=== PATIENT | female | born 1985 | race Caucasian/White ===

== ENCOUNTER 2018-04-26 10:02 | Emergency (ER) | payer OTHER, SELFPAY ==
[2018-04-26 10:09] VITALS: BP 149/98; PULSE 76; RESP 18; TEMP 36.8; O2SAT 100
--- NOTE | 2018-04-26 10:17 | ED_ITS ---
HPI - Nausea/Vomiting/Diarrhea General Chief complaint: Nausea/Vomiting/Diarrhea Stated complaint: Nausea/Vomiting Time Seen by Provider: 04/26/18 10:14 Source: patient and EMS Mode of arrival: ambulatory Limitations: no limitations History of Present Illness HPI Narrative: Patient is a 33-year-old female who presents with vomiting. She has a history of cyclic vomiting he has been worked up for it many times in the past she is usually able to control at home however today she is not. She did receive Zofran in route which has helped some. This came on all of a sudden, as it typically does. She denies any fever or chills. MD complaint: nausea, vomiting and abdominal pain Related Data Previous Rx's Medication Instructions Recorded promethazine 25 mg PO Q4-6H PRN #14 tab 04/26/18 promethazine 25 mg [place] Q6H PRN #5 each 04/26/18 Allergies Allergy/AdvReac Type Severity Reaction Status Date / Time No Known Drug Allergies Allergy Verified 04/26/18 10:13 Review of Systems Review of Systems GENERAL: Denies chills, fatigue, malaise, fever, sweats, travel HEENT: Denies sinus pain, ear pain, sore throat, difficulty swallowing, neck pain RESPIRATORY: Denies dyspnea, cough, wheezing, hemoptysis, sputum. CARDIOVASCULAR: Denies chest pain, palpitations, orthopnea, edema GASTROINTESTINAL: See HPI : Denies dysuria, frequency, incontinence, hematuria, urinary retention, flank pain. MUSCULOSKELETAL: Denies weakness, joint pain, or bony pain SKIN: No rash, no erythema, no pruritus NEUROLOGIC: Denies weakness, dizziness, headache, numbness, change in speech, confusion PSYCHIATRIC: No concerning psychosocial issues. 12 point review of systems is negative except for those stated above and HPI PFSH Medical History Cyclic vomiting syndrome (Acute) Surgical History Status post hysterectomy (Acute) Social History Smoking Status: Never smoker alcohol intake: never substance use type: does not use Exam Initial Vital Signs Initial Vital Signs: Vital Signs Temperature 98.2 F 04/26/18 10:09 Pulse Rate 76 04/26/18 10:09 Respiratory Rate 18 04/26/18 10:09 Blood Pressure 149/98 H 04/26/18 10:09 Pulse Oximetry 100 04/26/18 10:09 GENERAL: Actively dry heaving HEENT: Head atraumatic,EOMI, pupils reactive, face symmetric, dry mucous membranes CARDIOVASCULAR: Regular rate and rhythm without murmurs, rubs or gallops. RESPIRATORY: Breath sounds equal bilaterally, no wheezes rales or rhonchi. ABDOMEN: Soft, diffusely tender : No CVA tenderness EXTREMITIES: Normal range of motion, no clubbing or edema. Neurovascularly intact NEUROLOGICAL: Alert and oriented x4.Normal gait and speech. Cranial nerves II through XII grossly intact. SKIN: Warm, dry, no laceration, no petechiae, no rashes or lesions. Course Orders Ordered: Discontinued Medications Sodium Chloride (Normal Saline 0.9%) 1,000 mls @ 1,000 mls/hr IV CONT PRADEEP Last Infusion: 04/26/18 12:17 Dose: 0 mls/hr Admin: 04/26/18 10:20 Dose: 1,000 mls/hr Sodium Chloride (Normal Saline 0.9%) 1,000 mls @ 1,000 mls/hr IV BOLUS ONE Stop: 04/26/18 14:50 Last Infusion: 04/26/18 15:19 Dose: 0 mls/hr Admin: 04/26/18 13:55 Dose: 1,000 mls/hr Metoclopramide HCl (Reglan) 10 mg IV NOW ONE Stop: 04/26/18 10:22 Last Admin: 04/26/18 10:44 Dose: 10 mg Ondansetron HCl (Zofran) 4 mg IV NOW ONE Stop: 04/26/18 10:16 Last Admin: 04/26/18 10:20 Dose: 4 mg Prochlorperazine (Compazine) 10 mg IV NOW ONE Stop: 04/26/18 12:49 Last Admin: 04/26/18 13:05 Dose: 10 mg Vital Signs - 8 hr 04/26/18 10:09 Temperature 98.2 F Pulse Rate 76 Respiratory Rate 18 Blood Pressure 149/98 H Pulse Oximetry 100 MDM - Nausea/Vomiting/Diarrhea Lab Data Attestation: I reviewed the patient's lab results. Result diagrams: 04/26/18 12:28 04/26/18 12:28 Lab Results 04/26/18 04/26/18 04/26/18 Range/Units 12:28 12:28 15:25 WBC 12.0 H (4.5-11.0) X10^3/uL RBC 4.48 (4.0-5.2) X10^6/uL Hgb 12.9 (12.0-16.0) g/dL Hct 38.7 (36-46) % MCV 86.3 (80-100) fL MCH 28.8 (26-34) PG MCHC 33.4 (30-36) % RDW 12.5 (11.6-14.8) % Plt Count 306 (150-400) X10^3/uL Neut % (Auto) 91.8 H (50-75) % Lymph % (Auto) 5.6 L (25-40) % [place] % (Auto) 2.4 L (3-14) % Eos % (Auto) 0.0 L (2-4) % Baso % (Auto) 0.2 (0-2) % Neut # (Auto) 81453 H (2910-5123) /uL Sodium 145 (137-145) mmol/L Potassium 3.6 (3.4-5.1) mmol/L Chloride 107 (98-107) mmol/L Carbon Dioxide 25 (22-32) mmol/L BUN 13 (7-17) mg/dL Creatinine 0.60 (0.52-1.04) mg/dL Estimated GFR > 60.0 (>60) mL/min BUN/Creatinine Ratio 21.7 (6-22) Glucose 112 H (70-100) mg/dL Calcium 9.1 (8.4-10.2) mg/dL Total Bilirubin 0.7 (0.2-1.3) mg/dL AST 41 H (14-36) IU/L ALT 48 (9-52) IU/L Alkaline Phosphatase 60 (38-126) U/L Total Protein 7.2 (6.3-8.2) g/dL Albumin 4.5 (3.5-5.0) g/dL Globulin 2.7 (1.7-4.1) g/dL Albumin/Globulin Ratio 1.7 (1.0-2.8) Lipase 30 (23-300) U/L Urine RBC 0-1/hpf (0-5/HPF) Urine WBC 0-1/hpf (0-5/HPF) Ur Squamous Epith Cells 0-1 /hpf Urine Bacteria None seen (None) Ur Culture Indicated? Cult not indicated Micro UA Comment Not Reportable Point of Care Testing Test Results Negative Glucose POC 104 Urine Dip Bedside Urine Glucose Negative Bedside Urine Bilirubin - Negative Bedside Urine Ketone +++ 80 Urine Specific [place] 1.030 Bedside Urine Occult Blood + Bedside Urine pH 6.0 Bedside Urine Protein - Negative Bedside Urine Urobilinogen - Negative Bedside Urine Nitrite - Negative Bedside Urine Leukocytes - Negative Esterase MDM Narrative Medical decision making narrative: Patient tried keeping water and ice chips down after 1st L however she immediately started vomiting again. She was given Compazine which typically helps. And it did she was able to sleep she is keeping fluids down she overall now feeling better and wanting to go home Discharge Plan Departure Patient Disposition: Home Clinical Impression: Cyclical vomiting Discharge Date/Time: 04/26/18 16:21 Interventions: ED Discharge Assessment Last Done: 04/26/18 16:21 Instructions: DI for Cyclic Vomiting Syndrome-Child Activity Restrictions/Additional Instructions: 1) You have been diagnosed with cyclic vomiting 2) What to do: Drink frequent but small amounts of fluids. I recommend Gatorade or a Gatorade-like product, as it has small amounts of sugar and salts that improve fluid retention. 3) Take medications as directed 4) Follow up with your primary care provider in 2-3 days 5) Return to ER if you should have any new or worsening symptoms such as, unable to hold down fluids despite use of anti-nausea medications and the small volume oral rehydration strategy. Prescriptions: New promethazine 25 mg suppository 25 mg [place] Q6H PRN (Reason: nausea and vomiting) Qty: 5 RF: 0 promethazine 25 mg tablet 25 mg PO Q4-6H PRN (Reason: nausea and vomiting) Qty: 14 RF: 0
[2018-04-26] MEDS: ONDANSETRON 4 MG/2 ML INJ IV (10:20)
[2018-04-26] MEDS: SODIUM CHLORIDE 0.9% 1,000 ML 1000 ML IV ×2 (10:20→13:55)
[2018-04-26] MEDS: METOCLOPRAMIDE 10 MG/2 ML INJ IV (10:44)
[2018-04-26 12:57] LABS: Add Manual Diff / Slide Review NO; Basophils Percent Auto 0.2 % (0-2); Hematocrit 38.7 % (36-46); Hemoglobin 12.9 g/dL (12.0-16.0); Lymphocytes Percent Auto 5.6 % (25-40); Mean Corpuscular HGB Conc 33.4 % (30-36); Mean Corpuscular Hemoglobin 28.8 PG (26-34); Mean Corpuscular Volume 86.3 fL (80-100); Monocytes Percent Auto 2.4 % (3-14); Neutrophils Absolute Auto 11000 /uL (3000-5900); Neutrophils Percent Auto 91.8 % (50-75); Platelet Count 306 X10^3/uL (150-400); Red Blood Cell Count 4.48 X10^6/uL (4.0-5.2); Red Cell Distribution Width 12.5 % (11.6-14.8)
[2018-04-26] MEDS: PROCHLORPERAZINE 10 MG/2 ML VIAL IV (13:05)
[2018-04-26 13:07] LABS: Alanine Aminotransferase 48 IU/L (9-52); Albumin 4.5 g/dL (3.5-5.0); Albumin Globulin Ratio 1.7 (1.0-2.8); Alkaline Phosphatase 60 U/L (38-126); Aspartate Aminotransferase 41 IU/L (14-36); BUN Creatinine Ratio 21.7 (6-22); Bilirubin Total 0.7 mg/dL (0.2-1.3); Blood Urea Nitrogen 13 mg/dL (7-17); Calcium 9.1 mg/dL (8.4-10.2); Carbon Dioxide 25 mmol/L (22-32); Chloride 107 mmol/L (98-107); Estimated Glomerular Filt Rate > 60.0 mL/min (>60); Globulin 2.7 g/dL (1.7-4.1); Glucose 112 mg/dL (70-100); HEMOLYSIS 17 (0-50); Lipase 30 U/L (23-300); Potassium 3.6 mmol/L (3.4-5.1); Sodium 145 mmol/L (137-145); Total Protein 7.2 g/dL (6.3-8.2)
[2018-04-26 13:13] VITALS: BP 140/87; PULSE 73; RESP 18; TEMP 36.6; O2SAT 98
--- NOTE | 2018-04-26 13:24 | PC.NURSE ---
pt vomiting after small PO intake
[2018-04-26 15:36] LABS: Bacteria Urine None Seen
[2018-04-26 15:58] LABS: Culture Indicated Urine Cult Not Indicated; RBC Urine 0-1/HPF (0-5/HPF); Squamous Epithelial Cell Urine 0-1 /HPF; WBC Urine 0-1/HPF (0-5/HPF)
[2018-04-26 16:00] VITALS: BP 122/79; PULSE 71; O2SAT 97
== END 2018-04-26 16:21 | disposition home or self-care (01) ==
PROVIDERS: Emergency Provider Emergency Medicine
DX: G43.A0 Cyclical vomiting, in migraine, not intractable (principal)
CPT/HCPCS: 36415; 80053; 81003; 81015; 81025; 83690; 85025; 96361; 96374; 96375; 99283; 99284; J0780; J2405; J2765

== ENCOUNTER 2018-06-24 09:46 | Emergency (ER) | payer OTHER, SELFPAY ==
[2018-06-24 09:56] VITALS: BMI 21.6
[2018-06-24 10:54] VITALS: BP 125/89; PULSE 72; RESP 16; TEMP 38; O2SAT 98
[2018-06-24] MEDS: ONDANSETRON 4 MG/2 ML INJ IV (11:58)
[2018-06-24] MEDS: SODIUM CHLORIDE 0.9% 1,000 ML 1000 ML IV ×2 (11:59→12:47)
[2018-06-24 12:00] LABS: Add Manual Diff / Slide Review NO; Basophils Percent Auto 0.5 % (0-2); Eosinophils Percent Auto 0.2 % (2-4); Hematocrit 40.4 % (36-46); Hemoglobin 13.9 g/dL (12.0-16.0); Lymphocytes Percent Auto 20.6 % (25-40); Mean Corpuscular HGB Conc 34.5 % (30-36); Mean Corpuscular Hemoglobin 29.3 PG (26-34); Mean Corpuscular Volume 84.8 fL (80-100); Monocytes Percent Auto 7.3 % (3-14); Neutrophils Absolute Auto 6300 /uL (3000-5900); Neutrophils Percent Auto 71.4 % (50-75); Platelet Count 339 X10^3/uL (150-400); Red Blood Cell Count 4.76 X10^6/uL (4.0-5.2); Red Cell Distribution Width 12.9 % (11.6-14.8); White Blood Cell Count 8.9 X10^3/uL (4.5-11.0)
[2018-06-24 12:04] LABS: INR 1.1 (0.9-1.3); Prothrombin Time 12.1 SECONDS (10.1-12.7)
--- NOTE | 2018-06-24 12:05 | ED.NAVMDI ---
HPI - Nausea/Vomiting/Diarrhea <Dipika Briceño PA-C - Last Filed: 06/24/18 21:23> General Chief complaint: Nausea/Vomiting/Diarrhea Stated complaint: [facility] Time Seen by Provider: 06/24/18 12:05 Source: patient Mode of arrival: ambulatory Limitations: no limitations History of Present Illness HPI Narrative: This 33-year-old female who has a history of cyclic vomiting syndrome comes to ED due to persistent vomiting and abdominal pain. She states that vomiting started about 11 30 on Sunday night, and she was vomiting about every 0.5 hr consistently. Her usual home medications were not helping. She states that her took her to another local ED about 10:00 a.m. yesterday. She states that she had been vomiting some bright red blood in her vomitus at that point. She states that she also had a grand mal seizure on route in the ambulance. She states that she was treated with IV fluids and Haldol, and seemed better briefly, but then she started vomiting again on her way home. She has tried her usual measures but vomiting still has not resolved. She denies any new foods or possible exposures. She has not had any diarrhea, no bowel movement in the last 2 days. She states that she did vomit some darker blood mixed with her ascitic vomitus today. She states that she has more left-sided lower pain than usual with her cyclic vomiting syndrome. She states that she also has some pain in her chest for the last couple of days, not constant. She notices a pressure for some time after she vomits. She denies dyspnea. She denies any new pain or swelling in her lower extremities. She has noted some tingling in her left hand finger tips recently that can radiate up into her arm. She describes it as a pins and needle sensation. Nothing new today. No other new symptoms on systems review such as dysuria, frequency, or urgency. She was exposed to a niece with croup few days prior but has not had any upper respiratory symptoms Related Data Home Medications Medication Instructions Recorded Confirmed cyclobenzaprine 10 mg PO DAILY PRN 06/24/18 06/24/18 fluoxetine 20 mg PO DAILY 06/24/18 06/24/18 Previous Rx's Medication Instructions Recorded promethazine 25 mg PO Q4-6H PRN #14 tab 04/26/18 promethazine 25 mg [place] Q6H PRN #5 each 04/26/18 Allergies Allergy/AdvReac Type Severity Reaction Status Date / Time Iodinated Contrast- Oral and AdvReac Severe Difficulty Verified 06/25/18 07:50 IV Dye Breathing Review of Systems <Dipika Briceño PA-C - Last Filed: 06/24/18 21:23> Review of Systems All systems reviewed & are unremarkable except as noted in HPI and below Exam <Dipika Briceño PA-C - Last Filed: 06/24/18 21:23> Narrative Exam Narrative: GENERAL APPEARANCE: Patient sitting comfortably, in no distress. HEENT: PERRL, EOMI, no scleral icterus, conjunctivae pink NECK: Supple LUNGS: Clear to auscultation bilaterally. CHEST: Generalized TTP over the sternum and parasternal areas HEART: Rate and rhythm regular, normal S1 and S2, no S3 or S4. ABDOMEN: Soft, nondistended, bowel sounds present x 4 quadrants, no masses palpable, no hepatosplenomegaly. Generalized tenderness, more over the lower quadrants and most pronounced on the left side with some guarding, no rebound EXTREMITIES: No edema, no calf tenderness DERMATOLOGIC: No jaundice or exanthem NEUROLOGIC: Alert and oriented with normal speech and coordination Initial Vital Signs Initial Vital Signs: Vital Signs Temperature 100.4 F H 06/24/18 10:54 Pulse Rate 72 06/24/18 10:54 Respiratory Rate 16 06/24/18 10:54 Blood Pressure 125/89 06/24/18 10:54 Pulse Oximetry 98 06/24/18 10:54 <Sussy Honeycutt DO - Last Filed: 06/25/18 07:57> Initial Vital Signs Initial Vital Signs: Vital Signs Temperature 100.4 F H 06/24/18 10:54 Pulse Rate 72 06/24/18 10:54 Respiratory Rate 16 06/24/18 10:54 Blood Pressure 125/89 06/24/18 10:54 Pulse Oximetry 98 06/24/18 10:54 Course <CANDIDO Sims Last Filed: 06/24/18 21:23> Additional Information: Further workup was done as patient presented with a mild fever, felt like the left-sided pain was somewhat atypical of her pain with cyclic vomiting. Findings reviewed, patient has not had recurrent vomiting during her stay. Patient is feeling markedly improved prior to discharge in terms of nausea and pain. She is up, able to tolerate fluids and crackers and feels like she will be able to rest comfortably at home. Orders Ordered: Discontinued Medications Diphenhydramine HCl (Benadryl) 50 mg IV NOW ONE Stop: 06/24/18 13:07 Last Admin: 06/24/18 13:08 Dose: 50 mg Hydromorphone HCl (Dilaudid) 0.5 mg IV NOW ONE Stop: 06/24/18 12:39 Last Admin: 06/24/18 12:46 Dose: 0.5 mg Sodium Chloride (Normal Saline 0.9%) 1,000 mls @ 1,000 mls/hr IV BOLUS ONE Stop: 06/24/18 12:32 Last Infusion: 06/24/18 12:47 Dose: 0 mls/hr Admin: 06/24/18 11:59 Dose: 1,000 mls/hr Sodium Chloride (Normal Saline 0.9%) 1,000 mls @ 1,000 mls/hr IV BOLUS ONE Stop: 06/24/18 13:19 Last Admin: 06/24/18 12:47 Dose: 1,000 mls/hr Methylprednisolone (Solu-Medrol 125 Mg Vial) 125 mg IV NOW ONE Stop: 06/24/18 13:08 Last Admin: 06/24/18 13:08 Dose: 125 mg Ondansetron HCl (Zofran) 4 mg IV NOW ONE Stop: 06/24/18 11:34 Last Admin: 06/24/18 11:58 Dose: 4 mg Pantoprazole Sodium (Protonix) 40 mg IV NOW ONE Stop: 06/24/18 12:21 Last Admin: 06/24/18 12:46 Dose: 40 mg Vital Signs - 8 hr 06/24/18 13:32 06/24/18 15:25 Temperature 98.6 F Pulse Rate 78 68 Respiratory Rate 18 18 Blood Pressure 115/80 Blood Pressure [Left Arm] 121/79 Pulse Oximetry 98 100 <Sussy Honeycutt DO - Last Filed: 06/25/18 07:57> Orders Ordered: Discontinued Medications Diphenhydramine HCl (Benadryl) 50 mg IV NOW ONE Stop: 06/24/18 13:07 Last Admin: 06/24/18 13:08 Dose: 50 mg Hydromorphone HCl (Dilaudid) 0.5 mg IV NOW ONE Stop: 06/24/18 12:39 Last Admin: 06/24/18 12:46 Dose: 0.5 mg Sodium Chloride (Normal Saline 0.9%) 1,000 mls @ 1,000 mls/hr IV BOLUS ONE Stop: 06/24/18 12:32 Last Infusion: 06/24/18 12:47 Dose: 0 mls/hr Admin: 06/24/18 11:59 Dose: 1,000 mls/hr Sodium Chloride (Normal Saline 0.9%) 1,000 mls @ 1,000 mls/hr IV BOLUS ONE Stop: 06/24/18 13:19 Last Admin: 06/24/18 12:47 Dose: 1,000 mls/hr Methylprednisolone (Solu-Medrol 125 Mg Vial) 125 mg IV NOW ONE Stop: 06/24/18 13:08 Last Admin: 06/24/18 13:08 Dose: 125 mg Ondansetron HCl (Zofran) 4 mg IV NOW ONE Stop: 06/24/18 11:34 Last Admin: 06/24/18 11:58 Dose: 4 mg Pantoprazole Sodium (Protonix) 40 mg IV NOW ONE Stop: 06/24/18 12:21 Last Admin: 06/24/18 12:46 Dose: 40 mg Vital Signs - 8 hr 06/24/18 13:32 06/24/18 15:25 Temperature 98.6 F Pulse Rate 78 68 Respiratory Rate 18 18 Blood Pressure 115/80 Blood Pressure [Left Arm] 121/79 Pulse Oximetry 98 100 MDM - Nausea/Vomiting/Diarrhea <Dipika Briceoñ PA-C - Last Filed: 06/24/18 21:23> Lab Data Attestation: I reviewed the patient's lab results. Result diagrams: 06/24/18 11:45 06/24/18 11:45 Lab Results 06/24/18 06/24/18 06/24/18 Range/Units 11:45 11:45 11:45 WBC 8.9 (4.5-11.0) X10^3/uL RBC 4.76 (4.0-5.2) X10^6/uL Hgb 13.9 (12.0-16.0) g/dL Hct 40.4 (36-46) % MCV 84.8 (80-100) fL MCH 29.3 (26-34) PG MCHC 34.5 (30-36) % RDW 12.9 (11.6-14.8) % Plt Count 339 (150-400) X10^3/uL Neut % (Auto) 71.4 (50-75) % Lymph % (Auto) 20.6 L (25-40) % [place] % (Auto) 7.3 (3-14) % Eos % (Auto) 0.2 L (2-4) % Baso % (Auto) 0.5 (0-2) % Neut # (Auto) 6300 H (7476-3347) /uL PT 12.1 (10.1-12.7) SECONDS INR 1.1 (0.9-1.3) APTT 30 (26.4-36.2) SECONDS Sodium 139 (137-145) mmol/L Potassium 3.4 (3.4-5.1) mmol/L Chloride 95 L (98-107) mmol/L Carbon Dioxide 30 (22-32) mmol/L BUN 11 (7-17) mg/dL Creatinine 0.60 (0.52-1.04) mg/dL Estimated GFR > 60.0 (>60) mL/min BUN/Creatinine Ratio 18.3 (6-22) Glucose 111 H (70-100) mg/dL Lactate (0.7-2.1) mmol/L Calcium 9.8 (8.4-10.2) mg/dL Total Bilirubin 0.7 (0.2-1.3) mg/dL AST 26 (14-36) IU/L ALT 37 (9-52) IU/L Alkaline Phosphatase 66 (38-126) U/L Total Protein 7.8 (6.3-8.2) g/dL Albumin 5.0 (3.5-5.0) g/dL Globulin 2.8 (1.7-4.1) g/dL Albumin/Globulin Ratio 1.8 (1.0-2.8) Lipase 43 (23-300) U/L Urine RBC (0-5/HPF) Urine WBC (0-5/HPF) Amorphous Sediment Urine Bacteria (None) Ur Culture Indicated? Micro UA Comment 11/26/18 11/26/18 Range/Units 11:45 13:21 WBC (4.5-11.0) X10^3/uL RBC (4.0-5.2) X10^6/uL Hgb (12.0-16.0) g/dL Hct (36-46) % MCV (80-100) fL MCH (26-34) PG MCHC (30-36) % RDW (11.6-14.8) % Plt Count (150-400) X10^3/uL Neut % (Auto) (50-75) % Lymph % (Auto) (25-40) % [place] % (Auto) (3-14) % Eos % (Auto) (2-4) % Baso % (Auto) (0-2) % Neut # (Auto) (7194-5785) /uL PT (10.1-12.7) SECONDS INR (0.9-1.3) APTT (26.4-36.2) SECONDS Sodium (137-145) mmol/L Potassium (3.4-5.1) mmol/L Chloride (98-107) mmol/L Carbon Dioxide (22-32) mmol/L BUN (7-17) mg/dL Creatinine (0.52-1.04) mg/dL Estimated GFR (>60) mL/min BUN/Creatinine Ratio (6-22) Glucose (70-100) mg/dL Lactate 0.9 (0.7-2.1) mmol/L Calcium (8.4-10.2) mg/dL Total Bilirubin (0.2-1.3) mg/dL AST (14-36) IU/L ALT (9-52) IU/L Alkaline Phosphatase (38-126) U/L Total Protein (6.3-8.2) g/dL Albumin (3.5-5.0) g/dL Globulin (1.7-4.1) g/dL Albumin/Globulin Ratio (1.0-2.8) Lipase (23-300) U/L Urine RBC 1-5/hpf (0-5/HPF) Urine WBC None seen (0-5/HPF) Amorphous Sediment 1+ Urine Bacteria None seen (None) Ur Culture Indicated? Cult not indicated Micro UA Comment Not Reportable Urine Dip Bedside Urine Glucose Negative Bedside Urine Bilirubin - Negative Bedside Urine Ketone +/- 5 Urine Specific [place] 1.010 Bedside Urine Occult Blood + Bedside Urine pH 7.5 Bedside Urine Protein - Negative Bedside Urine Urobilinogen - Negative Bedside Urine Nitrite - Negative Bedside Urine Leukocytes - Negative Esterase Imaging Data CT scan - abdomen: Radiologist's impression: [address] [address] [address] Scan Report Signed Patient: Karely Dalal [facility]#: [id number] : 1985Acct:[id number] Age/Sex: 33 / FDate of Service: 06/24/18 Loc: ED Accession Number: [id number] Procedure: CT abdomen pelvis w con Ordering Provider: Dipika Briceño P.A-C PROCEDURE: CT ABDOMEN PELVIS W CON INDICATIONS: Vomiting, fever, LLQ pain TECHNIQUE: After the administration of intravenous contrast, 5 mm thick sections acquired from the diaphragm to the symphysis. 5 mm coronal and sagittal reformats were acquired. For radiation dose reduction, the following was used: automated exposure control, adjustment of mA and/or kV according to patient size. COMPARISON: [facility], CT, ABDOMEN/PELVIS WITH CONTRAST, 02/20/2017, 16:51. [facility], US, ABDOMEN COMPLETE, 07/31/2017, 10:18. [facility], CT, ABDOMEN/PELVIS WITH CONTRAST, 04/11/2017, 9:24. FINDINGS: Image quality: Excellent. ABDOMEN: Lung bases: Lung bases are clear. Heart size is normal. Solid organs: Liver is normal in size and enhancement. Gallbladder wall does not appear thickened. Biliary system is non dilated. Pancreas enhances normally. Spleen is normal in size and enhancement. No adrenal nodules. Kidneys demonstrate normal size and enhancement, without hydronephrosis. Peritoneum and bowel: In this patient with this given history, scrutiny is given to the left lower quadrant. No focal left lower quadrant inflammatory changes are seen. No sigmoid bowel wall thickening can be seen. Bowel loops demonstrate normal wall thickness and caliber. No free fluid or air. Incidental note is made of a normal-appearing appendix. Nodes and vessels: No retroperitoneal or mesenteric adenopathy by size criteria. Aorta and inferior vena cava are normal in size. Miscellaneous: A mild periumbilical hernia is seen, containing fat. PELVIS: Genitourinary: Bladder wall thickness is normal. Miscellaneous: No inguinal hernias or adenopathy. Bones: No suspicious bony lesions. No vertebral body compression fractures. IMPRESSION: No imaging explanation is found for this patient's presenting history of left lower quadrant pain. No sigmoid abnormality can be seen. Incidental note is made of: Normal appendix Small fat containing periumbilical hernia ECG Data Attestation: I personally reviewed and interpreted this ECG as follows: (Sinus rhythm with rate 84, normal axis) Prior ECG tracings: not available for review <Sussy Honeycutt, DO - Last Filed: 06/25/18 07:57> Lab Data Lab Results 06/24/18 06/24/18 06/24/18 Range/Units 11:45 11:45 11:45 WBC 8.9 (4.5-11.0) X10^3/uL RBC 4.76 (4.0-5.2) X10^6/uL Hgb 13.9 (12.0-16.0) g/dL Hct 40.4 (36-46) % MCV 84.8 (80-100) fL MCH 29.3 (26-34) PG MCHC 34.5 (30-36) % RDW 12.9 (11.6-14.8) % Plt Count 339 (150-400) X10^3/uL Neut % (Auto) 71.4 (50-75) % Lymph % (Auto) 20.6 L (25-40) % [place] % (Auto) 7.3 (3-14) % Eos % (Auto) 0.2 L (2-4) % Baso % (Auto) 0.5 (0-2) % Neut # (Auto) 6300 H (1229-7824) /uL PT 12.1 (10.1-12.7) SECONDS INR 1.1 (0.9-1.3) APTT 30 (26.4-36.2) SECONDS Sodium 139 (137-145) mmol/L Potassium 3.4 (3.4-5.1) mmol/L Chloride 95 L (98-107) mmol/L Carbon Dioxide 30 (22-32) mmol/L BUN 11 (7-17) mg/dL Creatinine 0.60 (0.52-1.04) mg/dL Estimated GFR > 60.0 (>60) mL/min BUN/Creatinine Ratio 18.3 (6-22) Glucose 111 H (70-100) mg/dL Lactate (0.7-2.1) mmol/L Calcium 9.8 (8.4-10.2) mg/dL Total Bilirubin 0.7 (0.2-1.3) mg/dL AST 26 (14-36) IU/L ALT 37 (9-52) IU/L Alkaline Phosphatase 66 (38-126) U/L Total Protein 7.8 (6.3-8.2) g/dL Albumin 5.0 (3.5-5.0) g/dL Globulin 2.8 (1.7-4.1) g/dL Albumin/Globulin Ratio 1.8 (1.0-2.8) Lipase 43 (23-300) U/L Urine RBC (0-5/HPF) Urine WBC (0-5/HPF) Amorphous Sediment Urine Bacteria (None) Ur Culture Indicated? Micro UA Comment 06/24/18 06/24/18 Range/Units 11:45 13:21 WBC (4.5-11.0) X10^3/uL RBC (4.0-5.2) X10^6/uL Hgb (12.0-16.0) g/dL Hct (36-46) % MCV (80-100) fL MCH (26-34) PG MCHC (30-36) % RDW (11.6-14.8) % Plt Count (150-400) X10^3/uL Neut % (Auto) (50-75) % Lymph % (Auto) (25-40) % [place] % (Auto) (3-14) % Eos % (Auto) (2-4) % Baso % (Auto) (0-2) % Neut # (Auto) (4770-4151) /uL PT (10.1-12.7) SECONDS INR (0.9-1.3) APTT (26.4-36.2) SECONDS Sodium (137-145) mmol/L Potassium (3.4-5.1) mmol/L Chloride (98-107) mmol/L Carbon Dioxide (22-32) mmol/L BUN (7-17) mg/dL Creatinine (0.52-1.04) mg/dL Estimated GFR (>60) mL/min BUN/Creatinine Ratio (6-22) Glucose (70-100) mg/dL Lactate 0.9 (0.7-2.1) mmol/L Calcium (8.4-10.2) mg/dL Total Bilirubin (0.2-1.3) mg/dL AST (14-36) IU/L ALT (9-52) IU/L Alkaline Phosphatase (38-126) U/L Total Protein (6.3-8.2) g/dL Albumin (3.5-5.0) g/dL Globulin (1.7-4.1) g/dL Albumin/Globulin Ratio (1.0-2.8) Lipase (23-300) U/L Urine RBC 1-5/hpf (0-5/HPF) Urine WBC None seen (0-5/HPF) Amorphous Sediment 1+ Urine Bacteria None seen (None) Ur Culture Indicated? Cult not indicated Micro UA Comment Not Reportable Urine Dip Bedside Urine Glucose Negative Bedside Urine Bilirubin - Negative Bedside Urine Ketone +/- 5 Urine Specific [place] 1.010 Bedside Urine Occult Blood + Bedside Urine pH 7.5 Bedside Urine Protein - Negative Bedside Urine Urobilinogen - Negative Bedside Urine Nitrite - Negative Bedside Urine Leukocytes - Negative Esterase Discharge Plan Departure Patient Disposition: Home Clinical Impression: Cyclical vomiting Discharge Date/Time: 06/24/18 15:26 Interventions: ED Discharge Assessment Last Done: 06/24/18 15:25 Instructions: DI for Vomiting -- Adult Activity Restrictions/Additional Instructions: Please return if you have acutely worsening symptoms again as we talked about. Otherwise, please rest at home, drink clear fluids as you tolerate and use your usual nausea and pain medicine as needed. You should follow up with your PCP in a few days for recheck. Your lab work and CT scan today did not show any new problems, so it is likely that this pain and vomiting is related to your cyclic vomiting syndrome. Prescriptions: No Action promethazine 25 mg suppository 25 mg [place] Q6H PRN (Reason: nausea and vomiting) Qty: 5 RF: 0 promethazine 25 mg tablet 25 mg PO Q4-6H PRN (Reason: nausea and vomiting) Qty: 14 RF: 0 cyclobenzaprine 10 mg tablet 10 mg PO DAILY PRN (Reason: Spasms) RF: 0 fluoxetine 20 mg capsule 20 mg PO DAILY RF: 0 Referrals: Jennifer Marlow PA-C [Other] <Sussy Honeycutt, - Last Filed: 06/25/18 07:57> Cosign ED Attending Cosignature Attestation: I was immediately available in the department for consultation. Documentation has been reviewed. I agree with assessment and plan.
[2018-06-24 12:07] LABS: PTT Partial Thromboplastin Tim 30 SECONDS (26.4-36.2)
--- NOTE | 2018-06-24 12:08 | ED_ITS ---
HPI - Nausea/Vomiting/Diarrhea <Dipika Briceño PA-C - Last Filed: 06/24/18 21:23> General Chief complaint: Nausea/Vomiting/Diarrhea Stated complaint: [facility] Time Seen by Provider: 06/24/18 12:05 Source: patient Mode of arrival: ambulatory Limitations: no limitations History of Present Illness HPI Narrative: This 33-year-old female who has a history of cyclic vomiting syndrome comes to ED due to persistent vomiting and abdominal pain. She states that vomiting started about 11 30 on Sunday night, and she was vomiting about every 0.5 hr consistently. Her usual home medications were not helping. She states that her took her to another local ED about 10:00 a.m. yesterday. She states that she had been vomiting some bright red blood in her vomitus at that point. She states that she also had a grand mal seizure on route in the ambulance. She states that she was treated with IV fluids and Haldol, and seemed better briefly, but then she started vomiting again on her way home. She has tried her usual measures but vomiting still has not resolved. She denies any new foods or possible exposures. She has not had any diarrhea, no bowel movement in the last 2 days. She states that she did vomit some darker blood mixed with her ascitic vomitus today. She states that she has more left- sided lower pain than usual with her cyclic vomiting syndrome. She states that she also has some pain in her chest for the last couple of days, not constant. She notices a pressure for some time after she vomits. She denies dyspnea. She denies any new pain or swelling in her lower extremities. She has noted some tingling in her left hand finger tips recently that can radiate up into her arm. She describes it as a pins and needle sensation. Nothing new today. No other new symptoms on systems review such as dysuria, frequency, or urgency. She was exposed to a niece with croup few days prior but has not had any upper respiratory symptoms Related Data Home Medications Medication Instructions Recorded Confirmed cyclobenzaprine 10 mg PO DAILY PRN 06/24/18 06/24/18 fluoxetine 20 mg PO DAILY 06/24/18 06/24/18 Previous Rx's Medication Instructions Recorded promethazine 25 mg PO Q4-6H PRN #14 tab 04/26/18 promethazine 25 mg MI Q6H PRN #5 each 04/26/18 Allergies Allergy/AdvReac Type Severity Reaction Status Date / Time Iodinated Contrast- Oral and AdvReac Severe Difficulty Verified 06/25/18 07:50 IV Dye Breathing Review of Systems <Dipika Briceño PA-C - Last Filed: 06/24/18 21:23> Review of Systems All systems reviewed & are unremarkable except as noted in HPI and below Exam <Dipika Briceño PA-C - Last Filed: 06/24/18 21:23> Narrative Exam Narrative: GENERAL APPEARANCE: Patient sitting comfortably, in no distress. HEENT: PERRL, EOMI, no scleral icterus, conjunctivae pink NECK: Supple LUNGS: Clear to auscultation bilaterally. CHEST: Generalized TTP over the sternum and parasternal areas HEART: Rate and rhythm regular, normal S1 and S2, no S3 or S4. ABDOMEN: Soft, nondistended, bowel sounds present x 4 quadrants, no masses palpable, no hepatosplenomegaly. Generalized tenderness, more over the lower quadrants and most pronounced on the left side with some guarding, no rebound EXTREMITIES: No edema, no calf tenderness DERMATOLOGIC: No jaundice or exanthem NEUROLOGIC: Alert and oriented with normal speech and coordination Initial Vital Signs Initial Vital Signs: Vital Signs Temperature 100.4 F H 06/24/18 10:54 Pulse Rate 72 06/24/18 10:54 Respiratory Rate 16 06/24/18 10:54 Blood Pressure 125/89 06/24/18 10:54 Pulse Oximetry 98 06/24/18 10:54 <Sussy Honeycutt DO - Last Filed: 06/25/18 07:57> Initial Vital Signs Initial Vital Signs: Vital Signs Temperature 100.4 F H 06/24/18 10:54 Pulse Rate 72 06/24/18 10:54 Respiratory Rate 16 06/24/18 10:54 Blood Pressure 125/89 06/24/18 10:54 Pulse Oximetry 98 06/24/18 10:54 Course <CANDIDO Sims Last Filed: 06/24/18 21:23> Additional Information: Further workup was done as patient presented with a mild fever, felt like the left-sided pain was somewhat atypical of her pain with cyclic vomiting. Findings reviewed, patient has not had recurrent vomiting during her stay. Patient is feeling markedly improved prior to discharge in terms of nausea and pain. She is up, able to tolerate fluids and crackers and feels like she will be able to rest comfortably at home. Orders Ordered: Discontinued Medications Diphenhydramine HCl (Benadryl) 50 mg IV NOW ONE Stop: 06/24/18 13:07 Last Admin: 06/24/18 13:08 Dose: 50 mg Hydromorphone HCl (Dilaudid) 0.5 mg IV NOW ONE Stop: 06/24/18 12:39 Last Admin: 06/24/18 12:46 Dose: 0.5 mg Sodium Chloride (Normal Saline 0.9%) 1,000 mls @ 1,000 mls/hr IV BOLUS ONE Stop: 06/24/18 12:32 Last Infusion: 06/24/18 12:47 Dose: 0 mls/hr Admin: 06/24/18 11:59 Dose: 1,000 mls/hr Sodium Chloride (Normal Saline 0.9%) 1,000 mls @ 1,000 mls/hr IV BOLUS ONE Stop: 06/24/18 13:19 Last Admin: 06/24/18 12:47 Dose: 1,000 mls/hr Methylprednisolone (Solu-Medrol 125 Mg Vial) 125 mg IV NOW ONE Stop: 06/24/18 13:08 Last Admin: 06/24/18 13:08 Dose: 125 mg Ondansetron HCl (Zofran) 4 mg IV NOW ONE Stop: 06/24/18 11:34 Last Admin: 06/24/18 11:58 Dose: 4 mg Pantoprazole Sodium (Protonix) 40 mg IV NOW ONE Stop: 06/24/18 12:21 Last Admin: 06/24/18 12:46 Dose: 40 mg Vital Signs - 8 hr 06/24/18 13:32 06/24/18 15:25 Temperature 98.6 F Pulse Rate 78 68 Respiratory Rate 18 18 Blood Pressure 115/80 Blood Pressure [Left Arm] 121/79 Pulse Oximetry 98 100 <Sussy Honeycutt DO - Last Filed: 06/25/18 07:57> Orders Ordered: Discontinued Medications Diphenhydramine HCl (Benadryl) 50 mg IV NOW ONE Stop: 06/24/18 13:07 Last Admin: 06/24/18 13:08 Dose: 50 mg Hydromorphone HCl (Dilaudid) 0.5 mg IV NOW ONE Stop: 06/24/18 12:39 Last Admin: 06/24/18 12:46 Dose: 0.5 mg Sodium Chloride (Normal Saline 0.9%) 1,000 mls @ 1,000 mls/hr IV BOLUS ONE Stop: 06/24/18 12:32 Last Infusion: 06/24/18 12:47 Dose: 0 mls/hr Admin: 06/24/18 11:59 Dose: 1,000 mls/hr Sodium Chloride (Normal Saline 0.9%) 1,000 mls @ 1,000 mls/hr IV BOLUS ONE Stop: 06/24/18 13:19 Last Admin: 06/24/18 12:47 Dose: 1,000 mls/hr Methylprednisolone (Solu-Medrol 125 Mg Vial) 125 mg IV NOW ONE Stop: 06/24/18 13:08 Last Admin: 06/24/18 13:08 Dose: 125 mg Ondansetron HCl (Zofran) 4 mg IV NOW ONE Stop: 06/24/18 11:34 Last Admin: 06/24/18 11:58 Dose: 4 mg Pantoprazole Sodium (Protonix) 40 mg IV NOW ONE Stop: 06/24/18 12:21 Last Admin: 06/24/18 12:46 Dose: 40 mg Vital Signs - 8 hr 06/24/18 13:32 06/24/18 15:25 Temperature 98.6 F Pulse Rate 78 68 Respiratory Rate 18 18 Blood Pressure 115/80 Blood Pressure [Left Arm] 121/79 Pulse Oximetry 98 100 MDM - Nausea/Vomiting/Diarrhea <Dipika Briceño PA-C - Last Filed: 06/24/18 21:23> Lab Data Attestation: I reviewed the patient's lab results. Result diagrams: 06/24/18 11:45 06/24/18 11:45 Lab Results 06/24/18 06/24/18 06/24/18 Range/Units 11:45 11:45 11:45 WBC 8.9 (4.5-11.0) X10^3/uL RBC 4.76 (4.0-5.2) X10^6/uL Hgb 13.9 (12.0-16.0) g/dL Hct 40.4 (36-46) % MCV 84.8 (80-100) fL MCH 29.3 (26-34) PG MCHC 34.5 (30-36) % RDW 12.9 (11.6-14.8) % Plt Count 339 (150-400) X10^3/uL Neut % (Auto) 71.4 (50-75) % Lymph % (Auto) 20.6 L (25-40) % [place] % (Auto) 7.3 (3-14) % Eos % (Auto) 0.2 L (2-4) % Baso % (Auto) 0.5 (0-2) % Neut # (Auto) 6300 H (3717-3859) /uL PT 12.1 (10.1-12.7) SECONDS INR 1.1 (0.9-1.3) APTT 30 (26.4-36.2) SECONDS Sodium 139 (137-145) mmol/L Potassium 3.4 (3.4-5.1) mmol/L Chloride 95 L (98-107) mmol/L Carbon Dioxide 30 (22-32) mmol/L BUN 11 (7-17) mg/dL Creatinine 0.60 (0.52-1.04) mg/dL Estimated GFR > 60.0 (>60) mL/min BUN/Creatinine Ratio 18.3 (6-22) Glucose 111 H (70-100) mg/dL Lactate (0.7-2.1) mmol/L Calcium 9.8 (8.4-10.2) mg/dL Total Bilirubin 0.7 (0.2-1.3) mg/dL AST 26 (14-36) IU/L ALT 37 (9-52) IU/L Alkaline Phosphatase 66 (38-126) U/L Total Protein 7.8 (6.3-8.2) g/dL Albumin 5.0 (3.5-5.0) g/dL Globulin 2.8 (1.7-4.1) g/dL Albumin/Globulin Ratio 1.8 (1.0-2.8) Lipase 43 (23-300) U/L Urine RBC (0-5/HPF) Urine WBC (0-5/HPF) Amorphous Sediment Urine Bacteria (None) Ur Culture Indicated? Micro UA Comment 11/26/18 11/26/18 Range/Units 11:45 13:21 WBC (4.5-11.0) X10^3/uL RBC (4.0-5.2) X10^6/uL Hgb (12.0-16.0) g/dL Hct (36-46) % MCV (80-100) fL MCH (26-34) PG MCHC (30-36) % RDW (11.6-14.8) % Plt Count (150-400) X10^3/uL Neut % (Auto) (50-75) % Lymph % (Auto) (25-40) % [place] % (Auto) (3-14) % Eos % (Auto) (2-4) % Baso % (Auto) (0-2) % Neut # (Auto) (8828-5277) /uL PT (10.1-12.7) SECONDS INR (0.9-1.3) APTT (26.4-36.2) SECONDS Sodium (137-145) mmol/L Potassium (3.4-5.1) mmol/L Chloride (98-107) mmol/L Carbon Dioxide (22-32) mmol/L BUN (7-17) mg/dL Creatinine (0.52-1.04) mg/dL Estimated GFR (>60) mL/min BUN/Creatinine Ratio (6-22) Glucose (70-100) mg/dL Lactate 0.9 (0.7-2.1) mmol/L Calcium (8.4-10.2) mg/dL Total Bilirubin (0.2-1.3) mg/dL AST (14-36) IU/L ALT (9-52) IU/L Alkaline Phosphatase (38-126) U/L Total Protein (6.3-8.2) g/dL Albumin (3.5-5.0) g/dL Globulin (1.7-4.1) g/dL Albumin/Globulin Ratio (1.0-2.8) Lipase (23-300) U/L Urine RBC 1-5/hpf (0-5/HPF) Urine WBC None seen (0-5/HPF) Amorphous Sediment 1+ Urine Bacteria None seen (None) Ur Culture Indicated? Cult not indicated Micro UA Comment Not Reportable Urine Dip Bedside Urine Glucose Negative Bedside Urine Bilirubin - Negative Bedside Urine Ketone +/- 5 Urine Specific [place] 1.010 Bedside Urine Occult Blood + Bedside Urine pH 7.5 Bedside Urine Protein - Negative Bedside Urine Urobilinogen - Negative Bedside Urine Nitrite - Negative Bedside Urine Leukocytes - Negative Esterase Imaging Data CT scan - abdomen: Radiologist's impression: [address] [address] [address] Scan Report Signed Patient: Karely Dalal [facility]#: [id number] : 1985Acct:[id number] Age/Sex: 33 / FDate of Service: 06/24/18 Loc: ED Accession Number: [id number] Procedure: CT abdomen pelvis w con Ordering Provider: Dipika Briceño P.A-C PROCEDURE: CT ABDOMEN PELVIS W CON INDICATIONS: Vomiting, fever, LLQ pain TECHNIQUE: After the administration of intravenous contrast, 5 mm thick sections acquired from the diaphragm to the symphysis. 5 mm coronal and sagittal reformats were acquired. For radiation dose reduction, the following was used: automated exposure control, adjustment of mA and/or kV according to patient size. COMPARISON: [facility], CT, ABDOMEN/PELVIS WITH CONTRAST, 02/20/2017, 16: 51. [facility], [place], ABDOMEN COMPLETE, 07/31/2017, 10:18. [facility], CT, ABDOMEN/ PELVIS WITH CONTRAST, 04/11/2017, 9:24. FINDINGS: Image quality: Excellent. ABDOMEN: Lung bases: Lung bases are clear. Heart size is normal. Solid organs: Liver is normal in size and enhancement. Gallbladder wall does not appear thickened. Biliary system is non dilated. Pancreas enhances normally. Spleen is normal in size and enhancement. No adrenal nodules. Kidneys demonstrate normal size and enhancement, without hydronephrosis. Peritoneum and bowel: In this patient with this given history, scrutiny is given to the left lower quadrant. No focal left lower quadrant inflammatory changes are seen. No sigmoid bowel wall thickening can be seen. Bowel loops demonstrate normal wall thickness and caliber. No free fluid or air. Incidental note is made of a normal- appearing appendix. Nodes and vessels: No retroperitoneal or mesenteric adenopathy by size criteria. Aorta and inferior vena cava are normal in size. Miscellaneous: A mild periumbilical hernia is seen, containing fat. PELVIS: Genitourinary: Bladder wall thickness is normal. Miscellaneous: No inguinal hernias or adenopathy. Bones: No suspicious bony lesions. No vertebral body compression fractures. IMPRESSION: No imaging explanation is found for this patient's presenting history of left lower quadrant pain. No sigmoid abnormality can be seen. Incidental note is made of: Normal appendix Small fat containing periumbilical hernia ECG Data Attestation: I personally reviewed and interpreted this ECG as follows: (Sinus rhythm with rate 84, normal axis) Prior ECG tracings: not available for review <Sussy Honeycutt, DO - Last Filed: 06/25/18 07:57> Lab Data Lab Results 06/24/18 06/24/18 06/24/18 Range/Units 11:45 11:45 11:45 WBC 8.9 (4.5-11.0) X10^3/uL RBC 4.76 (4.0-5.2) X10^6/uL Hgb 13.9 (12.0-16.0) g/dL Hct 40.4 (36-46) % MCV 84.8 (80-100) fL MCH 29.3 (26-34) PG MCHC 34.5 (30-36) % RDW 12.9 (11.6-14.8) % Plt Count 339 (150-400) X10^3/uL Neut % (Auto) 71.4 (50-75) % Lymph % (Auto) 20.6 L (25-40) % [place] % (Auto) 7.3 (3-14) % Eos % (Auto) 0.2 L (2-4) % Baso % (Auto) 0.5 (0-2) % Neut # (Auto) 6300 H (1911-4318) /uL PT 12.1 (10.1-12.7) SECONDS INR 1.1 (0.9-1.3) APTT 30 (26.4-36.2) SECONDS Sodium 139 (137-145) mmol/L Potassium 3.4 (3.4-5.1) mmol/L Chloride 95 L (98-107) mmol/L Carbon Dioxide 30 (22-32) mmol/L BUN 11 (7-17) mg/dL Creatinine 0.60 (0.52-1.04) mg/dL Estimated GFR > 60.0 (>60) mL/min BUN/Creatinine Ratio 18.3 (6-22) Glucose 111 H (70-100) mg/dL Lactate (0.7-2.1) mmol/L Calcium 9.8 (8.4-10.2) mg/dL Total Bilirubin 0.7 (0.2-1.3) mg/dL AST 26 (14-36) IU/L ALT 37 (9-52) IU/L Alkaline Phosphatase 66 (38-126) U/L Total Protein 7.8 (6.3-8.2) g/dL Albumin 5.0 (3.5-5.0) g/dL Globulin 2.8 (1.7-4.1) g/dL Albumin/Globulin Ratio 1.8 (1.0-2.8) Lipase 43 (23-300) U/L Urine RBC (0-5/HPF) Urine WBC (0-5/HPF) Amorphous Sediment Urine Bacteria (None) Ur Culture Indicated? Micro UA Comment 06/24/18 06/24/18 Range/Units 11:45 13:21 WBC (4.5-11.0) X10^3/uL RBC (4.0-5.2) X10^6/uL Hgb (12.0-16.0) g/dL Hct (36-46) % MCV (80-100) fL MCH (26-34) PG MCHC (30-36) % RDW (11.6-14.8) % Plt Count (150-400) X10^3/uL Neut % (Auto) (50-75) % Lymph % (Auto) (25-40) % [place] % (Auto) (3-14) % Eos % (Auto) (2-4) % Baso % (Auto) (0-2) % Neut # (Auto) (5208-1088) /uL PT (10.1-12.7) SECONDS INR (0.9-1.3) APTT (26.4-36.2) SECONDS Sodium (137-145) mmol/L Potassium (3.4-5.1) mmol/L Chloride (98-107) mmol/L Carbon Dioxide (22-32) mmol/L BUN (7-17) mg/dL Creatinine (0.52-1.04) mg/dL Estimated GFR (>60) mL/min BUN/Creatinine Ratio (6-22) Glucose (70-100) mg/dL Lactate 0.9 (0.7-2.1) mmol/L Calcium (8.4-10.2) mg/dL Total Bilirubin (0.2-1.3) mg/dL AST (14-36) IU/L ALT (9-52) IU/L Alkaline Phosphatase (38-126) U/L Total Protein (6.3-8.2) g/dL Albumin (3.5-5.0) g/dL Globulin (1.7-4.1) g/dL Albumin/Globulin Ratio (1.0-2.8) Lipase (23-300) U/L Urine RBC 1-5/hpf (0-5/HPF) Urine WBC None seen (0-5/HPF) Amorphous Sediment 1+ Urine Bacteria None seen (None) Ur Culture Indicated? Cult not indicated Micro UA Comment Not Reportable Urine Dip Bedside Urine Glucose Negative Bedside Urine Bilirubin - Negative Bedside Urine Ketone +/- 5 Urine Specific [place] 1.010 Bedside Urine Occult Blood + Bedside Urine pH 7.5 Bedside Urine Protein - Negative Bedside Urine Urobilinogen - Negative Bedside Urine Nitrite - Negative Bedside Urine Leukocytes - Negative Esterase Discharge Plan Departure Patient Disposition: Home Clinical Impression: Cyclical vomiting Discharge Date/Time: 06/24/18 15:26 Interventions: ED Discharge Assessment Last Done: 06/24/18 15:25 Instructions: DI for Vomiting -- Adult Activity Restrictions/Additional Instructions: Please return if you have acutely worsening symptoms again as we talked about. Otherwise, please rest at home, drink clear fluids as you tolerate and use your usual nausea and pain medicine as needed. You should follow up with your PCP in a few days for recheck. Your lab work and CT scan today did not show any new problems, so it is likely that this pain and vomiting is related to your cyclic vomiting syndrome. Prescriptions: No Action promethazine 25 mg suppository 25 mg MI Q6H PRN (Reason: nausea and vomiting) Qty: 5 RF: 0 promethazine 25 mg tablet 25 mg PO Q4-6H PRN (Reason: nausea and vomiting) Qty: 14 RF: 0 cyclobenzaprine 10 mg tablet 10 mg PO DAILY PRN (Reason: Spasms) RF: 0 fluoxetine 20 mg capsule 20 mg PO DAILY RF: 0 Referrals: Jennifer Marlow PA-C [Other] <Sussy Honeycutt, - Last Filed: 06/25/18 07:57> Cosign ED Attending Cosignature Attestation: I was immediately available in the department for consultation. Documentation has been reviewed. I agree with assessment and plan.
[2018-06-24 12:10] LABS: Alanine Aminotransferase 37 IU/L (9-52); Albumin Globulin Ratio 1.8 (1.0-2.8); Alkaline Phosphatase 66 U/L (38-126); Aspartate Aminotransferase 26 IU/L (14-36); BUN Creatinine Ratio 18.3 (6-22); Bilirubin Total 0.7 mg/dL (0.2-1.3); Blood Urea Nitrogen 11 mg/dL (7-17); Calcium 9.8 mg/dL (8.4-10.2); Carbon Dioxide 30 mmol/L (22-32); Chloride 95 mmol/L (98-107); Estimated Glomerular Filt Rate > 60.0 mL/min (>60); Globulin 2.8 g/dL (1.7-4.1); Glucose 111 mg/dL (70-100); HEMOLYSIS < 15 (0-50); Lipase 43 U/L (23-300); Potassium 3.4 mmol/L (3.4-5.1); Sodium 139 mmol/L (137-145); Total Protein 7.8 g/dL (6.3-8.2)
[2018-06-24 12:32] LABS: Lactate (Lactic Acid) 0.9 mmol/L (0.7-2.1)
[2018-06-24 12:45] VITALS: BP 126/83; PULSE 71; RESP 15; TEMP 37.1; O2SAT 99
[2018-06-24 12:46] VITALS: TEMP 37.1
[2018-06-24] MEDS: HYDROMORPHONE 1 MG INJ 0.5 MG IV (12:46)
[2018-06-24] MEDS: PANTOPRAZOLE 40 MG VIAL IV (12:46)
--- NOTE | 2018-06-24 12:48 | DI.CT.S_ITS ---
PROCEDURE: CT ABDOMEN PELVIS W CON INDICATIONS: Vomiting, fever, LLQ pain TECHNIQUE: After the administration of intravenous contrast, 5 mm thick sections acquired from the diaphragm to the symphysis. 5 mm coronal and sagittal reformats were acquired. For radiation dose reduction, the following was used: automated exposure control, adjustment of mA and/or kV according to patient size. COMPARISON: [facility], CT, ABDOMEN/PELVIS WITH CONTRAST, 02/20/2017, 16:51. [facility], [place], ABDOMEN COMPLETE, 07/31/2017, 10:18. [facility], CT, ABDOMEN/PELVIS WITH CONTRAST, 04/11/2017, 9:24. FINDINGS: Image quality: Excellent. ABDOMEN: Lung bases: Lung bases are clear. Heart size is normal. Solid organs: Liver is normal in size and enhancement. Gallbladder wall does not appear thickened. Biliary system is non dilated. Pancreas enhances normally. Spleen is normal in size and enhancement. No adrenal nodules. Kidneys demonstrate normal size and enhancement, without hydronephrosis. Peritoneum and bowel: In this patient with this given history, scrutiny is given to the left lower quadrant. No focal left lower quadrant inflammatory changes are seen. No sigmoid bowel wall thickening can be seen. Bowel loops demonstrate normal wall thickness and caliber. No free fluid or air. Incidental note is made of a normal-appearing appendix. Nodes and vessels: No retroperitoneal or mesenteric adenopathy by size criteria. Aorta and inferior vena cava are normal in size. Miscellaneous: A mild periumbilical hernia is seen, containing fat. PELVIS: Genitourinary: Bladder wall thickness is normal. Miscellaneous: No inguinal hernias or adenopathy. Bones: No suspicious bony lesions. No vertebral body compression fractures. IMPRESSION: No imaging explanation is found for this patient's presenting history of left lower quadrant pain. No sigmoid abnormality can be seen. Incidental note is made of: Normal appendix Small fat containing periumbilical hernia Dictated by: Benitez Randolph M.D. on 06/24/2018 at 12:10 Approved by: Benitez Randolph M.D. on 06/24/2018 at 12:13
[2018-06-24] MEDS: methylPREDNISolone 125 MG/2 ML VIAL IV (13:08)
[2018-06-24] MEDS: diphenhydrAMINE 50 MG/ML VIAL IV (13:08)
--- NOTE | 2018-06-24 13:08 | PC.NURSE ---
Called to CT w/ Dr. Honeycutt, pt c/o sob. Found to be hyperventilating w/ carpel spasms. No hives, No airway difficulty. Dr. Honeycutt ordered benedryl and solumedrol iv which was given. Pt was able to control breathing and walk to bathroom w/o distress.
[2018-06-24 13:32] VITALS: BP 121/79; PULSE 78; RESP 18; TEMP 37; O2SAT 98
[2018-06-24 14:32] LABS: Bacteria Urine None Seen; WBC Urine None Seen (0-5/HPF)
[2018-06-24 14:44] LABS: Amorphous Sediment Urine 1+; Culture Indicated Urine Cult Not Indicated; RBC Urine 1-5/HPF (0-5/HPF)
[2018-06-24 15:25] VITALS: BP 115/80; PULSE 68; RESP 18; O2SAT 100
== END 2018-06-24 15:26 | disposition home or self-care (01) ==
PROVIDERS: Emergency Medicine; Emergency Provider Internal Medicine
DX: G43.A0 Cyclical vomiting, in migraine, not intractable (principal)
CPT/HCPCS: 36591; 74177; 80053; 81003; 81015; 83605; 83690; 85025; 85610; 85730; 93005; 96374; 96375; 99283; 99285; C9113; J1170; J1200; J2405; J2930; Q9967

== ENCOUNTER 2018-06-25 07:45 | Emergency (ER) | payer OTHER, SELFPAY ==
[2018-06-25 07:50] VITALS: BP 139/91; PULSE 80; RESP 22; TEMP 37.2; O2SAT 100; BMI 22.4
[2018-06-25 08:13] LABS: Add Manual Diff / Slide Review NO; Basophils Percent Auto 0.4 % (0-2); Eosinophils Percent Auto 0.1 % (2-4); Hematocrit 39.8 % (36-46); Hemoglobin 13.3 g/dL (12.0-16.0); Lymphocytes Percent Auto 19.2 % (25-40); Mean Corpuscular HGB Conc 33.5 % (30-36); Mean Corpuscular Hemoglobin 28.8 PG (26-34); Mean Corpuscular Volume 85.7 fL (80-100); Monocytes Percent Auto 9.9 % (3-14); Neutrophils Absolute Auto 6900 /uL (3000-5900); Neutrophils Percent Auto 70.4 % (50-75); Platelet Count 352 X10^3/uL (150-400); Red Blood Cell Count 4.64 X10^6/uL (4.0-5.2); Red Cell Distribution Width 12.8 % (11.6-14.8); White Blood Cell Count 9.8 X10^3/uL (4.5-11.0)
[2018-06-25] MEDS: SODIUM CHLORIDE 0.9% 1,000 ML 1000 ML IV (08:15)
[2018-06-25] MEDS: HALOPERIDOL 5 MG/ML VIAL 2 MG IV (08:15)
[2018-06-25] MEDS: ONDANSETRON 4 MG/2 ML INJ IV ×2 (08:15)
[2018-06-25 08:18] LABS: Alanine Aminotransferase 38 IU/L (9-52); Albumin Globulin Ratio 1.9 (1.0-2.8); Alkaline Phosphatase 68 U/L (38-126); Aspartate Aminotransferase 46 IU/L (14-36); BUN Creatinine Ratio 18.3 (6-22); Blood Urea Nitrogen 11 mg/dL (7-17); Calcium 9.5 mg/dL (8.4-10.2); Carbon Dioxide 23 mmol/L (22-32); Chloride 99 mmol/L (98-107); Estimated Glomerular Filt Rate > 60.0 mL/min (>60); Globulin 2.7 g/dL (1.7-4.1); Glucose 103 mg/dL (70-100); HEMOLYSIS < 15 (0-50); Potassium 2.9 mmol/L (3.4-5.1); Sodium 140 mmol/L (137-145); Total Protein 7.7 g/dL (6.3-8.2)
[2018-06-25 08:20] VITALS: BP 143/87; PULSE 66; RESP 15; O2SAT 94
--- NOTE | 2018-06-25 08:26 | ED.NAVMDI ---
HPI - Nausea/Vomiting/Diarrhea General Chief complaint: Nausea/Vomiting/Diarrhea Stated complaint: throwing up and can't breath.. stomach is tight Time Seen by Provider: 06/25/18 07:53 Source: patient Mode of arrival: ambulatory Limitations: no limitations History of Present Illness HPI Narrative: Patient is a 33-year-old female who presents with cyclic vomiting. She was seen evaluated yesterday she had blood work and CT for left lower quadrant pain. She says this been ongoing for the last 4 hr unable to keep any of her medicine down. She was given suppository Phenergan yesterday but has not used it. I discussed with her if she uses marijuana she says she does daily she did try marijuana cessation for 6 months she says actually got worse. Yesterday she was noted to have low-grade fever but not today. She says IV Protonix in fluids help a lot. Related Data Home Medications Medication Instructions Recorded Confirmed cyclobenzaprine 10 mg PO DAILY PRN 06/24/18 06/25/18 fluoxetine 20 mg PO DAILY 06/24/18 06/25/18 Previous Rx's Medication Instructions Recorded promethazine 25 mg PO Q4-6H PRN #14 tab 04/26/18 promethazine 25 mg MA Q6H PRN #5 each 04/26/18 potassium chloride 20 meq PO DAILY #4 tab 06/25/18 Allergies Allergy/AdvReac Type Severity Reaction Status Date / Time Iodinated Contrast- Oral and AdvReac Severe Difficulty Verified 06/25/18 07:50 IV Dye Breathing Review of Systems Review of Systems GENERAL: Denies chills, fatigue, malaise, fever, sweats, travel HEENT: Denies sinus pain, ear pain, sore throat, difficulty swallowing, neck pain RESPIRATORY: Denies dyspnea, cough, wheezing, hemoptysis, sputum. CARDIOVASCULAR: Denies chest pain, palpitations, orthopnea, edema GASTROINTESTINAL: See HPI : Denies dysuria, frequency, incontinence, hematuria, urinary retention, flank pain. MUSCULOSKELETAL: Denies weakness, joint pain, or bony pain SKIN: No rash, no erythema, no pruritus NEUROLOGIC: Denies weakness, dizziness, headache, numbness, change in speech, confusion PSYCHIATRIC: No concerning psychosocial issues. 12 point review of systems is negative except for those stated above and HPI [facility] Medical History ADHD (Chronic) Anxiety (Chronic) Cyclic vomiting syndrome (Chronic) History of cervical cancer (Resolved) Surgical History History of (Resolved) History of elective (Resolved) History of tonsillectomy (Resolved) Status post hysterectomy (Resolved) Social History Smoking Status: Never smoker alcohol intake: never substance use type: does not use Exam Initial Vital Signs Initial Vital Signs: Vital Signs Temperature 99.0 F 06/25/18 07:50 Pulse Rate 80 06/25/18 07:50 Respiratory Rate 22 06/25/18 07:50 Blood Pressure 139/91 H 06/25/18 07:50 Pulse Oximetry 100 06/25/18 07:50 GENERAL: Actively dry heaving HEENT: Head atraumatic,EOMI, pupils reactive, dry mucous CARDIOVASCULAR: Regular rate and rhythm without murmurs, rubs or gallops. RESPIRATORY: Breath sounds equal bilaterally, no wheezes rales or rhonchi. ABDOMEN: Soft, tender left lower quadrant no guarding rebound right lower quadrant pain : No CVA tenderness EXTREMITIES: Normal range of motion, no clubbing or edema. Neurovascularly intact NEUROLOGICAL: Alert and oriented x4.Normal gait and speech. Cranial nerves II through XII grossly intact. SKIN: Warm, dry, no laceration, no petechiae, no rashes or lesions. Course Orders Ordered: Discontinued Medications Haloperidol (Haldol) 2 mg IV NOW ONE Stop: 06/25/18 08:06 Last Admin: 06/25/18 08:15 Dose: 2 mg Sodium Chloride (Normal Saline 0.9%) 1,000 mls @ 1,000 mls/hr IV BOLUS ONE Stop: 06/25/18 09:02 Last Infusion: 06/25/18 09:27 Dose: 0 mls/hr Infusion: 06/25/18 09:26 Dose: 0 mls/hr Admin: 06/25/18 08:15 Dose: 1,000 mls/hr Ketorolac Tromethamine (Toradol) 30 mg IV NOW ONE Stop: 06/25/18 09:29 Last Admin: 06/25/18 09:34 Dose: 30 mg Ondansetron HCl (Zofran) 4 mg IV NOW ONE Stop: 06/25/18 08:04 Last Admin: 06/25/18 08:15 Dose: 4 mg Ondansetron HCl (Zofran) 4 mg IV NOW ONE Stop: 06/25/18 08:04 Last Admin: 06/25/18 08:15 Dose: 4 mg Potassium Chloride (Potassium Chloride) 40 meq PO NOW ONE Stop: 06/25/18 09:09 Last Admin: 06/25/18 09:22 Dose: 40 meq Potassium Chloride (Klor-Con M20) 20 meq PO NOW ONE Stop: 06/25/18 10:15 Last Admin: 06/25/18 10:32 Dose: 20 meq Vital Signs - 8 hr 06/25/18 09:46 06/25/18 11:03 06/25/18 11:15 Pulse Rate 70 67 Respiratory Rate 18 16 Blood Pressure 140/98 H Blood Pressure [Left Arm] 145/102 H 140/98 H Pulse Oximetry 100 99 MDM - Nausea/Vomiting/Diarrhea Lab Data Attestation: I reviewed the patient's lab results. Result diagrams: 06/25/18 07:50 06/25/18 07:50 Lab Results 06/25/18 06/25/18 Range/Units 07:50 07:50 WBC 9.8 (4.5-11.0) X10^3/uL RBC 4.64 (4.0-5.2) X10^6/uL Hgb 13.3 (12.0-16.0) g/dL Hct 39.8 (36-46) % MCV 85.7 (80-100) fL MCH 28.8 (26-34) PG MCHC 33.5 (30-36) % RDW 12.8 (11.6-14.8) % Plt Count 352 (150-400) X10^3/uL Neut % (Auto) 70.4 (50-75) % Lymph % (Auto) 19.2 L (25-40) % Bullock % (Auto) 9.9 (3-14) % Eos % (Auto) 0.1 L (2-4) % Baso % (Auto) 0.4 (0-2) % Neut # (Auto) 6900 H (8894-7561) /uL Sodium 140 (137-145) mmol/L Potassium 2.9 L (3.4-5.1) mmol/L Chloride 99 (98-107) mmol/L Carbon Dioxide 23 (22-32) mmol/L BUN 11 (7-17) mg/dL Creatinine 0.60 (0.52-1.04) mg/dL Estimated GFR > 60.0 (>60) mL/min BUN/Creatinine Ratio 18.3 (6-22) Glucose 103 H (70-100) mg/dL Calcium 9.5 (8.4-10.2) mg/dL Total Bilirubin 1.0 (0.2-1.3) mg/dL AST 46 H (14-36) IU/L ALT 38 (9-52) IU/L Alkaline Phosphatase 68 (38-126) U/L Total Protein 7.7 (6.3-8.2) g/dL Albumin 5.0 (3.5-5.0) g/dL Globulin 2.7 (1.7-4.1) g/dL Albumin/Globulin Ratio 1.9 (1.0-2.8) MDM Narrative Medical decision making narrative: She is noted to be hypokalemic she vomited up the liquid potassium. Though her nausea is much improved after Haldol and 8 of Zofran. She was still having some left lower quadrant discomfort. She is Toradol 30 Now tolerating some oral fluids she is given small dose of potassium and I will give her prescription for potassium. Strongly recommended that she is suppository Phenergan social slight vomiting she will get relief. I discussed all findings with the patient, Education has been performed regarding treatment plan, diagnosis, warning signs and symptoms and all concerns have been addressed. Verbally agree with and understood all of the above. Discharge Plan Departure Patient Disposition: Home Clinical Impression: Cyclical vomiting, Acute hypokalemia Discharge Date/Time: 06/25/18 11:16 Interventions: ED Discharge Assessment Last Done: 06/25/18 11:15 Instructions: DI for Cyclic Vomiting Syndrome-Child Activity Restrictions/Additional Instructions: *You have been diagnosed with cyclic vomiting *What to do: Small sips of fluid, clear liquids, broth, Jell-O, Gatorade accessory *Continue to take medications as directed: FAXED TOO [facility] [place] Potassium 20 mEq once a day for the next 4 days Phenergan take as prescribed from yesterday *Follow up with your primary care provider in 2-3 days *Return to ER if you should have any new, worsening or concerning symptoms Prescriptions: New potassium chloride 20 mEq tablet extended release 20 meq PO DAILY Qty: 4 RF: 0 No Action promethazine 25 mg suppository 25 mg MA Q6H PRN (Reason: nausea and vomiting) Qty: 5 RF: 0 promethazine 25 mg tablet 25 mg PO Q4-6H PRN (Reason: nausea and vomiting) Qty: 14 RF: 0 cyclobenzaprine 10 mg tablet 10 mg PO DAILY PRN (Reason: Spasms) RF: 0 fluoxetine 20 mg capsule 20 mg PO DAILY RF: 0
[2018-06-25] MEDS: POTASSIUM CHLORIDE 20 MEQ/15 ML UDC 40 MEQ PO (09:22)
[2018-06-25] MEDS: KETOROLAC 60 MG/2 ML VIAL 30 MG IV (09:34)
[2018-06-25 09:46] VITALS: BP 145/102; PULSE 70; RESP 18; O2SAT 100
[2018-06-25] MEDS: POTASSIUM CHLORIDE 20 MEQ TAB PO (10:32)
[2018-06-25 11:03] VITALS: BP 140/98; PULSE 67; RESP 16; O2SAT 99
[2018-06-25 11:15] VITALS: BP 140/98
== END 2018-06-25 11:16 | disposition home or self-care (01) ==
PROVIDERS: Emergency Provider Emergency Medicine
DX: G43.A0 Cyclical vomiting, in migraine, not intractable (principal); E87.6 Hypokalemia
CPT/HCPCS: 36591; 80053; 85025; 96361; 96374; 96375; 99283; 99284; J1630; J1885; J2405

== ENCOUNTER 2019-06-11 12:48 | Emergency (ER) | payer OTHER, SELFPAY ==
[2019-06-11 12:54] VITALS: BP 121/84; PULSE 86; RESP 21; TEMP 36.7; O2SAT 100; BMI 23.0
--- NOTE | 2019-06-11 12:58 | PC.NURSE ---
Patient reports going through a lot of stress including a seperation. States I am in a very dark place I did reach out to a crisis line the other day and am getting a therapist. I do not want to kill myself because I know that is not fair to my family. I know the aftermath of something like that Patient has no plan and no intention of self harm.
[2019-06-11 13:06] VITALS: BP 118/80; PULSE 65; RESP 19; O2SAT 100
[2019-06-11 13:14] LABS: Add Manual Diff / Slide Review NO; Basophils Absolute Auto 0 /uL (0-100); Basophils Percent Auto 0.4 % (0-2); Eosinophils Absolute Auto 0 /uL (0-450); Hematocrit 37.5 % (36-46); Hemoglobin 12.9 g/dL (12.0-16.0); Lymphocytes Absolute Auto 1000 /uL (1100-4500); Lymphocytes Percent Auto 13.4 % (25-40); Mean Corpuscular HGB Conc 34.4 % (30-36); Mean Corpuscular Hemoglobin 29.8 PG (26-34); Mean Corpuscular Volume 86.6 fL (80-100); Monocytes Absolute Auto 500 /uL (0-900); Monocytes Percent Auto 5.8 % (3-14); Neutrophils Absolute Auto 6300 /uL (1500-7000); Neutrophils Percent Auto 80.4 % (50-75); Platelet Count 306 X10^3/uL (150-400); Red Blood Cell Count 4.33 X10^6/uL (4.0-5.2); White Blood Cell Count 7.8 X10^3/uL (4.5-11.0)
[2019-06-11 13:21] LABS: INR 1.2 (0.9-1.3); Prothrombin Time 13.3 SECONDS (10.1-12.7)
[2019-06-11 13:23] LABS: PTT Partial Thromboplastin Tim 32 SECONDS (26.4-36.2)
[2019-06-11 13:26] LABS: Alanine Aminotransferase 80 IU/L (<35); Albumin 4.9 g/dL (3.5-5.0); Alkaline Phosphatase 71 U/L (38-126); Aspartate Aminotransferase 69 IU/L (14-36); BUN Creatinine Ratio 22.9 (6-22); Bilirubin Total 1.3 mg/dL (0.2-1.3); Blood Urea Nitrogen 16 mg/dL (7-17); Calcium 8.8 mg/dL (8.4-10.2); Carbon Dioxide 24 mmol/L (22-32); Chloride 95 mmol/L (98-107); Estimated Glomerular Filt Rate > 60.0 mL/min (>60); Globulin 2.4 g/dL (1.7-4.1); Glucose 106 mg/dL (70-100); HEMOLYSIS < 15 (0-50); Lipase 24 U/L (23-300); Potassium 3.5 mmol/L (3.4-5.1); Sodium 134 mmol/L (137-145); Total Protein 7.3 g/dL (6.3-8.2)
--- NOTE | 2019-06-11 13:45 | PC.NURSE ---
Addendum entered by Eli Villarreal 06/11/19 13:51: Patient also reported undergoing a 12 step program in the past, and feels it is time to go off alcohol again completely. Original Note: Patient states she is a daily cannabis user, and sees cannabis doctor. States she was tested for hypercannabanoid syndrome, and this test came back negative. Patient reports consuming a 5 oz glass of wine last night, along with two vodka calvin, as well as increased stress lately after from her partner, and feels this may have brought on this episode. Patient states she will be abstaining from alcohol from now on.
--- NOTE | 2019-06-11 14:03 | ED.NAVMDI ---
HPI - Nausea/Vomiting/Diarrhea <KYLAH Walters - Last Filed: 06/11/19 21:04> General Chief complaint: Nausea/Vomiting/Diarrhea Time Seen by Provider: 06/11/19 13:01 Source: patient and EMS Mode of arrival: EMS History of Present Illness HPI Narrative: 34-year-old female with a history of anxiety and cyclic vomiting, presents emergency department today complaining of vomiting since 8:00 p.m. last night. She states she smokes marijuana and last night drink a glass of wine and 2 shots of vodka. She thinks the alcohol triggers her vomiting episode. Patient states she usually has left-sided abdominal pain which she has at this time, the pain is a dull aching 8/10 that starts in the back and radiates to her left upper and lower abdomen. Patient reported she sought a small streak of blood in her vomit this last time, she denies any gross blood in her vomit. She reports she had 1-2 episodes of diarrhea this morning, she denies any blood in her stool. She states she last vomited around 12:00 noon. She denies any chest pain, shortness of breath, fevers, headache, vision changes, cough, sore throat, or other concerns. Patient states she has had a lot of stress in her life and she recently broke up with her partner. She would like to speak to a rn social work. She denies any suicidal or homicidal ideation at this time. Patient states she is safe at home. Related Data Home Medications Medication Instructions Recorded Confirmed cyclobenzaprine 10 mg PO DAILY PRN 06/24/18 06/25/18 fluoxetine 20 mg PO DAILY 06/24/18 06/25/18 Previous Rx's Medication Instructions Recorded promethazine 25 mg PO Q4-6H PRN #14 tab 04/26/18 promethazine 25 mg SC Q6H PRN #5 each 04/26/18 potassium chloride 20 meq PO DAILY #4 tab 06/25/18 ondansetron 4 mg PO Q8H #10 tab 06/11/19 Allergies Allergy/AdvReac Type Severity Reaction Status Date / Time Iodinated Contrast Media AdvReac Severe Difficulty Verified 06/25/18 07:50 [Iodinated Contrast- Oral Breathing and IV Dye] Review of Systems <KYLAH Walters - Last Filed: 06/11/19 21:04> Review of Systems Narrative: REVIEW OF SYSTEMS: GENERAL: Denies fever, chills, malaise, or wt. loss. HENT: No head trauma, sore throat, or dysphagia. EYES: No loss of vision, double vision, eye pain, or irritation. CARDIOVASCULAR: No chest pain, palpitations, or orthopnea. RESPIRATORY: No shortness of breath or cough. GASTROINTESTINAL: Complains of vomiting, see HPI. GENITOURINARY: No flank pain, urinary incontinence, hesitancy, frequency, or dysuria. No vaginal discharge or dyspareunia. Denies concerns for STIs MUSCULOSKELETAL: No pain, weakness, or trauma. INTEGUMENTARY: No rash, lesions, or pruritus. NEURO: No numbness, tingling, memory loss, confusion, or headaches. PSYCH: No behavior or mood changes. Patient History <KYLAH Walters - Last Filed: 06/11/19 21:04> Medical History ADHD (Chronic) Anxiety (Chronic) Cyclic vomiting syndrome (Chronic) History of cervical cancer (Resolved) Surgical History History of (Resolved) History of elective (Resolved) History of tonsillectomy (Resolved) Status post hysterectomy (Resolved) Social History Smoking Status: Never smoker alcohol intake: never substance use type: does not use alcohol intake frequency: 0-2 drinks per day Substance Use Type: marijuana Exam <KYLAH Walters - Last Filed: 06/11/19 21:04> Initial Vital Signs Initial Vital Signs: Vital Signs Temperature 98.1 F 06/11/19 12:54 Pulse Rate 86 06/11/19 12:54 Respiratory Rate 21 06/11/19 12:54 Blood Pressure 121/84 06/11/19 12:54 Pulse Oximetry 100 06/11/19 12:54 PHYSICAL EXAMINATION: GENERAL: Well groomed, alert, and cooperative. Answers questions promptly and appropriately. Vital signs noted. HENT: Normocephalic, atraumatic. Hearing intact. Oral mucosa is pink and moist. EYES: Conjunctiva pink, sclera white, no periorbital swelling. CARDIOVASCULAR: S1 and S2 sounds normal. Regular rate and rhythm, no murmurs, clicks, or bruits. No pedal edema. RESPIRATORY: Normal respiratory rate, trachea midline, airway patent. No stridor, nasal flaring or accessory muscle use. Lungs are clear in all butler without wheeze, rhonchi, or crackles. GASTROINTESTINAL: Bowel sounds normoactive. Abdomen is soft, nontender. No organomegaly, no palpable masses. GENITALURINARY: No flank tenderness. MUSCULOSKELETAL: Normal gait and coordination. Equal tone and mass bilaterally. EXTREMITIES: CMS intact, no pedal edema. SKIN: Warm, dry, soft, appropriate color for ethnicity. No lesions, rashes, or wounds. NEURO: Alert and Oriented X 3. Good coordination. No ataxia, or sensory deficits, or cognitive issues. PSYCH: Appropriate affect and mood. <Matthew Presley DO - Last Filed: 06/11/19 21:18> Initial Vital Signs Initial Vital Signs: Vital Signs Temperature 98.1 F 06/11/19 12:54 Pulse Rate 86 06/11/19 12:54 Respiratory Rate 21 06/11/19 12:54 Blood Pressure 121/84 06/11/19 12:54 Pulse Oximetry 100 06/11/19 12:54 Course <KYLAH Walters - Last Filed: 06/11/19 21:04> Course Course Narrative: Patient was given 2 L of normal saline, 0.5 mg of Ativan, 4mg of Zofran, and 30 mg of Toradol for pain and vomiting. After the administration of these medications she did not vomit during her emergency department stay and was sleeping during the last 40 minutes. Patient was discharged with a Zofran script. The SUPERVISOR TELLERS consult that with patient, resources were given the patient was unable to carry on a conversation as she continued to fall asleep. Patient denied any abdominal pain upon discharge. Orders Ordered: ED Orders 06/11/19 13:07 Complete Blood Count AUTO DIFF Stat Comprehensive Metabolic Panel Stat Lipase Stat Partial Thromboplastin Time Stat Prothrombin Time INR Stat 06/11/19 14:01 [place] [facility] [place] Discontinued Medications Sodium Chloride (Normal Saline 0.9%) 1,000 mls @ 1,000 mls/hr IV BOLUS ONE Stop: 06/11/19 14:57 Last Infusion: 06/11/19 15:48 Dose: 0 mls/hr Documented by: Admin: 06/11/19 14:27 Dose: 1,000 mls/hr Documented by: TONYA Ketorolac Tromethamine (Toradol) 30 mg IV NOW ONE Stop: 06/11/19 13:59 Last Admin: 06/11/19 14:30 Dose: 30 mg Documented by: TONYA Lorazepam (Ativan) 0.5 mg IV NOW ONE Stop: 06/11/19 14:09 Last Admin: 06/11/19 14:27 Dose: 0.5 mg Documented by: TONYA Ondansetron HCl (Zofran) 4 mg IV NOW ONE Stop: 06/11/19 13:59 Last Admin: 06/11/19 14:24 Dose: 4 mg Documented by: TONYA Consultations Consultation #1: Patient was staffed with Dr. Presley Vital Signs Vital signs: Vital Signs - 8 hr 06/11/19 14:05 06/11/19 14:38 06/11/19 15:05 Temperature Pulse Rate 81 73 73 Respiratory Rate 25 H 19 20 Blood Pressure [Right Arm] 130/78 123/80 110/70 Pulse Oximetry 100 100 100 06/11/19 15:55 Temperature 97.9 F Pulse Rate 90 Respiratory Rate 20 Blood Pressure [Right Arm] 113/72 Pulse Oximetry 100 <Matthew Presley DO - Last Filed: 06/11/19 21:18> Orders Ordered: ED Orders 06/11/19 13:07 Complete Blood Count AUTO DIFF Stat Comprehensive Metabolic Panel Stat Lipase Stat Partial Thromboplastin Time Stat Prothrombin Time INR Stat 06/11/19 14:01 [place] [facility] [place] Stat Discontinued Medications Sodium Chloride (Normal Saline 0.9%) 1,000 mls @ 1,000 mls/hr IV BOLUS ONE Stop: 06/11/19 14:57 Last Infusion: 06/11/19 15:48 Dose: 0 mls/hr Documented by: Admin: 06/11/19 14:27 Dose: 1,000 mls/hr Documented by: TONYA Ketorolac Tromethamine (Toradol) 30 mg IV NOW ONE Stop: 06/11/19 13:59 Last Admin: 06/11/19 14:30 Dose: 30 mg Documented by: TONYA Lorazepam (Ativan) 0.5 mg IV NOW ONE Stop: 06/11/19 14:09 Last Admin: 06/11/19 14:27 Dose: 0.5 mg Documented by: TONYA Ondansetron HCl (Zofran) 4 mg IV NOW ONE Stop: 06/11/19 13:59 Last Admin: 06/11/19 14:24 Dose: 4 mg Documented by: TONYA Vital Signs Vital signs: Vital Signs - 8 hr 06/11/19 14:05 06/11/19 14:38 06/11/19 15:05 Temperature Pulse Rate 81 73 73 Respiratory Rate 25 H 19 20 Blood Pressure [Right Arm] 130/78 123/80 110/70 Pulse Oximetry 100 100 100 06/11/19 15:55 Temperature 97.9 F Pulse Rate 90 Respiratory Rate 20 Blood Pressure [Right Arm] 113/72 Pulse Oximetry 100 MDM - Nausea/Vomiting/Diarrhea <KYLAH Walters - Last Filed: 06/11/19 21:04> Medical Records Attestation: I reviewed the patient's medical records. Lab Data Attestation: I reviewed the patient's lab results. Result diagrams: 06/11/19 13:07 06/11/19 13:07 Labs: Lab Results 06/11/19 06/11/19 06/11/19 Range/Units 13:07 13:07 13:07 WBC 7.8 (4.5-11.0) X10^3/uL RBC 4.33 (4.0-5.2) X10^6/uL Hgb 12.9 (12.0-16.0) g/dL Hct 37.5 (36-46) % MCV 86.6 (80-100) fL MCH 29.8 (26-34) PG MCHC 34.4 (30-36) % RDW 13.0 (11.6-14.8) % Plt Count 306 (150-400) X10^3/uL Neut % (Auto) 80.4 H (50-75) % Lymph % (Auto) 13.4 L (25-40) % Sterling % (Auto) 5.8 (3-14) % Eos % (Auto) 0.0 L (2-4) % Baso % (Auto) 0.4 (0-2) % Neut # (Auto) 6300 (3452-2181) /uL Lymph # (Auto) 1000 L (3798-1591) /uL Sterling # (Auto) 500 (0-900) /uL Eos # (Auto) 0 (0-450) /uL Baso # (Auto) 0 (0-100) /uL PT 13.3 H (10.1-12.7) SECONDS INR 1.2 (0.9-1.3) APTT 32 D (26.4-36.2) SECONDS Sodium 134 L (137-145) mmol/L Potassium 3.5 (3.4-5.1) mmol/L Chloride 95 L (98-107) mmol/L Carbon Dioxide 24 (22-32) mmol/L BUN 16 (7-17) mg/dL Creatinine 0.70 (0.52-1.04) mg/dL Estimated GFR > 60.0 (>60) mL/min BUN/Creatinine Ratio 22.9 H (6-22) Glucose 106 H (70-100) mg/dL Calcium 8.8 (8.4-10.2) mg/dL Total Bilirubin 1.3 (0.2-1.3) mg/dL AST 69 H (14-36) IU/L ALT 80 H (<35) IU/L Alkaline Phosphatase 71 (38-126) U/L Total Protein 7.3 (6.3-8.2) g/dL Albumin 4.9 (3.5-5.0) g/dL Globulin 2.4 (1.7-4.1) g/dL Albumin/Globulin Ratio 2.0 (1.0-2.8) Lipase 24 (23-300) U/L [facility] Narrative Medical decision making narrative: 34-year-old female with a history of cyclic vomiting, presents for continued vomiting for over 12 hours. Her symptoms completely resolved with administration of Zofran, and Ativan, saline, and Toradol, and NS. She was given resources for close follow-up for counseling by our SUPERVISOR TELLERS. Differential includes cyclic vomiting (most likely due to resolution of symptoms after administration of medication, history of cyclic vomiting, current marijuana use), abdominal etiology (less likely due to non unremarkable labs, resolution of abdominal complaints after administration of medication, lack of systemic symptoms such as tachycardia or fevers, UTI/pyelonephritis (less likely due to lack of bacteria, white blood cells, or blood in urine, and lack of systemic symptoms such as fever or flank pain). Patient was encouraged to follow up with his primary care provider in the next week for re-evaluation, she was encouraged call [facility] in the morning. Patient continued to deny SI and HI upon discharge. Strict return precautions given for new or worsening symptoms. <Matthew Presley, DO - Last Filed: 06/11/19 21:18> Lab Data Labs: Lab Results 06/11/19 06/11/19 06/11/19 Range/Units 13:07 13:07 13:07 WBC 7.8 (4.5-11.0) X10^3/uL RBC 4.33 (4.0-5.2) X10^6/uL Hgb 12.9 (12.0-16.0) g/dL Hct 37.5 (36-46) % MCV 86.6 (80-100) fL MCH 29.8 (26-34) PG MCHC 34.4 (30-36) % RDW 13.0 (11.6-14.8) % Plt Count 306 (150-400) X10^3/uL Neut % (Auto) 80.4 H (50-75) % Lymph % (Auto) 13.4 L (25-40) % Sterling % (Auto) 5.8 (3-14) % Eos % (Auto) 0.0 L (2-4) % Baso % (Auto) 0.4 (0-2) % Neut # (Auto) 6300 (5007-1447) /uL Lymph # (Auto) 1000 L (2463-0526) /uL Sterling # (Auto) 500 (0-900) /uL Eos # (Auto) 0 (0-450) /uL Baso # (Auto) 0 (0-100) /uL PT 13.3 H (10.1-12.7) SECONDS INR 1.2 (0.9-1.3) APTT 32 D (26.4-36.2) SECONDS Sodium 134 L (137-145) mmol/L Potassium 3.5 (3.4-5.1) mmol/L Chloride 95 L (98-107) mmol/L Carbon Dioxide 24 (22-32) mmol/L BUN 16 (7-17) mg/dL Creatinine 0.70 (0.52-1.04) mg/dL Estimated GFR > 60.0 (>60) mL/min BUN/Creatinine Ratio 22.9 H (6-22) Glucose 106 H (70-100) mg/dL Calcium 8.8 (8.4-10.2) mg/dL Total Bilirubin 1.3 (0.2-1.3) mg/dL AST 69 H (14-36) IU/L ALT 80 H (<35) IU/L Alkaline Phosphatase 71 (38-126) U/L Total Protein 7.3 (6.3-8.2) g/dL Albumin 4.9 (3.5-5.0) g/dL Globulin 2.4 (1.7-4.1) g/dL Albumin/Globulin Ratio 2.0 (1.0-2.8) Lipase 24 (23-300) U/L Discharge Plan Departure Patient Disposition: Home Clinical Impression: Cyclic vomiting syndrome Discharge Date/Time: 06/11/19 15:55 Instructions: DI for Anxiety -- Adult, DI for Vomiting -- Adult Activity Restrictions/Additional Instructions: Thank you for entrusting me with your care today. As discussed, your lab work indicated slightly low sodium (this was corrected by IV fluids), I recommend following up with your primary care provider for close monitoring of your electrolytes if you continue to have vomiting. The rn social work stopped by to talk to you during your stay but you continued to fall asleep. She recommended getting a referral from your primary care provider to [facility] (phone: [phone]). Our SUPERVISOR TELLERS states she has had good luck with people being able to get into to this place [place]. Prescriptions: New ondansetron 4 mg tablet,disintegrating 4 mg PO Q8H Qty: 10 RF: 0 No Action promethazine 25 mg suppository 25 mg SC Q6H PRN (Reason: nausea and vomiting) Qty: 5 RF: 0 promethazine 25 mg tablet 25 mg PO Q4-6H PRN (Reason: nausea and vomiting) Qty: 14 RF: 0 cyclobenzaprine 10 mg tablet 10 mg PO DAILY PRN (Reason: Spasms) RF: 0 fluoxetine 20 mg capsule 20 mg PO DAILY RF: 0 potassium chloride 20 mEq tablet extended release 20 meq PO DAILY Qty: 4 RF: 0 <Matthew Presley, DO - Last Filed: 06/11/19 21:18> Sign Out Provider Sign Out Attestation: Dr Presley Co-Sign Statement: I was available for consultation during this patient's emergency department visit. This chart is signed by myself for administrative purposes only. I did not have direct contact with this patient during this visit. They were seen independently by the APC.
[2019-06-11 14:05] VITALS: BP 130/78; PULSE 81; RESP 25; O2SAT 100
[2019-06-11] MEDS: ONDANSETRON 4 MG/2 ML INJ IV (14:24)
[2019-06-11] MEDS: SODIUM CHLORIDE 0.9% 1,000 ML 1000 ML IV (14:27)
[2019-06-11] MEDS: LORazepam 2 MG/ML INJ 0.5 MG IV (14:27)
[2019-06-11] MEDS: KETOROLAC 60 MG/2 ML VIAL 30 MG IV (14:30)
[2019-06-11 14:38] VITALS: BP 123/80; PULSE 73; RESP 19; O2SAT 100
[2019-06-11 15:05] VITALS: BP 110/70; PULSE 73; RESP 20; O2SAT 100
[2019-06-11 15:55] VITALS: BP 113/72; PULSE 90; RESP 20; TEMP 36.6; O2SAT 100
--- NOTE | 2019-06-11 16:03 | CM.SWNOTE ---
Requested by Stormy Harding, ED provider to assist w/counseling resources for this 34 yo w/ Prime. Karely denying SI though tearful upon arrival to ER. This FISCAL SERVICES MANAGER attempted assessment this afternoon, it was very difficult to arouse Karely and once awake she could not stay awake. RN Mariah attempted to assist. This FISCAL SERVICES MANAGER updated provider Stormy; Karely could not share information nor would she be able to retain any information in this state. Left information for [facility] in [place] P# [phone], This FISCAL SERVICES MANAGER consulted Kaleigh Bag Making Machine Tender re: Prime ? ..[place] a [place] CARMEN Faustin
== END 2019-06-11 15:55 | disposition home or self-care (01) ==
PROVIDERS: Emergency Medicine; Emergency Provider Nurse Practitioner
DX: R11.15 Cyclical vomiting syndrome unrelated to migraine (principal)
CPT/HCPCS: 36415; 80053; 83690; 85025; 85610; 85730; 96361; 96374; 96375; 99283; 99284; J1885; J2060; J2405

== ENCOUNTER 2019-12-09 11:11 | Emergency (ER) | payer OTHER, SELFPAY ==
[2019-12-09 11:20] VITALS: BP 141/91; PULSE 75; RESP 18; TEMP 36.4; O2SAT 100
[2019-12-09] MEDS: METOCLOPRAMIDE 10 MG/2 ML INJ IV (11:35)
[2019-12-09] MEDS: diphenhydrAMINE 50 MG/ML VIAL 25 MG IV (11:35)
[2019-12-09] MEDS: SODIUM CHLORIDE 0.9% 1,000 ML 1000 ML IV (11:38)
--- NOTE | 2019-12-09 11:39 | PC.NURSE ---
pt was shaking in bed, breathing controlled, pt tolerated medications well.
--- NOTE | 2019-12-09 12:06 | ED.ABDPAIN ---
HPI - Abdominal Pain <KYLAH Walters - Last Filed: 12/09/19 21:37> General Chief Complaint: Abdominal Pain Stated Complaint: Chronic Vomiting Time Seen by Provider: 12/09/19 11:29 Source: EMS Mode of arrival: Ambulatory Limitations: no limitations History of Present Illness HPI narrative: 34yo female with a history of a hysterectomy and cyclic vomiting, presents emergency department for an episode of cyclic vomiting. She states vomiting started today around 8:00 a.m. and she has vomited multiple times every hour. She states she usually has a 4 day lead up to the vomiting, has been feeling unwell for the past 4 days. Today is day 5 for which the vomiting has started. She states she took Zofran at home which has not helped. She states haloperidol usually helps. She denies reports body aches and a burning sensation in her stomach. She denies any cough, shortness of breath, chest pain, dizziness, syncope, diarrhea, or any other concerns. Related Data Home Medications Medication Instructions Recorded Confirmed cyclobenzaprine 10 mg PO DAILY PRN 06/24/18 06/25/18 fluoxetine 20 mg PO DAILY 06/24/18 06/25/18 Previous Rx's Medication Instructions Recorded promethazine 25 mg PO Q4-6H PRN #14 tab 04/26/18 promethazine 25 mg SD Q6H PRN #5 each 04/26/18 potassium chloride 20 meq PO DAILY #4 tab 06/25/18 ondansetron 4 mg PO Q8H #10 tab 06/11/19 metoclopramide HCl [Reglan] 10 mg PO Q6H PRN #14 tab 12/09/19 Allergies Allergy/AdvReac Type Severity Reaction Status Date / Time Iodinated Contrast Media AdvReac Severe Difficulty Verified 12/12/19 11:47 [Iodinated Contrast- Oral Breathing and IV Dye] Review of Systems <KYLAH Walters - Last Filed: 12/09/19 21:37> Review of Systems Narrative: REVIEW OF SYSTEMS: GENERAL: Denies fever or chills. HENT: No head trauma, hearing loss or sore throat. EYES: No vision changes. CARDIOVASCULAR: No chest pain or syncope. RESPIRATORY: No shortness of breath or cough. GASTROINTESTINAL: Complains of vomiting, see HPI. GENITOURINARY: No flank pain or dysuria. MUSCULOSKELETAL: No pain, weakness, or deformities. INTEGUMENTARY: No rash, lesions, or pruritus. NEURO: No numbness, tingling, memory loss, or confusion. PSYCH: No behavior or mood changes. Patient History <KYLAH Walters - Last Filed: 12/09/19 21:37> Medical History ADHD (Chronic) Anxiety (Chronic) Cyclic vomiting syndrome (Chronic) History of cervical cancer (Resolved) Surgical History History of (Resolved) History of elective (Resolved) History of tonsillectomy (Resolved) Status post hysterectomy (Resolved) Social History Smoking Status: Never smoker alcohol intake: never substance use type: does not use Smoking Status: Never smoker alcohol intake frequency: 0-2 drinks per day Substance Use Type: marijuana Exam <KYLAH Walters - Last Filed: 12/09/19 21:37> Initial Vital Signs Initial Vital Signs: Vital Signs Temperature 97.5 F L 12/09/19 11:20 Pulse Rate 75 12/09/19 11:20 Respiratory Rate 18 12/09/19 11:20 Blood Pressure 141/91 H 12/09/19 11:20 Pulse Oximetry 100 12/09/19 11:20 PHYSICAL EXAMINATION: GENERAL: Well groomed, alert, and cooperative. Answers questions promptly and appropriately. Vital signs noted. HENT: Normocephalic, atraumatic. Hearing intact. Oral mucosa is pink and moist. EYES: Conjunctiva pink, sclera white, no periorbital swelling. CARDIOVASCULAR: S1 and S2 sounds normal. Regular rate and rhythm, no murmurs, clicks, or bruits. No pedal edema. RESPIRATORY: Normal respiratory rate, trachea midline, airway patent. No stridor, nasal flaring or accessory muscle use. Lungs are clear in all butler without wheeze, rhonchi, or crackles. GASTROINTESTINAL: Bowel sounds hyperactive. Abdomen with mild diffuse tenderness, this improved vomiting cessation, No organomegaly, no palpable masses. MUSCULOSKELETAL: Normal gait and coordination. Equal tone and mass bilaterally. EXTREMITIES: CMS intact, no pedal edema. SKIN: Warm, dry, soft, appropriate color for ethnicity. No lesions, rashes, or wounds to visualized areas. NEURO: Alert and Oriented X 3. Good coordination. No ataxia, or sensory deficits, or cognitive issues. PSYCH: Appropriate affect and mood. <Jeovany Hammer MD - Last Filed: 12/19/19 07:40> Initial Vital Signs Initial Vital Signs: Vital Signs Temperature 97.5 F L 12/09/19 11:20 Pulse Rate 75 12/09/19 11:20 Respiratory Rate 18 12/09/19 11:20 Blood Pressure 141/91 H 12/09/19 11:20 Pulse Oximetry 100 12/09/19 11:20 Course <KYLAH Walters - Last Filed: 12/09/19 21:37> Course Course Narrative: 1430: Patient states she is feeling better, with to be discharged at this time. She did vomit after p.o. potassium. Was able to drink water afterwards without vomiting. Orders Ordered: Discontinued Medications Diphenhydramine HCl (Benadryl) 25 mg IV NOW ONE Stop: 12/09/19 11:33 Last Admin: 12/09/19 11:35 Dose: 25 mg Documented by: NASH Haloperidol (Haldol) 2 mg IV NOW ONE Stop: 12/09/19 11:34 Last Admin: 12/09/19 12:58 Dose: 2 mg Documented by: NASH Sodium Chloride (Normal Saline 0.9%) 1,000 mls @ 1,000 mls/hr IV BOLUS ONE Stop: 12/09/19 12:31 Last Infusion: 12/09/19 13:39 Dose: 0 mls/hr Documented by: Admin: 12/09/19 11:38 Dose: 1,000 mls/hr Documented by: ROBYSO Ketorolac Tromethamine (Toradol) 30 mg IV NOW ONE Stop: 12/09/19 12:20 Last Admin: 12/09/19 12:59 Dose: 30 mg Documented by: ROBYSO Metoclopramide HCl (Reglan) 10 mg IV NOW ONE Stop: 12/09/19 11:33 Last Admin: 12/09/19 11:35 Dose: 10 mg Documented by: ROBYSO Pantoprazole Sodium (Protonix) 40 mg IV NOW ONE Stop: 12/09/19 12:20 Last Admin: 12/09/19 12:57 Dose: 40 mg Documented by: NASH Potassium Chloride (Potassium Chloride) 40 meq PO NOW ONE Stop: 12/09/19 13:41 Last Admin: 12/09/19 13:48 Dose: 40 meq Documented by: CHAI Consultations Consultation #1: Patient staffed with Dr. Hammer, discussed plan of care and discharge. Vital Signs Vital signs: Vital Signs - 8 hr 12/09/19 14:06 Pulse Rate 61 Respiratory Rate 16 Blood Pressure [Right Arm] 134/80 Pulse Oximetry 100 <Jeovany Hammer MD - Last Filed: 12/19/19 07:40> Orders Ordered: Discontinued Medications Diphenhydramine HCl (Benadryl) 25 mg IV NOW ONE Stop: 12/09/19 11:33 Last Admin: 12/09/19 11:35 Dose: 25 mg Documented by: NASH Haloperidol (Haldol) 2 mg IV NOW ONE Stop: 12/09/19 11:34 Last Admin: 12/09/19 12:58 Dose: 2 mg Documented by: NASH Sodium Chloride (Normal Saline 0.9%) 1,000 mls @ 1,000 mls/hr IV BOLUS ONE Stop: 12/09/19 12:31 Last Infusion: 12/09/19 13:39 Dose: 0 mls/hr Documented by: Admin: 12/09/19 11:38 Dose: 1,000 mls/hr Documented by: NASH Ketorolac Tromethamine (Toradol) 30 mg IV NOW ONE Stop: 12/09/19 12:20 Last Admin: 12/09/19 12:59 Dose: 30 mg Documented by: NASH Metoclopramide HCl (Reglan) 10 mg IV NOW ONE Stop: 12/09/19 11:33 Last Admin: 12/09/19 11:35 Dose: 10 mg Documented by: NASH Pantoprazole Sodium (Protonix) 40 mg IV NOW ONE Stop: 12/09/19 12:20 Last Admin: 12/09/19 12:57 Dose: 40 mg Documented by: NASH Potassium Chloride (Potassium Chloride) 40 meq PO NOW ONE Stop: 12/09/19 13:41 Last Admin: 12/09/19 13:48 Dose: 40 meq Documented by: CHAI Vital Signs Vital signs: Vital Signs - 8 hr 12/09/19 14:06 Pulse Rate 61 Respiratory Rate 16 Blood Pressure [Right Arm] 134/80 Pulse Oximetry 100 MDM - Abdominal Pain <StormyKYLAH Mercer - Last Filed: 12/09/19 21:37> Medical Records Attestation: I reviewed the patient's medical records. Lab Data Attestation: I reviewed the patient's lab results. Result diagrams: 12/09/19 13:00 12/09/19 13:00 Labs: Lab Results 12/09/19 12/09/19 Range/Units 13:00 13:00 WBC 17.9 H (4.5-11.0) X10^3/uL RBC 4.40 (4.0-5.2) X10^6/uL Hgb 12.8 (12.0-16.0) g/dL Hct 38.6 (36-46) % MCV 87.6 (80-100) fL MCH 29.1 (26-34) PG MCHC 33.2 (30-36) % RDW 13.0 (11.6-14.8) % Plt Count 317 (150-400) X10^3/uL Neut % (Auto) 89.6 H (50-75) % Lymph % (Auto) 5.3 L (25-40) % [place] % (Auto) 4.5 (3-14) % Eos % (Auto) 0.1 L (2-4) % Baso % (Auto) 0.5 (0-2) % Neut # (Auto) 62508 H (7166-0042) /uL Lymph # (Auto) 1000 L (0867-2849) /uL [place] # (Auto) 800 (0-900) /uL Eos # (Auto) 0 (0-450) /uL Baso # (Auto) 100 (0-100) /uL Sodium 138 (137-145) mmol/L Potassium 3.2 L (3.4-5.1) mmol/L Chloride 105 (98-107) mmol/L Carbon Dioxide 23 (22-32) mmol/L BUN 9 (7-17) mg/dL Creatinine 0.64 (0.52-1.04) mg/dL Estimated GFR > 60.0 (>60) mL/min BUN/Creatinine Ratio 14.1 (6-22) Glucose 129 H (70-100) mg/dL Calcium 9.1 (8.4-10.2) mg/dL Total Bilirubin 0.6 (0.2-1.3) mg/dL AST 32 (14-36) IU/L ALT 25 (<35) IU/L Alkaline Phosphatase 65 (38-126) U/L Total Protein 7.7 (6.3-8.2) g/dL Albumin 4.8 (3.5-5.0) g/dL Globulin 2.9 (1.7-4.1) g/dL Albumin/Globulin Ratio 1.7 (1.0-2.8) MDM Narrative Medical decision making narrative: This is a 34-year-old female with a history of cyclic vomiting, presents to the emergency department for an onset of vomiting this morning. Patient's vomiting was really after administration of Reglan, Benadryl, and Haldol. Patient did vomit after drinking p.o. potassium, was able to indicate water down after. Patient requesting discharge states she is feeling much better. Patient did have diffuse abdominal pain without focal tenderness, no CT indicated at this time. Suspect patient's symptoms is most likely due to her cyclic vomiting. This is most likely the cause of elevated white blood cell count. There is no focal tenderness and no other symptoms of infection such as fever, tachycardia, or other abnormal season laboratory work. Electrolytes were within normal limits. Patient was discharged with Reglan. She was encouraged to follow up with her primary care provider in the next week. Patient agreed to plan of care verbalized understanding. <Jeovany Hammer MD - Last Filed: 12/19/19 07:40> Lab Data Labs: Lab Results 12/09/19 12/09/19 Range/Units 13:00 13:00 WBC 17.9 H (4.5-11.0) X10^3/uL RBC 4.40 (4.0-5.2) X10^6/uL Hgb 12.8 (12.0-16.0) g/dL Hct 38.6 (36-46) % MCV 87.6 (80-100) fL MCH 29.1 (26-34) PG MCHC 33.2 (30-36) % RDW 13.0 (11.6-14.8) % Plt Count 317 (150-400) X10^3/uL Neut % (Auto) 89.6 H (50-75) % Lymph % (Auto) 5.3 L (25-40) % [place] % (Auto) 4.5 (3-14) % Eos % (Auto) 0.1 L (2-4) % Baso % (Auto) 0.5 (0-2) % Neut # (Auto) 42100 H (2593-9066) /uL Lymph # (Auto) 1000 L (8146-3270) /uL [place] # (Auto) 800 (0-900) /uL Eos # (Auto) 0 (0-450) /uL Baso # (Auto) 100 (0-100) /uL Sodium 138 (137-145) mmol/L Potassium 3.2 L (3.4-5.1) mmol/L Chloride 105 (98-107) mmol/L Carbon Dioxide 23 (22-32) mmol/L BUN 9 (7-17) mg/dL Creatinine 0.64 (0.52-1.04) mg/dL Estimated GFR > 60.0 (>60) mL/min BUN/Creatinine Ratio 14.1 (6-22) Glucose 129 H (70-100) mg/dL Calcium 9.1 (8.4-10.2) mg/dL Total Bilirubin 0.6 (0.2-1.3) mg/dL AST 32 (14-36) IU/L ALT 25 (<35) IU/L Alkaline Phosphatase 65 (38-126) U/L Total Protein 7.7 (6.3-8.2) g/dL Albumin 4.8 (3.5-5.0) g/dL Globulin 2.9 (1.7-4.1) g/dL Albumin/Globulin Ratio 1.7 (1.0-2.8) Discharge Plan Departure Patient Disposition: Home Clinical Impression: Cyclic vomiting syndrome Discharge Date/Time: 12/09/19 15:33 Instructions: DI for Vomiting -- Adult Activity Restrictions/Additional Instructions: Thank you for entrusting me with your care today. As discussed, your laboratory work is non-remarkable. I prescribed you a nausea medication called metoclopramide. I recommend taking again at 6:00 p.m. with 25 mg of Benadryl (found [id number]) to prevent recurrence of vomiting. Please drink fluids with electrolytes such as Gatorade or Pedialyte. Follow-up with your primary care provider in the next week for further evaluation. Return emergency department for any new or worsening symptoms such as severe pain, syncope, chest pain, high fevers, uncontrollable vomiting, or any other concerns. Prescriptions: New metoclopramide HCl [Reglan] 10 mg tablet 10 mg PO Q6H PRN (Reason: nausea and vomiting) Qty: 14 RF: 0 No Action promethazine 25 mg suppository 25 mg SD Q6H PRN (Reason: nausea and vomiting) Qty: 5 RF: 0 promethazine 25 mg tablet 25 mg PO Q4-6H PRN (Reason: nausea and vomiting) Qty: 14 RF: 0 cyclobenzaprine 10 mg tablet 10 mg PO DAILY PRN (Reason: Spasms) RF: 0 fluoxetine 20 mg capsule 20 mg PO DAILY RF: 0 potassium chloride 20 mEq tablet extended release 20 meq PO DAILY Qty: 4 RF: 0 ondansetron 4 mg tablet,disintegrating 4 mg PO Q8H Qty: 10 RF: 0 Referrals: Stormy Harding ARNP [Primary Care Provider] -
[2019-12-09] MEDS: PANTOPRAZOLE 40 MG VIAL IV (12:57)
[2019-12-09] MEDS: HALOPERIDOL 5 MG/ML VIAL 2 MG IV (12:58)
[2019-12-09] MEDS: KETOROLAC 60 MG/2 ML VIAL 30 MG IV (12:59)
[2019-12-09 13:27] LABS: Add Manual Diff / Slide Review NO; Basophils Absolute Auto 100 /uL (0-100); Basophils Percent Auto 0.5 % (0-2); Eosinophils Absolute Auto 0 /uL (0-450); Eosinophils Percent Auto 0.1 % (2-4); Hematocrit 38.6 % (36-46); Hemoglobin 12.8 g/dL (12.0-16.0); Lymphocytes Absolute Auto 1000 /uL (1100-4500); Lymphocytes Percent Auto 5.3 % (25-40); Mean Corpuscular HGB Conc 33.2 % (30-36); Mean Corpuscular Hemoglobin 29.1 PG (26-34); Mean Corpuscular Volume 87.6 fL (80-100); Monocytes Absolute Auto 800 /uL (0-900); Monocytes Percent Auto 4.5 % (3-14); Neutrophils Absolute Auto 16000 /uL (1500-7000); Neutrophils Percent Auto 89.6 % (50-75); Platelet Count 317 X10^3/uL (150-400); White Blood Cell Count 17.9 X10^3/uL (4.5-11.0)
[2019-12-09 13:28] LABS: Alanine Aminotransferase 25 IU/L (<35); Albumin 4.8 g/dL (3.5-5.0); Albumin Globulin Ratio 1.7 (1.0-2.8); Alkaline Phosphatase 65 U/L (38-126); Aspartate Aminotransferase 32 IU/L (14-36); BUN Creatinine Ratio 14.1 (6-22); Bilirubin Total 0.6 mg/dL (0.2-1.3); Blood Urea Nitrogen 9 mg/dL (7-17); Calcium 9.1 mg/dL (8.4-10.2); Carbon Dioxide 23 mmol/L (22-32); Chloride 105 mmol/L (98-107); Estimated Glomerular Filt Rate > 60.0 mL/min (>60); Globulin 2.9 g/dL (1.7-4.1); Glucose 129 mg/dL (70-100); HEMOLYSIS < 15 (0-50); Potassium 3.2 mmol/L (3.4-5.1); Sodium 138 mmol/L (137-145); Total Protein 7.7 g/dL (6.3-8.2)
[2019-12-09] MEDS: POTASSIUM CHLORIDE 20 MEQ/15 ML UDC 40 MEQ PO (13:48)
[2019-12-09 14:06] VITALS: BP 134/80; PULSE 61; RESP 16; O2SAT 100
== END 2019-12-09 15:33 | disposition home or self-care (01) ==
PROVIDERS: Emergency Provider Nurse Practitioner; PCP Nurse Practitioner
DX: R11.15 Cyclical vomiting syndrome unrelated to migraine (principal)
CPT/HCPCS: 36415; 80053; 85025; 96361; 96374; 96375; 99284; C9113; J1200; J1630; J1885; J2765

== ENCOUNTER 2019-12-12 11:36 | Emergency (ER) | payer OTHER, SELFPAY ==
[2019-12-12 11:43] VITALS: BP 127/96; PULSE 98; RESP 17; TEMP 36.3; O2SAT 98; BMI 24.7
[2019-12-12] MEDS: SODIUM CHLORIDE 0.9% 1,000 ML 1000 ML IV (12:13)
[2019-12-12 12:14] LABS: Add Manual Diff / Slide Review NO; Basophils Absolute Auto 100 /uL (0-100); Basophils Percent Auto 0.6 % (0-2); Eosinophils Absolute Auto 0 /uL (0-450); Eosinophils Percent Auto 0.1 % (2-4); Hemoglobin 14.2 g/dL (12.0-16.0); Lymphocytes Absolute Auto 1400 /uL (1100-4500); Lymphocytes Percent Auto 13.1 % (25-40); Mean Corpuscular HGB Conc 33.7 % (30-36); Mean Corpuscular Hemoglobin 29.2 PG (26-34); Mean Corpuscular Volume 86.7 fL (80-100); Monocytes Absolute Auto 500 /uL (0-900); Monocytes Percent Auto 4.6 % (3-14); Neutrophils Absolute Auto 8700 /uL (1500-7000); Neutrophils Percent Auto 81.6 % (50-75); Platelet Count 397 X10^3/uL (150-400); Red Blood Cell Count 4.85 X10^6/uL (4.0-5.2); Red Cell Distribution Width 12.9 % (11.6-14.8); White Blood Cell Count 10.7 X10^3/uL (4.5-11.0)
[2019-12-12 12:26] LABS: Albumin 5.3 g/dL (3.5-5.0); Albumin Globulin Ratio 1.7 (1.0-2.8); Alkaline Phosphatase 69 U/L (38-126); Aspartate Aminotransferase 37 IU/L (14-36); BUN Creatinine Ratio 17.8 (6-22); Blood Urea Nitrogen 13 mg/dL (7-17); Calcium 9.8 mg/dL (8.4-10.2); Carbon Dioxide 18 mmol/L (22-32); Chloride 98 mmol/L (98-107); Estimated Glomerular Filt Rate > 60.0 mL/min (>60); Globulin 3.1 g/dL (1.7-4.1); Glucose 126 mg/dL (70-100); HEMOLYSIS < 15 (0-50); Lipase 71 U/L (23-300); Sodium 135 mmol/L (137-145); Total Protein 8.4 g/dL (6.3-8.2)
[2019-12-12] MEDS: HALOPERIDOL 5 MG/ML VIAL IV (12:27)
[2019-12-12] MEDS: diphenhydrAMINE 50 MG/ML VIAL 25 MG IV (12:28)
[2019-12-12] MEDS: PANTOPRAZOLE 40 MG VIAL IV (12:28)
[2019-12-12 12:33] LABS: Alanine Aminotransferase 37 IU/L (<35)
[2019-12-12 12:43] LABS: RBC Urine None Seen (0-5/HPF)
[2019-12-12 12:54] LABS: Bacteria Urine Occasional (0-1); Squamous Epithelial Cell Urine 0-1 /HPF (0-5/HPF); WBC Urine 0-1/HPF (0-5/HPF)
[2019-12-12 12:55] LABS: Amorphous Sediment Urine 4+; Culture Indicated Urine Specimen Cultured
[2019-12-12] MEDS: POTASSIUM CHLORIDE 20 MEQ in SODIUM CHLORIDE 0.9% 250 ML 130 ML IV (13:17)
[2019-12-12] MEDS: POTASSIUM CHLORIDE 20 MEQ/15 ML UDC 40 MEQ PO (13:52)
[2019-12-12 13:59] VITALS: BP 115/77; PULSE 69; RESP 16; O2SAT 98
[2019-12-12 14:30] VITALS: BP 116/80; PULSE 58; RESP 26; O2SAT 97
[2019-12-12 15:53] VITALS: BP 153/88; PULSE 73; RESP 15; TEMP 37.1; O2SAT 100
[2019-12-12] MEDS: KETOROLAC 60 MG/2 ML VIAL 15 MG IV (16:38)
[2019-12-12] MEDS: LORazepam 2 MG/ML INJ 1 MG IV (16:38)
[2019-12-12] MEDS: SODIUM CHLORIDE 0.9% 500 ML 1000 ML IV (16:39)
--- NOTE | 2019-12-12 16:57 | ED.NAVMDI ---
HPI - Nausea/Vomiting/Diarrhea <KYLAH Gomez - Last Filed: 12/12/19 22:19> General Chief complaint: Nausea/Vomiting/Diarrhea Stated complaint: Has gotten worse since last ER visit Time Seen by Provider: 12/12/19 11:44 Source: patient Mode of arrival: Wheelchair Limitations: no limitations History of Present Illness HPI Narrative: This is a 34 year female, nonsmoker, who has history of cyclic vomiting syndrome, hysterectomy, , bipolar disorder who presents to ED with chief complain of recurring nausea and vomiting with bilateral upper abdominal cramping discomfort. Patient reports she was evaluated in ED 3 days ago with similar symptoms and treated with multiple medications to help with her symptoms and IV hydration and discharged to home with Phenergan and Reglan as needed use. Patient has been using these medications and last dose for the 2 medications was at 6:00 a.m. today. Reports has been having bilious emesis and has been having vomiting spells for 2 hours straight or every 45 minutes. Patient denies fever, chills, urinary symptoms. Last bowel movement was loose which was yesterday with greenish slimy appearing. Patient reports she smokes small amount of marijuana and had taken hot shower, bath, warm packs before coming into ED without much improvement. Related Data Home Medications Medication Instructions Recorded Confirmed cyclobenzaprine 10 mg PO DAILY PRN 06/24/18 06/25/18 fluoxetine 20 mg PO DAILY 06/24/18 06/25/18 Previous Rx's Medication Instructions Recorded promethazine 25 mg PO Q4-6H PRN #14 tab 04/26/18 promethazine 25 mg ME Q6H PRN #5 each 04/26/18 potassium chloride 20 meq PO DAILY #4 tab 06/25/18 ondansetron 4 mg PO Q8H #10 tab 06/11/19 metoclopramide HCl [Reglan] 10 mg PO Q6H PRN #14 tab 12/09/19 Allergies Allergy/AdvReac Type Severity Reaction Status Date / Time Iodinated Contrast Media AdvReac Severe Difficulty Verified 12/12/19 11:47 [Iodinated Contrast- Oral Breathing and IV Dye] Review of Systems <KYLAH Gomez - Last Filed: 12/12/19 22:19> Review of Systems Narrative: General: Denies fever, chills, fatigue, malaise, sweats. HEENT: Denies sinus pain, ear pain, sore throat, difficulty swallowing, dizziness. Respiratory: Denies dyspnea, cough, wheezing, hemoptysis, sputum. Cardiovascular: Denies chest pain, palpitations, orthopnea, edema. Gastrointestinal: See HPI : Denies dysuria, frequency, incontinence, hematuria, urinary retention. Musculoskeletal: Denies weakness, joint pain or bony pain. Skin: Denies rash, skin lesions, or other. Neurologic: Denies weakness, headache, numbness, change in speech, confusion, seizures, incoordination. Psychiatric: No concerning psychosocial issues. 12-point review of systems is negative except for those stated above. Patient History <KYLAH Gomez - Last Filed: 12/12/19 22:19> Medical History ADHD (Chronic) Anxiety (Chronic) Cyclic vomiting syndrome (Chronic) History of cervical cancer (Resolved) Surgical History History of (Resolved) History of elective (Resolved) History of tonsillectomy (Resolved) Status post hysterectomy (Resolved) Social History Smoking Status: Never smoker alcohol intake: never substance use type: does not use Smoking Status: Never smoker alcohol intake frequency: 0-2 drinks per day Substance Use Type: marijuana Exam <KYLAH Gomez - Last Filed: 12/12/19 22:19> Narrative Exam Narrative: GEN: Alert, oriented x 3, well appearing and nourished, and in no acute distress. Head: Normal cephalic, atraumatic. No scalp or temporal tenderness, palpable mass or rash. EYES: Pupils are equal, round, and reactive to light and accommodation. Extraocular muscles are intact bilaterally. There is no subconjunctival hemorrhage, exudate and sclera non-icteric. ENT:Hearing grossly intact. Nose without bleeding, purulent discharge or deviation. Mucous membrane dry, no mucosal lesion. Throat without erythema, tonsillar hypertrophy or exudate. Uvula in midline, airway patent. Neck: Trachea in midline. No JVD, non-tender without lymphadenopathy. No masses or thyroid megaly. Supple, non-tender and no meningeal signs. CARDIAC: Normal regular rate and rhythm without murmurs, gallops, or rubs. No chest wall tenderness. No peripheral edema, cyanosis or pallor. Capillary refill is less than 2 seconds. RESPIRATORY: Lungs are clear to auscultate bilaterally. No cough, wheezes, rales, or rhonchi. No stridor, respiratory distress, increase work of breathing, or accessary muscle used. ABD: Abdomen soft and non-distended. Mild tenderness to palpate in bilateral upper abdomen. No Villanueva's sign. No guarding or rebound tenderness to palpate. Bowel sounds are normal in all 4 quadrants. There is no palpable masses or organomegaly. EXT: Full painless ROM of all extremities with no loss of sensation, strength, effusion or edema. SKIN: Warm, dry, normal color for patient. No erythema, lesions or rash over visible areas. BACK: Nontender without deformity or crepitance. No flank tenderness. NEUROLOGICAL: Alert and oriented to place, time and person. Sensation and motor function intact bilaterally. No facial droops, dysphasia. PSYCHIATRIC: Good judgement and reason, without hallucinations, abnormal affect or abnormal behaviors during the examination. Patient is not suicidal. Initial Vital Signs Initial Vital Signs: Vital Signs Temperature 97.4 F L 12/12/19 11:43 Pulse Rate 98 H 12/12/19 11:43 Respiratory Rate 17 12/12/19 11:43 Blood Pressure 127/96 H 12/12/19 11:43 Pulse Oximetry 98 12/12/19 11:43 <Precious Arevalo DO - Last Filed: 12/13/19 07:38> Initial Vital Signs Initial Vital Signs: Vital Signs Temperature 97.4 F L 12/12/19 11:43 Pulse Rate 98 H 12/12/19 11:43 Respiratory Rate 17 12/12/19 11:43 Blood Pressure 127/96 H 12/12/19 11:43 Pulse Oximetry 98 12/12/19 11:43 Scores <KYLAH Gomez - Last Filed: 12/12/19 22:19> GCS [place] coma scale eye opening: Spontaneous [place] coma scale verbal response: Orientated [place] coma scale motor response: Obey commands [place] coma scale total score: 15 Course <Kirk Taylor-YUNIOR CashP - Last Filed: 12/12/19 22:19> Orders Ordered: Discontinued Medications Diphenhydramine HCl (Benadryl) 25 mg IV NOW ONE Stop: 12/12/19 12:14 Last Admin: 12/12/19 12:28 Dose: 25 mg Documented by: TONYA Haloperidol (Haldol) 5 mg IV NOW ONE Stop: 12/12/19 12:14 Last Admin: 12/12/19 12:27 Dose: 5 mg Documented by: TONYA Sodium Chloride (Normal Saline 0.9%) 1,000 mls @ 1,000 mls/hr IV BOLUS ONE Stop: 12/12/19 12:45 Last Infusion: 12/12/19 16:24 Dose: 0 mls/hr Documented by: Admin: 12/12/19 12:13 Dose: 1,000 mls/hr Documented by: MERCEDEZ Potassium Chloride 20 meq/ (Sodium Chloride) 260 mls @ 130 mls/hr IV NOW ONE Stop: 12/12/19 14:45 Last Infusion: 12/12/19 16:25 Dose: 0 mls/hr Documented by: TONYA Cosigned by: MERCEDEZ Admin: 12/12/19 13:17 Dose: 130 mls/hr Documented by: PRINCESS Cosigned by: PHOENIX Sodium Chloride (Normal Saline 0.9%) 500 mls @ 1,000 mls/hr IV BOLUS ONE Stop: 12/12/19 17:00 Last Infusion: 12/12/19 17:21 Dose: 0 mls/hr Documented by: Admin: 12/12/19 16:39 Dose: 1,000 mls/hr Documented by: TONYA Ketorolac Tromethamine (Toradol) 15 mg IV NOW ONE Stop: 12/12/19 16:32 Last Admin: 12/12/19 16:38 Dose: 15 mg Documented by: TONYA Lorazepam (Ativan) 1 mg IV NOW ONE Stop: 12/12/19 16:31 Last Admin: 12/12/19 16:38 Dose: 1 mg Documented by: TONYA Pantoprazole Sodium (Protonix) 40 mg IV NOW ONE Stop: 12/12/19 12:14 Last Admin: 12/12/19 12:28 Dose: 40 mg Documented by: TONYA Potassium Chloride (Potassium Chloride) 40 meq PO NOW ONE Stop: 12/12/19 12:46 Last Admin: 12/12/19 13:52 Dose: 40 meq Documented by: TONYA Vital Signs Vital signs: Vital Signs - 8 hr 12/12/19 14:30 12/12/19 15:53 12/12/19 17:23 Temperature 98.7 F Pulse Rate 58 L 73 76 Respiratory Rate 26 H 15 Blood Pressure 139/86 Blood Pressure [Left Arm] 116/80 153/88 H Pulse Oximetry 97 100 95 <Precious Arevalo, - Last Filed: 12/13/19 07:38> Orders Ordered: Discontinued Medications Diphenhydramine HCl (Benadryl) 25 mg IV NOW ONE Stop: 12/12/19 12:14 Last Admin: 12/12/19 12:28 Dose: 25 mg Documented by: TONYA Haloperidol (Haldol) 5 mg IV NOW ONE Stop: 12/12/19 12:14 Last Admin: 12/12/19 12:27 Dose: 5 mg Documented by: TONYA Sodium Chloride (Normal Saline 0.9%) 1,000 mls @ 1,000 mls/hr IV BOLUS ONE Stop: 12/12/19 12:45 Last Infusion: 12/12/19 16:24 Dose: 0 mls/hr Documented by: Admin: 12/12/19 12:13 Dose: 1,000 mls/hr Documented by: MERCEDEZ Potassium Chloride 20 meq/ (Sodium Chloride) 260 mls @ 130 mls/hr IV NOW ONE Stop: 12/12/19 14:45 Last Infusion: 12/12/19 16:25 Dose: 0 mls/hr Documented by: TONYA Cosigned by: MERCEDEZ Admin: 12/12/19 13:17 Dose: 130 mls/hr Documented by: PRINCESS Cosigned by: PHOENIX Sodium Chloride (Normal Saline 0.9%) 500 mls @ 1,000 mls/hr IV BOLUS ONE Stop: 12/12/19 17:00 Last Infusion: 12/12/19 17:21 Dose: 0 mls/hr Documented by: Admin: 12/12/19 16:39 Dose: 1,000 mls/hr Documented by: TONYA Ketorolac Tromethamine (Toradol) 15 mg IV NOW ONE Stop: 12/12/19 16:32 Last Admin: 12/12/19 16:38 Dose: 15 mg Documented by: TONYA Lorazepam (Ativan) 1 mg IV NOW ONE Stop: 12/12/19 16:31 Last Admin: 12/12/19 16:38 Dose: 1 mg Documented by: TONYA Pantoprazole Sodium (Protonix) 40 mg IV NOW ONE Stop: 12/12/19 12:14 Last Admin: 12/12/19 12:28 Dose: 40 mg Documented by: TONYA Potassium Chloride (Potassium Chloride) 40 meq PO NOW ONE Stop: 12/12/19 12:46 Last Admin: 12/12/19 13:52 Dose: 40 meq Documented by: TONYA Vital Signs Vital signs: Vital Signs - 8 hr 12/12/19 14:30 12/12/19 15:53 12/12/19 17:23 Temperature 98.7 F Pulse Rate 58 L 73 76 Respiratory Rate 26 H 15 Blood Pressure 139/86 Blood Pressure [Left Arm] 116/80 153/88 H Pulse Oximetry 97 100 95 MDM - Nausea/Vomiting/Diarrhea <KYLAH Gomez - Last Filed: 12/12/19 22:19> Differential Diagnosis Differential diagnosis: Likely gastroenteritis, dehydration and other (Abdominal pain, cyclic vomiting syndrome) Medical Records Attestation: I reviewed the patient's medical records. Lab Data Attestation: I reviewed the patient's lab results. Result diagrams: 12/12/19 11:50 12/12/19 11:50 Labs: Lab Results 12/12/19 12/12/19 12/12/19 Range/Units 11:50 11:50 12:23 WBC 10.7 (4.5-11.0) X10^3/uL RBC 4.85 (4.0-5.2) X10^6/uL Hgb 14.2 (12.0-16.0) g/dL Hct 42.0 (36-46) % MCV 86.7 (80-100) fL MCH 29.2 (26-34) PG MCHC 33.7 (30-36) % RDW 12.9 (11.6-14.8) % Plt Count 397 (150-400) X10^3/uL Neut % (Auto) 81.6 H (50-75) % Lymph % (Auto) 13.1 L (25-40) % Maury % (Auto) 4.6 (3-14) % Eos % (Auto) 0.1 L (2-4) % Baso % (Auto) 0.6 (0-2) % Neut # (Auto) 8700 H (5377-9615) /uL Lymph # (Auto) 1400 (4552-3528) /uL Maury # (Auto) 500 (0-900) /uL Eos # (Auto) 0 (0-450) /uL Baso # (Auto) 100 (0-100) /uL Sodium 135 L (137-145) mmol/L Potassium 3.0 L (3.4-5.1) mmol/L Chloride 98 (98-107) mmol/L Carbon Dioxide 18 L (22-32) mmol/L BUN 13 (7-17) mg/dL Creatinine 0.73 (0.52-1.04) mg/dL Estimated GFR > 60.0 (>60) mL/min BUN/Creatinine Ratio 17.8 (6-22) Glucose 126 H (70-100) mg/dL Calcium 9.8 (8.4-10.2) mg/dL Total Bilirubin 1.0 (0.2-1.3) mg/dL AST 37 H (14-36) IU/L ALT 37 H (<35) IU/L Alkaline Phosphatase 69 (38-126) U/L Total Protein 8.4 H (6.3-8.2) g/dL Albumin 5.3 H (3.5-5.0) g/dL Globulin 3.1 (1.7-4.1) g/dL Albumin/Globulin Ratio 1.7 (1.0-2.8) Lipase 71 (23-300) U/L Urine RBC None seen (0-5/HPF) Urine WBC 0-1/hpf (0-5/HPF) Ur Squamous Epith Cells 0-1 /hpf (0-5/HPF) Amorphous Sediment 4+ Urine Bacteria Occasional (0-1) (None) Ur Culture Indicated? Specimen cultured Point of Care Testing Glucose POC 111 Urine Dip Bedside Urine Glucose Negative Bedside Urine Bilirubin - Negative Bedside Urine Ketone ++ 40 Urine Specific [place] 1.010 Bedside Urine Occult Blood + Bedside Urine pH 8.5 Bedside Urine Protein +/- 15 Bedside Urine Urobilinogen - Negative Bedside Urine Nitrite - Negative Bedside Urine Leukocytes +/- 15 Esterase MDM Narrative Medical decision making narrative: This is a 34 year female who return to ED with recurring nausea and vomiting after she was evaluated in ED 3 days ago with cyclic vomiting syndrome. Patient reports had used discharge medication Phenergan and Reglan without much improvement and was unable to tolerate fluids. Patient's abdomen was nondistended and soft but mild discomfort in bilateral upper abdomen. Patient reports her emesis are mostly bile content with loose stools. Patient denies fever, chills, urinary symptoms. UA showed positive ketones, urine protein, occult blood and urine leukocytes esterase. Patient had previous hysterectomy. There is no leukocytosis. Mildly decreased sodium of 135. Potassium was 3.0 today. Three days ago, he was 3.2 and she was replaced with oral potassium 40 mEq before dc to home. Today we replaced 40 mEq of oral KCL with 20 mEq of IV potassium. Patient was in afebrile with within normal vital signs. Patient received 1.5 liter of NS infusion with IV Haldol, Benadryl for initial vomiting symptoms. After she ambulated to the bathroom patient had another episode of vomiting which was treated with Ativan 1 mg IV which helped her symptoms. Patient provided with pantoprazole and toward our for abdominal discomfort. Patient has enough Phenergan and Reglan at home which she can use her vomiting symptoms. Patient advised to follow-up with PCP to monitor potassium level and her symptoms. Patient's symptoms improved before discharged to home and was able to tolerate ice chips. Return precautions were discussed with the patient and patient and significant other verbalized understanding and in agreement with treatment plan. <Precious Arevalo, DO - Last Filed: 12/13/19 07:38> Lab Data Labs: Lab Results 12/12/19 12/12/19 12/12/19 Range/Units 11:50 11:50 12:23 WBC 10.7 (4.5-11.0) X10^3/uL RBC 4.85 (4.0-5.2) X10^6/uL Hgb 14.2 (12.0-16.0) g/dL Hct 42.0 (36-46) % MCV 86.7 (80-100) fL MCH 29.2 (26-34) PG MCHC 33.7 (30-36) % RDW 12.9 (11.6-14.8) % Plt Count 397 (150-400) X10^3/uL Neut % (Auto) 81.6 H (50-75) % Lymph % (Auto) 13.1 L (25-40) % Maury % (Auto) 4.6 (3-14) % Eos % (Auto) 0.1 L (2-4) % Baso % (Auto) 0.6 (0-2) % Neut # (Auto) 8700 H (5612-4421) /uL Lymph # (Auto) 1400 (9094-9507) /uL Maury # (Auto) 500 (0-900) /uL Eos # (Auto) 0 (0-450) /uL Baso # (Auto) 100 (0-100) /uL Sodium 135 L (137-145) mmol/L Potassium 3.0 L (3.4-5.1) mmol/L Chloride 98 (98-107) mmol/L Carbon Dioxide 18 L (22-32) mmol/L BUN 13 (7-17) mg/dL Creatinine 0.73 (0.52-1.04) mg/dL Estimated GFR > 60.0 (>60) mL/min BUN/Creatinine Ratio 17.8 (6-22) Glucose 126 H (70-100) mg/dL Calcium 9.8 (8.4-10.2) mg/dL Total Bilirubin 1.0 (0.2-1.3) mg/dL AST 37 H (14-36) IU/L ALT 37 H (<35) IU/L Alkaline Phosphatase 69 (38-126) U/L Total Protein 8.4 H (6.3-8.2) g/dL Albumin 5.3 H (3.5-5.0) g/dL Globulin 3.1 (1.7-4.1) g/dL Albumin/Globulin Ratio 1.7 (1.0-2.8) Lipase 71 (23-300) U/L Urine RBC None seen (0-5/HPF) Urine WBC 0-1/hpf (0-5/HPF) Ur Squamous Epith Cells 0-1 /hpf (0-5/HPF) Amorphous Sediment 4+ Urine Bacteria Occasional (0-1) (None) Ur Culture Indicated? Specimen cultured Point of Care Testing Glucose POC 111 Urine Dip Bedside Urine Glucose Negative Bedside Urine Bilirubin - Negative Bedside Urine Ketone ++ 40 Urine Specific [place] 1.010 Bedside Urine Occult Blood + Bedside Urine pH 8.5 Bedside Urine Protein +/- 15 Bedside Urine Urobilinogen - Negative Bedside Urine Nitrite - Negative Bedside Urine Leukocytes +/- 15 Esterase Discharge Plan Departure Patient Disposition: Home Clinical Impression: Cyclical vomiting, Hypokalemia Abdominal pain Qualifiers: Abdominal location: upper abdomen, unspecified Qualified Code(s): R10.10 - Upper abdominal pain, unspecified Discharge Date/Time: 12/12/19 17:26 Instructions: DI for Hypokalemia, Nausea and Vomiting-Adult Activity Restrictions/Additional Instructions: You have been diagnosed with [abdominal pain, cyclic vomiting, hypokalemia]. What to do: *Take your medications as directed. Please take your outpatient anti nausea medications for your symptoms as needed. Please hydrate frequently with small amounts with clear liquids including sports drinks mixed with water, juice, ice chips, brought, or water. *Follow up with your primary care provider in 2-3 days, call for an appointment. Let them know you were seen in the ED and that we asked you to be seen in follow up for recheck labs and her symptoms. *Return to ED if you have any new, worsening, or concerning symptoms, such as [chest pain, breathing difficulty, unable to tolerate fluids, fever, or any acute concerns]. Prescriptions: No Action promethazine 25 mg suppository 25 mg ME Q6H PRN (Reason: nausea and vomiting) Qty: 5 RF: 0 promethazine 25 mg tablet 25 mg PO Q4-6H PRN (Reason: nausea and vomiting) Qty: 14 RF: 0 cyclobenzaprine 10 mg tablet 10 mg PO DAILY PRN (Reason: Spasms) RF: 0 fluoxetine 20 mg capsule 20 mg PO DAILY RF: 0 potassium chloride 20 mEq tablet extended release 20 meq PO DAILY Qty: 4 RF: 0 ondansetron 4 mg tablet,disintegrating 4 mg PO Q8H Qty: 10 RF: 0 metoclopramide HCl [Reglan] 10 mg tablet 10 mg PO Q6H PRN (Reason: nausea and vomiting) Qty: 14 RF: 0 Referrals: [facility] [Outside]
[2019-12-12 17:23] VITALS: BP 139/86; PULSE 76; O2SAT 95
== END 2019-12-12 17:26 | disposition home or self-care (01) ==
PROVIDERS: Emergency Provider Nurse Practitioner Family; PCP Nurse Practitioner
DX: R11.15 Cyclical vomiting syndrome unrelated to migraine (principal); E87.6 Hypokalemia; R10.10 Upper abdominal pain, unspecified
CPT/HCPCS: 36415; 80053; 81003; 81015; 82962; 83690; 85025; 87077; 87086; 96361; 96365; 96366; 96375; 99284; C9113; J1200; J1630; J1885; J2060; J3480

== ENCOUNTER 2021-03-11 07:59 | Emergency (ER) | payer OTHER, MEDICAID, SELFPAY ==
[2021-03-11 08:16] VITALS: BP 172/103; PULSE 84; RESP 18; TEMP 36.8; O2SAT 97; BMI 25.9
[2021-03-11 08:28] LABS: Add Manual Diff / Slide Review NO; Basophils Absolute Auto 100 /uL (0-100); Basophils Percent Auto 0.9 % (0-2); Eosinophils Absolute Auto 0 /uL (0-450); Eosinophils Percent Auto 0.5 % (2-4); Hematocrit 40.9 % (36-46); Hemoglobin 13.7 g/dL (12.0-16.0); Lymphocytes Absolute Auto 1700 /uL (1100-4500); Lymphocytes Percent Auto 19.7 % (25-40); Mean Corpuscular HGB Conc 33.6 % (30-36); Mean Corpuscular Hemoglobin 29.2 PG (26-34); Monocytes Absolute Auto 400 /uL (0-900); Monocytes Percent Auto 4.9 % (3-14); Neutrophils Absolute Auto 6300 /uL (1500-7000); Platelet Count 377 X10^3/uL (150-400); Red Cell Distribution Width 12.8 % (11.6-14.8); White Blood Cell Count 8.5 X10^3/uL (4.5-11.0)
--- NOTE | 2021-03-11 08:28 | ED.NAVMDI ---
HPI - Nausea/Vomiting/Diarrhea General Chief complaint: Abdominal Pain Stated complaint: VOMITTING,DIZZY, CHEST HEAVINESS Time Seen by Provider: 03/11/21 08:15 Source: patient Mode of arrival: Ambulatory Limitations: no limitations History of Present Illness HPI Narrative: This is a 35-year-old female who comes to the emergency department with complaint of vomiting, dizziness and abdominal pain. Patient has a history of what is described to cyclic vomiting. She has not been here in about a year but has had episodes and been seen at outside facilities in October and January and before that July of 2020. Patient states last night she was in argument with her mother, this seemed to causes anxiety attack which seem to trigger her symptoms. She is describing ?abdominal pain. Vomiting. She states she saw some blood in her stool. Patient states she has not had any other new medication changes. Patient states that typically the medications being if there are helpful. She denies fevers, chills, no urinary symptoms. No vaginal bleeding or discharge. She states she has had hysterectomy in the past. Related Data Home Medications Medication Instructions Recorded Confirmed cyclobenzaprine 10 mg tablet 10 mg PO DAILY PRN 06/24/18 06/25/18 fluoxetine 20 mg capsule 20 mg PO DAILY 06/24/18 06/25/18 Previous Rx's Medication Instructions Recorded promethazine 25 mg rectal 25 mg TX Q6H PRN #5 each 04/26/18 suppository promethazine 25 mg tablet 25 mg PO Q4-6H PRN #14 tab 04/26/18 potassium chloride 20 mEq 20 meq PO DAILY #4 tab 06/25/18 tablet,extended release ondansetron 4 mg disintegrating 4 mg PO Q8H #10 tab 06/11/19 tablet metoclopramide HCl 10 mg tablet 10 mg PO Q6H PRN #14 tab 12/09/19 (Reglan) Allergies Allergy/AdvReac Type Severity Reaction Status Date / Time Iodinated Contrast Media AdvReac Severe Difficulty Verified 12/12/19 11:47 [Iodinated Contrast- Oral Breathing and IV Dye] Review of Systems Review of Systems ROS Unobtainable: All systems reviewed & are unremarkable except as noted in HPI and below Patient History Medical History (Updated 03/11/21 @ 08:50 by Precious Arevalo DO) ADHD Anxiety Cyclic vomiting syndrome History of cervical cancer Surgical History History of History of elective History of tonsillectomy Status post hysterectomy Social History Smoking Status: Never smoker alcohol intake: never substance use type: does not use Smoking Status: Never smoker alcohol intake frequency: 0-2 drinks per day Substance Use Type: marijuana Exam Narrative Exam Narrative: GENERAL: Alert and oriented x three, female in moderate distress. Patient is on her knees on the gurney throwing up into an emesis bag. Emesis is green and watery in coloration. HEENT: Head normocephalic, atraumatic, EOMI, pupils reactive, face symmetric, moist mucous membranes NECK: Supple, full range of motion CARDIOVASCULAR: Regular rate and rhythm without murmurs, rubs or gallops. RESPIRATORY: Breath sounds equal bilaterally, no wheezes rales or rhonchi. ABDOMEN: Soft, nontender. Nondistended. Normoactive bowel sounds all 4 quadrants. No guarding or rebound, rigidity, no mass : No CVA tenderness EXTREMITIES: Normal range of motion, no clubbing or edema. Neurovascularly intact NEUROLOGICAL: Cranial nerves II through XII grossly intact. Moving all extremities SKIN: Warm, dry, no petechiae, no rashes or lesions. Initial Vital Signs Initial Vital Signs: Vital Signs Temperature 98.2 F 03/11/21 08:16 Pulse Rate 84 03/11/21 08:16 Respiratory Rate 18 03/11/21 08:16 Blood Pressure 172/103 H 03/11/21 08:16 Pulse Oximetry 97 03/11/21 08:16 Course Orders Ordered: Discontinued Medications Diphenhydramine HCl (Diphenhydramine 50 Mg/Ml Vial) 25 mg IV NOW ONE Stop: 03/11/21 08:41 Last Admin: 03/11/21 08:55 Dose: 25 mg Documented by: KEVEN Haloperidol (Haloperidol 5 Mg/Ml Vial) 5 mg IV NOW ONE Stop: 03/11/21 08:41 Last Admin: 03/11/21 08:56 Dose: 5 mg Documented by: KEVEN Sodium Chloride (Normal Saline 0.9%) 1,000 mls @ 1,000 mls/hr IV BOLUS ONE Stop: 03/11/21 09:15 Last Infusion: 03/11/21 09:47 Dose: 0 mls/hr Documented by: Admin: 03/11/21 08:31 Dose: 1,000 mls/hr Documented by: KEVEN Ketorolac Tromethamine (Ketorolac 30 Mg/Ml Vial) 30 mg IV NOW ONE Stop: 03/11/21 08:17 Last Admin: 03/11/21 08:30 Dose: 30 mg Documented by: KEVEN Ondansetron HCl (Ondansetron 4 Mg/2 Ml Inj) 4 mg IV NOW ONE Stop: 03/11/21 08:17 Last Admin: 03/11/21 08:31 Dose: 4 mg Documented by: KEVEN Pantoprazole Sodium (Pantoprazole 40 Mg Vial) 40 mg IV NOW ONE Stop: 03/11/21 08:17 Last Admin: 03/11/21 08:31 Dose: 40 mg Documented by: KEVEN Reevaluation(s) Reevaluation #1: Patient is no longer vomiting. She is lying on the bed with her feet at the head of the bed with the head of the bed at 30? but states this is much more comfortable. Reviewed labs. Plan for observation for a little longer and continuing to improve discharge home. All questions answered. Time: 10:10 Vital Signs Vital signs: Vital Signs - 8 hr 03/11/21 08:16 03/11/21 09:04 03/11/21 09:48 Temperature 98.2 F Pulse Rate 84 60 73 Respiratory Rate 18 16 16 Blood Pressure 172/103 H 138/95 H Pulse Oximetry 97 93 94 MDM - Nausea/Vomiting/Diarrhea Lab Data Result diagrams: 03/11/21 08:13 03/11/21 08:13 Labs: Lab Results 03/11/21 03/11/21 03/11/21 Range/Units 08:13 08:13 08:36 WBC 8.5 (4.5-11.0) X10^3/uL RBC 4.70 (4.0-5.2) X10^6/uL Hgb 13.7 (12.0-16.0) g/dL Hct 40.9 (36-46) % MCV 87.0 (80-100) fL MCH 29.2 (26-34) PG MCHC 33.6 (30-36) % RDW 12.8 (11.6-14.8) % Plt Count 377 (150-400) X10^3/uL Neut % (Auto) 74.0 (50-75) % Lymph % (Auto) 19.7 L (25-40) % [place] % (Auto) 4.9 (3-14) % Eos % (Auto) 0.5 L (2-4) % Baso % (Auto) 0.9 (0-2) % Neut # (Auto) 6300 (9038-3691) /uL Lymph # (Auto) 1700 (2000-3188) /uL [place] # (Auto) 400 (0-900) /uL Eos # (Auto) 0 (0-450) /uL Baso # (Auto) 100 (0-100) /uL Sodium 144 (137-145) mmol/L Potassium 3.8 (3.4-5.1) mmol/L Chloride 110 H (98-107) mmol/L Carbon Dioxide 19 L (22-32) mmol/L BUN 8 (7-17) mg/dL Creatinine 0.71 (0.52-1.04) mg/dL Estimated GFR > 60.0 (>60) mL/min BUN/Creatinine Ratio 11.3 (6-22) Glucose 113 H (70-100) mg/dL Calcium 9.9 (8.4-10.2) mg/dL Total Bilirubin 1.0 (0.2-1.3) mg/dL AST 38 H (14-36) IU/L ALT 29 (<35) IU/L Alkaline Phosphatase 64 (38-126) U/L Total Protein 8.4 H (6.3-8.2) g/dL Albumin 5.1 H (3.5-5.0) g/dL Globulin 3.3 (1.7-4.1) g/dL Albumin/Globulin Ratio 1.5 (1.0-2.8) Lipase 59 (23-300) U/L Urine RBC 1-5/hpf (0-5/HPF) Urine WBC None seen (0-5/HPF) Ur Squamous Epith Cells 5-10 /hpf H (0-5/HPF) Amorphous Sediment 3+ Urine Bacteria Few (2-10) H (None) Ur Culture Indicated? Culture not indicate Point of Care Testing Test Results Not applicable Urine Dip Bedside Urine Glucose Negative Bedside Urine Bilirubin - Negative Bedside Urine Ketone - Negative Urine Specific [place] 1.010 Bedside Urine Occult Blood + Bedside Urine pH 9 Bedside Urine Protein + 30 Bedside Urine Urobilinogen - Negative Bedside Urine Nitrite - Negative Bedside Urine Leukocytes - Negative Esterase MDM Narrative Medical decision making narrative: Patient's urine is positive for protein as well as blood. is negative. Patient's chloride is little elevated, CO2 is 19, glucose is 113 with a normal electrolytes. AST is 38 but improved from priors. With no other changes to liver enzymes. Patient appeared improved after medications. Patient is feeling much better. She is no longer vomiting here in the department and feeling improved. Discharge Plan Departure Patient Disposition: Home Clinical Impression: Vomiting, Abdominal pain Instructions: DI for Vomiting -- Adult Activity Restrictions/Additional Instructions: Continue home medications as prescribed. Hydrate frequently with very small amounts of clear liquids, you can slowly increase her fluids to large cups and continuing to tolerate can then start to add solid foods in small amounts and advance as tolerated. Follow-up with primary care in the next 2-3 days, call for an appointment. If you continue to notice blood or dark stools it is recommended that you have a colonoscopy for recheck. Please return for fevers, new or worsening abdominal, back or flank pain, persistent vomiting, new or worsening bleeding, chest pain or shortness of breath or other new or concerning symptoms. Prescriptions: No Action promethazine 25 mg suppository 25 mg TX Q6H PRN (Reason: nausea and vomiting) Qty: 5 RF: 0 promethazine 25 mg tablet 25 mg PO Q4-6H PRN (Reason: nausea and vomiting) Qty: 14 RF: 0 cyclobenzaprine 10 mg tablet 10 mg PO DAILY PRN (Reason: Spasms) RF: 0 fluoxetine 20 mg capsule 20 mg PO DAILY RF: 0 potassium chloride 20 mEq tablet extended release 20 meq PO DAILY Qty: 4 RF: 0 ondansetron 4 mg tablet,disintegrating 4 mg PO Q8H Qty: 10 RF: 0 metoclopramide HCl [Reglan] 10 mg tablet 10 mg PO Q6H PRN (Reason: nausea and vomiting) Qty: 14 RF: 0
[2021-03-11] MEDS: KETOROLAC 30 MG/ML VIAL IV (08:30)
[2021-03-11] MEDS: PANTOPRAZOLE 40 MG VIAL IV (08:31)
[2021-03-11] MEDS: ONDANSETRON 4 MG/2 ML INJ IV (08:31)
[2021-03-11] MEDS: SODIUM CHLORIDE 0.9% 1,000 ML 1000 ML IV (08:31)
[2021-03-11 08:37] LABS: Alanine Aminotransferase 29 IU/L (<35); Albumin 5.1 g/dL (3.5-5.0); Albumin Globulin Ratio 1.5 (1.0-2.8); Alkaline Phosphatase 64 U/L (38-126); Aspartate Aminotransferase 38 IU/L (14-36); BUN Creatinine Ratio 11.3 (6-22); Blood Urea Nitrogen 8 mg/dL (7-17); Calcium 9.9 mg/dL (8.4-10.2); Carbon Dioxide 19 mmol/L (22-32); Chloride 110 mmol/L (98-107); Estimated Glomerular Filt Rate > 60.0 mL/min (>60); Globulin 3.3 g/dL (1.7-4.1); Glucose 113 mg/dL (70-100); HEMOLYSIS 20 (0-50); Lipase 59 U/L (23-300); Potassium 3.8 mmol/L (3.4-5.1); Sodium 144 mmol/L (137-145); Total Protein 8.4 g/dL (6.3-8.2)
[2021-03-11 08:46] LABS: WBC Urine None Seen (0-5/HPF)
[2021-03-11 08:54] LABS: Amorphous Sediment Urine 3+; Bacteria Urine Few (2-10); RBC Urine 1-5/HPF (0-5/HPF); Squamous Epithelial Cell Urine 5-10 /HPF (0-5/HPF)
[2021-03-11] MEDS: diphenhydrAMINE 50 MG/ML VIAL 25 MG IV (08:55)
[2021-03-11] MEDS: HALOPERIDOL 5 MG/ML VIAL IV (08:56)
[2021-03-11 09:04] VITALS: BP 138/95; PULSE 60; RESP 16; O2SAT 93
[2021-03-11 09:48] VITALS: PULSE 73; RESP 16; O2SAT 94
[2021-03-11 11:26] VITALS: PULSE 79; O2SAT 97
== END 2021-03-11 11:50 | disposition home or self-care (01) ==
PROVIDERS: Emergency Provider Emergency Medicine
DX: R11.10 Vomiting, unspecified (principal); R10.9 Unspecified abdominal pain; R42 Dizziness and giddiness
CPT/HCPCS: 36415; 80053; 81003; 81015; 81025; 83690; 85025; 87086; 96361; 96374; 96375; 99284; C9113; J1200; J1630; J1885; J2405

== ENCOUNTER 2021-09-14 05:45 | Emergency (ER) | payer OTHER, MEDICAID, SELFPAY ==
[2021-09-14] VITALS (18 sets, daily range): BP systolic 107–184; BP diastolic 62–115; PULSE 66–98; RESP 16–32; TEMP 37; O2SAT 93–100
--- NOTE | 2021-09-14 05:52 | ED.SYNCOPE ---
HPI - Syncope <Precious Arevalo, DO - Last Filed: 09/14/21 18:33> General Chief Complaint: Syncope Stated Complaint: fall Time Seen by Provider: 09/14/21 05:52 Source: patient and EMS Mode of arrival: EMS Limitations: no limitations History of Present Illness HPI narrative: This is a 36-year-old female who is brought to the emergency department for possible trauma versus syncopal episode. Patient states she was feeling fine prior to going to bed although she had some abdominal discomfort. She states she woke up this morning about [id number]. She states she passed out or hit the floor. She remembers waking up in getting up to go to the bathroom she describes headache, pain ?all over?. Some pain neck on the left. She also has abdominal pain which she states is the worst pain currently. She has had nausea and vomiting since then. She states no bowel or bladder incontinence. She states she has been having bowel movements. She denies dysuria urgency or frequency. Patient states she has lower lumbar back discomfort. She states she is not on any daily medications. She states she had 1 grand mal type seizure 3 years ago she states she was seen by Neurology and cleared. She does not take any anti seizure medications. Patient has had a total hysterectomy. She occasionally drinks alcohol denies any today or overnight. She uses THC regularly. Denies other illicit. Per EMS there was reported possible episode of stiffening for several seconds while in route. Related Data Home Medications Medication Instructions Recorded Confirmed cyclobenzaprine 10 mg tablet 10 mg PO DAILY PRN 06/24/18 06/25/18 fluoxetine 20 mg capsule 20 mg PO DAILY 06/24/18 06/25/18 Previous Rx's Medication Instructions Recorded promethazine 25 mg rectal 25 mg VT Q6H PRN #5 each 04/26/18 suppository promethazine 25 mg tablet 25 mg PO Q4-6H PRN #14 tab 04/26/18 potassium chloride 20 mEq 20 meq PO DAILY #4 tab 06/25/18 tablet,extended release ondansetron 4 mg disintegrating 4 mg PO Q8H #10 tab 06/11/19 tablet metoclopramide HCl 10 mg tablet 10 mg PO Q6H PRN #14 tab 12/09/19 (Reglan) dicyclomine 20 mg tablet 20 mg PO BID PRN #20 tab 09/14/21 ondansetron 4 mg disintegrating 4 mg PO TID-QID PRN #10 tab 09/14/21 tablet Allergies Allergy/AdvReac Type Severity Reaction Status Date / Time Iodinated Contrast Media AdvReac Severe Difficulty Verified 12/12/19 11:47 [Iodinated Contrast- Oral Breathing and IV Dye] Review of Systems <Precious Arevalo DO - Last Filed: 09/14/21 18:33> Review of Systems ROS Unobtainable: All systems reviewed & are unremarkable except as noted in HPI and below Patient History <Precious Arevalo DO - Last Filed: 09/14/21 18:33> Medical History (Updated 09/14/21 @ 12:46 by Gage Arana DO) ADHD Anxiety Cyclic vomiting syndrome History of cervical cancer Surgical History History of History of elective History of tonsillectomy Status post hysterectomy Social History Smoking Status: Never smoker alcohol intake: never substance use type: does not use Smoking Status: Never smoker alcohol intake frequency: 0-2 drinks per day Substance Use Type: marijuana Exam <Precious Arevalo DO - Last Filed: 09/14/21 18:33> Narrative Exam Narrative: GEN: C-collar prior to arrival.. Patient appears in mild distress. HEAD: No evidence of trauma, no raccoon/Alberts sign. NECK: Nontender, painless range of motion, trachea midline Positive for Nexus criteria, there is mild mid line tenderness, no distracting injury, altered mental status, neuro deficit, recent EtOH. EYES: PERRLA, EOMI ENT: External inspection normal, trachea is midline, TM's are normal no hemotypanum, Nares are clear, no septal hematoma, no dental or oral injury, airway is normal and with normal occlusion, No bony tenderness RESP: Chest is nontender and has symmetric movement, no ecchymosis, breath sounds are normal no crackles, wheezes or rales. Patient has mild tachypnea speaks in full sentences. CVS: Heart sounds are normal, no murmur noted, No JVD. ABG/GI: Positive for abdominal tenderness that is generalized, nondistended, no ecchymosis or skin changes. Soft, normal bowel sounds, no distention, no organomegaly, pelvic rock is negative NEURO: Oriented AOx3, neuro is grossly intact, sensation and motor is normal all 4 extremities moving, cranial nerves II through XII are intact, GCS is 15 PSYCH: Normal mood and affect SKIN: Intact, warm and dry, no crepitus and without decubitus BACK: No CVA tenderness, no vertebral tenderness, no step-off's, no crepitus EXT: Atraumatic, hips are nontender, no pedal edema, normal color and temperature, normal range of motion of extremities with normal tendon exam, 2+ pulses in all four extremities Initial Vital Signs Initial Vital Signs: Vital Signs Pulse Rate 90 09/14/21 05:51 Respiratory Rate 31 H 09/14/21 05:51 <Gage Arana DO - Last Filed: 09/18/21 18:41> Initial Vital Signs Initial Vital Signs: Vital Signs Pulse Rate 90 09/14/21 05:51 Respiratory Rate 31 H 09/14/21 05:51 Scores <Precious Arevalo DO - Last Filed: 09/14/21 18:33> GCS [place] coma scale eye opening: Spontaneous [place] coma scale verbal response: Orientated [place] coma scale motor response: Obey commands [place] coma scale total score: 15 <Gage Arana DO - Last Filed: 09/18/21 18:41> GCS [place] coma scale total score: 15 Course <Precious Arevalo DO - Last Filed: 09/14/21 18:33> Orders Ordered: Discontinued Medications Dicyclomine HCl (Dicyclomine 10 Mg Capsule) 20 mg PO NOW ONE Stop: 09/14/21 10:21 Last Admin: 09/14/21 12:38 Dose: 20 mg Documented by: RADHA Diphenhydramine HCl (Diphenhydramine 50 Mg/Ml Vial) 25 mg IV NOW ONE Stop: 09/14/21 06:06 Last Admin: 09/14/21 06:21 Dose: 25 mg Documented by: KYLIE Haloperidol (Haloperidol 5 Mg/Ml Vial) 5 mg IV NOW ONE Stop: 09/14/21 06:06 Last Admin: 09/14/21 06:21 Dose: 5 mg Documented by: KYLIE Sodium Chloride (Normal Saline 0.9%) 1,000 mls @ 1,000 mls/hr IV BOLUS ONE Stop: 09/14/21 06:52 Last Infusion: 09/14/21 07:40 Dose: 0 mls/hr Documented by: Admin: 09/14/21 06:21 Dose: 1,000 mls/hr Documented by: KYLIE Sodium Chloride (Normal Saline 0.9%) 1,000 mls @ 1,000 mls/hr IV BOLUS ONE Stop: 09/14/21 11:51 Last Infusion: 09/14/21 12:11 Dose: 0 mls/hr Documented by: Admin: 09/14/21 10:57 Dose: 1,000 mls/hr Documented by: RADHA Ondansetron HCl (Ondansetron 4 Mg/2 Ml Inj) 4 mg IV NOW ONE Stop: 09/14/21 10:53 Last Admin: 09/14/21 10:58 Dose: 4 mg Documented by: RADHA Pantoprazole Sodium (Pantoprazole 40 Mg Vial) 40 mg IV NOW ONE Stop: 09/14/21 10:53 Last Admin: 09/14/21 10:58 Dose: 40 mg Documented by: RADHA Vital Signs Vital signs: Vital Signs - 8 hr 09/14/21 11:02 09/14/21 12:42 Pulse Rate 71 98 H Respiratory Rate 16 16 Blood Pressure 184/106 H 182/112 H Pulse Oximetry 98 100 <Gage Arana DO - Last Filed: 09/18/21 18:41> Orders Ordered: Discontinued Medications Dicyclomine HCl (Dicyclomine 10 Mg Capsule) 20 mg PO NOW ONE Stop: 09/14/21 10:21 Last Admin: 09/14/21 12:38 Dose: 20 mg Documented by: RADHA Diphenhydramine HCl (Diphenhydramine 50 Mg/Ml Vial) 25 mg IV NOW ONE Stop: 09/14/21 06:06 Last Admin: 09/14/21 06:21 Dose: 25 mg Documented by: KYLIE Haloperidol (Haloperidol 5 Mg/Ml Vial) 5 mg IV NOW ONE Stop: 09/14/21 06:06 Last Admin: 09/14/21 06:21 Dose: 5 mg Documented by: [email or web address] Sodium Chloride (Normal Saline 0.9%) 1,000 mls @ 1,000 mls/hr IV BOLUS ONE Stop: 09/14/21 06:52 Last Infusion: 09/14/21 07:40 Dose: 0 mls/hr Documented by: Admin: 09/14/21 06:21 Dose: 1,000 mls/hr Documented by: [email or web address] Sodium Chloride (Normal Saline 0.9%) 1,000 mls @ 1,000 mls/hr IV BOLUS ONE Stop: 09/14/21 11:51 Last Infusion: 09/14/21 12:11 Dose: 0 mls/hr Documented by: Admin: 09/14/21 10:57 Dose: 1,000 mls/hr Documented by: RADHA Ondansetron HCl (Ondansetron 4 Mg/2 Ml Inj) 4 mg IV NOW ONE Stop: 09/14/21 10:53 Last Admin: 09/14/21 10:58 Dose: 4 mg Documented by: RADHA Pantoprazole Sodium (Pantoprazole 40 Mg Vial) 40 mg IV NOW ONE Stop: 09/14/21 10:53 Last Admin: 09/14/21 10:58 Dose: 40 mg Documented by: RADHA Vital Signs Vital signs: Vital Signs - 8 hr 09/14/21 11:02 09/14/21 12:42 Pulse Rate 71 98 H Respiratory Rate 16 16 Blood Pressure 184/106 H 182/112 H Pulse Oximetry 98 100 MDM - Syncope <Precious Arevalo, DO - Last Filed: 09/14/21 18:33> Lab Data Result diagrams: 09/14/21 05:50 09/14/21 05:50 Labs: Lab Results 09/14/21 09/14/21 09/14/21 Range/Units 05:50 05:50 05:50 WBC 9.5 (4.5-11.0) X10^3/uL RBC 4.36 (4.0-5.2) X10^6/uL Hgb 12.8 (12.0-16.0) g/dL Hct 37.3 (36-46) % MCV 85.6 (80-100) fL MCH 29.4 (26-34) PG MCHC 34.4 (30-36) % RDW 12.8 (11.6-14.8) % Plt Count 344 (150-400) X10^3/uL Neut % (Auto) 89.5 H (50-75) % Lymph % (Auto) 8.2 L (25-40) % [place] % (Auto) 2.0 L (3-14) % Eos % (Auto) 0.0 L (2-4) % Baso % (Auto) 0.3 (0-2) % Neut # (Auto) 8500 H (3554-7365) /uL Lymph # (Auto) 800 L (6320-4536) /uL [place] # (Auto) 200 (0-900) /uL Eos # (Auto) 0 (0-450) /uL Baso # (Auto) 0 (0-100) /uL PT 12.4 (10.1-12.7) SECONDS INR 1.1 (0.9-1.3) APTT 30 (26.4-36.2) SECONDS Sodium 138 (137-145) mmol/L Potassium 3.7 (3.4-5.1) mmol/L Chloride 107 (98-107) mmol/L Carbon Dioxide 21 L (22-32) mmol/L BUN 12 (7-17) mg/dL Creatinine 0.61 (0.52-1.04) mg/dL Estimated GFR > 60.0 (>60) mL/min BUN/Creatinine Ratio 19.7 (6-22) Glucose 166 H (70-100) mg/dL Calcium 9.3 (8.4-10.2) mg/dL Total Bilirubin 0.7 (0.2-1.3) mg/dL AST 25 (14-36) IU/L ALT 19 (<35) IU/L Alkaline Phosphatase 61 (38-126) U/L Total Creatine Kinase 65 (30-135) U/L CK-MB (CK-2) TNP CK-MB (CK-2) Rel Index TNP Troponin I < 0.012 (0.01-0.034) ng/mL Total Protein 7.5 (6.3-8.2) g/dL Albumin 4.7 (3.5-5.0) g/dL Globulin 2.8 (1.7-4.1) g/dL Albumin/Globulin Ratio 1.7 (1.0-2.8) Lipase 42 (23-300) U/L Ethyl Alcohol < 10 ( - 10) mg/dL SARS-CoV-2 (PCR) (Negative) Blood Type Antibody Screen 09/14/21 09/14/21 Range/Units 05:50 05:53 WBC (4.5-11.0) X10^3/uL RBC (4.0-5.2) X10^6/uL Hgb (12.0-16.0) g/dL Hct (36-46) % MCV (80-100) fL MCH (26-34) PG MCHC (30-36) % RDW (11.6-14.8) % Plt Count (150-400) X10^3/uL Neut % (Auto) (50-75) % Lymph % (Auto) (25-40) % [place] % (Auto) (3-14) % Eos % (Auto) (2-4) % Baso % (Auto) (0-2) % Neut # (Auto) (8972-0097) /uL Lymph # (Auto) (3366-8702) /uL [place] # (Auto) (0-900) /uL Eos # (Auto) (0-450) /uL Baso # (Auto) (0-100) /uL PT (10.1-12.7) SECONDS INR (0.9-1.3) APTT (26.4-36.2) SECONDS Sodium (137-145) mmol/L Potassium (3.4-5.1) mmol/L Chloride (98-107) mmol/L Carbon Dioxide (22-32) mmol/L BUN (7-17) mg/dL Creatinine (0.52-1.04) mg/dL Estimated GFR (>60) mL/min BUN/Creatinine Ratio (6-22) Glucose (70-100) mg/dL Calcium (8.4-10.2) mg/dL Total Bilirubin (0.2-1.3) mg/dL AST (14-36) IU/L ALT (<35) IU/L Alkaline Phosphatase (38-126) U/L Total Creatine Kinase (30-135) U/L CK-MB (CK-2) CK-MB (CK-2) Rel Index Troponin I (0.01-0.034) ng/mL Total Protein (6.3-8.2) g/dL Albumin (3.5-5.0) g/dL Globulin (1.7-4.1) g/dL Albumin/Globulin Ratio (1.0-2.8) Lipase (23-300) U/L Ethyl Alcohol ( - 10) mg/dL SARS-CoV-2 (PCR) Positive H (Negative) Blood Type O Positive Antibody Screen Negative ECG Data Attestation: I personally reviewed and interpreted this ECG as follows: Prior ECG tracings: available for review Interpretation: NSR with sinus arrhythmia, rate of 80, pr 166, qrs 84, qtc 463. No acute ST changes. No acute changed compared to prior 06/24/18. MDM Narrative Medical decision making narrative: This is a 36-year-old female with possible syncopal episode with history of cyclic vomiting. Patient is complaining of abdominal pain and feels nauseated had vomiting. She states she felt okay when she went to bed and got up to go to the bathroom this morning and woke up on the floor. Patient has head CT, C-spine and chest abdomen pelvis ordered as she complained of tenderness throughout with a possible stiffening episode EN route with EMS. Patient states she has had 1 prior tonic-clonic seizure 3 years ago and states she was cleared by Neurology. Patient glucose EN route was normal. She has had some mild tachypnea and was hypertensive for EMS. Labs, imaging including head and C-spine chest abdomen pelvis with complaint of quite a bit of abdominal pain were performed. Patient is covid positive. Head CT and Cspine show no acute change. CT chest/abd/pelvis is pending. Patient signed out to Dr. Arana for final disposition. 0700 - (Sumit) received in signout. Clinical course reviewed. Labs and imaging reasurring. Patient feeling better. I have performed an independent history and physical exam. Vitals have stabilized, pain is more appropriately controlled, patient is resting. Patient has COVID, there is no respiratory distress, increased work of breathing, need for supplemental oxygen. No significant findings with labs or imaging regarding abdominal pain. She reports that she likely fell and probably had a brief syncopal episode associated with the onset of her abdominal pain. It is unlikely that she had a seizure. Patient given return precautions and questions have been answered to her <Gage Arana, DO - Last Filed: 09/18/21 18:41> Lab Data Labs: Lab Results 09/14/21 09/14/21 09/14/21 Range/Units 05:50 05:50 05:50 WBC 9.5 (4.5-11.0) X10^3/uL RBC 4.36 (4.0-5.2) X10^6/uL Hgb 12.8 (12.0-16.0) g/dL Hct 37.3 (36-46) % MCV 85.6 (80-100) fL MCH 29.4 (26-34) PG MCHC 34.4 (30-36) % RDW 12.8 (11.6-14.8) % Plt Count 344 (150-400) X10^3/uL Neut % (Auto) 89.5 H (50-75) % Lymph % (Auto) 8.2 L (25-40) % [place] % (Auto) 2.0 L (3-14) % Eos % (Auto) 0.0 L (2-4) % Baso % (Auto) 0.3 (0-2) % Neut # (Auto) 8500 H (8078-5400) /uL Lymph # (Auto) 800 L (4946-6054) /uL [place] # (Auto) 200 (0-900) /uL Eos # (Auto) 0 (0-450) /uL Baso # (Auto) 0 (0-100) /uL PT 12.4 (10.1-12.7) SECONDS INR 1.1 (0.9-1.3) APTT 30 (26.4-36.2) SECONDS Sodium 138 (137-145) mmol/L Potassium 3.7 (3.4-5.1) mmol/L Chloride 107 (98-107) mmol/L Carbon Dioxide 21 L (22-32) mmol/L BUN 12 (7-17) mg/dL Creatinine 0.61 (0.52-1.04) mg/dL Estimated GFR > 60.0 (>60) mL/min BUN/Creatinine Ratio 19.7 (6-22) Glucose 166 H (70-100) mg/dL Calcium 9.3 (8.4-10.2) mg/dL Total Bilirubin 0.7 (0.2-1.3) mg/dL AST 25 (14-36) IU/L ALT 19 (<35) IU/L Alkaline Phosphatase 61 (38-126) U/L Total Creatine Kinase 65 (30-135) U/L CK-MB (CK-2) TNP CK-MB (CK-2) Rel Index TNP Troponin I < 0.012 (0.01-0.034) ng/mL Total Protein 7.5 (6.3-8.2) g/dL Albumin 4.7 (3.5-5.0) g/dL Globulin 2.8 (1.7-4.1) g/dL Albumin/Globulin Ratio 1.7 (1.0-2.8) Lipase 42 (23-300) U/L Ethyl Alcohol < 10 ( - 10) mg/dL SARS-CoV-2 (PCR) (Negative) Blood Type Antibody Screen 09/14/21 09/14/21 Range/Units 05:50 05:53 WBC (4.5-11.0) X10^3/uL RBC (4.0-5.2) X10^6/uL Hgb (12.0-16.0) g/dL Hct (36-46) % MCV (80-100) fL MCH (26-34) PG MCHC (30-36) % RDW (11.6-14.8) % Plt Count (150-400) X10^3/uL Neut % (Auto) (50-75) % Lymph % (Auto) (25-40) % [place] % (Auto) (3-14) % Eos % (Auto) (2-4) % Baso % (Auto) (0-2) % Neut # (Auto) (2593-7768) /uL Lymph # (Auto) (9312-9588) /uL [place] # (Auto) (0-900) /uL Eos # (Auto) (0-450) /uL Baso # (Auto) (0-100) /uL PT (10.1-12.7) SECONDS INR (0.9-1.3) APTT (26.4-36.2) SECONDS Sodium (137-145) mmol/L Potassium (3.4-5.1) mmol/L Chloride (98-107) mmol/L Carbon Dioxide (22-32) mmol/L BUN (7-17) mg/dL Creatinine (0.52-1.04) mg/dL Estimated GFR (>60) mL/min BUN/Creatinine Ratio (6-22) Glucose (70-100) mg/dL Calcium (8.4-10.2) mg/dL Total Bilirubin (0.2-1.3) mg/dL AST (14-36) IU/L ALT (<35) IU/L Alkaline Phosphatase (38-126) U/L Total Creatine Kinase (30-135) U/L CK-MB (CK-2) CK-MB (CK-2) Rel Index Troponin I (0.01-0.034) ng/mL Total Protein (6.3-8.2) g/dL Albumin (3.5-5.0) g/dL Globulin (1.7-4.1) g/dL Albumin/Globulin Ratio (1.0-2.8) Lipase (23-300) U/L Ethyl Alcohol ( - 10) mg/dL SARS-CoV-2 (PCR) Positive H (Negative) Blood Type O Positive Antibody Screen Negative Imaging Data CT scan - head: Radiologist's Impression: Launch?[place] [address] CT Scan Report Signed Patient: Karely Dalal MR#: [id number] : 1985 Acct:[id number] Age/Sex: 36 / F Date of Service: 09/14/21 Loc: Accession Number: [id number] ?? Procedure: CT head/brain wo con Ordering Provider: Precious Arevalo D.O. PROCEDURE:? CT HEAD/BRAIN WO CON ? INDICATIONS:? Trauma ? TECHNIQUE:? Noncontrast 4.5 mm thick angled axial sections acquired from the foramen magnum to the vertex, with coronal and sagittal reformats.? For radiation dose reduction, the following was used:? automated exposure control, adjustment of mA and/or kV according to patient size.? ? COMPARISON:? None. ? FINDINGS:? Image quality:? Excellent.? ? CSF spaces:? Basal cisterns are patent.? No extra-axial fluid collections.? Ventricles are normal in size and shape.? ? Brain:? No midline shift.? No intracranial masses or hemorrhage.? Padilla-white matter interface is normal.? ? Skull and face:? Calvarium and visualized facial bones are intact, without suspicious lesions.? ? Sinuses:? Visualized sinuses and mastoids are clear.? ? IMPRESSION:? No acute intracranial disease process. ? ? Dictated by: Annabelle Hardy MD, PhD on 09/14/2021 at 6:43 ? ? Approved by: Annabelle Hardy MD, PhD on 09/14/2021 at 6:44 ? CT - cervical spine: Radiologist's Impression: Launch?[place] [address] CT Scan Report Signed Patient: Karely Dalal MR#: [id number] : 1985 Acct:[id number] Age/Sex: 36 / F Date of Service: 09/14/21 Loc: ED Accession Number: [id number] ?? Procedure: CT head/brain wo con Ordering Provider: Precious Arevalo D.O. PROCEDURE:? CT HEAD/BRAIN WO CON ? INDICATIONS:? Trauma ? TECHNIQUE:? Noncontrast 4.5 mm thick angled axial sections acquired from the foramen magnum to the vertex, with coronal and sagittal reformats.? For radiation dose reduction, the following was used:? automated exposure control, adjustment of mA and/or kV according to patient size.? ? COMPARISON:? None. ? FINDINGS:? Image quality:? Excellent.? ? CSF spaces:? Basal cisterns are patent.? No extra-axial fluid collections.? Ventricles are normal in size and shape.? ? Brain:? No midline shift.? No intracranial masses or hemorrhage.? Padilla-white matter interface is normal.? ? Skull and face:? Calvarium and visualized facial bones are intact, without suspicious lesions.? ? Sinuses:? Visualized sinuses and mastoids are clear.? ? IMPRESSION:? No acute intracranial disease process. ? ? Dictated by: Annabelle Hardy MD, PhD on 09/14/2021 at 6:43 ? ? Approved by: Annabelle Hardy MD, PhD on 09/14/2021 at 6:44 ? CT scan - chest: Radiologist's Impression: Launch?[address] [address] [address] Scan Report Signed Patient: Karely Dalal MR#: [id number] : 1985 Acct:[id number] Age/Sex: 36 / F Date of Service: 09/14/21 Loc: ED Accession Number: [id number] ?? Procedure: CT head/brain wo con Ordering Provider: Precious Arevalo D.O. PROCEDURE:? CT HEAD/BRAIN WO CON ? INDICATIONS:? Trauma ? TECHNIQUE:? Noncontrast 4.5 mm thick angled axial sections acquired from the foramen magnum to the vertex, with coronal and sagittal reformats.? For radiation dose reduction, the following was used:? automated exposure control, adjustment of mA and/or kV according to patient size.? ? COMPARISON:? None. ? FINDINGS:? Image quality:? Excellent.? ? CSF spaces:? Basal cisterns are patent.? No extra-axial fluid collections.? Ventricles are normal in size and shape.? ? Brain:? No midline shift.? No intracranial masses or hemorrhage.? Padilla-white matter interface is normal.? ? Skull and face:? Calvarium and visualized facial bones are intact, without suspicious lesions.? ? Sinuses:? Visualized sinuses and mastoids are clear.? ? IMPRESSION:? No acute intracranial disease process. ? ? Dictated by: Annabelle Hardy MD, PhD on 09/14/2021 at 6:43 ? ? Approved by: Annabelle Hardy MD, PhD on 09/14/2021 at 6:44 ? [facility] Narrative Medical decision making narrative: This is a 36-year-old female with possible syncopal episode with history of cyclic vomiting. Patient is complaining of abdominal pain and feels nauseated had vomiting. She states she felt okay when she went to bed and got up to go to the bathroom this morning and woke up on the floor. Patient has head CT, C-spine and chest abdomen pelvis ordered as she complained of tenderness throughout with a possible stiffening episode EN route with EMS. Patient states she has had 1 prior tonic-clonic seizure 3 years ago and states she was cleared by Neurology. Patient glucose EN route was normal. She has had some mild tachypnea and was hypertensive for EMS. Labs, imaging including head and C-spine chest abdomen pelvis with complaint of quite a bit of abdominal pain were performed. Patient signed out to Dr. Arana for final disposition. 0700 - (Sumit) received in signout. Clinical course reviewed. Labs and imaging reasurring. Patient feeling better. I have performed an independent history and physical exam. Vitals have stabilized, pain is more appropriately controlled, patient is resting. Patient has COVID, there is no respiratory distress, increased work of breathing, need for supplemental oxygen. No significant findings with labs or imaging regarding abdominal pain. She reports that she likely fell and probably had a brief syncopal episode associated with the onset of her abdominal pain. It is unlikely that she had a seizure. Patient given return precautions and questions have been answered to her Discharge Plan Departure Patient Disposition: Home Clinical Impression: COVID-19, Syncope and collapse Instructions: DI for Syncope in Adults (Fainting), DI for COVID-19 (Suspected or Confirmed ) Activity Restrictions/Additional Instructions: *You have been diagnosed with [ COVID-19] *What to do: * per recommendations from the CDC and the [facility] Department of Health * stay home except to get medical care. Restrict activities outside your home, except for getting medical care. Do not go to work, school, or public areas. Avoid using public transportation, ride sharing, or taxis. * separate yourself from other people in your home. * call ahead before visiting your doctor * Wear a facemask * Cover your coughs and sneezes * Clean your hands often * Avoid sharing household items * Clean all high-touch services every day * Monitor your symptoms and seek prompt medical attention if your illness is worsening, particularly with difficulty in breathing. You may discontinue your isolation when: 1. You have been fever-free for at least 24 hours without the use of fever reducing medication, AND 2. Your symptoms are getting better, AND 3. At least 5 days have passed since symptoms first appeared 4. If you have fever, continue to stay home until fever resolves Individuals with laboratory confirmed COVID-19 who have not had any symptoms may discontinue home isolation when at least 5 days have passed since the date of their first COVID-19 diagnostic test and have had no subsequent illness You should notifiy any friends and family that have been in close contact *If up to date on COVID Vaccines, then they do not need to quarantine unless symptoms develop. Get tested on day 5 (or sooner if symptoms develop). Take precautions and watch for symptoms until day 10 *If NOT up to date on COVID Vaccines, then CDC recommends quarantine for at least 5 full days. Wear a well fitted mask at home if you must be around others. If they develop symptoms they should get tested. If they remain asymptomatic they should get tested on day 5. They should take precautions and monitor for symptoms until day 10. Prescriptions: New dicyclomine 20 mg tablet 20 mg PO BID PRN (Reason: pain (scale score 4-6)) Qty: 20 0RF ondansetron 4 mg tablet,disintegrating 4 mg PO TID-QID PRN (Reason: nausea and vomiting) Qty: 10 0RF No Action promethazine 25 mg suppository 25 mg VT Q6H PRN (Reason: nausea and vomiting) Qty: 5 0RF promethazine 25 mg tablet 25 mg PO Q4-6H PRN (Reason: nausea and vomiting) Qty: 14 0RF cyclobenzaprine 10 mg tablet 10 mg PO DAILY PRN (Reason: Spasms) 0RF fluoxetine 20 mg capsule 20 mg PO DAILY 0RF potassium chloride 20 mEq tablet extended release 20 meq PO DAILY Qty: 4 0RF ondansetron 4 mg tablet,disintegrating 4 mg PO Q8H Qty: 10 0RF metoclopramide HCl [Reglan] 10 mg tablet 10 mg PO Q6H PRN (Reason: nausea and vomiting) Qty: 14 0RF
--- NOTE | 2021-09-14 05:54 | DI.CT.S_ITS ---
PROCEDURE: CT HEAD/BRAIN WO CON INDICATIONS: Trauma TECHNIQUE: Noncontrast 4.5 mm thick angled axial sections acquired from the foramen magnum to the vertex, with coronal and sagittal reformats. For radiation dose reduction, the following was used: automated exposure control, adjustment of mA and/or kV according to patient size. COMPARISON: None. FINDINGS: Image quality: Excellent. CSF spaces: Basal cisterns are patent. No extra-axial fluid collections. Ventricles are normal in size and shape. Brain: No midline shift. No intracranial masses or hemorrhage. Padilla-white matter interface is normal. Skull and face: Calvarium and visualized facial bones are intact, without suspicious lesions. Sinuses: Visualized sinuses and mastoids are clear. IMPRESSION: No acute intracranial disease process. Dictated by: Annabelle Hardy MD, PhD on 09/14/2021 at 6:43 Approved by: Annabelle Hardy MD, PhD on 09/14/2021 at 6:44
--- NOTE | 2021-09-14 05:54 | DI.CT.S_ITS ---
PROCEDURE: CT CERVICAL SPINE WO CON INDICATIONS: syncope vs. trauma, abd pain, headache TECHNIQUE: Noncontrast 3 mm thick sections acquired from the skull base to the T4 level. Sagittal and coronal reformats were then constructed. For radiation dose reduction, the following was used: automated exposure control, adjustment of mA and/or kV according to patient size. COMPARISON: None. FINDINGS: Image quality: Excellent. Bones: No fractures or dislocations. Visualized superior ribs are intact. Spine degenerative disc disease and facet arthropathy. Convex left curvature of the upper thoracic spine. Soft tissues: Prevertebral soft tissues are normal in thickness. No paravertebral hematomas. No apical pneumothoraces. IMPRESSION: No fracture. No acute osseous lesion. If symptoms and/or clinical suspicion for pathology persists, evaluation with MRI should be considered for further assessment. Dictated by: Annabelle Hardy MD, PhD on 09/14/2021 at 6:49 Approved by: Annabelle Hardy MD, PhD on 09/14/2021 at 6:52
--- NOTE | 2021-09-14 05:54 | DI.CT.S_ITS ---
PROCEDURE: CT CHEST ABD PEL W CON INDICATIONS: Trauma TECHNIQUE: After the administration of intravenous contrast, 5 mm thick sections acquired from the lung apices to the symphysis. 2.5 mm thick coronal and sagittal reformats were acquired. Additional 7 mm thick coronal maximum intensity projection (MIP) reformats acquired through the lungs. Optional 10-minute delayed imaging may be performed from the kidneys to the bladder. For radiation dose reduction, the following was used: automated exposure control, adjustment of mA and/or kV according to patient size. COMPARISON: None. FINDINGS: Image quality: Excellent. CHEST: Lungs: No pulmonary contusions or lacerations. No acute airspace opacities. No pneumothorax or hemothorax. Central and peripheral airways appear patent and normal in caliber. Mediastinum: No mediastinal hematomas. Heart size is normal. No pericardial effusion. Thoracic aorta and pulmonary arteries demonstrate normal size and enhancement. No mediastinal or hilar adenopathy. Esophagus is normal in caliber. No hiatal hernia. Chest wall: No rib fractures. No subcutaneous emphysema. No axillary or supraclavicular adenopathy. Thyroid gland is unremarkable as visualized. ABDOMEN: Solid organs: Liver is normal in size and enhancement, without lacerations. Gallbladder is unremarkable. Biliary system is non-dilated. Pancreas enhances normally, without transection. Spleen is normal in size and enhancement, without lacerations. No adrenal hematomas. Both kidneys enhance normally, without hydronephrosis or lacerations. Peritoneum and bowel: No free fluid or air. Unenhanced bowel loops demonstrate normal wall thickness and caliber. Nodes and vessels: No retroperitoneal or mesenteric adenopathy. Aorta and inferior vena cava are normal in size and enhancement. Miscellaneous: No ventral hernias. PELVIS: Genitourinary: Bladder wall thickness is normal. Miscellaneous: No inguinal hernias or adenopathy. Uterus is surgically absent. Bones: Pelvic ring and hip joints appear intact. No vertebral compression fractures. IMPRESSION: Negative CT scan of the chest, abdomen, and pelvis with contrast in the setting of acute trauma. Comment: Final report is concordant with preliminary interpretation provided by [facility]. Dictated by: Hasmukh Todd M.D. on 09/14/2021 at 7:33 Approved by: Hasmukh Todd M.D. on 09/14/2021 at 7:40
[2021-09-14 06:20] LABS: Add Manual Diff / Slide Review NO; Basophils Absolute Auto 0 /uL (0-100); Basophils Percent Auto 0.3 % (0-2); Eosinophils Absolute Auto 0 /uL (0-450); Hematocrit 37.3 % (36-46); Hemoglobin 12.8 g/dL (12.0-16.0); Lymphocytes Absolute Auto 800 /uL (1100-4500); Lymphocytes Percent Auto 8.2 % (25-40); Mean Corpuscular HGB Conc 34.4 % (30-36); Mean Corpuscular Hemoglobin 29.4 PG (26-34); Mean Corpuscular Volume 85.6 fL (80-100); Monocytes Absolute Auto 200 /uL (0-900); Neutrophils Absolute Auto 8500 /uL (1500-7000); Neutrophils Percent Auto 89.5 % (50-75); Platelet Count 344 X10^3/uL (150-400); Red Blood Cell Count 4.36 X10^6/uL (4.0-5.2); Red Cell Distribution Width 12.8 % (11.6-14.8); White Blood Cell Count 9.5 X10^3/uL (4.5-11.0)
[2021-09-14] MEDS: HALOPERIDOL 5 MG/ML VIAL IV (06:21)
[2021-09-14] MEDS: SODIUM CHLORIDE 0.9% 1,000 ML 1000 ML IV ×2 (06:21→10:57)
[2021-09-14] MEDS: diphenhydrAMINE 50 MG/ML VIAL 25 MG IV (06:21)
[2021-09-14 06:27] LABS: INR 1.1 (0.9-1.3); Prothrombin Time 12.4 SECONDS (10.1-12.7)
[2021-09-14 06:30] LABS: PTT Partial Thromboplastin Tim 30 SECONDS (26.4-36.2)
[2021-09-14 06:31] LABS: Alanine Aminotransferase 19 IU/L (<35); Albumin 4.7 g/dL (3.5-5.0); Albumin Globulin Ratio 1.7 (1.0-2.8); Alkaline Phosphatase 61 U/L (38-126); Aspartate Aminotransferase 25 IU/L (14-36); BUN Creatinine Ratio 19.7 (6-22); Bilirubin Total 0.7 mg/dL (0.2-1.3); Blood Urea Nitrogen 12 mg/dL (7-17); Calcium 9.3 mg/dL (8.4-10.2); Carbon Dioxide 21 mmol/L (22-32); Chloride 107 mmol/L (98-107); Creatine Kinase 65 U/L (30-135); Estimated Glomerular Filt Rate > 60.0 mL/min (>60); Ethanol (ETOH) < 10 mg/dL; Globulin 2.8 g/dL (1.7-4.1); Glucose 166 mg/dL (70-100); HEMOLYSIS < 15 (0-50); Lipase 42 U/L (23-300); Potassium 3.7 mmol/L (3.4-5.1); Sodium 138 mmol/L (137-145); Total Protein 7.5 g/dL (6.3-8.2)
[2021-09-14 06:43] LABS: COVID19 -Nasal RAPID POSITIVE (Negative)
[2021-09-14 06:43] LABS: Troponin I < 0.012 ng/mL (0.01-0.034)
[2021-09-14] MEDS: ONDANSETRON 4 MG/2 ML INJ IV (10:58)
[2021-09-14] MEDS: PANTOPRAZOLE 40 MG VIAL IV (10:58)
[2021-09-14] MEDS: DICYCLOMINE 10 MG CAPSULE 20 MG PO (12:38)
== END 2021-09-14 13:15 | disposition home or self-care (01) ==
PROVIDERS: Emergency Medicine; Emergency Provider Emergency Medicine
DX: U07.1 COVID-19 (principal); R55 Syncope and collapse
CPT/HCPCS: 70450; 71260; 72125; 74177; 80053; 80320; 82550; 83690; 84484; 85025; 85610; 85730; 86850; 86900; 86901; 87635; 93005; 93010; 96361; 96374; 96375; 99284; C9803; C9113; J1200; J1630; J2405; Q9967

== ENCOUNTER 2022-12-04 09:31 | Emergency (ER) | payer OTHER, MEDICAID, SELFPAY ==
[2022-12-04 09:39] VITALS: BP 124/81; PULSE 58; RESP 18; TEMP 36.7; O2SAT 99; BMI 22.3
[2022-12-04] MEDS: BACITRACIN OINT 0.9 GM PCKT 1 APPLIC TOP (10:11)
[2022-12-04] MEDS: TET,DIPH,PERTUSS(ACELL),VAC/PF 0.5 ML SYRINGE IM (10:12)
--- NOTE | 2022-12-04 10:23 | ED.SKABFB ---
HPI - Skin/Abscess/Foreign Bdy General Chief complaint: Skin/Abscess/Foreign Body Stated complaint: knicked with a straight edge razor during haircut Time Seen by Provider: 12/04/22 10:23 Source: patient Limitations: no limitations History of Present Illness HPI narrative: Patient is a healthy 37-year-old female who presents with right ear injury. Getting her hair cut this morning her stylist accidentally nicked the back of her ear with a razor. It blood for 15 minutes bleeding stops with pressure. She was recommended she come to the ER for evaluation. Bleeding has stopped she now has an updated tetanus and has no other complaints. Related Data Home Medications Medication Instructions Recorded Confirmed cyclobenzaprine 10 mg tablet 10 mg PO DAILY PRN Spasms 06/24/18 06/25/18 fluoxetine 20 mg capsule 20 mg PO DAILY 06/24/18 06/25/18 Previous Rx's Medication Instructions Recorded promethazine 25 mg rectal 25 mg IA Q6H PRN nausea and 04/26/18 suppository vomiting #5 ea promethazine 25 mg tablet 25 mg PO Q4-6H PRN nausea and 04/26/18 vomiting #14 tabs potassium chloride 20 mEq 20 meq PO DAILY #4 tabs 06/25/18 tablet,extended release ondansetron 4 mg disintegrating 4 mg PO Q8H #10 tabs 06/11/19 tablet metoclopramide HCl 10 mg tablet 10 mg PO Q6H PRN nausea and 12/09/19 (Reglan) vomiting #14 tabs dicyclomine 20 mg tablet 20 mg PO BID PRN pain (scale score 09/14/21 4-6) #20 tabs ondansetron 4 mg disintegrating 4 mg PO TID-QID PRN nausea and 09/14/21 tablet vomiting #10 tabs Allergies Allergy/AdvReac Type Severity Reaction Status Date / Time Iodinated Contrast Media AdvReac Severe Difficulty Verified 12/04/22 09:42 [Iodinated Contrast- Oral Breathing and IV Dye] Review of Systems Review of Systems ROS Unobtainable: All systems reviewed & are unremarkable except as noted in HPI and below Patient History Medical History (Updated 12/04/22 @ 10:28 by Sussy Honeycutt DO) ADHD Anxiety Cyclic vomiting syndrome History of cervical cancer Surgical History History of History of elective History of tonsillectomy Status post hysterectomy Social History Smoking Status: Never smoker alcohol intake: never substance use type: does not use Smoking Status: Never smoker alcohol intake frequency: 0-2 drinks per day Substance Use Type: marijuana Exam Initial Vital Signs Initial Vital Signs: Vital Signs Temperature 98.1 F 12/04/22 09:39 Pulse Rate 58 L 12/04/22 09:39 Respiratory Rate 18 12/04/22 09:39 Blood Pressure 124/81 12/04/22 09:39 Pulse Oximetry 99 12/04/22 09:39 Oxygen Delivery Method Room Air 12/04/22 09:39 GENERAL: Well-appearing, well-nourished and in no acute distress. CARDIOVASCULAR: peripheral pulses in tact, cap refill <2 sec RESPIRATORY: No respiratory distress, speaks in full sentences without difficulty EXTREMITIES: Normal range of motion, no clubbing or edema. Neurovascularly intact NEUROLOGICAL: Cranial nerves II through XII grossly intact. Normal gait and speech. SKIN: Very small abrasion/laceration that posterior right ear. No active bleeding no significant swelling or hematoma Course Orders Ordered: Discontinued Medications Bacitracin (Bacitracin Oint 0.9 Gm Pckt) 1 applic TOP NOW ONE Stop: 12/04/22 09:44 Last Admin: 12/04/22 10:11 Dose: 1 applic Documented By: DENIS Diphtheria/Tetanus/Acell Pertussis (Tet,Diph,Pertuss(Acell),Vac/Pf 0.5 Ml Syringe) 0.5 ml IM .ONCE ONE Stop: 12/04/22 09:44 Last Admin: 12/04/22 10:12 Dose: 0.5 ml Documented By: DENIS Vital Signs Vital signs: Vital Signs - 8 hr 12/04/22 09:39 Temperature 98.1 F Pulse Rate 58 L Respiratory Rate 18 Blood Pressure 124/81 Pulse Oximetry 99 Oxygen Delivery Method Room Air MDM - Skin/Abscess/Foreign Bdy MDM Narrative Medical decision making narrative: 37-year-old female has a small cut posterior left ear. bleeding is controlled tetanus is now up-to-date. No further intervention is needed Discharge Plan Departure Patient Disposition: Home Clinical Impression: Wound, open, external ear, without complication Instructions: DI for Wound Infection Activity Restrictions/Additional Instructions: *You have been diagnosed with ear wound *What to do: At this time no active bleeding. May need to quite ice. Apply antibiotic ointment 1-2 times daily to help prevent infection *Continue to take medications as directed *Follow up with your primary care provider in 2-3 days or call [phone] *Return to ER if you should have increasing redness swelling drainage or any new, worsening or concerning symptoms Prescriptions: No Action promethazine 25 mg suppository 25 mg IA Q6H PRN (Reason: nausea and vomiting) Qty: 5 0RF promethazine 25 mg tablet 25 mg PO Q4-6H PRN (Reason: nausea and vomiting) Qty: 14 0RF cyclobenzaprine 10 mg tablet 10 mg PO DAILY PRN (Reason: Spasms) fluoxetine 20 mg capsule 20 mg PO DAILY dicyclomine 20 mg tablet 20 mg PO BID PRN (Reason: pain (scale score 4-6)) Qty: 20 0RF ondansetron 4 mg tablet,disintegrating 4 mg PO TID-QID PRN (Reason: nausea and vomiting) Qty: 10 0RF potassium chloride 20 mEq tablet extended release 20 meq PO DAILY Qty: 4 0RF ondansetron 4 mg tablet,disintegrating 4 mg PO Q8H Qty: 10 0RF metoclopramide HCl [Reglan] 10 mg tablet 10 mg PO Q6H PRN (Reason: nausea and vomiting) Qty: 14 0RF Referrals: Miscellaneous,Doctor, MD [Primary Care Provider] - Stand Alone Forms: Patient Portal/API
== END 2022-12-04 10:37 | disposition home or self-care (01) ==
PROVIDERS: Emergency Provider Emergency Medicine
DX: S01.312A Laceration without foreign body of left ear, initial encounter (principal); W26.8XXA Contact with other sharp object(s), not elsewhere classified, initial encounter; Z23 Encounter for immunization
CPT/HCPCS: 90471; 99283; 90715

== ENCOUNTER 2023-05-27 08:10 | Emergency (ER) | payer SELFPAY ==
[2023-05-27] VITALS (21 sets, daily range): BP systolic 109–142; BP diastolic 65–103; PULSE 69–91; RESP 18–24; O2SAT 94–100; BMI 23.8
--- NOTE | 2023-05-27 08:24 | DI.CT.S_ITS ---
PROCEDURE: CT ABDOMEN PELVIS W CON INDICATIONS: abd pain, Left flank pain, vomiting TECHNIQUE: After the administration of intravenous contrast, axial sections acquired from the lung bases to the pubic symphysis. Coronal and sagittal reformats were performed. For radiation dose reduction, the following was used: automated exposure control, adjustment of mA and/or kV according to patient size. COMPARISON: [facility], CT, CT ABDOMEN PELVIS W CON, 06/24/2018, 12:41. FINDINGS: Image quality: Excellent. Lung bases: Unremarkable. Heart: No significant findings. ABDOMEN: Liver: No solid mass. Gallbladder and biliary tree: No gallstones or biliary dilation. Spleen: Normal size. Pancreas: No ductal dilation. Adrenal glands: No adrenal nodules. Kidneys: No hydronephrosis. No solid mass. No complex renal cysts which requires follow-up. Stomach and Bowel: Stomach, small bowel loops, and colon are unremarkable. No diverticular disease. Normal appendix. Peritoneum: No abnormal intraperitoneal fluid. No free air. Ventral Wall: No hernias. Abdominal Nodes: No retroperitoneal or mesenteric adenopathy by size criteria. Vessels: Aorta and inferior vena cava are normal in size. PELVIS: Pelvic Organs: Hysterectomy. Bladder: Unremarkable. Pelvic Nodes: No enlarged lymph nodes. Miscellaneous: No hernias are seen. Bones: Unremarkable. IMPRESSION: No findings to explain the patient's left flank pain. No nephrolithiasis or diverticular disease. Dictated by: Billy Lopez M.D. on 05/27/2023 at 9:23 Approved by: Billy Lopez M.D. on 05/27/2023 at 9:26
--- NOTE | 2023-05-27 08:29 | ED.ABDPAIN ---
HPI - Abdominal Pain General Chief Complaint: Abdominal Pain Stated Complaint: fainted in ED lobby Time Seen by Provider: 05/27/23 08:22 Source: patient Mode of arrival: Ambulatory History of Present Illness HPI narrative: 38-year-old female with history of CVS or cyclic vomiting syndrome, prior hysterectomy with complications and revision, THC use with complaint of nausea vomiting and abdominal pain it has been going on for the past week patient states she typically has pain vomits about 2 hours in the morning in his able to go on with her date. She states last week she would worsening symptoms was seen at [facility] did have imaging and was discharged after receiving some potassium replacement and antinausea medications. She states vomiting has been persistent the last several days several more hours than typical. She states she is been feeling increasingly worse, fatigued and tired. She states that no fevers although she felt hot when she was vomiting. She states she saw some dark discoloration that was coffee colored in her emesis but not persistently followed by orange. Patient states she is had abdominal pain but in particular left flank pain that is very localized to the left flank it comes around somewhat which is atypical from her usual abdominal pain with vomiting. She states she has not had a bowel movement at least 3 days, she states she is not passing gas or flatus. She states she has been urinating, she states she is been drinking water regularly in between. Patient states that she takes Zofran regularly. She states prior surgeries include a , hysterectomy there were some complications and she had revision. Patient states no other daily prescriptions at this time. She quit smoking about 2 years ago tobacco, no regular alcohol, patient states she does use marijuana but took a to your break no other IV drugs. Patient states no drug allergies but an EMR states difficulty breathing with contrast. She states she does not recall she states she is had CTs even in the last week or 2 that had contrast that were not an issue but she is not clear if stated pretreatment or not. We will go ahead and cover her. Related Data Home Medications Medication Instructions Recorded Confirmed cyclobenzaprine 10 mg tablet 10 mg PO DAILY PRN Spasms 06/24/18 06/25/18 fluoxetine 20 mg capsule 20 mg PO DAILY 06/24/18 06/25/18 Previous Rx's Medication Instructions Recorded promethazine 25 mg rectal 25 mg WY Q6H PRN nausea and 04/26/18 suppository vomiting #5 ea promethazine 25 mg tablet 25 mg PO Q4-6H PRN nausea and 04/26/18 vomiting #14 tabs potassium chloride 20 mEq 20 meq PO DAILY #4 tabs 06/25/18 tablet,extended release ondansetron 4 mg disintegrating 4 mg PO Q8H #10 tabs 06/11/19 tablet metoclopramide HCl 10 mg tablet 10 mg PO Q6H PRN nausea and 12/09/19 (Reglan) vomiting #14 tabs dicyclomine 20 mg tablet 20 mg PO BID PRN pain (scale score 09/14/21 4-6) #20 tabs ondansetron 4 mg disintegrating 4 mg PO TID-QID PRN nausea and 09/14/21 tablet vomiting #10 tabs meloxicam 7.5 mg tablet 7.5 mg PO BID PRN pain #10 tabs 05/27/23 Allergies Allergy/AdvReac Type Severity Reaction Status Date / Time Iodinated Contrast Media AdvReac Severe Difficulty Verified 12/04/22 09:42 [Iodinated Contrast- Oral Breathing and IV Dye] Review of Systems Review of Systems ROS Unobtainable: All systems reviewed & are unremarkable except as noted in HPI and below Patient History Medical History (Updated 05/27/23 @ 10:49 by Precious Arevalo DO) Anxiety History of cervical cancer ADHD Cyclic vomiting syndrome Surgical History History of tonsillectomy History of elective History of Status post hysterectomy Social History Smoking Status: Never smoker alcohol intake: never substance use type: does not use Smoking Status: Never smoker alcohol intake frequency: 0-2 drinks per day Substance Use Type: marijuana Exam Narrative Exam Narrative: GEN: well nourished, well appearing female, alert and oriented x 3, patient appears to be in [id number] distress. HEENT: Atraumatic, pupils are equal round reactive to light, extraocular movements are intact, nares are clear, there is no conjunctival pallor. Throat is clear without any exudates, erythema, tonsillar enlargement or uvular deviation HEART: Regular rate and rhythm without murmur, clicks, rubs. pulses are equal in upper and lower extremities LUNGS:Lungs clear to auscultation, no wheezes, rales, crackles, chest moves symmetrically ABD:bowel sounds normal, soft although patient does have some fullness in the left upper abdomen, generalized tenderness greatest in the left, no guarding, rebound, rigidity, no masses noted, no hepatosplenomegaly : Positive left CVA tenderness. No right CVA tenderness. MSCL: Non-tender, no muscle atrophy, muscles strength 5/5 upper and lower extremities, full range of motion, normal gait NEURO:CN 2-12 intact, sensation normal. SKIN: Rash, erythema or other skin changes noted, no ecchymosis. Initial Vital Signs Initial Vital Signs: Vital Signs Pulse Rate 81 05/27/23 08:15 Respiratory Rate 24 05/27/23 08:15 Blood Pressure 138/103 H 05/27/23 08:15 Pulse Oximetry 98 05/27/23 08:15 Course Orders Ordered: Discontinued Medications Diphenhydramine HCl (Diphenhydramine 50 Mg/Ml Vial) 50 mg IV NOW ONE Stop: 05/27/23 08:34 Last Admin: 05/27/23 08:45 Dose: 50 mg Documented By: JOSEPH Haloperidol (Haloperidol 5 Mg/Ml Vial) 2 mg IV NOW ONE Stop: 05/27/23 11:08 Last Admin: 05/27/23 11:13 Dose: 2 mg Documented By: JOSEPH Sodium Chloride (Normal Saline 0.9%) 1,000 mls @ 1,000 mls/hr IV BOLUS ONE Stop: 05/27/23 09:21 Last Infusion: 05/27/23 09:55 Dose: Infused Documented By: Admin: 05/27/23 08:45 Dose: 1,000 mls/hr Documented By: JOSEPH Ketorolac Tromethamine (Ketorolac 30 Mg/Ml Vial) 15 mg IV NOW ONE Stop: 05/27/23 08:23 Last Admin: 05/27/23 08:45 Dose: 15 mg Documented By: JOSEPH Methylprednisolone (Methylprednisolone 125 Mg/2 Ml Vial) 125 mg IV NOW ONE Stop: 05/27/23 08:34 Last Admin: 05/27/23 08:45 Dose: 125 mg Documented By: JOSEPH Ondansetron HCl (Ondansetron 4 Mg/2 Ml Inj) 4 mg IV NOW ONE Stop: 05/27/23 08:27 Last Admin: 05/27/23 08:46 Dose: Not Given Documented By: KF Vital Signs Vital signs: Vital Signs - 8 hr 05/27/23 11:00 05/27/23 11:00 05/27/23 11:30 Pulse Rate 72 Respiratory Rate 22 Blood Pressure 128/84 109/85 Pulse Oximetry 96 05/27/23 11:30 05/27/23 12:00 05/27/23 12:01 Pulse Rate 74 73 Respiratory Rate 21 22 Blood Pressure 113/72 Pulse Oximetry 96 95 05/27/23 12:01 05/27/23 12:30 05/27/23 12:30 Pulse Rate 72 77 Respiratory Rate 20 22 Blood Pressure 113/68 Pulse Oximetry 95 95 05/27/23 13:00 05/27/23 13:00 05/27/23 13:30 Pulse Rate 73 81 Respiratory Rate 23 22 Blood Pressure 116/65 Pulse Oximetry 96 96 05/27/23 13:30 Pulse Rate Respiratory Rate Blood Pressure 120/73 Pulse Oximetry MDM - Abdominal Pain Lab Data 05/27/23 08:16 05/27/23 08:16 Labs: Lab Results 05/27/23 05/27/23 Range/Units 08:16 09:36 WBC 10.2 (4.5-11.0) X10^3/uL RBC 4.78 (4.0-5.2) X10^6/uL Hgb 14.1 (12.0-16.0) g/dL Hct 41.3 (36-46) % MCV 86.5 (80-100) fL MCH 29.5 (26-34) PG MCHC 34.0 (30-36) % RDW 13.0 (11.6-14.8) % Plt Count 405 H (150-400) X10^3/uL Neut % (Auto) 73.5 (50-75) % Lymph % (Auto) 19.5 L (25-40) % [place] % (Auto) 5.6 (3-14) % Eos % (Auto) 0.5 L (2-4) % Baso % (Auto) 0.9 (0-2) % Neut # (Auto) 7500 H (7618-4590) /uL Lymph # (Auto) 2000 (1748-0106) /uL [place] # (Auto) 600 (0-900) /uL Eos # (Auto) 100 (0-450) /uL Baso # (Auto) 100 (0-100) /uL Sodium 135 L (137-145) mmol/L Potassium 3.4 (3.4-5.1) mmol/L Chloride 99 (98-107) mmol/L Carbon Dioxide 21 L (22-32) mmol/L BUN 8 (7-17) mg/dL Creatinine 0.69 (0.52-1.04) mg/dL Estimated GFR > 60 (>60) mL/min BUN/Creatinine Ratio 11.6 (6-22) Glucose 115 H (70-100) mg/dL Calcium 10.1 (8.4-10.2) mg/dL Total Bilirubin 1.3 (0.2-1.3) mg/dL AST 28 (14-36) IU/L ALT 26 (<35) IU/L Alkaline Phosphatase 61 (38-126) U/L Total Protein 8.3 H (6.3-8.2) g/dL Albumin 5.1 H (3.5-5.0) g/dL Globulin 3.2 (1.7-4.1) g/dL Albumin/Globulin Ratio 1.6 (1.0-2.8) Lipase 58 (23-300) U/L Urine RBC 1-5/hpf (0-5/HPF) Urine WBC 1-5/hpf (0-5/HPF) Ur Squamous Epith Cells 5-10 /hpf H (0-5/HPF) Ur Transition Epith Cell 0-1/hpf (0-5/HPF) Amorphous Sediment 2+ Urine Bacteria Few (2-10) H (None) Point of care testing: Urine Dip Bedside Urine Glucose Negative Bedside Urine Bilirubin - Negative Bedside Urine Ketone +/- 5 Urine Specific [place] 1.000 Bedside Urine Occult Blood + Bedside Urine pH 8.5 Bedside Urine Protein - Negative Bedside Urine Urobilinogen - Negative Bedside Urine Nitrite - Negative Bedside Urine Leukocytes - Negative Esterase Imaging Data CT scan - abdomen/pelvis: Radiologist's Impression: Close Abdomen/Pelvis CT (Signed) Billy Lopez - 05/27/[address] [address] [address] Scan Report Signed Patient: Karely Dalal MR#: [id number] : 1985 Acct:[id number] Age/Sex: 38 / F Date of Service: 05/27/23 Loc: ED Accession Number: [id number] Procedure: CT abdomen pelvis w con Ordering Provider: Precious Arevalo D.O. PROCEDURE: CT ABDOMEN PELVIS W CON INDICATIONS: abd pain, Left flank pain, vomiting TECHNIQUE: After the administration of intravenous contrast, axial sections acquired from the lung bases to the pubic symphysis. Coronal and sagittal reformats were performed. For radiation dose reduction, the following was used: automated exposure control, adjustment of mA and/or kV according to patient size. COMPARISON: [facility], CT, CT ABDOMEN PELVIS W CON, 06/24/2018, 12:41. FINDINGS: Image quality: Excellent. Lung bases: Unremarkable. Heart: No significant findings. ABDOMEN: Liver: No solid mass. Gallbladder and biliary tree: No gallstones or biliary dilation. Spleen: Normal size. Pancreas: No ductal dilation. Adrenal glands: No adrenal nodules. Kidneys: No hydronephrosis. No solid mass. No complex renal cysts which requires follow-up. Stomach and Bowel: Stomach, small bowel loops, and colon are unremarkable. No diverticular disease. Normal appendix. Peritoneum: No abnormal intraperitoneal fluid. No free air. Ventral Wall: No hernias. Abdominal Nodes: No retroperitoneal or mesenteric adenopathy by size criteria. Vessels: Aorta and inferior vena cava are normal in size. PELVIS: Pelvic Organs: Hysterectomy. Bladder: Unremarkable. Pelvic Nodes: No enlarged lymph nodes. Miscellaneous: No hernias are seen. Bones: Unremarkable. IMPRESSION: No findings to explain the patient's left flank pain. No nephrolithiasis or diverticular disease. Dictated by: Billy Lopez M.D. on 05/27/2023 at 9:23 ECG Data Attestation: I personally reviewed and interpreted this ECG as follows: Prior ECG tracings: available for review Interpretation: Sinus rhythm with sinus rhythm rate of 79 WY 134 QRS of 92 QTC of 449. No acute ST elevation, patient has some depression but [id number] variability in lead 2 and 3 no elevation appreciated. Patient has prior from 09/14/2021 which appears similar. MDM Narrative Medical decision making narrative: 38-year-old female with reported history of cyclic vomiting syndrome. Patient states she was seen in the last week at [place] had negative workup except for low potassium. States it was orally replaced there. Patient has Zofran at home she states she is had somewhat worsening symptoms and left flank pain. Patient while walking into the hospital was seen to a lowered herself to the ground. She was seen in the entry way was alert talkative and was then moved to the emergency department. Patient seemed quite uncomfortable left flank in particular on examination vitals were very appropriate. Labs were obtained. Show platelets of 405, otherwise normal white count, hemoglobin patient has low lymphocytes. Coags are negative, sodium is 135 potassium 3 4 with a CO2 of 21 normal BUN and creatinine glucose of 115 otherwise normal LFTs total protein albumin are slightly elevated. Urine was negative for leukocyte esterase or nitrates had a little bit of blood +5 ketones specific gravity was 1.000, with 1-5 RBCs, WBCs 1-5 squamous epithelial 5-10 with few bacteria. Culture pending. CT abdomen pelvis shows no acute changes. Patient has not had any persistent vomiting in the department, she looked much more comfortable even prior to receiving any medications. There is question whether she has not allergy to contrast so she did receive steroids and Benadryl patient states no allergies and did not recall if she had any with IV contrast in the past. Reviewed findings with patient today. She does continues to use THC although states she took a 2 year break and never resolved her vomiting symptoms. She has seen Gastroenterology in the past. Patient states she has Zofran at home for antinausea medications. Patient states she is still having quite abdominal pain. She does not feel nauseated at this time. We will try additional dose of medication for cyclic vomiting, Haldol and see how she responds. She states no additional medication allergies. Discharge Plan Departure Patient Disposition: Home Clinical Impression: Vomiting Instructions: DI for Vomiting -- Adult Activity Restrictions/Additional Instructions: Continue your home medications as prescribed. Recommend following up with your physicians. Hydrate slowly with very small amounts of clear liquids, you can slowly increase these to you can tolerate larger amounts and then start to add solid foods. Please return for new or worsening symptoms fevers, new or worsening abdominal back or flank pain, persistent vomiting, black or bloody stools, chest pain, shortness of breath or other new or concerning changes. Prescriptions: New meloxicam 7.5 mg tablet 7.5 mg PO BID PRN (Reason: pain) Qty: 10 0RF No Action promethazine 25 mg suppository 25 mg WY Q6H PRN (Reason: nausea and vomiting) Qty: 5 0RF promethazine 25 mg tablet 25 mg PO Q4-6H PRN (Reason: nausea and vomiting) Qty: 14 0RF cyclobenzaprine 10 mg tablet 10 mg PO DAILY PRN (Reason: Spasms) fluoxetine 20 mg capsule 20 mg PO DAILY dicyclomine 20 mg tablet 20 mg PO BID PRN (Reason: pain (scale score 4-6)) Qty: 20 0RF ondansetron 4 mg tablet,disintegrating 4 mg PO TID-QID PRN (Reason: nausea and vomiting) Qty: 10 0RF potassium chloride 20 mEq tablet extended release 20 meq PO DAILY Qty: 4 0RF ondansetron 4 mg tablet,disintegrating 4 mg PO Q8H Qty: 10 0RF metoclopramide HCl [Reglan] 10 mg tablet 10 mg PO Q6H PRN (Reason: nausea and vomiting) Qty: 14 0RF Referrals: Miscellaneous,Doctor, MD [Primary Care Provider] - Stand Alone Forms: Patient Portal/API
--- NOTE | 2023-05-27 08:32 | PC.NURSE ---
Addendum entered by Polo Giordano R.N. 05/27/23 08:42: Rapid response was called at 08:05 which is prior to patient registration. Verbal consent to treat was given by patient before patient was able to sign physical copy. Original Note: Patient walked into emergency department vestibule without assistive device. Per patient security system installer asked if he could help her. She stated I feel lightheaded and dizzy. per security system installer collapsed. test desk trouble locator called back to the [facility] who told this RN to immediately respond. Upon arrival this RN asked for [employer]OVER to call rapid response. A stretcher was brought to the vestibule. Patient was alert and orientated x 4 when this RN arrived lying face down on the carpet. Patient denied any back of neck pain when this RN felt down her spinal column. Patient was able to lift herself into an all fours position. With assistance patient placed on stretcher and taken into emergency department. Respiratory therapy, provider and two RN at bedside during initial report.
[2023-05-27 08:34] LABS: Add Manual Diff / Slide Review NO; Basophils Absolute Auto 100 /uL (0-100); Basophils Percent Auto 0.9 % (0-2); Eosinophils Absolute Auto 100 /uL (0-450); Eosinophils Percent Auto 0.5 % (2-4); Hematocrit 41.3 % (36-46); Hemoglobin 14.1 g/dL (12.0-16.0); Lymphocytes Absolute Auto 2000 /uL (1100-4500); Lymphocytes Percent Auto 19.5 % (25-40); Mean Corpuscular Hemoglobin 29.5 PG (26-34); Mean Corpuscular Volume 86.5 fL (80-100); Monocytes Absolute Auto 600 /uL (0-900); Monocytes Percent Auto 5.6 % (3-14); Neutrophils Absolute Auto 7500 /uL (1500-7000); Neutrophils Percent Auto 73.5 % (50-75); Platelet Count 405 X10^3/uL (150-400); Red Blood Cell Count 4.78 X10^6/uL (4.0-5.2); White Blood Cell Count 10.2 X10^3/uL (4.5-11.0)
[2023-05-27 08:41] LABS: Alanine Aminotransferase 26 IU/L (<35); Albumin 5.1 g/dL (3.5-5.0); Albumin Globulin Ratio 1.6 (1.0-2.8); Alkaline Phosphatase 61 U/L (38-126); Aspartate Aminotransferase 28 IU/L (14-36); BUN Creatinine Ratio 11.6 (6-22); Bilirubin Total 1.3 mg/dL (0.2-1.3); Blood Urea Nitrogen 8 mg/dL (7-17); Calcium 10.1 mg/dL (8.4-10.2); Carbon Dioxide 21 mmol/L (22-32); Chloride 99 mmol/L (98-107); Estimated Glomerular Filt Rate > 60 mL/min (>60); Globulin 3.2 g/dL (1.7-4.1); Glucose 115 mg/dL (70-100); HEMOLYSIS < 15 (0-50); Lipase 58 U/L (23-300); Potassium 3.4 mmol/L (3.4-5.1); Sodium 135 mmol/L (137-145); Total Protein 8.3 g/dL (6.3-8.2)
--- NOTE | 2023-05-27 08:42 | PC.NURSE ---
pt reports total hysterectomy in 2018 - CT notified
[2023-05-27] MEDS: SODIUM CHLORIDE 0.9% 1,000 ML 1000 ML IV (08:45)
[2023-05-27] MEDS: KETOROLAC 30 MG/ML VIAL 15 MG IV (08:45)
[2023-05-27] MEDS: methylPREDNISolone 125 MG/2 ML VIAL IV (08:45)
[2023-05-27] MEDS: diphenhydrAMINE 50 MG/ML VIAL IV (08:45)
--- NOTE | 2023-05-27 09:02 | PC.NURSE ---
taken to CT in nad
--- NOTE | 2023-05-27 09:04 | PC.NURSE ---
return from CT in nad
--- NOTE | 2023-05-27 09:34 | PC.NURSE ---
ambulatory to BR with steady independent gait
[2023-05-27 09:56] LABS: Amorphous Sediment Urine 2+; Bacteria Urine Few (2-10); RBC Urine 1-5/HPF (0-5/HPF); Squamous Epithelial Cell Urine 5-10 /HPF (0-5/HPF); Transitional Epi Cells Urine 0-1/HPF (0-5/HPF); WBC Urine 1-5/HPF (0-5/HPF)
--- NOTE | 2023-05-27 11:05 | PC.NURSE ---
Dr. larry at bedside
[2023-05-27] MEDS: HALOPERIDOL 5 MG/ML VIAL 2 MG IV (11:13)
--- NOTE | 2023-05-27 11:21 | PC.NURSE ---
extensive conversation had with patient, pt denies SI/HI/AVH. Pt endorses depression is at baseline. closely works with therapist/counselor and reports strong support network of friends and family as well as a pet. pt denies thoughts of self harm.
== END 2023-05-27 13:59 | disposition home or self-care (01) ==
PROVIDERS: Emergency Provider Emergency Medicine
DX: R11.2 Nausea with vomiting, unspecified (principal); R10.9 Unspecified abdominal pain
CPT/HCPCS: 36415; 74177; 80053; 81003; 81015; 83690; 85025; 87086; 93005; 96361; 96374; 96375; 99284; J1200; J1630; J1885; J2930

== ENCOUNTER 2023-06-17 13:13 | Observation (INO) | payer SELFPAY ==
[2023-06-17] VITALS (15 sets, daily range): BP systolic 106–139; BP diastolic 62–88; PULSE 59–78; RESP 12–35; TEMP 36.3–37.7; O2SAT 95–100; BMI 22.4
[2023-06-17] MEDS: ONDANSETRON 4 MG/2 ML INJ IV (14:01)
--- NOTE | 2023-06-17 14:06 | DI.RAD.S_ITS ---
PROCEDURE: XR ABDOMEN MIN 2V INDICATIONS: n/v TECHNIQUE: 2 views of the abdomen were acquired. COMPARISON: None. FINDINGS: Significant patient motion. Surgical changes and devices: None. Bowel: No pneumoperitoneum. The bowel gas pattern is normal. Soft tissues: No masses; visualized solid organ contours appear normal in size. No suspicious abdominal calcifications. Bones: No suspicious bony abnormalities. IMPRESSION: Non-obstructive bowel gas pattern. Dictated by: Ernst Lyons M.D. on 06/17/2023 at 14:04 Approved by: Ernst Lyons M.D. on 06/17/2023 at 14:05
--- NOTE | 2023-06-17 14:08 | PC.NURSE ---
Pt has history of persistent nausea/vomiting which started up 3 days ago. Pt last smoked marijuana 4 days ago. Pt states this is not related due to having a hyper cannabinoid test 4 years ago which was negative. Today patient has been nauseous, vomiting with noticeable bright red blood in her emesis, diarrhea, and cramping abdominal pain. Pt had a total hysterectomy in 2018. She is concerned that maybe this persistant problem is related to her hysterectomy since she had complications from that surgery with stitches re-opening. She has not seen OB since her followup for procedure.
[2023-06-17 14:17] LABS: Add Manual Diff / Slide Review NO; Basophils Absolute Auto 100 /uL (0-100); Basophils Percent Auto 1.4 % (0-2); Eosinophils Absolute Auto 0 /uL (0-450); Eosinophils Percent Auto 0.1 % (2-4); Hematocrit 36.3 % (36-46); Hemoglobin 12.6 g/dL (12.0-16.0); Lymphocytes Absolute Auto 1800 /uL (1100-4500); Lymphocytes Percent Auto 17.6 % (25-40); Mean Corpuscular HGB Conc 34.8 % (30-36); Mean Corpuscular Hemoglobin 29.9 PG (26-34); Mean Corpuscular Volume 85.8 fL (80-100); Monocytes Absolute Auto 800 /uL (0-900); Monocytes Percent Auto 7.7 % (3-14); Neutrophils Absolute Auto 7400 /uL (1500-7000); Neutrophils Percent Auto 73.2 % (50-75); Platelet Count 352 X10^3/uL (150-400); Red Blood Cell Count 4.23 X10^6/uL (4.0-5.2); White Blood Cell Count 10.2 X10^3/uL (4.5-11.0)
[2023-06-17 14:18] LABS: Alanine Aminotransferase 27 IU/L (<35); Albumin 4.7 g/dL (3.5-5.0); Albumin Globulin Ratio 1.6 (1.0-2.8); Alkaline Phosphatase 56 U/L (38-126); Aspartate Aminotransferase 29 IU/L (14-36); BUN Creatinine Ratio 15.3 (6-22); Bilirubin Total 1.5 mg/dL (0.2-1.3); Blood Urea Nitrogen 11 mg/dL (7-17); Calcium 9.9 mg/dL (8.4-10.2); Carbon Dioxide 30 mmol/L (22-32); Chloride 88 mmol/L (98-107); Estimated Glomerular Filt Rate > 60 mL/min (>60); Globulin 2.9 g/dL (1.7-4.1); Glucose 111 mg/dL (70-100); HEMOLYSIS < 15 (0-50); Potassium 2.8 mmol/L (3.4-5.1); Sodium 126 mmol/L (137-145); Total Protein 7.6 g/dL (6.3-8.2)
[2023-06-17] MEDS: SODIUM CHLORIDE 0.9% 1,000 ML 1000 ML IV (14:19)
[2023-06-17 14:22] LABS: Lipase 40 U/L (23-300)
--- NOTE | 2023-06-17 14:29 | ED_ITS ---
HPI - Nausea/Vomiting/Diarrhea General Chief complaint: Nausea/Vomiting/Diarrhea Stated complaint: ABD PAIN, VOMITING Time Seen by Provider: 06/17/23 14:05 Source: patient Mode of arrival: Ambulatory Limitations: no limitations History of Present Illness HPI Narrative: 38-year-old female with history of cyclic vomiting syndrome, chronic THC use, prior hysterectomy with complications in her vision who presents with complaint of nausea vomiting for the past 3 days, abdominal pain that is epigastric and radiates more to the left side. She states this is similar to prior cyclic vomiting episodes. Patient states no documented fevers she states she felt really hot while she was vomiting. She is not had any syncope. She denies upper chest pain, no shortness of breath. Did note possibly little bit of blood in her emesis earlier. She states she is been having bowel movements less so today but was having them before today. No black or bloody stools noted. No dysuria urgency or frequency. Patient states she is had prior surgeries, prior , hysterectomy with complications and ultimately revision. Denies daily prescriptions at this time. Quit smoking tobacco 2 years ago, no regular alcohol she does use marijuana but no other active IV drugs. She is accompanied by a friend today. Related Data Home Medications Medication Instructions Recorded Confirmed cyclobenzaprine 10 mg tablet 10 mg PO DAILY PRN Spasms 06/24/18 06/25/18 fluoxetine 20 mg capsule 20 mg PO DAILY 06/24/18 06/25/18 Previous Rx's Medication Instructions Recorded promethazine 25 mg rectal 25 mg [place] Q6H PRN nausea and 04/26/18 suppository vomiting #5 ea promethazine 25 mg tablet 25 mg PO Q4-6H PRN nausea and 04/26/18 vomiting #14 tabs potassium chloride 20 mEq 20 meq PO DAILY #4 tabs 06/25/18 tablet,extended release ondansetron 4 mg disintegrating 4 mg PO Q8H #10 tabs 06/11/19 tablet metoclopramide HCl 10 mg tablet 10 mg PO Q6H PRN nausea and 12/09/19 (Reglan) vomiting #14 tabs dicyclomine 20 mg tablet 20 mg PO BID PRN pain (scale score 09/14/21 4-6) #20 tabs ondansetron 4 mg disintegrating 4 mg PO TID-QID PRN nausea and 09/14/21 tablet vomiting #10 tabs meloxicam 7.5 mg tablet 7.5 mg PO BID PRN pain #10 tabs 05/27/23 Allergies Allergy/AdvReac Type Severity Reaction Status Date / Time Iodinated Contrast Media AdvReac Severe Difficulty Verified 12/04/22 09:42 [Iodinated Contrast- Oral Breathing and IV Dye] Review of Systems Review of Systems ROS Unobtainable: All systems reviewed & are unremarkable except as noted in HPI and below Patient History Medical History (Updated 06/17/23 @ 15:24 by Precious Arevalo DO) Anxiety History of cervical cancer ADHD Cyclic vomiting syndrome Surgical History History of tonsillectomy History of elective History of Status post hysterectomy Social History Smoking Status: Never smoker alcohol intake: never substance use type: does not use Smoking Status: Never smoker alcohol intake frequency: 0-2 drinks per day Substance Use Type: marijuana Exam Narrative Exam Narrative: GENERAL: Alert and oriented x three, well-nourished female in moderate distress. HEENT: Head normocephalic, atraumatic, EOMI, pupils reactive, face symmetric, moist mucous membranes NECK: Supple, full range of motion CARDIOVASCULAR: Regular rate and rhythm without murmurs, rubs or gallops. RESPIRATORY: Breath sounds equal bilaterally, no wheezes rales or rhonchi. ABDOMEN: Soft, generalized abdominal pain. Normoactive bowel sounds all 4 quadrants. No guarding or rebound, rigidity, no mass, patient burping intermittently but no active dry heaving in the room. : No CVA tenderness EXTREMITIES: Normal range of motion, no clubbing or edema. Neurovascularly intact NEUROLOGICAL: Cranial nerves II through XII grossly intact. Moving all extremities SKIN: Warm, dry, no petechiae, no rashes or lesions. Initial Vital Signs Initial Vital Signs: Vital Signs Temperature 98.6 F 06/17/23 13:24 Pulse Rate 78 06/17/23 13:24 Respiratory Rate 16 06/17/23 13:24 Blood Pressure 125/78 06/17/23 13:24 Pulse Oximetry 95 06/17/23 13:24 Oxygen Delivery Method Room Air 06/17/23 13:24 Course Orders Ordered: ED Orders 06/17/23 13:45 BNP [NT-proBNP (BNP-Adult 18+)] Stat Complete Blood Count AUTO DIFF Stat Comprehensive Metabolic Panel Stat ETOH [Ethanol (ETOH)] Stat Lipase Stat MAG [Magnesium] Stat Troponin & CK Cardiac Panel Stat 06/17/23 14:06 XR abdomen min 2V Stat 06/17/23 14:28 Chest [XR chest 1V] Stat 06/17/23 15:01 EKG-12 Lead Stat 06/17/23 15:13 Creatinine Urine Random Stat Sodium Urine Random Stat 06/17/23 15:24 Urine Drug Screen, Rapid Stat Urine Microscopic Stat Acetaminophen (Acetaminophen 325 Mg Tablet) 650 mg PO Q6H PRN PRN Reason: Fever/Mild Pain (1-3) POTASSIUM CHLORIDE IN WATER (Potassium Cl 10 Meq/100 Ml Alesia) 10 meq in 100 mls @ 100 mls/hr IV Q1H PRADEEP Stop: 06/17/23 18:29 Last Admin: 06/17/23 16:57 Dose: 100 mls/hr Documented By: Infusion: 06/17/23 16:57 Dose: Infused Documented By: Admin: 06/17/23 15:52 Dose: 100 mls/hr Documented By: Infusion: 06/17/23 15:45 Dose: Infused Documented By: Admin: 06/17/23 14:36 Dose: 100 mls/hr Documented By: SPF Sodium Chloride (Normal Saline 0.9%) 1,000 mls @ 125 mls/hr IV CONT PRADEEP Stop: 06/18/23 03:44 Last Admin: 06/17/23 16:12 Dose: 125 mls/hr Documented By: SPF Lorazepam (Lorazepam 2 Mg/Ml Inj) 0.5 mg IV Q6HR PRN PRN Reason: Nausea And Vomiting Naloxone HCl (Naloxone 0.4 Mg/Ml Vial) 0.2 mg IV Q2MIN PRN PRN Reason: Opiate Reversal Pantoprazole Sodium (Pantoprazole 40 Mg Vial) 40 mg IV DAILY [facility] Last Admin: 06/17/23 16:34 Dose: 40 mg Documented By: SPF Prochlorperazine (Prochlorperazine 10 Mg/2 Ml Vial) 10 mg IV Q6HR PRN PRN Reason: Nausea Discontinued Medications Sodium Chloride (Normal Saline 0.9%) 1,000 mls @ 1,000 mls/hr IV BOLUS ONE Stop: 06/17/23 15:04 Last Infusion: 06/17/23 15:27 Dose: Infused Documented By: Admin: 06/17/23 14:19 Dose: 1,000 mls/hr Documented By: MYA Ketorolac Tromethamine (Ketorolac 30 Mg/Ml Vial) 15 mg IV NOW ONE Stop: 06/17/23 15:17 Last Admin: 06/17/23 15:26 Dose: 15 mg Documented By: MYA Ondansetron HCl (Ondansetron 4 Mg/2 Ml Inj) 4 mg IV NOW ONE Stop: 06/17/23 13:57 Last Admin: 06/17/23 14:01 Dose: 4 mg Documented By: MYA Vital Signs Vital signs: Vital Signs - 8 hr 06/17/23 13:24 06/17/23 14:05 06/17/23 14:06 Temperature 98.6 F Pulse Rate 78 76 72 Respiratory Rate 16 Blood Pressure 125/78 Pulse Oximetry 95 99 99 Oxygen Delivery Method Room Air 06/17/23 14:06 06/17/23 14:30 06/17/23 15:00 Temperature Pulse Rate 70 69 Respiratory Rate 12 24 Blood Pressure 118/71 Pulse Oximetry 98 100 Oxygen Delivery Method Room Air 06/17/23 15:30 Temperature Pulse Rate 70 Respiratory Rate Blood Pressure Pulse Oximetry 98 Oxygen Delivery Method MDM - Nausea/Vomiting/Diarrhea Lab Data 06/17/23 13:45 06/17/23 13:45 Labs: Lab Results 06/17/23 06/17/23 06/17/23 Range/Units 13:45 15:13 15:24 WBC 10.2 (4.5-11.0) X10^3/uL RBC 4.23 (4.0-5.2) X10^6/uL Hgb 12.6 (12.0-16.0) g/dL Hct 36.3 (36-46) % MCV 85.8 (80-100) fL MCH 29.9 (26-34) PG MCHC 34.8 (30-36) % RDW 13.0 (11.6-14.8) % Plt Count 352 (150-400) X10^3/uL Neut % (Auto) 73.2 (50-75) % Lymph % (Auto) 17.6 L (25-40) % Levy % (Auto) 7.7 (3-14) % Eos % (Auto) 0.1 L (2-4) % Baso % (Auto) 1.4 (0-2) % Neut # (Auto) 7400 H (8832-8006) /uL Lymph # (Auto) 1800 (2523-0079) /uL Levy # (Auto) 800 (0-900) /uL Eos # (Auto) 0 (0-450) /uL Baso # (Auto) 100 (0-100) /uL Sodium 126 L (137-145) mmol/L Potassium 2.8 L (3.4-5.1) mmol/L Chloride 88 L (98-107) mmol/L Carbon Dioxide 30 (22-32) mmol/L BUN 11 (7-17) mg/dL Creatinine 0.72 (0.52-1.04) mg/dL Estimated GFR > 60 (>60) mL/min BUN/Creatinine Ratio 15.3 (6-22) Glucose 111 H (70-100) mg/dL Calcium 9.9 (8.4-10.2) mg/dL Magnesium 1.7 (1.6-2.3) mg/dL Total Bilirubin 1.5 H (0.2-1.3) mg/dL AST 29 (14-36) IU/L ALT 27 (<35) IU/L Alkaline Phosphatase 56 (38-126) U/L Total Creatine Kinase 133 (30-135) U/L Troponin I < 0.012 (0.01-0.034) ng/mL NT-Pro-B Natriuret Pep 306 H (<125) pg/mL Total Protein 7.6 (6.3-8.2) g/dL Albumin 4.7 (3.5-5.0) g/dL Globulin 2.9 (1.7-4.1) g/dL Albumin/Globulin Ratio 1.6 (1.0-2.8) Lipase 40 (23-300) U/L Urine RBC None seen (0-5/HPF) Urine WBC 0-1/hpf (0-5/HPF) Ur Squamous Epith Cells None seen (0-5/HPF) Urine Bacteria None seen (None) Ur Culture Indicated? Cult not indicated Ur Random Sodium 15 L (30-90) mmol/L Urine Creatinine 48.0 mg/dL U Opiates 300ng/mL cut Negative (Negative) Ur Oxycodone Screen Negative (Negative) Urine Methadone Screen Negative (Negative) Ur Barbiturates Screen Negative (Negative) U Tricyclic Antidepress Negative (Negative) Ur Phencyclidine Scrn Negative (Negative) Ur Amphetamines Screen Negative (Negative) U Methamphetamines Scrn Negative (Negative) Ur MDMA Scrn (Ecstasy) Negative (Negative) U Benzodiazepines Scrn Negative (Negative) Urine Cocaine Screen Negative (Negative) U Marijuana (THC) Screen Positive H (Negative) Ethyl Alcohol < 10 ( - 10) mg/dL Urine Dip Bedside Urine Glucose Negative Bedside Urine Bilirubin - Negative Bedside Urine Ketone - Negative Urine Specific [place] 1.005 Bedside Urine Occult Blood ++ Bedside Urine pH 7.5 Bedside Urine Protein - Negative Bedside Urine Urobilinogen - Negative Bedside Urine Nitrite - Negative Bedside Urine Leukocytes +/- 15 Esterase Imaging Data Chest x-ray: Radiologist's Impression: [address] [address] XRay Report Signed Patient: Karely Dalal MR#: [id number] : 1985 Acct:[id number] Age/Sex: 38 / F Date of Service: 06/17/23 Loc: ED Accession Number: [id number] Procedure: XR chest 1V Ordering Provider: Precious Arevalo D.O. PROCEDURE: XR CHEST 1V INDICATIONS: n/v/d o2 dips TECHNIQUE: One view of the chest was acquired. COMPARISON: [facility], CT, CT CHEST ABD PEL W CON, 09/14/2021, 5:57. FINDINGS: Surgical changes and devices: None. Lungs and pleura: Lungs are clear. No pleural effusions or pneumothorax. Mediastinum: Mediastinal contours appear normal. Heart size is normal. Bones and chest wall: No suspicious bony lesions. Overlying soft tissues appear unremarkable. IMPRESSION: No acute cardiopulmonary abnormality is seen. Dictated by: Ernst Lyons M.D. on 06/17/2023 at 13:47 Approved by: Ernst Lyons M.D. on 06/17/2023 at 13:53 Abdominal x-ray: Radiologist's Impression: [address] [address] XRay Report Signed Patient: Karely Dalal MR#: [id number] : 1985 Acct:[id number] Age/Sex: 38 / F Date of Service: 06/17/23 Loc: ED Accession Number: [id number] Procedure: XR abdomen min 2V Ordering Provider: Precious Arevalo D.O. PROCEDURE: XR ABDOMEN MIN 2V INDICATIONS: n/v TECHNIQUE: 2 views of the abdomen were acquired. COMPARISON: None. FINDINGS: Significant patient motion. Surgical changes and devices: None. Bowel: No pneumoperitoneum. The bowel gas pattern is normal. Soft tissues: No masses; visualized solid organ contours appear normal in size. No suspicious abdominal calcifications. Bones: No suspicious bony abnormalities. IMPRESSION: Non-obstructive bowel gas pattern. Dictated by: Ernst Lyons M.D. on 06/17/2023 at 14:04 Approved by: Ernst Lyons M.D. on 06/17/2023 at 14:05 ECG Data Attestation: I personally reviewed and interpreted this ECG as follows: Prior ECG tracings: available for review Interpretation: Sinus rhythm rate of 72 MT 152 QRS of [address] QTC [address]. No acute ST elevation or depression. Patient has prior from 05/27/2023 appears similar QTC was 449 on that visit. MDM Narrative Medical decision making narrative: 38-year-old female with known cyclic vomiting syndrome, symptoms appear fairly consistent. Patient's vitals are appropriate but she is hypokalemic with hyponatremia as well. Chest x-ray abdominal x-ray do not show any acute change. CBC shows low lymphs but otherwise normal hemoglobin, white count and platelets. Patient's last sodium was 135 on 05/27/2023. She is not been chronic hyponatremic. She has had low potassiums in the past chloride 88 with a CO2 of 30 normal renal function glucose of 111, bilirubin 1.5 with a Mag 1.7, did include troponin and BNP which were negative. ETOH is negative. Point of care urine shows leuks, no nitrates, urine sodium and urine creatinine show FENA 0.2% shows likely prerenal source which is consistent with patient's recent history. UDS positive for THC negative for other. Patient does note history of THC use. Patient did receive 1 L of fluid, potassium K rider was ordered, Zosyn and dose of Toradol here in the department. Hold on additional fluids until urine studies returned although suspect patient has more dehydrated although BUN and creatinine are not elevated EKG shows prolonged QT restricted some medication options patient's has responded well to Haldol in the past but will try Toradol at this time. Spoke with hospitalist, Dr. Elaine, accepts for admission. I reviewed patient has had complicated surgical history in the past but symptoms seem very consistent with her typical cyclic vomiting but does have electrolyte abnormalities including hyponatremia and hypokalemia. Accepts for observation. We will hold off on CT imaging as patient is likely to have multiple CT throughout her life and seems stable and very consistent with priors. Did discuss held off on her typical Haldol secondary to QT prolongation on today's EKG but not typically prolonged 525. Discharge Plan Departure Patient Disposition: Admitted as Observation Clinical Impression: Hyponatremia, Nausea and vomiting, Hypokalemia Admit Date/Time: 06/17/23 15:32 Admit Provider: Emerson Elaine
[2023-06-17] MEDS: POTASSIUM CHLORIDE IN WATER 10 MEQ/100 ML PIGGYBACK 100 MEQ IV ×4 (14:36→18:15)
[2023-06-17 14:38] LABS: Creatine Kinase 133 U/L (30-135)
[2023-06-17 14:44] LABS: Ethanol (ETOH) < 10 mg/dL
[2023-06-17 14:46] LABS: Magnesium 1.7 mg/dL (1.6-2.3)
[2023-06-17 14:51] LABS: NT-proBNP (BNP-Adult 18+) 306 pg/mL (<125); Troponin I < 0.012 ng/mL (0.01-0.034)
[2023-06-17] MEDS: KETOROLAC 30 MG/ML VIAL 15 MG IV (15:26)
[2023-06-17 16:00] LABS: Sodium Urine Random 15 mmol/L (30-90)
[2023-06-17 16:00] LABS: UR Morphine/Opiate cutoff 300 Negative (Negative); Ur Creatinine Normal (Normal); Ur Specific Gravity Normal (Normal); Urine Cocaine Negative (Negative); Urine Tetrahydrocannabinol Positive (Negative); Urine pH Normal (Normal)
[2023-06-17 16:01] LABS: Bacteria Urine None Seen; Culture Indicated Urine Cult Not Indicated; RBC Urine None Seen (0-5/HPF); Squamous Epithelial Cell Urine None Seen (0-5/HPF); Urine Amphetamines Negative (Negative); Urine Barbiturates Negative (Negative); Urine Benzodiazepines Negative (Negative); Urine MDMA Negative (Negative); Urine Methadone Negative (Negative); Urine Methamphetamines Negative (Negative); Urine Oxycodone Negative (Negative); Urine Phencyclidine Negative (Negative); Urine Tricyclic Antidepressant Negative (Negative); WBC Urine 0-1/HPF (0-5/HPF)
[2023-06-17] MEDS: SODIUM CHLORIDE 0.9% 1,000 ML 125 ML IV (16:12)
[2023-06-17] MEDS: PANTOPRAZOLE 40 MG VIAL IV (16:34)
--- NOTE | 2023-06-17 16:52 | P.HP_ITS ---
History of Present Illness History of Present Illness Date Patient Seen: 06/17/23 Time Patient Seen: 18:22 Chief complaint: ABD PAIN, VOMITING Narrative: Karely Dalal is a 38yo F with PMH of cyclic vomiting syndrome and frequent ED visits, cervical cancer s/p hysterectomy, ADHD and anxiety who presents with NV and found to be hyponatremic and hypokalemic with prolonged QT. Patient states she frequently gets severe cramping L sided abdominal pain and nausea with no apparent trigger. She has had these occur since 2018 and said it got substantially worse after her hysterectomy. Nobody has been able to figure out why she continues to have these episodes. Her last EGD was in 2019. She says her nausea and vomiting gets so bad she cannot eat for days. Her last meal was about a week ago. Uses marijuana but says she had cannabis sensitivity testing which showed that she was not sensitive to it. Her Utox is positive for THC. Denies CP, SOB, or diarrhea. [facility] Medical History (Updated 06/17/23 @ 15:24 by Precious Arevalo DO) Anxiety History of cervical cancer ADHD Cyclic vomiting syndrome Surgical History History of tonsillectomy History of elective History of Status post hysterectomy Social History Smoking Status: Never smoker alcohol intake: never substance use type: does not use Meds Home Medications and Allergies Home Medications Medication Instructions Recorded Confirmed Type promethazine 25 mg rectal 25 mg [place] Q6H PRN nausea and 04/26/18 06/25/18 Rx suppository vomiting #5 ea promethazine 25 mg tablet 25 mg PO Q4-6H PRN nausea and 04/26/18 06/17/23 Rx vomiting #14 tabs cyclobenzaprine 10 mg tablet 10 mg PO DAILY PRN Spasms 06/24/18 06/25/18 History fluoxetine 20 mg capsule 20 mg PO DAILY 06/24/18 06/25/18 History potassium chloride 20 mEq 20 meq PO DAILY #4 tabs 06/25/18 Rx tablet,extended release ondansetron 4 mg disintegrating 4 mg PO Q8H #10 tabs 06/11/19 Rx tablet metoclopramide HCl 10 mg tablet 10 mg PO Q6H PRN nausea and 12/09/19 Rx (Reglan) vomiting #14 tabs dicyclomine 20 mg tablet 20 mg PO BID PRN pain (scale score 09/14/21 Rx 4-6) #20 tabs ondansetron 4 mg disintegrating 4 mg PO TID-QID PRN nausea and 09/14/21 06/17/23 Rx tablet vomiting #10 tabs meloxicam 7.5 mg tablet 7.5 mg PO BID PRN pain #10 tabs 05/27/23 Rx Allergies Allergy/AdvReac Type Severity Reaction Status Date / Time Iodinated Contrast Media AdvReac Severe Difficulty Verified 12/04/22 09:42 [Iodinated Contrast- Oral Breathing and IV Dye] Review of Systems Review of Systems Narrative: All other systems reviewed with the patient and are negative unless otherwise stated. Exam Vital Signs (past 8 hours): - 06/17/23 13:24 06/17/23 14:05 06/17/23 14:06 Temperature 98.6 F Pulse Rate 78 76 72 Respiratory Rate 16 Blood Pressure 125/78 Pulse Oximetry 95 99 99 Oxygen Delivery Method Room Air 06/17/23 14:06 06/17/23 14:30 06/17/23 15:00 Temperature Pulse Rate 70 69 Respiratory Rate 12 24 Blood Pressure 118/71 Pulse Oximetry 98 100 Oxygen Delivery Method Room Air 06/17/23 15:30 06/17/23 15:36 06/17/23 16:01 Temperature 99.9 F H Pulse Rate 70 72 Respiratory Rate 18 Blood Pressure Pulse Oximetry 98 97 Oxygen Delivery Method 06/17/23 16:01 06/17/23 16:30 Temperature Pulse Rate 72 Respiratory Rate 35 H Blood Pressure 116/62 Pulse Oximetry 95 Oxygen Delivery Method Room Air Oxygen Delivery Method Room Air Narrative Exam Narrative: GEN: no acute distress, appears uncomfortable and fatigued HEENT: moist mucous membranes, PERRL NECK: trachea midline, no JVD CV: regular rate and rhythm, no murmurs PULM: clear bilaterally ABD: soft, generalized tenderness, nondistended, no organomegaly EXT: warm and well perfused with no edema NEURO: awake, alert, oriented, no focal deficits Objective Labs 06/17/23 13:45 06/17/23 13:45 Labs: Laboratory Results - last 24 hr 06/17/23 06/17/23 06/17/23 13:45 15:13 15:24 WBC 10.2 RBC 4.23 Hgb 12.6 Hct 36.3 MCV 85.8 MCH 29.9 MCHC 34.8 RDW 13.0 Plt Count 352 Neut % (Auto) 73.2 Lymph % (Auto) 17.6 L [place] % (Auto) 7.7 Eos % (Auto) 0.1 L Baso % (Auto) 1.4 Neut # (Auto) 7400 H Lymph # (Auto) 1800 [place] # (Auto) 800 Eos # (Auto) 0 Baso # (Auto) 100 Sodium 126 L Potassium 2.8 L Chloride 88 L Carbon Dioxide 30 BUN 11 Creatinine 0.72 Estimated GFR > 60 BUN/Creatinine Ratio 15.3 Glucose 111 H Calcium 9.9 Magnesium 1.7 Total Bilirubin 1.5 H AST 29 ALT 27 Alkaline Phosphatase 56 Total Creatine Kinase 133 Troponin I < 0.012 NT-Pro-B Natriuret Pep 306 H Total Protein 7.6 Albumin 4.7 Globulin 2.9 Albumin/Globulin Ratio 1.6 Lipase 40 Urine RBC None seen Urine WBC 0-1/hpf Ur Squamous Epith Cells None seen Urine Bacteria None seen Ur Culture Indicated? Cult not indicated Ur Random Sodium 15 L Urine Creatinine 48.0 U Opiates 300ng/mL cut Negative Ur Oxycodone Screen Negative Urine Methadone Screen Negative Ur Barbiturates Screen Negative U Tricyclic Antidepress Negative Ur Phencyclidine Scrn Negative Ur Amphetamines Screen Negative U Methamphetamines Scrn Negative Ur MDMA Scrn (Ecstasy) Negative U Benzodiazepines Scrn Negative Urine Cocaine Screen Negative U Marijuana (THC) Screen Positive H Ethyl Alcohol < 10 Assessment & Plan Assessment & Plan narrative: # acute NV -THC positive on Utox, patient has known cyclic vomiting syndrome -compazine and ativan PRN due to prolonged QT -recommend marijuana cessation -if not improving may consider EGD # QT prolongation -QTc 525 -mag 1.7 -give 2g mag -monitor with tele # acute hyponatremia -Na 126 -IVF # acute hypokalemia -K 2.6 -replete and monitor Code status is full code. DVT prophylaxis not ordered due to age. Proxy is mother Akbar. I have reviewed home meds and used all available resources to reconcile the home meds. Case discussed with ED physician/APC and patient will be admitted to the hospitalist service for further workup and management. This patient will be admitted as observation and will require less than 2 midnights of hospital time to treat nausea vomiting.
[2023-06-17] MEDS: MAGNESIUM SULFATE 2 GM/50 ML PIGGYBACK IV (20:14)
[2023-06-17] MEDS: PROCHLORPERAZINE 10 MG/2 ML VIAL IV (20:17)
[2023-06-18] MEDS: KETOROLAC 30 MG/ML VIAL 15 MG IV ×2 (00:33→08:24)
[2023-06-18 03:16] VITALS: BP 137/78; PULSE 70; RESP 18; TEMP 36.5; O2SAT 100
[2023-06-18] MEDS: LORazepam 2 MG/ML INJ 0.5 MG IV (03:38)
[2023-06-18 04:28] VITALS: BP 113/81; PULSE 64; RESP 14
[2023-06-18 05:31] LABS: Add Manual Diff / Slide Review NO; Basophils Absolute Auto 0 /uL (0-100); Basophils Percent Auto 0.5 % (0-2); Eosinophils Absolute Auto 100 /uL (0-450); Eosinophils Percent Auto 0.8 % (2-4); Hematocrit 35.9 % (36-46); Hemoglobin 12.2 g/dL (12.0-16.0); Lymphocytes Absolute Auto 1500 /uL (1100-4500); Lymphocytes Percent Auto 20.9 % (25-40); Mean Corpuscular HGB Conc 34.1 % (30-36); Mean Corpuscular Hemoglobin 29.6 PG (26-34); Mean Corpuscular Volume 86.9 fL (80-100); Monocytes Absolute Auto 700 /uL (0-900); Monocytes Percent Auto 9.7 % (3-14); Neutrophils Absolute Auto 5000 /uL (1500-7000); Neutrophils Percent Auto 68.1 % (50-75); Platelet Count 296 X10^3/uL (150-400); Red Blood Cell Count 4.13 X10^6/uL (4.0-5.2); Red Cell Distribution Width 12.8 % (11.6-14.8); White Blood Cell Count 7.3 X10^3/uL (4.5-11.0)
[2023-06-18 05:40] LABS: BUN Creatinine Ratio 13.7 (6-22); Blood Urea Nitrogen 10 mg/dL (7-17); Calcium 9.1 mg/dL (8.4-10.2); Carbon Dioxide 27 mmol/L (22-32); Chloride 99 mmol/L (98-107); Estimated Glomerular Filt Rate > 60 mL/min (>60); Glucose 100 mg/dL (70-100); HEMOLYSIS < 15 (0-50); Magnesium 2.3 mg/dL (1.6-2.3); Potassium 3.1 mmol/L (3.4-5.1); Sodium 132 mmol/L (137-145)
[2023-06-18 08:00] VITALS: BP 137/98; PULSE 71; RESP 18; TEMP 36.8
[2023-06-18] MEDS: PANTOPRAZOLE 40 MG VIAL IV (08:23)
[2023-06-18] MEDS: POTASSIUM CHLORIDE IN WATER 10 MEQ/100 ML PIGGYBACK 100 MEQ IV (08:25)
[2023-06-18] MEDS: POTASSIUM CHLORIDE IN WATER 10 MEQ/100 ML PIGGYBACK 50 MEQ IV (10:55)
--- NOTE | 2023-06-18 11:08 | CM.DANOTE ---
DCP: Case received, EMR reviewed and met with patient. Introduced self and role. Was able to complete assessment based upon information currently available. Patient is a 38 year old female who admitted yesterday afternoon to the care of the hospitalist team. PCP: None currently Payer: self pay. Patient came to the hospital via private vehicle secondary to having nausea and vomiting for the last 3 days. Patient does have history of cyclic vomiting syndrome. Patient was admitted for cyclic vomiting, hpokalemia and hyponatremia. Patient's toxicology screen is positive for THC. Met with patient in her room, she was laying in bed on her stomach. Stated, was having some abdominal discomfort. Confirmed that she resides in [place], is currently single, independent, has no provider. It is noted that patient is self pay, patient indicated, she makes too much to qualify for [employer], the admission change group has given patient a financial application. Patient is currently self employed. P: DCP to continue to follow closely. Can still give patient some provider information if she desires, but would have to pay for office visits until she can get established with an insurance plan. Plan is home when stable. Annia Berger RN/Historian Research Assistant Discharge Planning/Care Management CM Discharge Assessment Start: 06/18/23 11:07 Freq: Status: Active Protocol: Document 06/18/23 11:07 (Rec: 06/18/23 11:08 [id number]) Discharge Planning Assessment Assigned [employer] Annia Berger RN/Historian Research Assistant Advance Directives? No History Provided By Patient,Medical Record Prior Living Arrangements House Household Members none Type of transporation used prior to Drives own vehicle admit Independent with ADL's Yes Is patient alert and oriented? Yes Caregiver for Another No Barriers to Discharge Yes Comment No insurance, no provider. Discharge Plan Home Transportation Arrangement Self or friend Referrals Initiated None needed Whiteboard Updated in Patient Room with Yes name and ext. # of [employer] Review Status In Process Next Review Type Continued Stay Review
[2023-06-18 11:24] VITALS: BP 126/75; PULSE 63; RESP 18; TEMP 37; O2SAT 100
--- NOTE | 2023-06-18 13:28 | PC.NURSE ---
Patient is discharging now. Iv taken out, paperwork gone over, waiting for ride. Patient is getting dressed.
--- NOTE | 2023-06-18 18:49 | P.DS_ITS ---
History of Present Illness History of Present Illness Chief complaint: ABD PAIN, VOMITING Narrative: Karely Dalal is a 38yo F with PMH of cyclic vomiting syndrome and frequent ED visits, cervical cancer s/p hysterectomy, ADHD and anxiety who presents with NV and found to be hyponatremic and hypokalemic with prolonged QT. Patient states she frequently gets severe cramping L sided abdominal pain and nausea with no apparent trigger. She has had these occur since 2018 and said it got substantially worse after her hysterectomy. Nobody has been able to figure out why she continues to have these episodes. Her last EGD was in 2019. She says her nausea and vomiting gets so bad she cannot eat for days. Her last meal was about a week ago. Uses marijuana but says she had cannabis sensitivity testing which showed that she was not sensitive to it. Her Utox is positive for THC. Denies CP, SOB, or diarrhea. Discharge Providers Provider Date of admission: 06/17/23 15:32 Discharge Date: 06/18/23 Discharge provider: Emerson Elaine, Summary Hospital Course Discharge Diagnosis: # acute NV -THC positive on Utox, patient has known cyclic vomiting syndrome -compazine and ativan PRN due to prolonged QT -recommend marijuana cessation -if not improving may consider EGD # QT prolongation -QTc 525 -mag 1.7 -give 2g mag -monitor with tele # acute hyponatremia -Na 126, improved to 132 -IVF # acute hypokalemia -K 2.6, improved to 3.1 -replete and monitor Hospital Course: Patient admitted for NV and observation given elevated QT, low Na and need for antiemetics. Na improved from 126 to 132 with IVF. NV improved some overnight, and although she wasn't feeling all the way better she asked to be discharged to not miss any work. Repeat QT had improved so given script for more zofran on dc. Exam Vital Signs (past 8 hours): - 06/18/23 11:24 Temperature 98.6 F Pulse Rate 63 Respiratory Rate 18 Blood Pressure 126/75 Pulse Oximetry 100 Oxygen Flow Rate 0 Oxygen Delivery Method Room Air Oxygen Flow Rate 0 Narrative Exam Narrative: GEN: no acute distress, appears uncomfortable and fatigued HEENT: moist mucous membranes, PERRL NECK: trachea midline, no JVD CV: regular rate and rhythm, no murmurs PULM: clear bilaterally ABD: soft, generalized tenderness, nondistended, no organomegaly EXT: warm and well perfused with no edema NEURO: awake, alert, oriented, no focal deficits Objective Labs 06/18/23 05:13 06/18/23 05:13 Labs: Laboratory Results - last 24 hr 06/18/23 05:13 WBC 7.3 RBC 4.13 Hgb 12.2 Hct 35.9 L MCV 86.9 MCH 29.6 MCHC 34.1 RDW 12.8 Plt Count 296 Neut % (Auto) 68.1 Lymph % (Auto) 20.9 L [place] % (Auto) 9.7 Eos % (Auto) 0.8 L Baso % (Auto) 0.5 Neut # (Auto) 5000 Lymph # (Auto) 1500 [place] # (Auto) 700 Eos # (Auto) 100 Baso # (Auto) 0 Sodium 132 L Potassium 3.1 L Chloride 99 Carbon Dioxide 27 BUN 10 Creatinine 0.73 Estimated GFR > 60 BUN/Creatinine Ratio 13.7 Glucose 100 Calcium 9.1 Magnesium 2.3 PFSH Medical History (Updated 06/17/23 @ 15:24 by Precious Arevalo DO) Anxiety History of cervical cancer ADHD Cyclic vomiting syndrome Surgical History History of tonsillectomy History of elective History of Status post hysterectomy Social History household members: none Smoking Status: Current some day smoker alcohol intake: never substance use type: does not use Discharge Plan Discharge Plan Patient Disposition: Home Provider Discharge Comment: I've sent more zofran for you at 8mg dosing. Try not to overuse it because it can prolong your heart rhythm to dangerous levels. Discharge orders & Medications Prescriptions: New ondansetron 8 mg tablet,disintegrating 8 mg PO BID-TID PRN (Reason: nausea and vomiting) Qty: 30 0RF Continued promethazine 25 mg tablet 25 mg PO Q4-6H PRN (Reason: nausea and vomiting) Qty: 14 0RF cyclobenzaprine 10 mg tablet 10 mg PO DAILY PRN (Reason: Spasms) fluoxetine 20 mg capsule 20 mg PO DAILY dicyclomine 20 mg tablet 20 mg PO BID PRN (Reason: pain (scale score 4-6)) Qty: 20 0RF meloxicam 7.5 mg tablet 7.5 mg PO BID PRN (Reason: pain) Qty: 10 0RF potassium chloride 20 mEq tablet extended release 20 meq PO DAILY Qty: 4 0RF metoclopramide HCl [Reglan] 10 mg tablet 10 mg PO Q6H PRN (Reason: nausea and vomiting) Qty: 14 0RF Discontinued ondansetron 4 mg tablet,disintegrating 4 mg PO TID-QID PRN (Reason: nausea and vomiting) Qty: 10 0RF ondansetron 4 mg tablet,disintegrating 4 mg PO Q8H Qty: 10 0RF Follow up/Referrals: Miscellaneous,Doctor, MD [Non-Staff] - Visit Report/Discharge Packet Instructions: DI for Cyclic Vomiting Syndrome-Adult Stand Alone Forms: Patient Portal/API, Stroke Signs & Symptoms Discharge Data Attending Provider: Emerson Elaine Admit Date/Time: 06/17/23 15:32 Quality VTE Deep Vein Thrombosis/Pulmonary Embolism Present on Admission: No
== END 2023-06-18 13:46 | disposition home or self-care (01) ==
LOC: ED 15:32 → AC 15:32
PROVIDERS: Admitting Provider Student in an Organized Health Care Education/Training Program; Emergency Provider Emergency Medicine; Referring Provider Emergency Medicine; Visit Provider Student in an Organized Health Care Education/Training Program
DX: R11.15 Cyclical vomiting syndrome unrelated to migraine (principal); R10.13 Epigastric pain; E87.1 Hypo-osmolality and hyponatremia; E87.6 Hypokalemia; F41.9 Anxiety disorder, unspecified
CPT/HCPCS: 36415; 71045; 74019; 80048; 80053; 80305; 80320; 81003; 81015; 82550; 82570; 83690; 83735; 83880; 84300; 84484; 85025; 93005; 93010; 96361; 96365; 96366; 96367; 96375; 96376; 99284; G0378; C9113; J0780; J1885; J2060; J2405; J3475

== ENCOUNTER 2023-06-28 22:14 | Emergency (ER) | payer SELFPAY ==
[2023-06-17 15:36] VITALS: BMI 22.4
[2023-06-28 22:18] VITALS: BP 151/95; PULSE 75; RESP 19; TEMP 36.6; O2SAT 96
[2023-06-28] MEDS: ONDANSETRON 4 MG ODT PO (22:27)
[2023-06-28 23:35] LABS: Appearance Urine UA CLOUDY; Bilirubin Urine UA NEGATIVE (NEGATIVE); Color Urine UA YELLOW; Glucose Urine UA NEGATIVE (Negative); Ketones Urine UA 1+ (NEGATIVE); Leukocyte Esterase Urine UA 2+ (NEGATIVE); Nitrite Urine UA NEGATIVE (Negative); Occult Blood Urine UA 2+ (Negative); Protein Urine UA 1+ (Negative); Urobilinogen Urine UA 0.2 E.U./dL (0.2)
[2023-06-28 23:44] LABS: Add Manual Diff / Slide Review NO; Basophils Absolute Auto 100 /uL (0-100); Basophils Percent Auto 0.6 % (0-2); Eosinophils Absolute Auto 100 /uL (0-450); Eosinophils Percent Auto 0.4 % (2-4); Hemoglobin 13.8 g/dL (12.0-16.0); Lymphocytes Absolute Auto 1400 /uL (1100-4500); Lymphocytes Percent Auto 9.3 % (25-40); Mean Corpuscular HGB Conc 33.8 % (30-36); Mean Corpuscular Hemoglobin 29.5 PG (26-34); Mean Corpuscular Volume 87.3 fL (80-100); Monocytes Absolute Auto 600 /uL (0-900); Monocytes Percent Auto 4.2 % (3-14); Neutrophils Absolute Auto 13000 /uL (1500-7000); Neutrophils Percent Auto 85.5 % (50-75); Platelet Count 385 X10^3/uL (150-400); Red Cell Distribution Width 13.2 % (11.6-14.8); White Blood Cell Count 15.2 X10^3/uL (4.5-11.0)
[2023-06-28 23:49] LABS: Bacteria Urine Moderate (10-30); RBC Urine 1-5/HPF (0-5/HPF); WBC Urine 5-10/HPF (0-5/HPF); pH Urine UA 7.5 (4.5-8.0)
[2023-06-28 23:50] LABS: Culture Indicated Urine Specimen Cultured; Squamous Epithelial Cell Urine 1-5 /HPF (0-5/HPF)
[2023-06-28 23:50] LABS: Alanine Aminotransferase 33 IU/L (<35); Albumin 5.1 g/dL (3.5-5.0); Albumin Globulin Ratio 1.6 (1.0-2.8); Alkaline Phosphatase 67 U/L (38-126); Aspartate Aminotransferase 29 IU/L (14-36); BUN Creatinine Ratio 12.5 (6-22); Bilirubin Total 1.1 mg/dL (0.2-1.3); Blood Urea Nitrogen 8 mg/dL (7-17); Calcium 10.4 mg/dL (8.4-10.2); Carbon Dioxide 24 mmol/L (22-32); Chloride 100 mmol/L (98-107); Estimated Glomerular Filt Rate > 60 mL/min (>60); Globulin 3.2 g/dL (1.7-4.1); Glucose 145 mg/dL (70-100); HEMOLYSIS < 15 (0-50); Lipase 123 U/L (23-300); Potassium 3.2 mmol/L (3.4-5.1); Sodium 137 mmol/L (137-145); Total Protein 8.3 g/dL (6.3-8.2)
[2023-06-29] MEDS: SODIUM CHLORIDE 0.9% 1,000 ML 1000 ML IV ×2 (00:14→03:49)
--- NOTE | 2023-06-29 01:15 | ED.ABDPAIN ---
HPI - Abdominal Pain <Sussy Tangela, - Last Filed: 06/30/23 20:51> General Chief Complaint: Abdominal Pain Stated Complaint: cyclic vomitting, SOB Time Seen by Provider: 06/28/23 23:52 Source: patient Mode of arrival: Ambulatory History of Present Illness HPI narrative: Patient 38-year-old female history of cyclic vomiting presenting today with vomiting ongoing for the last 2 days. She has previously been admitted with hypokalemia. She always has some left quadrant pain. The end of April she had a CT when she was admitted in May she would a x-ray. She reports she is under a lot of stress. She is to find a 2nd job it does not please house. 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 According to records she previously had long QTC syndrome she was already given Zofran still vomiting. Has a bucket next to the bed it does look like water. Related Data Home Medications Medication Instructions Recorded Confirmed cyclobenzaprine 10 mg tablet 10 mg PO DAILY PRN Spasms 06/24/18 06/18/23 fluoxetine 20 mg capsule 20 mg PO DAILY 06/24/18 06/18/23 Previous Rx's Medication Instructions Recorded promethazine 25 mg tablet 25 mg PO Q4-6H PRN nausea and 04/26/18 vomiting #14 tabs potassium chloride 20 mEq 20 meq PO DAILY #4 tabs 06/25/18 tablet,extended release metoclopramide HCl 10 mg tablet 10 mg PO Q6H PRN nausea and 12/09/19 (Reglan) vomiting #14 tabs dicyclomine 20 mg tablet 20 mg PO BID PRN pain (scale score 09/14/21 4-6) #20 tabs meloxicam 7.5 mg tablet 7.5 mg PO BID PRN pain #10 tabs 05/27/23 ondansetron 8 mg disintegrating 8 mg PO BID-TID PRN nausea and 06/18/23 tablet vomiting #30 tabs ondansetron 4 mg disintegrating 4 mg PO Q8H PRN nausea and 06/29/23 tablet vomiting #20 tabs promethazine 25 mg rectal 25 mg [place] Q6H PRN nausea and 06/29/23 suppository vomiting #12 ea Allergies Allergy/AdvReac Type Severity Reaction Status Date / Time Iodinated Contrast Media AdvReac Severe Difficulty Verified 12/04/22 09:42 [Iodinated Contrast- Oral Breathing and IV Dye] Review of Systems <DO Rupa Means Last Filed: 06/30/23 20:51> Review of Systems ROS Unobtainable: All systems reviewed & are unremarkable except as noted in HPI and below Patient History <Sussy Honeycutt DO - Last Filed: 06/30/23 20:51> Medical History (Updated 06/29/23 @ 06:15 by Sussy Honeycutt DO) Anxiety History of cervical cancer ADHD Cyclic vomiting syndrome Surgical History History of tonsillectomy History of elective History of Status post hysterectomy Social History household members: none Smoking Status: Current some day smoker alcohol intake: never substance use type: does not use Smoking Status: Current some day smoker alcohol intake frequency: holidays/special occasions only Substance Use Type: marijuana Exam <DO Rupa Means Last Filed: 06/30/23 20:51> Initial Vital Signs Initial Vital Signs: Vital Signs Temperature 97.8 F 06/28/23 22:18 Pulse Rate 75 06/28/23 22:18 Respiratory Rate 19 06/28/23 22:18 Blood Pressure 151/95 H 06/28/23 22:18 Pulse Oximetry 96 06/28/23 22:18 Oxygen Delivery Method Room Air 06/28/23 22:18 GENERAL: Alert 38-year-old female appears to not feel well and in [no acute] distress. HEENT: Head atraumatic,EOMI, pupils reactive, face symmetric, [moist] mucous membranes CARDIOVASCULAR: Regular rate and rhythm without murmurs, rubs or gallops. RESPIRATORY: Breath sounds equal bilaterally, no wheezes rales or rhonchi. ABDOMEN: Soft, mild tenderness left upper quadrant no guarding no rebound : No CVA tenderness EXTREMITIES: Normal range of motion, no clubbing or edema. Neurovascularly intact NEUROLOGICAL: Alert and oriented x4.Normal gait and speech. SKIN: Warm, dry, no laceration, no petechiae, no rashes or lesions. <DO Rupa Valenzuela Last Filed: 06/29/23 07:50> Initial Vital Signs Initial Vital Signs: Vital Signs Temperature 97.8 F 06/28/23 22:18 Pulse Rate 75 06/28/23 22:18 Respiratory Rate 19 06/28/23 22:18 Blood Pressure 151/95 H 06/28/23 22:18 Pulse Oximetry 96 06/28/23 22:18 Oxygen Delivery Method Room Air 06/28/23 22:18 Course <Sussy Honeycutt, DO - Last Filed: 06/30/23 20:51> Orders Ordered: Discontinued Medications Diphenhydramine HCl (Diphenhydramine 50 Mg/Ml Vial) 50 mg IV NOW ONE Stop: 06/29/23 03:52 Last Admin: 06/29/23 03:53 Dose: 50 mg Documented By: TATE Haloperidol (Haloperidol 5 Mg/Ml Vial) 2 mg IV NOW ONE Stop: 06/29/23 03:40 Last Admin: 06/29/23 03:49 Dose: 2 mg Documented By: TATE Hydromorphone HCl (Hydromorphone 1 Mg Inj) 1 mg IV NOW ONE Stop: 06/29/23 02:40 Last Admin: 06/29/23 02:49 Dose: 1 mg Documented By: DINO Sodium Chloride (Normal Saline 0.9%) 1,000 mls @ 1,000 mls/hr IV BOLUS ONE Stop: 06/29/23 00:51 Last Infusion: 06/29/23 01:21 Dose: Infused Documented By: Admin: 06/29/23 00:14 Dose: 1,000 mls/hr Documented By: ELIZA Sodium Chloride (Normal Saline 0.9%) 1,000 mls @ 1,000 mls/hr IV BOLUS ONE Stop: 06/29/23 04:38 Last Infusion: 06/29/23 05:26 Dose: Infused Documented By: Admin: 06/29/23 03:49 Dose: 1,000 mls/hr Documented By: TATE Ceftriaxone Sodium 1,000 mg/ (Sodium Chloride) 100 mls @ 200 mls/hr IV NOW ONE Stop: 06/29/23 03:40 Last Infusion: 06/29/23 04:23 Dose: Infused Documented By: Admin: 06/29/23 03:49 Dose: 200 mls/hr Documented By: TATE Lorazepam (Lorazepam 2 Mg/Ml Inj) 0.5 mg IV NOW ONE Stop: 06/29/23 01:21 Last Admin: 06/29/23 01:26 Dose: 0.5 mg Documented By: ELIZA Ondansetron HCl (Ondansetron 4 Mg Odt) 4 mg PO NOW PRN PRN Reason: Nausea And Vomiting Last Admin: 06/28/23 22:27 Dose: 4 mg Documented By: DINO Ondansetron HCl (Ondansetron 4 Mg/2 Ml Inj) 4 mg IV NOW PRN PRN Reason: Nausea And Vomiting Pantoprazole Sodium (Pantoprazole 40 Mg Vial) 40 mg IV NOW ONE Stop: 06/29/23 01:21 Last Admin: 06/29/23 01:26 Dose: 40 mg Documented By: ELIZA Vital Signs Vital signs: Vital Signs - 8 hr 06/29/23 06:41 06/29/23 06:41 06/29/23 07:00 Pulse Rate 82 79 77 Respiratory Rate 16 Blood Pressure 127/72 Pulse Oximetry 98 98 96 Oxygen Delivery Method Room Air <Matthew Presley DO - Last Filed: 06/29/23 07:50> Orders Ordered: Discontinued Medications Diphenhydramine HCl (Diphenhydramine 50 Mg/Ml Vial) 50 mg IV NOW ONE Stop: 06/29/23 03:52 Last Admin: 06/29/23 03:53 Dose: 50 mg Documented By: TATE Haloperidol (Haloperidol 5 Mg/Ml Vial) 2 mg IV NOW ONE Stop: 06/29/23 03:40 Last Admin: 06/29/23 03:49 Dose: 2 mg Documented By: TATE Hydromorphone HCl (Hydromorphone 1 Mg Inj) 1 mg IV NOW ONE Stop: 06/29/23 02:40 Last Admin: 06/29/23 02:49 Dose: 1 mg Documented By: DINO Sodium Chloride (Normal Saline 0.9%) 1,000 mls @ 1,000 mls/hr IV BOLUS ONE Stop: 06/29/23 00:51 Last Infusion: 06/29/23 01:21 Dose: Infused Documented By: Admin: 06/29/23 00:14 Dose: 1,000 mls/hr Documented By: ELIZA Sodium Chloride (Normal Saline 0.9%) 1,000 mls @ 1,000 mls/hr IV BOLUS ONE Stop: 06/29/23 04:38 Last Infusion: 06/29/23 05:26 Dose: Infused Documented By: Admin: 06/29/23 03:49 Dose: 1,000 mls/hr Documented By: TATE Ceftriaxone Sodium 1,000 mg/ (Sodium Chloride) 100 mls @ 200 mls/hr IV NOW ONE Stop: 06/29/23 03:40 Last Infusion: 06/29/23 04:23 Dose: Infused Documented By: Admin: 06/29/23 03:49 Dose: 200 mls/hr Documented By: TATE Lorazepam (Lorazepam 2 Mg/Ml Inj) 0.5 mg IV NOW ONE Stop: 06/29/23 01:21 Last Admin: 06/29/23 01:26 Dose: 0.5 mg Documented By: ELIZA Ondansetron HCl (Ondansetron 4 Mg Odt) 4 mg PO NOW PRN PRN Reason: Nausea And Vomiting Last Admin: 06/28/23 22:27 Dose: 4 mg Documented By: DINO Ondansetron HCl (Ondansetron 4 Mg/2 Ml Inj) 4 mg IV NOW PRN PRN Reason: Nausea And Vomiting Pantoprazole Sodium (Pantoprazole 40 Mg Vial) 40 mg IV NOW ONE Stop: 06/29/23 01:21 Last Admin: 06/29/23 01:26 Dose: 40 mg Documented By: ELIZA Vital Signs Vital signs: Vital Signs - 8 hr 06/29/23 06:41 06/29/23 06:41 06/29/23 07:00 Pulse Rate 82 79 77 Respiratory Rate 16 Blood Pressure 127/72 Pulse Oximetry 98 98 96 Oxygen Delivery Method Room Air MDM - Abdominal Pain <Sussy Honeycutt, - Last Filed: 06/30/23 20:51> Lab Data 06/28/23 23:30 06/28/23 23:30 Labs: Lab Results 06/28/23 06/28/23 Range/Units 23:25 23:30 WBC 15.2 H (4.5-11.0) X10^3/uL RBC 4.70 (4.0-5.2) X10^6/uL Hgb 13.8 (12.0-16.0) g/dL Hct 41.0 (36-46) % MCV 87.3 (80-100) fL MCH 29.5 (26-34) PG MCHC 33.8 (30-36) % RDW 13.2 (11.6-14.8) % Plt Count 385 (150-400) X10^3/uL Neut % (Auto) 85.5 H (50-75) % Lymph % (Auto) 9.3 L (25-40) % [place] % (Auto) 4.2 (3-14) % Eos % (Auto) 0.4 L (2-4) % Baso % (Auto) 0.6 (0-2) % Neut # (Auto) 64239 H (5473-1413) /uL Lymph # (Auto) 1400 (4306-9102) /uL [place] # (Auto) 600 (0-900) /uL Eos # (Auto) 100 (0-450) /uL Baso # (Auto) 100 (0-100) /uL Sodium 137 (137-145) mmol/L Potassium 3.2 L (3.4-5.1) mmol/L Chloride 100 (98-107) mmol/L Carbon Dioxide 24 (22-32) mmol/L BUN 8 (7-17) mg/dL Creatinine 0.64 (0.52-1.04) mg/dL Estimated GFR > 60 (>60) mL/min BUN/Creatinine Ratio 12.5 (6-22) Glucose 145 H (70-100) mg/dL Calcium 10.4 H (8.4-10.2) mg/dL Total Bilirubin 1.1 (0.2-1.3) mg/dL AST 29 (14-36) IU/L ALT 33 (<35) IU/L Alkaline Phosphatase 67 (38-126) U/L Total Protein 8.3 H (6.3-8.2) g/dL Albumin 5.1 H (3.5-5.0) g/dL Globulin 3.2 (1.7-4.1) g/dL Albumin/Globulin Ratio 1.6 (1.0-2.8) Lipase 123 (23-300) U/L Urine Color Yellow Urine Appearance Cloudy Urine pH 7.5 (4.5-8.0) Ur Specific [place] 1.020 (1.000-1.035) Urine Protein 1+ H (Negative) Urine Glucose (UA) Negative (Negative) g/dL Urine Ketones 1+ H (NEGATIVE) Urine Occult Blood 2+ H (Negative) Urine Nitrate Negative (Negative) Urine Bilirubin Negative (NEGATIVE) Urine Urobilinogen 0.2 (0.2) E.U./dL Ur Leukocyte Esterase 2+ H (NEGATIVE) Urine RBC 1-5/hpf (0-5/HPF) Urine WBC 5-10/hpf H (0-5/HPF) Ur Squamous Epith Cells 1-5 /hpf (0-5/HPF) Urine Bacteria Moderate (10-30) H (None) Ur Culture Indicated? Specimen cultured MDM Narrative Medical decision making narrative: Patient is a 38-year-old female with history of cyclic vomiting syndrome presents today with nausea vomiting ongoing for last 2 days. She has a clear container with large amount of watery like fluid in it. Been a couple times sometimes it is yellow. She appears very uncomfortable. Blood work to leukocytosis of 15. Potassium is 3.2 creatinine 0.69, glucose 145. No other electrolyte abnormalities. Patient is having uncontrolled abdominal pain nausea vomiting. Urinalysis does show some bacteria possible UTI low she does not really have nitrates she is +2 leuks. She is been given multiple medications including Ativan Zofran Protonix Dilaudid to help with nausea vomiting and pain. She finally given Benadryl and Haldol. EKG was checked prior to Haldol QTC is 441 today she is previously prolonged QTC this time I think it is reasonable to give her Haldol nothing else seems to be working. Finally she is sleeping and resting. Signed out to Dr. Fernandez presley: Received turned over. Reviewed patient's history and physical. Evaluated the patient this morning. She states she is feeling better. She is having some abdominal pain but this normally happens to her after these types of episodes. She is tolerating oral intake. I do feel that we can hold on any further radiologic studies. Nausea medications ordered. Advised that the patient follow-up with a GI provider. Patient expressed understanding and agreement with the plan. <Matthew Presley, - Last Filed: 06/29/23 07:50> Lab Data Labs: Lab Results 06/28/23 06/28/23 Range/Units 23:25 23:30 WBC 15.2 H (4.5-11.0) X10^3/uL RBC 4.70 (4.0-5.2) X10^6/uL Hgb 13.8 (12.0-16.0) g/dL Hct 41.0 (36-46) % MCV 87.3 (80-100) fL MCH 29.5 (26-34) PG MCHC 33.8 (30-36) % RDW 13.2 (11.6-14.8) % Plt Count 385 (150-400) X10^3/uL Neut % (Auto) 85.5 H (50-75) % Lymph % (Auto) 9.3 L (25-40) % [place] % (Auto) 4.2 (3-14) % Eos % (Auto) 0.4 L (2-4) % Baso % (Auto) 0.6 (0-2) % Neut # (Auto) 03537 H (3755-5206) /uL Lymph # (Auto) 1400 (1456-0307) /uL [place] # (Auto) 600 (0-900) /uL Eos # (Auto) 100 (0-450) /uL Baso # (Auto) 100 (0-100) /uL Sodium 137 (137-145) mmol/L Potassium 3.2 L (3.4-5.1) mmol/L Chloride 100 (98-107) mmol/L Carbon Dioxide 24 (22-32) mmol/L BUN 8 (7-17) mg/dL Creatinine 0.64 (0.52-1.04) mg/dL Estimated GFR > 60 (>60) mL/min BUN/Creatinine Ratio 12.5 (6-22) Glucose 145 H (70-100) mg/dL Calcium 10.4 H (8.4-10.2) mg/dL Total Bilirubin 1.1 (0.2-1.3) mg/dL AST 29 (14-36) IU/L ALT 33 (<35) IU/L Alkaline Phosphatase 67 (38-126) U/L Total Protein 8.3 H (6.3-8.2) g/dL Albumin 5.1 H (3.5-5.0) g/dL Globulin 3.2 (1.7-4.1) g/dL Albumin/Globulin Ratio 1.6 (1.0-2.8) Lipase 123 (23-300) U/L Urine Color Yellow Urine Appearance Cloudy Urine pH 7.5 (4.5-8.0) Ur Specific [place] 1.020 (1.000-1.035) Urine Protein 1+ H (Negative) Urine Glucose (UA) Negative (Negative) g/dL Urine Ketones 1+ H (NEGATIVE) Urine Occult Blood 2+ H (Negative) Urine Nitrate Negative (Negative) Urine Bilirubin Negative (NEGATIVE) Urine Urobilinogen 0.2 (0.2) E.U./dL Ur Leukocyte Esterase 2+ H (NEGATIVE) Urine RBC 1-5/hpf (0-5/HPF) Urine WBC 5-10/hpf H (0-5/HPF) Ur Squamous Epith Cells 1-5 /hpf (0-5/HPF) Urine Bacteria Moderate (10-30) H (None) Ur Culture Indicated? Specimen cultured MDM Narrative Medical decision making narrative: Patient is a 38-year-old female with history of cyclic vomiting syndrome presents today with nausea vomiting ongoing for last 2 days. She has a clear container with large amount of watery like fluid in it. Been a couple times sometimes it is yellow. She appears very uncomfortable. Blood work to leukocytosis of 15. Potassium is 3.2 creatinine 0.69, glucose 145. No other electrolyte abnormalities. Patient is having uncontrolled abdominal pain nausea vomiting. Urinalysis does show some bacteria possible UTI low she does not really have nitrates she is +2 leuks. She is been given multiple medications including Ativan Zofran Protonix Dilaudid to help with nausea vomiting and pain. She finally given Benadryl and Haldol. EKG was checked prior to Haldol QTC is 441 today she is previously prolonged QTC this time I think it is reasonable to give her Haldol nothing else seems to be working. Finally she is sleeping and resting. Dr presley: Received turned over. Reviewed patient's history and physical. Evaluated the patient this morning. She states she is feeling better. She is having some abdominal pain but this normally happens to her after these types of episodes. She is tolerating oral intake. I do feel that we can hold on any further radiologic studies. Nausea medications ordered. Advised that the patient follow-up with a GI provider. Patient expressed understanding and agreement with the plan. Discharge Plan Departure Patient Disposition: Home Clinical Impression: Cyclical vomiting Instructions: Nausea and Vomiting-Adult Activity Restrictions/Additional Instructions: *You have been diagnosed with cyclic vomiting *What to do: Increase fluids as tolerated *Continue to take medications as directed Zofran 4 mg every 8 hours if needed for nausea or vomiting Phenergan suppositories 25 mg every 6 hours if needed for nausea *Follow up with your primary care provider in 2-3 days or call [phone] *Return to ER if you should have increased or any new, worsening or concerning symptoms Prescriptions: New promethazine 25 mg suppository 25 mg [place] Q6H PRN (Reason: nausea and vomiting) Qty: 12 0RF ondansetron 4 mg tablet,disintegrating 4 mg PO Q8H PRN (Reason: nausea and vomiting) Qty: 20 0RF No Action promethazine 25 mg tablet 25 mg PO Q4-6H PRN (Reason: nausea and vomiting) Qty: 14 0RF cyclobenzaprine 10 mg tablet 10 mg PO DAILY PRN (Reason: Spasms) fluoxetine 20 mg capsule 20 mg PO DAILY dicyclomine 20 mg tablet 20 mg PO BID PRN (Reason: pain (scale score 4-6)) Qty: 20 0RF meloxicam 7.5 mg tablet 7.5 mg PO BID PRN (Reason: pain) Qty: 10 0RF potassium chloride 20 mEq tablet extended release 20 meq PO DAILY Qty: 4 0RF metoclopramide HCl [Reglan] 10 mg tablet 10 mg PO Q6H PRN (Reason: nausea and vomiting) Qty: 14 0RF ondansetron 8 mg tablet,disintegrating 8 mg PO BID-TID PRN (Reason: nausea and vomiting) Qty: 30 0RF Stand Alone Forms: Patient Portal/API
[2023-06-29] MEDS: PANTOPRAZOLE 40 MG VIAL IV (01:26)
[2023-06-29] MEDS: LORazepam 2 MG/ML INJ 0.5 MG IV (01:26)
--- NOTE | 2023-06-29 02:36 | PC.NURSE ---
Pt kept down a cup full of ice chips.
[2023-06-29] MEDS: HYDROMORPHONE 1 MG INJ IV (02:49)
[2023-06-29] MEDS: HALOPERIDOL 5 MG/ML VIAL 2 MG IV (03:49)
[2023-06-29] MEDS: cefTRIAXone 1,000 MG in SODIUM CHLORIDE 0.9% 100 ML 200 MG IV (03:49)
[2023-06-29] MEDS: diphenhydrAMINE 50 MG/ML VIAL IV (03:53)
[2023-06-29 06:41] VITALS: BP 127/72; PULSE 79; PULSE 82; RESP 16; O2SAT 98
[2023-06-29 07:00] VITALS: PULSE 77; O2SAT 96
[2023-06-29 07:30] VITALS: BP 135/85; PULSE 81; O2SAT 98
== END 2023-06-29 07:59 | disposition home or self-care (01) ==
PROVIDERS: Emergency Medicine; Emergency Provider Emergency Medicine
DX: R11.15 Cyclical vomiting syndrome unrelated to migraine (principal); R03.0 Elevated blood-pressure reading, without diagnosis of hypertension
CPT/HCPCS: 36415; 80053; 81001; 83690; 85025; 87086; 93005; 96365; 96375; 99284; C9113; J0696; J1170; J1200; J1630; J2060

== ENCOUNTER 2023-07-28 11:46 | Emergency (ER) | payer SELFPAY ==
[2023-06-17 15:36] VITALS: BMI 22.4
[2023-07-28] VITALS (12 sets, daily range): BP systolic 125–171; BP diastolic 78–108; PULSE 63–96; RESP 16–22; TEMP 36.6; O2SAT 94–100; BMI 24.6
--- NOTE | 2023-07-28 12:09 | ED_ITS ---
HPI - Nausea/Vomiting/Diarrhea General Chief complaint: Nausea/Vomiting/Diarrhea Stated complaint: diff breathing, abd pain, vomiting Time Seen by Provider: 07/28/23 12:05 Source: patient Mode of arrival: Ambulatory History of Present Illness HPI Narrative: 38-year-old female with history of cyclic vomiting syndrome presented to emergency room with similar episode, there has been persistent nausea vomiting since last night, there is mild epigastric discomfort from excessive vomiting, no blood in the emesis contents, her last episode of this intense vomiting was a few weeks ago. She had this symptom for approximately 2 years and has now been referred to GI specialist. Had upper endoscopy many many years ago. No complaint of chest pain no complaint of hematuria or dysuria. In emergency room patient is uncomfortable and has a proximally 400 mL of clear fluid emesis content in the bucket that she brought in. She admits that she uses marijuana to help her eat. The usage has been regular. Related Data Home Medications Medication Instructions Recorded Confirmed cyclobenzaprine 10 mg tablet 10 mg PO DAILY PRN Spasms 06/24/18 06/18/23 fluoxetine 20 mg capsule 20 mg PO DAILY 06/24/18 06/18/23 Previous Rx's Medication Instructions Recorded promethazine 25 mg tablet 25 mg PO Q4-6H PRN nausea and 04/26/18 vomiting #14 tabs potassium chloride 20 mEq 20 meq PO DAILY #4 tabs 06/25/18 tablet,extended release metoclopramide HCl 10 mg tablet 10 mg PO Q6H PRN nausea and 12/09/19 (Reglan) vomiting #14 tabs dicyclomine 20 mg tablet 20 mg PO BID PRN pain (scale score 09/14/21 4-6) #20 tabs meloxicam 7.5 mg tablet 7.5 mg PO BID PRN pain #10 tabs 05/27/23 ondansetron 8 mg disintegrating 8 mg PO BID-TID PRN nausea and 06/18/23 tablet vomiting #30 tabs ondansetron 4 mg disintegrating 4 mg PO Q8H PRN nausea and 06/29/23 tablet vomiting #20 tabs promethazine 25 mg rectal 25 mg NJ Q6H PRN nausea and 06/29/23 suppository vomiting #12 ea metoclopramide HCl 10 mg tablet 10 mg PO Q8-10H PRN nausea and 07/28/23 (Reglan) vomiting #14 tabs pantoprazole 40 mg tablet,delayed 40 mg PO DAILY 30 days #30 tabs 07/28/23 release (Protonix) tramadol 50 mg tablet 50 mg PO Q8H PRN pain #7 tabs 07/28/23 Allergies Allergy/AdvReac Type Severity Reaction Status Date / Time Iodinated Contrast Media AdvReac Severe Difficulty Verified 07/28/23 12:02 [Iodinated Contrast- Oral Breathing and IV Dye] Review of Systems Review of Systems Narrative: All systems reviewed negative except what is dictated in HPI Gastrointestinal Gastrointestinal: Reports heartburn, Reports nausea and Reports vomiting Patient History Medical History (Updated 07/28/23 @ 14:52 by Dread Beltre MD) Anxiety History of cervical cancer ADHD Cyclic vomiting syndrome Surgical History History of tonsillectomy History of elective History of Status post hysterectomy Social History household members: none Smoking Status: Current some day smoker alcohol intake: never substance use type: does not use Smoking Status: Current some day smoker alcohol intake frequency: holidays/special occasions only Substance Use Type: marijuana Exam Initial Vital Signs Initial Vital Signs: Vital Signs Temperature 97.8 F 07/28/23 11:50 Pulse Rate 85 07/28/23 11:50 Respiratory Rate 16 07/28/23 11:50 Blood Pressure 171/108 H 07/28/23 11:50 Pulse Oximetry 100 07/28/23 11:50 Oxygen Delivery Method Room Air 07/28/23 11:50 Const General: acute distress (Actively vomiting) HENIA Head: normal to inspection and normocephalic Mouth: oral mucosae normal and lip normal Eyes General: Yes appearance normal, both eyes and all related structures Neck Neck: normal visual inspection and full ROM Chest Chest: normal inspection of the chest and normal palpation of entire chest wall Resp Effort & Inspection: normal respiratory effort and able to speak in complete sentences Cardio Palpation: normal PMI and abnormal PMI GI Inspection: normal to inspection Palpation: soft, no hepatosplenomegaly, No aortic enlargement and tender General: bimanual renal exam normal bilaterally and bladder normal to inspection Neuro General: patient alert, patient awake, patient oriented x3 and oriented Course Orders Ordered: ED Orders 07/28/23 12:02 EKG-12 Lead Stat 07/28/23 12:08 Complete Blood Count AUTO DIFF Stat Comprehensive Metabolic Panel Stat Lipase Stat 07/28/23 14:10 Urinalysis and Microscopic Stat POTASSIUM CHLORIDE IN WATER (Potassium Cl 10 Meq/100 Ml [place]) 10 meq in 100 mls @ 100 mls/hr IV Q1H PRADEEP Stop: 07/28/23 14:59 Last Admin: 07/28/23 14:13 Dose: 100 mls/hr Documented By: Infusion: 07/28/23 14:13 Dose: Infused Documented By: Admin: 07/28/23 12:55 Dose: 100 mls/hr Documented By: MARBELLA Ondansetron HCl (Ondansetron 4 Mg Odt) 4 mg PO NOW PRN PRN Reason: Nausea And Vomiting Ondansetron HCl (Ondansetron 4 Mg/2 Ml Inj) 4 mg IV NOW PRN PRN Reason: Nausea And Vomiting Last Admin: 07/28/23 12:16 Dose: 4 mg Documented By: MARBELLA Discontinued Medications Sodium Chloride (Normal Saline 0.9%) 1,000 mls @ 1,000 mls/hr IV BOLUS ONE Stop: 07/28/23 13:06 Last Infusion: 07/28/23 13:13 Dose: Infused Documented By: Admin: 07/28/23 12:16 Dose: 1,000 mls/hr Documented By: MARBELLA Metoclopramide HCl (Metoclopramide 10 Mg/2 Ml Inj) 10 mg IV NOW ONE Stop: 07/28/23 13:11 Last Admin: 07/28/23 13:17 Dose: 10 mg Documented By: MARBELLA Morphine Sulfate (Morphine 4 Mg/Ml Inj) 4 mg IV NOW ONE Stop: 07/28/23 12:08 Last Admin: 07/28/23 12:16 Dose: 4 mg Documented By: ES Morphine Sulfate (Morphine 4 Mg/Ml Inj) 4 mg IV NOW ONE Stop: 07/28/23 13:11 Last Admin: 07/28/23 13:17 Dose: 4 mg Documented By: MARBELLA Pantoprazole Sodium (Pantoprazole 40 Mg Vial) 40 mg IV NOW ONE Stop: 07/28/23 13:11 Last Admin: 07/28/23 13:16 Dose: 40 mg Documented By: MARBELLA Vital Signs Vital signs: Vital Signs - 8 hr 12/30/23 11:50 07/28/23 12:20 07/28/23 12:30 Temperature 97.8 F Pulse Rate 85 71 89 Respiratory Rate 16 Blood Pressure 171/108 H Pulse Oximetry 100 95 98 Oxygen Delivery Method Room Air 07/28/23 13:00 07/28/23 13:03 07/28/23 13:03 Temperature Pulse Rate 84 63 Respiratory Rate Blood Pressure 125/78 Pulse Oximetry 94 97 Oxygen Delivery Method 07/28/23 13:04 07/28/23 13:30 07/28/23 13:30 Temperature Pulse Rate 79 68 Respiratory Rate 18 18 Blood Pressure 125/78 154/92 H Pulse Oximetry 100 96 Oxygen Delivery Method Room Air 07/28/23 14:00 07/28/23 14:00 Temperature Pulse Rate 82 Respiratory Rate 22 Blood Pressure 149/87 H Pulse Oximetry 98 Oxygen Delivery Method MDM - Nausea/Vomiting/Diarrhea Lab Data 07/28/23 12:08 07/28/23 12:08 Labs: Lab Results 07/28/23 07/28/23 Range/Units 12:08 14:10 WBC 9.6 (4.5-11.0) X10^3/uL RBC 4.58 (4.0-5.2) X10^6/uL Hgb 13.8 (12.0-16.0) g/dL Hct 40.0 (36-46) % MCV 87.3 (80-100) fL MCH 30.0 (26-34) PG MCHC 34.4 (30-36) % RDW 12.8 (11.6-14.8) % Plt Count 393 (150-400) X10^3/uL Neut % (Auto) 88.9 H (50-75) % Lymph % (Auto) 8.7 L (25-40) % [place] % (Auto) 1.8 L (3-14) % Eos % (Auto) 0.1 L (2-4) % Baso % (Auto) 0.5 (0-2) % Neut # (Auto) 8500 H (6472-2102) /uL Lymph # (Auto) 800 L (8855-0418) /uL [place] # (Auto) 200 (0-900) /uL Eos # (Auto) 0 (0-450) /uL Baso # (Auto) 100 (0-100) /uL Sodium 137 (137-145) mmol/L Potassium 3.1 L (3.4-5.1) mmol/L Chloride 102 (98-107) mmol/L Carbon Dioxide 20 L (22-32) mmol/L BUN 8 (7-17) mg/dL Creatinine 0.60 (0.52-1.04) mg/dL Estimated GFR > 60 (>60) mL/min BUN/Creatinine Ratio 13.3 (6-22) Glucose 158 H (70-100) mg/dL Calcium 10.1 (8.4-10.2) mg/dL Total Bilirubin 0.9 (0.2-1.3) mg/dL AST 37 H (14-36) IU/L ALT 30 (<35) IU/L Alkaline Phosphatase 72 (38-126) U/L Total Protein 8.5 H (6.3-8.2) g/dL Albumin 5.0 (3.5-5.0) g/dL Globulin 3.5 (1.7-4.1) g/dL Albumin/Globulin Ratio 1.4 (1.0-2.8) Lipase 47 (23-300) U/L Urine Color Yellow Urine Appearance Sl cloudy Urine pH 8.5 H (4.5-8.0) Ur Specific [place] 1.015 (1.000-1.035) Urine Protein Negative (Negative) Urine Glucose (UA) Negative (Negative) g/dL Urine Ketones Trace H (NEGATIVE) Urine Occult Blood Trace-intact (Negative) Urine Nitrate Negative (Negative) Urine Bilirubin Negative (NEGATIVE) Urine Urobilinogen 0.2 (0.2) E.U./dL Ur Leukocyte Esterase Negative (NEGATIVE) Urine RBC 0-1/hpf (0-5/HPF) Urine WBC None seen (0-5/HPF) Ur Squamous Epith Cells None seen (0-5/HPF) Amorphous Sediment 2+ Urine Bacteria None seen (None) Ur Culture Indicated? Cult not indicated Point of Care Testing Test Results Negative Urine Dip Bedside Urine Glucose Negative Bedside Urine Bilirubin - Negative Bedside Urine Ketone +/- 5 Urine Specific [place] 1.010 Bedside Urine Occult Blood + Bedside Urine pH 8.5 Bedside Urine Protein +/- 15 Bedside Urine Urobilinogen - Negative Bedside Urine Nitrite - Negative Bedside Urine Leukocytes - Negative Esterase ECG Data Interpretation: Normal sinus rhythm heart rate of 74, [place] 170 QRS 88 QT [address] segments MDM Narrative Medical decision making narrative: ld female with history of cyclic vomiting syndrome presented to emergency room with similar episode, there has been persistent nausea vomiting since last night, there is mild epigastric discomfort from excessive vomiting, no blood in the emesis contents, her last episode of this intense vomiting was a few weeks ago. She had this symptom for approximately 2 years and has now been referred to GI specialist. Had upper endoscopy many many years ago. No complaint of chest pain no complaint of hematuria or dysuria. In emergency room patient is uncomfortable and has a proximally 400 mL of clear fluid emesis content in the bucket that she brought in. She admits that she uses marijuana to help her eat. The usage has been regular. Based on my H&P differential diagnosis include acute on recurrent cyclic vomiting, potential electrolyte abnormality, dehydration Patient is agreeable to IV insertion fluid administration and antiemetic. Patient is reassessed at 2:45 a.m., after IV fluid IV antiemetic IV pain medication and Protonix, patient's symptoms much improved, I recommended to her to interact with her primary care doctor for GI referral and potential upper endoscopy, we will give a prescription of Protonix pain medication and nausea medicine. There is evidence of hypokalemia this is very likely secondary to persistent nausea vomiting, she will receive a prescription for that. At the time of discharge, patient is stable, all questions addressed, lab result is closed, Discharge Plan Departure Patient Disposition: Home Clinical Impression: Cyclic vomiting syndrome, Hypokalemia Instructions: DI for Hypokalemia, DI for Vomiting -- Adult Activity Restrictions/Additional Instructions: Please follow with your primary care doctor for further management which may include GI referral for upper endoscopy. Take nausea medicine and pain medicine and acid medicine. Prescriptions: New pantoprazole [Protonix] 40 mg tablet,delayed release (DR/EC) 40 mg PO DAILY 30 Days Qty: 30 0RF metoclopramide HCl [Reglan] 10 mg tablet 10 mg PO Q8-10H PRN (Reason: nausea and vomiting) Qty: 14 0RF tramadol 50 mg tablet 50 mg PO Q8H PRN (Reason: pain) Qty: 7 0RF No Action promethazine 25 mg tablet 25 mg PO Q4-6H PRN (Reason: nausea and vomiting) Qty: 14 0RF cyclobenzaprine 10 mg tablet 10 mg PO DAILY PRN (Reason: Spasms) fluoxetine 20 mg capsule 20 mg PO DAILY dicyclomine 20 mg tablet 20 mg PO BID PRN (Reason: pain (scale score 4-6)) Qty: 20 0RF meloxicam 7.5 mg tablet 7.5 mg PO BID PRN (Reason: pain) Qty: 10 0RF potassium chloride 20 mEq tablet extended release 20 meq PO DAILY Qty: 4 0RF metoclopramide HCl [Reglan] 10 mg tablet 10 mg PO Q6H PRN (Reason: nausea and vomiting) Qty: 14 0RF ondansetron 8 mg tablet,disintegrating 8 mg PO BID-TID PRN (Reason: nausea and vomiting) Qty: 30 0RF promethazine 25 mg suppository 25 mg NJ Q6H PRN (Reason: nausea and vomiting) Qty: 12 0RF ondansetron 4 mg tablet,disintegrating 4 mg PO Q8H PRN (Reason: nausea and vomiting) Qty: 20 0RF Stand Alone Forms: Patient Portal/API
[2023-07-28 12:15] LABS: Add Manual Diff / Slide Review NO; Basophils Absolute Auto 100 /uL (0-100); Basophils Percent Auto 0.5 % (0-2); Eosinophils Absolute Auto 0 /uL (0-450); Eosinophils Percent Auto 0.1 % (2-4); Hemoglobin 13.8 g/dL (12.0-16.0); Lymphocytes Absolute Auto 800 /uL (1100-4500); Lymphocytes Percent Auto 8.7 % (25-40); Mean Corpuscular HGB Conc 34.4 % (30-36); Mean Corpuscular Volume 87.3 fL (80-100); Monocytes Absolute Auto 200 /uL (0-900); Monocytes Percent Auto 1.8 % (3-14); Neutrophils Absolute Auto 8500 /uL (1500-7000); Neutrophils Percent Auto 88.9 % (50-75); Platelet Count 393 X10^3/uL (150-400); Red Blood Cell Count 4.58 X10^6/uL (4.0-5.2); Red Cell Distribution Width 12.8 % (11.6-14.8); White Blood Cell Count 9.6 X10^3/uL (4.5-11.0)
[2023-07-28] MEDS: MORPHINE 4 MG/ML INJ IV ×2 (12:16→13:17)
[2023-07-28] MEDS: SODIUM CHLORIDE 0.9% 1,000 ML 1000 ML IV (12:16)
[2023-07-28] MEDS: ONDANSETRON 4 MG/2 ML INJ IV (12:16)
[2023-07-28 12:26] LABS: Alanine Aminotransferase 30 IU/L (<35); Albumin Globulin Ratio 1.4 (1.0-2.8); Alkaline Phosphatase 72 U/L (38-126); Aspartate Aminotransferase 37 IU/L (14-36); BUN Creatinine Ratio 13.3 (6-22); Bilirubin Total 0.9 mg/dL (0.2-1.3); Blood Urea Nitrogen 8 mg/dL (7-17); Calcium 10.1 mg/dL (8.4-10.2); Carbon Dioxide 20 mmol/L (22-32); Chloride 102 mmol/L (98-107); Estimated Glomerular Filt Rate > 60 mL/min (>60); Globulin 3.5 g/dL (1.7-4.1); Glucose 158 mg/dL (70-100); HEMOLYSIS < 15 (0-50); Lipase 47 U/L (23-300); Potassium 3.1 mmol/L (3.4-5.1); Sodium 137 mmol/L (137-145); Total Protein 8.5 g/dL (6.3-8.2)
--- NOTE | 2023-07-28 12:34 | PC.NURSE ---
Patient has 2 year history of cyclic vomiting; uses marijuana to help with appetite
[2023-07-28] MEDS: POTASSIUM CHLORIDE IN WATER 10 MEQ/100 ML PIGGYBACK 100 MEQ IV ×2 (12:55→14:13)
[2023-07-28] MEDS: PANTOPRAZOLE 40 MG VIAL IV (13:16)
[2023-07-28] MEDS: METOCLOPRAMIDE 10 MG/2 ML INJ IV ×2 (13:17→15:18)
[2023-07-28 14:41] LABS: Appearance Urine UA SL CLOUDY; Bilirubin Urine UA NEGATIVE (NEGATIVE); Color Urine UA YELLOW; Glucose Urine UA NEGATIVE (Negative); Ketones Urine UA TRACE (NEGATIVE); Leukocyte Esterase Urine UA NEGATIVE (NEGATIVE); Nitrite Urine UA NEGATIVE (Negative); Occult Blood Urine UA TRACE-INTACT (Negative); Protein Urine UA NEGATIVE (Negative); Specific Gravity Urine UA 1.015 (1.000-1.035); Urobilinogen Urine UA 0.2 E.U./dL (0.2)
[2023-07-28 14:42] LABS: pH Urine UA 8.5 (4.5-8.0)
[2023-07-28 14:47] LABS: Amorphous Sediment Urine 2+; Bacteria Urine None Seen; Culture Indicated Urine Cult Not Indicated; RBC Urine 0-1/HPF (0-5/HPF); Squamous Epithelial Cell Urine None Seen (0-5/HPF); WBC Urine None Seen (0-5/HPF)
--- NOTE | 2023-07-28 16:02 | PC.NURSE ---
Prescription for Reglan and Protonix encountered a transmission error. RN called [facility] and placed verbal order for the medications as ordered by Dr. Beltre.
== END 2023-07-28 16:00 | disposition home or self-care (01) ==
PROVIDERS: Emergency Provider Emergency Medicine Emergency Medical Services
DX: R11.15 Cyclical vomiting syndrome unrelated to migraine (principal); E87.6 Hypokalemia
CPT/HCPCS: 36415; 80053; 81001; 81003; 81025; 83690; 85025; 93005; 96361; 96374; 96375; 96376; 99284; C9113; J2270; J2405; J2765

== ENCOUNTER 2024-01-22 06:46 | Emergency (ER) | payer SELFPAY ==
[2023-06-17 15:36] VITALS: BMI 22.4
[2024-01-22] VITALS (8 sets, daily range): BP systolic 115–142; BP diastolic 69–93; PULSE 59–86; RESP 18–20; TEMP 36.6–36.8; O2SAT 97–100; BMI 23.3
[2024-01-22] MEDS: ONDANSETRON 4 MG/2 ML INJ IV (07:01)
[2024-01-22] MEDS: SODIUM CHLORIDE 0.9% 1,000 ML 1000 ML IV (07:01)
[2024-01-22] MEDS: KETOROLAC 30 MG/ML VIAL 15 MG IV (07:02)
[2024-01-22 07:04] LABS: Add Manual Diff / Slide Review NO; Basophils Absolute Auto 0 /uL (0-100); Basophils Percent Auto 0.6 % (0-2); Eosinophils Absolute Auto 0 /uL (0-450); Eosinophils Percent Auto 0.3 % (2-4); Hematocrit 40.6 % (36-46); Hemoglobin 13.9 g/dL (12.0-16.0); Lymphocytes Absolute Auto 1900 /uL (1100-4500); Lymphocytes Percent Auto 21.7 % (25-40); Mean Corpuscular HGB Conc 34.1 % (30-36); Mean Corpuscular Hemoglobin 29.6 PG (26-34); Mean Corpuscular Volume 86.7 fL (80-100); Monocytes Absolute Auto 600 /uL (0-900); Monocytes Percent Auto 6.5 % (3-14); Neutrophils Absolute Auto 6200 /uL (1500-7000); Neutrophils Percent Auto 70.9 % (50-75); Platelet Count 390 X10^3/uL (150-400); Red Blood Cell Count 4.69 X10^6/uL (4.0-5.2); Red Cell Distribution Width 13.2 % (11.6-14.8); White Blood Cell Count 8.8 X10^3/uL (4.5-11.0)
--- NOTE | 2024-01-22 07:04 | DI.CT.S_ITS ---
PROCEDURE: CT KIDNEY URETER BLADDER (KUB) INDICATIONS: left flank pain TECHNIQUE: Axial sections were acquired from the lung bases to the pubic symphysis. Coronal and sagittal reformats were performed. For radiation dose reduction, the following was used: automated exposure control, adjustment of mA and/or kV according to patient size. COMPARISON: [facility], CT, CT ABDOMEN PELVIS W CON, 05/27/2023, 8:55. FINDINGS: Image quality: Diagnostic. Lower Chest: No significant findings. URINARY: Right Kidney: No stones or hydronephrosis. Right Ureter: No hydroureter. Left Kidney: No stones or hydronephrosis. Left Ureter: No hydroureter. Bladder: Mild urinary bladder wall thickening versus underdistention. No stones. ABDOMEN: Liver: No contour-deforming solid mass. Gallbladder: No radiopaque gallstones or wall thickening. Biliary ducts: No biliary dilation. Pancreas: No ductal dilation. Spleen: Size is within normal limits. Adrenal Glands: No adrenal nodules. Stomach and Bowel: Normal colonic caliber, without significant wall thickening. Normal appendix. Peritoneum: No abnormal intraperitoneal fluid. No free air. Ventral Wall: No hernia. Abdominal Nodes: No enlarged retroperitoneal or mesenteric lymph nodes. Vessels: Aorta and inferior vena cava are normal in size. PELVIS: Pelvic Organs: Unremarkable. Pelvic Nodes: Unremarkable. Miscellaneous: No inguinal hernias are seen. Bones: Unremarkable. IMPRESSION: No obstructing stones or hydronephrosis. No acute findings within the abdomen or pelvis to explain patient's symptoms. Dictated by: Raj Croft M.D. on 01/22/2024 at 8:08 Approved by: Raj Croft M.D. on 01/22/2024 at 8:25
--- NOTE | 2024-01-22 07:07 | ED_ITS ---
HPI - Abdominal Pain General Chief Complaint: Urogenital-Female Stated Complaint: kidney pain, throwing up blood 4 days Time Seen by Provider: 01/22/24 06:54 Source: patient Mode of arrival: Ambulatory History of Present Illness HPI narrative: Patient 38-year-old female history cyclic vomiting syndrome presents today with left flank pain ongoing for the last 4 days. She thought it was sore just from her roller [place] however pain has persisted it is radiating around to the front. She is nauseous at times. She reports like painful urination as well. No significant fevers. No right-sided pain. She reports history of kidney stone but many years ago. She has not taken any Tylenol or ibuprofen at home Related Data Home Medications Medication Instructions Recorded Confirmed cyclobenzaprine 10 mg tablet 10 mg PO DAILY PRN Spasms 06/24/18 06/18/23 fluoxetine 20 mg capsule 20 mg PO DAILY 06/24/18 06/18/23 Previous Rx's Medication Instructions Recorded promethazine 25 mg tablet 25 mg PO Q4-6H PRN nausea and 04/26/18 vomiting #14 tabs potassium chloride 20 mEq 20 meq PO DAILY #4 tabs 06/25/18 tablet,extended release metoclopramide HCl 10 mg tablet 10 mg PO Q6H PRN nausea and 12/09/19 (Reglan) vomiting #14 tabs dicyclomine 20 mg tablet 20 mg PO BID PRN pain (scale score 09/14/21 4-6) #20 tabs meloxicam 7.5 mg tablet 7.5 mg PO BID PRN pain #10 tabs 05/27/23 ondansetron 8 mg disintegrating 8 mg PO BID-TID PRN nausea and 06/18/23 tablet vomiting #30 tabs ondansetron 4 mg disintegrating 4 mg PO Q8H PRN nausea and 06/29/23 tablet vomiting #20 tabs promethazine 25 mg rectal 25 mg [place] Q6H PRN nausea and 06/29/23 suppository vomiting #12 ea metoclopramide HCl 10 mg tablet 10 mg PO Q8-10H PRN nausea and 07/28/23 (Reglan) vomiting #14 tabs tramadol 50 mg tablet 50 mg PO Q8H PRN pain #7 tabs 07/28/23 methocarbamol 750 mg tablet 1,500 mg (2 x 750 mg) PO Q8H PRN 01/22/24 muscle spasm #20 tabs Allergies Allergy/AdvReac Type Severity Reaction Status Date / Time Iodinated Contrast Media AdvReac Severe Difficulty Verified 07/28/23 12:02 [Iodinated Contrast- Oral Breathing and IV Dye] Patient History Medical History (Updated 01/22/24 @ 09:24 by Sussy Honeycutt DO) Anxiety History of cervical cancer ADHD Cyclic vomiting syndrome Surgical History History of tonsillectomy History of elective History of Status post hysterectomy Social History household members: none Smoking Status: Current some day smoker alcohol intake: never substance use type: does not use Smoking Status: Current some day smoker alcohol intake frequency: holidays/special occasions only Substance Use Type: marijuana Exam Initial Vital Signs Initial Vital Signs: Vital Signs Pulse Rate 86 01/22/24 06:50 Blood Pressure 136/93 H 01/22/24 06:50 Pulse Oximetry 97 01/22/24 06:50 GENERAL: Alert 38-year-old female appears uncomfortable HEENT: Head atraumatic,EOMI, pupils reactive, face symmetric, [moist] mucous membranes CARDIOVASCULAR: Regular rate and rhythm without murmurs, rubs or gallops. RESPIRATORY: Breath sounds equal bilaterally, no wheezes rales or rhonchi. ABDOMEN: Soft, nontender. Normoactive bowel sounds all 4 quadrants. No guarding or rebound. : Left CVA tenderness EXTREMITIES: Normal range of motion, no clubbing or edema. Neurovascularly intact NEUROLOGICAL: Alert and oriented x4.Normal gait and speech. SKIN: Warm, dry, no laceration, no petechiae, no rashes or lesions. Course Orders Ordered: ED Orders 01/22/24 06:55 CBC Auto Diff [Complete Blood Count AUTO DIFF] Stat CMP [Comprehensive Metabolic Panel] Stat CPK [Creatine Kinase] Stat Test Serum,Qual Stat 01/22/24 07:04 CT kidney ureter bladder (KUB) Stat 01/22/24 07:08 EKG-12 Lead Stat 01/22/24 07:30 Urine Microscopic Stat Discontinued Medications Hydromorphone HCl (Hydromorphone 0.5 Mg Inj) 0.5 mg IV NOW ONE Stop: 01/22/24 09:28 Last Admin: 01/22/24 09:31 Dose: 0.5 mg Documented By: BRICE Sodium Chloride (Normal Saline 0.9%) 1,000 mls @ 1,000 mls/hr IV BOLUS ONE Stop: 01/22/24 07:54 Last Infusion: 01/22/24 08:07 Dose: Infused Documented By: Admin: 01/22/24 07:01 Dose: 1,000 mls/hr Documented By: Acetaminophen ([facility]) 1,000 mg in 100 mls @ 400 mls/hr IV NOW ONE Stop: 01/22/24 08:24 Last Infusion: 01/22/24 08:32 Dose: Infused Documented By: Admin: 01/22/24 08:16 Dose: 400 mls/hr Documented By: BRICE Ketorolac Tromethamine (Ketorolac 30 Mg/Ml Vial) 15 mg IV NOW ONE Stop: 01/22/24 06:56 Last Admin: 01/22/24 07:02 Dose: 15 mg Documented By: Ondansetron HCl (Ondansetron 4 Mg/2 Ml Inj) 4 mg IV NOW ONE Stop: 01/22/24 06:56 Last Admin: 01/22/24 07:01 Dose: 4 mg Documented By: Vital Signs Vital signs: Vital Signs - 8 hr 01/22/24 06:50 01/22/24 06:50 01/22/24 06:53 Temperature 98.3 F Pulse Rate 86 80 Respiratory Rate 18 Blood Pressure 136/93 H 136/93 H Pulse Oximetry 97 97 Oxygen Delivery Method Room Air 01/22/24 07:00 01/22/24 07:01 01/22/24 07:01 Temperature Pulse Rate 70 78 Respiratory Rate Blood Pressure 115/69 Pulse Oximetry 98 98 Oxygen Delivery Method 01/22/24 07:30 01/22/24 07:31 01/22/24 07:31 Temperature Pulse Rate 68 59 L Respiratory Rate Blood Pressure 142/86 H Pulse Oximetry 98 100 Oxygen Delivery Method 01/22/24 09:28 01/22/24 09:48 Temperature 98 F Pulse Rate 60 62 Respiratory Rate 20 Blood Pressure 133/85 133/85 Pulse Oximetry 98 99 Oxygen Delivery Method Room Air MDM - Abdominal Pain Lab Data 01/22/24 06:55 01/22/24 06:55 Labs: Lab Results 01/22/24 01/22/24 Range/Units 06:55 07:30 WBC 8.8 (4.5-11.0) X10^3/uL RBC 4.69 (4.0-5.2) X10^6/uL Hgb 13.9 (12.0-16.0) g/dL Hct 40.6 (36-46) % MCV 86.7 (80-100) fL MCH 29.6 (26-34) PG MCHC 34.1 (30-36) % RDW 13.2 (11.6-14.8) % Plt Count 390 (150-400) X10^3/uL Neut % (Auto) 70.9 (50-75) % Lymph % (Auto) 21.7 L (25-40) % [place] % (Auto) 6.5 (3-14) % Eos % (Auto) 0.3 L (2-4) % Baso % (Auto) 0.6 (0-2) % Neut # (Auto) 6200 (1207-4575) /uL Lymph # (Auto) 1900 (5424-3135) /uL [place] # (Auto) 600 (0-900) /uL Eos # (Auto) 0 (0-450) /uL Baso # (Auto) 0 (0-100) /uL Sodium 134 L (137-145) mmol/L Potassium 3.5 (3.4-5.1) mmol/L Chloride 96 L (98-107) mmol/L Carbon Dioxide 28 (22-32) mmol/L BUN 10 (7-17) mg/dL Creatinine 0.83 (0.52-1.04) mg/dL Estimated GFR > 60 (>60) mL/min BUN/Creatinine Ratio 12.0 (6-22) Glucose 111 H (70-100) mg/dL Calcium 9.4 (8.4-10.2) mg/dL Total Bilirubin 1.1 (0.2-1.3) mg/dL AST 30 (14-36) IU/L ALT 28 (<35) IU/L Alkaline Phosphatase 66 (38-126) U/L Total Creatine Kinase 96 (30-135) U/L Total Protein 8.4 H (6.3-8.2) g/dL Albumin 5.1 H (3.5-5.0) g/dL Globulin 3.3 (1.7-4.1) g/dL Albumin/Globulin Ratio 1.5 (1.0-2.8) Serum , Qual Negative (Negative) Urine RBC 1-5/hpf (0-5/HPF) Urine WBC 1-5/hpf (0-5/HPF) Ur Squamous Epith Cells 5-10 /hpf H (0-5/HPF) Urine Bacteria Few (2-10) H (None) Ur Culture Indicated? Cult not indicated Vol Urine Centrifuged 10ml (spun) Point of care testing: Point of Care Testing Test Results Negative Urine Dip Bedside Urine Glucose Negative Bedside Urine Bilirubin - Negative Bedside Urine Ketone - Negative Urine Specific [place] 1.005 Bedside Urine Occult Blood + Bedside Urine pH 6.0 Bedside Urine Protein - Negative Bedside Urine Urobilinogen - Negative Bedside Urine Nitrite - Negative Bedside Urine Leukocytes - Negative Esterase Imaging Data CT scan - abdomen/pelvis: Radiologist's Impression: PROCEDURE: CT KIDNEY URETER BLADDER (KUB) INDICATIONS: left flank pain TECHNIQUE: Axial sections were acquired from the lung bases to the pubic symphysis. Coronal and sagittal reformats were performed. For radiation dose reduction, the following was used: automated exposure control, adjustment of mA and/or kV according to patient size. COMPARISON: [facility], CT, CT ABDOMEN PELVIS W CON, 05/27/2023, 8:55. FINDINGS: Image quality: Diagnostic. Lower Chest: No significant findings. URINARY: Right Kidney: No stones or hydronephrosis. Right Ureter: No hydroureter. Left Kidney: No stones or hydronephrosis. Left Ureter: No hydroureter. Bladder: Mild urinary bladder wall thickening versus underdistention. No stones. ABDOMEN: Liver: No contour-deforming solid mass. Gallbladder: No radiopaque gallstones or wall thickening. Biliary ducts: No biliary dilation. Pancreas: No ductal dilation. Spleen: Size is within normal limits. Adrenal Glands: No adrenal nodules. Stomach and Bowel: Normal colonic caliber, without significant wall thickening. Normal appendix. Peritoneum: No abnormal intraperitoneal fluid. No free air. Ventral Wall: No hernia. Abdominal Nodes: No enlarged retroperitoneal or mesenteric lymph nodes. Vessels: Aorta and inferior vena cava are normal in size. PELVIS: Pelvic Organs: Unremarkable. Pelvic Nodes: Unremarkable. Miscellaneous: No inguinal hernias are seen. Bones: Unremarkable. IMPRESSION: No obstructing stones or hydronephrosis. No acute findings within the abdomen or pelvis to explain patient's symptoms. Dictated by: Raj Croft M.D. on 01/22/2024 at 8:08 ECG Data Attestation: I personally reviewed and interpreted this ECG as follows: Prior ECG tracings: available for review Interpretation: Normal sinus rhythm rate 59 [place] interval 144 QRS 90 QTC 447 no ischemic changes MDM Narrative Medical decision making narrative: Patient 38-year-old female history of cyclic vomiting syndrome presents today with left flank pain radiating around her from ongoing for the last 4 days. No fever or chills. Blood work has been reviewed overall reassuring no leukocytosis or JACQUELYN electrolytes are stable, CPK 96 no evidence of rhabdomyolysis Urinalysis does not show or evidence UTI Imaging has been reviewed and no evidence of nephrolithiasis or obstruction. EKG reviewed no evidence of prolonged QTC Patient has been given IV fluids Toradol and Tylenol here in the ED. No Nausea or vomiting. At this time probably musculoskeletal pain, recommend supportive care Multiple etiologies for patient's symptoms considered including: [Cholecystitis, cholelithiasis, poorly functioning gallbladder versus other] diagnosis, nephrolithiasis pyelonephritis muscle spasm, rhabdomyolysis Discharge patient having significant pain states the pain intensified. She was given a dose of Dilaudid. Again I suspect is musculoskeletal in nature. Will give her prescription for Robaxin for muscle spasm. Discharge Plan Departure Patient Disposition: Home Clinical Impression: Back pain Instructions: DI for Thoracic Back Pain Activity Restrictions/Additional Instructions: *You have been diagnosed with back pain *What to do: At this time no evidence of infection or kidney stone. I suspect muscle spasm. Recommend heating pad light stretches *Continue to take medications as directed Tylenol 1000 mg every 6 hours for [id number]-skwdrwcx pain Motrin 600 mg every 6 hours for vbkp-tf-uziafkaf pain Methocarbamol 700 and 50s 1500 mg every hours for muscle spasm *Follow up with your primary care provider in 2-3 days or call [phone] *Return to ER if you should have increasing pain persistent vomiting weakness or any new, worsening or concerning symptoms Prescriptions: New methocarbamol 750 mg tablet 1,500 mg PO Q8H PRN (Reason: muscle spasm) Qty: 20 0RF No Action promethazine 25 mg tablet 25 mg PO Q4-6H PRN (Reason: nausea and vomiting) Qty: 14 0RF cyclobenzaprine 10 mg tablet 10 mg PO DAILY PRN (Reason: Spasms) fluoxetine 20 mg capsule 20 mg PO DAILY dicyclomine 20 mg tablet 20 mg PO BID PRN (Reason: pain (scale score 4-6)) Qty: 20 0RF meloxicam 7.5 mg tablet 7.5 mg PO BID PRN (Reason: pain) Qty: 10 0RF potassium chloride 20 mEq tablet extended release 20 meq PO DAILY Qty: 4 0RF metoclopramide HCl [Reglan] 10 mg tablet 10 mg PO Q6H PRN (Reason: nausea and vomiting) Qty: 14 0RF ondansetron 8 mg tablet,disintegrating 8 mg PO BID-TID PRN (Reason: nausea and vomiting) Qty: 30 0RF promethazine 25 mg suppository 25 mg [place] Q6H PRN (Reason: nausea and vomiting) Qty: 12 0RF ondansetron 4 mg tablet,disintegrating 4 mg PO Q8H PRN (Reason: nausea and vomiting) Qty: 20 0RF metoclopramide HCl [Reglan] 10 mg tablet 10 mg PO Q8-10H PRN (Reason: nausea and vomiting) Qty: 14 0RF tramadol 50 mg tablet 50 mg PO Q8H PRN (Reason: pain) Qty: 7 0RF Stand Alone Forms: Patient Portal/API
--- NOTE | 2024-01-22 07:08 | EKG_ITS ---
[address] [address] Test Date: 2024-01-22 Pat Name: Karely Dalal Department: Room: Gender: Female Report Manager: BETO : 1985 Requested By: Order Number: [id number] Reading MD: Thierry Jacobo Measurements Intervals [place] Rate: 59 P: 73 MO: 144 QRS: 83 QRSD: 90 T: 45 QT: 452 QTc: 447 Interpretive Statements Sinus bradycardia Electronically Signed On 01-23-2024 19:42:13 PDT by Thierry Jacobo
[2024-01-22 07:31] LABS: Alanine Aminotransferase 28 IU/L (<35); Albumin 5.1 g/dL (3.5-5.0); Albumin Globulin Ratio 1.5 (1.0-2.8); Alkaline Phosphatase 66 U/L (38-126); Aspartate Aminotransferase 30 IU/L (14-36); Bilirubin Total 1.1 mg/dL (0.2-1.3); Blood Urea Nitrogen 10 mg/dL (7-17); Calcium 9.4 mg/dL (8.4-10.2); Carbon Dioxide 28 mmol/L (22-32); Chloride 96 mmol/L (98-107); Estimated Glomerular Filt Rate > 60 mL/min (>60); Globulin 3.3 g/dL (1.7-4.1); Glucose 111 mg/dL (70-100); HEMOLYSIS < 15 (0-50); Potassium 3.5 mmol/L (3.4-5.1); Sodium 134 mmol/L (137-145); Total Protein 8.4 g/dL (6.3-8.2)
[2024-01-22 07:32] LABS: Pregnancy Test Serum,Qual Negative (Negative)
[2024-01-22 08:08] LABS: Bacteria Urine Few (2-10); RBC Urine 1-5/HPF (0-5/HPF); Squamous Epithelial Cell Urine 5-10 /HPF (0-5/HPF); Urine Volume 10mL (spun); WBC Urine 1-5/HPF (0-5/HPF)
[2024-01-22 08:09] LABS: Culture Indicated Urine Cult Not Indicated
[2024-01-22] MEDS: ACETAMINOPHEN IV 1,000 MG/100 ML VIAL 400 MG IV (08:16)
[2024-01-22 09:14] LABS: Creatine Kinase 96 U/L (30-135)
[2024-01-22] MEDS: HYDROMORPHONE 0.5 MG INJ IV (09:31)
== END 2024-01-22 09:50 | disposition home or self-care (01) ==
PROVIDERS: Emergency Medicine; Emergency Provider Emergency Medicine
DX: M54.9 Dorsalgia, unspecified (principal); R10.9 Unspecified abdominal pain
CPT/HCPCS: 36415; 74176; 80053; 81003; 81015; 81025; 82550; 84703; 85025; 93005; 96365; 96375; 99284; J0136; J1170; J1885; J2405

== ENCOUNTER 2024-10-05 09:53 | Emergency (ER) | payer SELFPAY ==
[2023-06-17 15:36] VITALS: BMI 22.4
[2024-10-05 10:18] VITALS: BP 132/92; PULSE 85; RESP 16; TEMP 36.7; O2SAT 97; BMI 22.9
--- NOTE | 2024-10-05 10:20 | DI.RAD.S_ITS ---
PROCEDURE: XR KNEE LT 3V INDICATIONS: fall playing roller [place] TECHNIQUE: 3 views of the knee were acquired. COMPARISON: None. FINDINGS: Bones: No fractures or dislocations. No suspicious bony lesions. Soft tissues: No joint effusion. No suspicious soft tissue calcifications. IMPRESSION: No acute bony abnormality or significant effusion. Dictated by: Gay Kumari M.D. on 10/05/2024 at 10:23 Approved by: Gay Kumari M.D. on 10/05/2024 at 10:24
--- NOTE | 2024-10-05 11:58 | ED.LOWEXIN ---
HPI - Extremity Injury (Lower) <Eli Rodriguez PA-C - Last Filed: 10/05/24 14:21> General Chief Complaint: Extremity Injury, Lower Stated Complaint: swollen left knee after roller der[place] Time Seen by Provider: 10/05/24 11:10 History of Present Illness HPI Narrative: Ms. Dalal is a very pleasant 39-year-old female with a past medical history of cyclic vomiting syndrome who presents to the emergency department for left knee pain after a fall onto the left knee that occurred during roller [place] yesterday. 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 She was wearing knee pads and full protective gear. However after removing her left knee pad she saw of the knee was quite swollen bruised and the pain has continued to today. She denies any other injuries, head trauma, numbness tingling or weakness, pain with weight-bearing or decreased range of motion. Patient states knee is just swollen and tender to the touch. Related Data Home Medications Medication Instructions Recorded Confirmed cyclobenzaprine 10 mg tablet 10 mg PO DAILY PRN Spasms 06/24/18 06/18/23 fluoxetine 20 mg capsule 20 mg PO DAILY 06/24/18 06/18/23 Previous Rx's Medication Instructions Recorded promethazine 25 mg tablet 25 mg PO Q4-6H PRN nausea and 04/26/18 vomiting #14 tabs potassium chloride 20 mEq 20 meq PO DAILY #4 tabs 06/25/18 tablet,extended release metoclopramide HCl 10 mg tablet 10 mg PO Q6H PRN nausea and 12/09/19 (Reglan) vomiting #14 tabs dicyclomine 20 mg tablet 20 mg PO BID PRN pain (scale score 09/14/21 4-6) #20 tabs meloxicam 7.5 mg tablet 7.5 mg PO BID PRN pain #10 tabs 05/27/23 ondansetron 8 mg disintegrating 8 mg PO BID-TID PRN nausea and 06/18/23 tablet vomiting #30 tabs ondansetron 4 mg disintegrating 4 mg PO Q8H PRN nausea and 06/29/23 tablet vomiting #20 tabs promethazine 25 mg rectal 25 mg [place] Q6H PRN nausea and 06/29/23 suppository vomiting #12 ea metoclopramide HCl 10 mg tablet 10 mg PO Q8-10H PRN nausea and 07/28/23 (Reglan) vomiting #14 tabs tramadol 50 mg tablet 50 mg PO Q8H PRN pain #7 tabs 07/28/23 methocarbamol 750 mg tablet 1,500 mg (2 x 750 mg) PO Q8H PRN 01/22/24 muscle spasm #20 tabs Allergies Allergy/AdvReac Type Severity Reaction Status Date / Time Iodinated Contrast Media AdvReac Severe Difficulty Verified 07/28/23 12:02 [Iodinated Contrast- Oral Breathing and IV Dye] Review of Systems <Eli Rodriguez PA-C - Last Filed: 10/05/24 14:21> Review of Systems ROS Unobtainable: All systems reviewed & are unremarkable except as noted in HPI and below Patient History <Eli Rodriguez PA-C - Last Filed: 10/05/24 14:21> Medical History (Updated 10/05/24 @ 12:05 by Eli Rodriguez PA-C) Anxiety History of cervical cancer ADHD Cyclic vomiting syndrome Surgical History History of tonsillectomy History of elective History of Status post hysterectomy Social History household members: none Smoking Status: Current some day smoker alcohol intake: never substance use type: does not use Smoking Status: Current some day smoker alcohol intake frequency: holidays/special occasions only Exam <Eli Rodriguez PA-C - Last Filed: 10/05/24 14:21> Narrative Exam Narrative: GENERAL: 39 year old patient appears stated age. Well-developed athletic patient, in no acute distress. HEAD: Atraumatic. Normocephalic. NECK: Trachea midline. Cervical ROM intact. CARDIOVASCULAR: Regular rate RESPIRATORY: ?Nonlabored respirations. ?Speaking in clear, full sentences. EXTREMITIES: Diffuse swelling of left knee with ecchymosis on the lateral anterior aspect of the knee. Patient still has full flexion and extension strength of the left knee. Full range of motion. No reproducible joint laxity. Tenderness to palpation over patella and lateral knee. No tenderness on robles ankle or thigh. Strong DP and PT pulses bilaterally. NEURO: AOx3. ?Clear speech. ?Moves all 4 extremities appropriately. Sensation intact to light touch on bilateral lower extremities. SKIN: No rash or erythema of visible areas Initial Vital Signs Initial Vital Signs: Vital Signs Temperature 98.1 F 10/05/24 10:18 Pulse Rate 85 10/05/24 10:18 Respiratory Rate 16 10/05/24 10:18 Blood Pressure 132/92 H 10/05/24 10:18 Pulse Oximetry 97 10/05/24 10:18 Oxygen Delivery Method Room Air 10/05/24 10:18 <Sussy Honeycutt DO - Last Filed: 10/06/24 07:33> Initial Vital Signs Initial Vital Signs: Vital Signs Temperature 98.1 F 10/05/24 10:18 Pulse Rate 85 10/05/24 10:18 Respiratory Rate 16 10/05/24 10:18 Blood Pressure 132/92 H 10/05/24 10:18 Pulse Oximetry 97 10/05/24 10:18 Oxygen Delivery Method Room Air 10/05/24 10:18 Course <Eli Rodriguez PA-C - Last Filed: 10/05/24 14:21> Orders Ordered: Discontinued Medications Ketorolac Tromethamine (Ketorolac 30 Mg/Ml Vial) 30 mg IM NOW ONE Stop: 10/05/24 11:59 Last Admin: 10/05/24 12:29 Dose: 30 mg Documented By: DALE Vital Signs Vital signs: Vital Signs - 8 hr 10/05/24 10:18 10/05/24 12:38 Temperature 98.1 F Pulse Rate 85 63 Respiratory Rate 16 16 Blood Pressure 132/92 H 124/77 Pulse Oximetry 97 99 Oxygen Delivery Method Room Air Room Air <Sussy Honeycutt DO - Last Filed: 10/06/24 07:33> Orders Ordered: Discontinued Medications Ketorolac Tromethamine (Ketorolac 30 Mg/Ml Vial) 30 mg IM NOW ONE Stop: 10/05/24 11:59 Last Admin: 10/05/24 12:29 Dose: 30 mg Documented By: DALE Vital Signs Vital signs: Vital Signs - 8 hr 10/05/24 10:18 10/05/24 12:38 Temperature 98.1 F Pulse Rate 85 63 Respiratory Rate 16 16 Blood Pressure 132/92 H 124/77 Pulse Oximetry 97 99 Oxygen Delivery Method Room Air Room Air MDM - Extremity Injury (Lower) <Eli Rodriguez PA-C - Last Filed: 10/05/24 14:21> Medical Records Attestation: I reviewed the patient's medical records. Medical records narrative: Prior ED visits for cyclic vomiting Imaging Data Left Knee X-Ray: Radiologist's Impression: PROCEDURE: XR KNEE LT 3V INDICATIONS: fall playing [place] TECHNIQUE: 3 views of the knee were acquired. COMPARISON: None. FINDINGS: Bones: No fractures or dislocations. No suspicious bony lesions. Soft tissues: No joint effusion. No suspicious soft tissue calcifications. IMPRESSION: No acute bony abnormality or significant effusion. MDM Narrative Medical decision making narrative: 39-year-old female with a past medical history of cyclic vomiting syndrome who presents to the emergency department for left knee pain after a fall onto the left knee that occurred during roller [place] yesterday. Differential diagnosis includes but is not limited to traumatic bursitis, knee effusion, contusion, fracture, sprain, strain, etc. On exam the patient is in no acute distress, nontoxic appearing, vital signs within normal limits. She has swelling and ecchymosis of left knee with some tenderness but no reproducible joint laxity and no obvious deformities. Left knee x-ray was obtained in triage which is negative for effusion or acute bony abnormality. Suspect contusion versus traumatic bursitis, recommended rice therapy, we will treat with Toradol in the ED, she has had prior tubal ligation. Recommended ibuprofen and acetaminophen in addition to rice therapy. Advised follow up with PCP and/or ortho if she has persistent pain. She has no difficulty with weight-bearing and does not need crutches. Pain improved significantly after Toradol. Strict ED return precautions discussed. She is agreeable to the plan and stable for discharge home. Discharge Plan Departure Patient Disposition: Home Clinical Impression: Contusion of knee, left Qualifiers: Encounter type: initial encounter Qualified Code(s): S80.02XA - Contusion of left knee, initial encounter Instructions: DI for Knee Pain Activity Restrictions/Additional Instructions: Dear Ms. Dalal, Thank you for coming to the emergency department today. X-ray of your left knee did not reveal any fractures. X-rays do not rule out any injuries to important ligaments or tendons, so it is important to follow up with the primary care doctor or an orthopedic doctor if you have persistent pain. Please rest and avoid repeat falls on the knee especially this next week. If you are feeling better, you can play in your game next week. I hope you win! Please use RICE therapy for your pain in addition to ibuprofen/acetaminophen. Rest the painful area. Ice the area of pain/swelling for at least 15 minutes, 4x a day. Compress the area of swelling using a brace, wrap, or splint if applied. Elevate the painful or swollen extremity by supporting it above the level of the heart with pillows when sitting or laying. Please take Ibuprofen (Motrin/Advil) or Acetaminophen (Tylenol) for pain. These are available over the counter. You may take Ibuprofen 600 mg every 8 hours with food for pain. You may also take Acetaminophen 650 mg every 4-6 hours for pain. Do not exceed 3000 mg of Tylenol a day as this can cause liver damage. Do not drink alcohol with either of these medications. Please follow up with your primary care doctor within the next 2-3 days for ER follow-up. (If you do not have a PCP you can call [phone]. ?to schedule an appointment with an [facility] Primary Care Provider) IF YOU DEVELOP ANY NEW OR WORSENING SYMPTOMS, RETURN TO THE ER! Please read the attached instructions, they highlight more specific treatments and interventions for you at home. Thank you for letting me participate in your care, Eli Rodriguez PA-C Prescriptions: No Action promethazine 25 mg tablet 25 mg PO Q4-6H PRN (Reason: nausea and vomiting) Qty: 14 0RF cyclobenzaprine 10 mg tablet 10 mg PO DAILY PRN (Reason: Spasms) fluoxetine 20 mg capsule 20 mg PO DAILY dicyclomine 20 mg tablet 20 mg PO BID PRN (Reason: pain (scale score 4-6)) Qty: 20 0RF meloxicam 7.5 mg tablet 7.5 mg PO BID PRN (Reason: pain) Qty: 10 0RF methocarbamol 750 mg tablet 1,500 mg PO Q8H PRN (Reason: muscle spasm) Qty: 20 0RF potassium chloride 20 mEq tablet extended release 20 meq PO DAILY Qty: 4 0RF metoclopramide HCl [Reglan] 10 mg tablet 10 mg PO Q6H PRN (Reason: nausea and vomiting) Qty: 14 0RF ondansetron 8 mg tablet,disintegrating 8 mg PO BID-TID PRN (Reason: nausea and vomiting) Qty: 30 0RF promethazine 25 mg suppository 25 mg [place] Q6H PRN (Reason: nausea and vomiting) Qty: 12 0RF ondansetron 4 mg tablet,disintegrating 4 mg PO Q8H PRN (Reason: nausea and vomiting) Qty: 20 0RF metoclopramide HCl [Reglan] 10 mg tablet 10 mg PO Q8-10H PRN (Reason: nausea and vomiting) Qty: 14 0RF tramadol 50 mg tablet 50 mg PO Q8H PRN (Reason: pain) Qty: 7 0RF Stand Alone Forms: Patient Portal/API/Survey ED Sign-out <Sussy Honeycutt DO - Last Filed: 10/06/24 07:33> Cosign ED Attending Cosignature Attestation: I was available for consultation.
[2024-10-05] MEDS: KETOROLAC 30 MG/ML VIAL IM (12:29)
[2024-10-05 12:38] VITALS: BP 124/77; PULSE 63; RESP 16; O2SAT 99
== END 2024-10-05 12:43 | disposition home or self-care (01) ==
PROVIDERS: Emergency Provider Physician Assistant
DX: S80.02XA Contusion of left knee, initial encounter (principal); W19.XXXA Unspecified fall, initial encounter; F17.210 Nicotine dependence, cigarettes, uncomplicated; Y93.51 Activity, roller skating (inline) and skateboarding
CPT/HCPCS: 73562; 96372; 99283; J1885

== ENCOUNTER 2025-02-10 08:47 | Observation (INO) | payer OTHER, SELFPAY ==
[2023-06-17 15:36] VITALS: BMI 22.4
[2025-02-10] VITALS (9 sets, daily range): BP systolic 114–154; BP diastolic 78–97; PULSE 67–92; RESP 16–25; TEMP 36.6–36.8; O2SAT 93–99; BMI 25.0
--- NOTE | 2025-02-10 09:30 | DI.CT.S_ITS ---
PROCEDURE: CT ABDOMEN PELVIS W CON INDICATIONS: ABD ORI TECHNIQUE: After the administration of intravenous contrast, axial sections acquired from the lung bases to the pubic symphysis. Coronal and sagittal reformats were performed. For radiation dose reduction, the following was used: automated exposure control, adjustment of mA and/or kV according to patient size. COMPARISON: [facility], CT, CT ABDOMEN PELVIS W CON, 05/27/2023, 8:55. FINDINGS: Image quality: Diagnostic. Lower Chest: No significant findings. ABDOMEN: Liver: No solid mass. Gallbladder: No radiopaque gallstones or wall thickening. Biliary ducts: No biliary dilation. Pancreas: No ductal dilation. Spleen: Size is within normal limits. Adrenal Glands: No adrenal nodules. Kidneys and Ureters: No hydronephrosis. No solid mass. No complex renal cystic lesion which requires follow up. Stomach and Bowel: Normal colonic caliber, without significant wall thickening. Peritoneum: No abnormal intraperitoneal fluid. No free air. Ventral Wall: No significant ventral hernia. Abdominal Nodes: No retroperitoneal or mesenteric adenopathy by size criteria. Vessels: Aorta and inferior vena cava are normal in size. PELVIS: Pelvic Organs: Uterus is surgically absent. No adnexal masses.. Bladder: No bladder wall thickening, accounting for underdistention. Pelvic Nodes: No enlarged lymph nodes. Miscellaneous: No inguinal hernias are seen. Bones: No aggressive osseous abnormality. IMPRESSION: 1. No acute abdominal process noted. 2. Remote hysterectomy Comment: The technologist has noted that the patient was not pre-medicated prior to this procedure and did not have an allergic reaction to contrast. Dictated by: Hasmukh Todd M.D. on 02/10/2025 at 10:48 Approved by: Hasmukh Todd M.D. on 02/10/2025 at 10:52
--- NOTE | 2025-02-10 09:31 | EKG_ITS ---
[id number], [place] [address] Test Date: 2025-02-10 Pat Name: Karely Dalal Department: Room: Gender: Female [employer] Dies: TONIA : 1985 Requested By: Order Number: [id number] Reading MD: Marquis Banda Measurements Intervals [place] Rate: 92 P: 84 TN: 124 QRS: 85 QRSD: 84 T: 54 QT: 508 QTc: 628 Interpretive Statements Critical Test Result: Long QTc Normal sinus rhythm Right atrial enlargement Pulmonary disease pattern Nonspecific ST and T wave abnormality Prolonged QT Electronically Signed On 02-11-2025 17:10:43 PDT by Marquis Banda
[2025-02-10 09:37] LABS: Add Manual Diff / Slide Review NO; Hematocrit 40.1 % (36-46); Hemoglobin 13.5 g/dL (12.0-16.0); Lymphocytes Absolute Auto 3900 /uL (1100-4500); Mean Corpuscular HGB Conc 33.6 % (30-36); Mean Corpuscular Hemoglobin 28.4 PG (26-34); Mean Corpuscular Volume 84.5 fL (80-100); Platelet Count 416 X10^3/uL (150-400)
[2025-02-10 09:43] LABS: Alanine Aminotransferase 34 IU/L (<35); Albumin 4.9 g/dL (3.5-5.0); Albumin Globulin Ratio 1.8 (1.0-2.8); Alkaline Phosphatase 66 U/L (38-126); Blood Urea Nitrogen 13 mg/dL (7-17); Calcium 9.5 mg/dL (8.4-10.2); Carbon Dioxide 23 mmol/L (22-32); Chloride 88 mmol/L (98-107); Estimated Glomerular Filt Rate > 60 mL/min (>60); Globulin 2.8 g/dL (1.7-4.1); Glucose 96 mg/dL (70-99); HEMOLYSIS < 15 (0-50); Lactate (Lactic Acid) 3.9 mmol/L (0.7-2.1); Lipase 53 U/L (23-300); Sodium 126 mmol/L (137-145); Total Protein 7.7 g/dL (6.3-8.2)
[2025-02-10 09:52] LABS: Pregnancy Test Serum,Qual Negative (Negative)
[2025-02-10 09:58] LABS: Potassium 2.6 mmol/L (3.4-5.1)
[2025-02-10 11:10] LABS: Reflexed Lactate in 2 Hours Y
--- NOTE | 2025-02-10 11:33 | ED.ABDPAIN ---
HPI - Abdominal Pain General Chief Complaint: Abdominal Pain Stated Complaint: LLQ abd pain Time Seen by Provider: 02/10/25 09:30 Source: patient and EMS Mode of arrival: EMS History of Present Illness HPI narrative: 39-year-old woman with a history of cyclical nausea and vomiting comes to the ER with the same symptoms abdominal pain nausea and vomiting. She denies any blood in her stool or vomit. She denies any fever chills or sweats. She states that the symptoms are just like her previous episodes. She is adamant that this is not from marijuana use as she did abstain from marijuana once for 8 months and continued to have symptoms. She denies any other substance abuse. She denies any changes in vision hearing speech or swallowing or headaches. She denies any numbness tingling or weakness or loss of consciousness. She denies any chest pain or shortness of breath. No other concerns or complaints at this time. Related Data Home Medications ?Medication ?Instructions ?Recorded ?Confirmed cyclobenzaprine 10 mg tablet 10 mg PO DAILY PRN Spasms 06/24/18 06/18/23 fluoxetine 20 mg capsule 20 mg PO DAILY 06/24/18 06/18/23 Previous Rx's ?Medication ?Instructions ?Recorded promethazine 25 mg tablet 25 mg PO Q4-6H PRN nausea and 04/26/18 vomiting #14 tabs potassium chloride 20 mEq 20 meq PO DAILY #4 tabs 06/25/18 tablet,extended release metoclopramide HCl 10 mg tablet 10 mg PO Q6H PRN nausea and 12/09/19 (Reglan) vomiting #14 tabs dicyclomine 20 mg tablet 20 mg PO BID PRN pain (scale score 09/14/21 4-6) #20 tabs meloxicam 7.5 mg tablet 7.5 mg PO BID PRN pain #10 tabs 05/27/23 ondansetron 8 mg disintegrating 8 mg PO BID-TID PRN nausea and 06/18/23 tablet vomiting #30 tabs ondansetron 4 mg disintegrating 4 mg PO Q8H PRN nausea and 06/29/23 tablet vomiting #20 tabs promethazine 25 mg rectal 25 mg IA Q6H PRN nausea and 06/29/23 suppository vomiting #12 ea metoclopramide HCl 10 mg tablet 10 mg PO Q8-10H PRN nausea and 07/28/23 (Reglan) vomiting #14 tabs tramadol 50 mg tablet 50 mg PO Q8H PRN pain #7 tabs 07/28/23 methocarbamol 750 mg tablet 1,500 mg (2 x 750 mg) PO Q8H PRN 01/22/24 muscle spasm #20 tabs Allergies Allergy/AdvReac Type Severity Reaction Status Date / Time Iodinated Contrast Media AdvReac Severe Difficulty Verified 02/10/25 09:37 (Iodinated Contrast- Oral Breathing and IV Dye) Patient History Medical History (Updated 02/10/25 @ 11:37 by Levi Canas MD) Anxiety History of cervical cancer ADHD Cyclic vomiting syndrome Surgical History History of tonsillectomy History of elective History of Status post hysterectomy Social History household members: none alcohol intake: never substance use type: does not use alcohol intake frequency: holidays/special occasions only Exam Initial Vital Signs Initial Vital Signs: Vital Signs Temperature 98.3 F 02/10/25 08:35 Pulse Rate 92 H 02/10/25 08:35 Respiratory Rate 20 02/10/25 08:35 Blood Pressure 136/84 02/10/25 08:35 Pulse Oximetry 99 02/10/25 08:35 Oxygen Delivery Method Room Air 02/10/25 08:35 Const General: acute distress and ill appearing [facility] Head: normocephalic and atraumatic Neck Neck: normal visual inspection Resp Effort & Inspection: normal respiratory effort and no respiratory distress Auscultation: clear to auscultation bilaterally Cardio Rate: regular rate Rhythm: regular rhythm Heart Sounds: S1 normal and S2 normal GI Inspection: non-distended Palpation: soft and No tender Auscultation: normal bowel sounds Back/Spine/Pelvis Back: No CVA tenderness Course Course Course Narrative: Patient seen and examined by myself upon arrival. Her symptoms were the same as her previous episodes. Nevertheless CT was done to rule out any acute cause as she was in severe distress when she arrives. This was unremarkable. She was found to have profound hypokalemia of 2.6 and this was replaced orally and IV. Her sodium was also low at 126 and she was started on normal saline as she does look hypovolemic. Once the CT results came back negative I discussed the case with the hospitalist and he accepted her for admission. Orders Ordered: ED Orders 02/10/25 09:03 Complete Blood Count AUTO DIFF Stat Comprehensive Metabolic Panel Stat Lactate (Lactic Acid) Stat Lipase Stat Test Serum,Qual Stat 02/10/25 09:30 CT abdomen pelvis w con Stat 02/10/25 09:31 EKG-12 Lead Stat POTASSIUM CHLORIDE IN WATER (Potassium Cl 10 Meq/100 Ml [place]) 10 meq in 100 mls @ 100 mls/hr IV Q1H PRADEEP Stop: 02/10/25 14:29 Sodium Chloride (Normal Saline 0.9%) 1,000 mls @ 1,000 mls/hr IV BOLUS ONE Stop: 02/10/25 12:30 Discontinued Medications Hydromorphone HCl (Hydromorphone 1 Mg Inj) 1 mg IV NOW ONE Stop: 02/10/25 09:32 Ondansetron HCl (Ondansetron 4 Mg Odt) 4 mg PO NOW ONE Stop: 02/10/25 09:31 Potassium Chloride (Potassium Chloride 20 Meq/15 Ml Udc) 40 meq PO NOW ONE Stop: 02/10/25 10:23 Topiramate (Topiramate 25 Mg Tablet) 50 mg PO NOW ONE Stop: 02/10/25 11:33 Vital Signs Vital signs: Vital Signs - 8 hr 02/10/25 08:35 Temperature 98.3 F Pulse Rate 92 H Respiratory Rate 20 Blood Pressure 136/84 Pulse Oximetry 99 Oxygen Delivery Method Room Air MDM - Abdominal Pain Lab Data 02/10/25 09:03 02/10/25 09:03 Labs: Lab Results 02/10/25 Range/Units 09:03 WBC 11.2 H (4.5-11.0) X10^3/uL RBC 4.74 (4.0-5.2) X10^6/uL Hgb 13.5 (12.0-16.0) g/dL Hct 40.1 (36-46) % MCV 84.5 (80-100) fL MCH 28.4 (26-34) PG MCHC 33.6 (30-36) % RDW 13.7 (11.6-14.8) % Plt Count 416 H (150-400) X10^3/uL Neut % (Auto) 53.2 (50-75) % Lymph % (Auto) 34.5 (25-40) % [place] % (Auto) 11.9 (3-14) % Eos % (Auto) 0.1 L (2-4) % Baso % (Auto) 0.3 (0-2) % Neut # (Auto) 5900 (1010-9647) /uL Lymph # (Auto) 3900 (4343-5103) /uL [place] # (Auto) 1300 H (0-900) /uL Eos # (Auto) 0 (0-450) /uL Baso # (Auto) 0 (0-100) /uL Sodium 126 L (137-145) mmol/L Potassium 2.6 L* (3.4-5.1) mmol/L Chloride 88 L (98-107) mmol/L Carbon Dioxide 23 (22-32) mmol/L BUN 13 (7-17) mg/dL Creatinine 0.86 (0.52-1.04) mg/dL Estimated GFR > 60 (>60) mL/min BUN/Creatinine Ratio 15.1 (6-22) Glucose 96 (70-99) mg/dL Lactate 3.9 H (0.7-2.1) mmol/L Calcium 9.5 (8.4-10.2) mg/dL Total Bilirubin 2.0 H (0.2-1.3) mg/dL AST 39 H (14-36) IU/L ALT 34 (<35) IU/L Alkaline Phosphatase 66 (38-126) U/L Total Protein 7.7 (6.3-8.2) g/dL Albumin 4.9 (3.5-5.0) g/dL Globulin 2.8 (1.7-4.1) g/dL Albumin/Globulin Ratio 1.8 (1.0-2.8) Lipase 53 (23-300) U/L Serum , Qual Negative (Negative) ECG Data Interpretation: NSR rate 92. Discharge Plan Departure Patient Disposition: Admitted as Observation Clinical Impression: Hypokalemia Nausea & vomiting Qualifiers: Vomiting type: unspecified Qualified Code(s): R11.2 - Nausea with vomiting, unspecified Admit Date/Time: 02/10/25 11:34 Admit Provider: Oliver Jhaveri
[2025-02-10 12:11] LABS: Lactate 2HR (Lactic Acid Rflx) 1.6 mmol/L (0.7-2.1)
[2025-02-10] MEDS: SODIUM CHLORIDE 0.9% 1,000 ML 1000 ML IV (12:14)
[2025-02-10] MEDS: HYDROMORPHONE 1 MG INJ IV (12:14)
[2025-02-10] MEDS: POTASSIUM CHLORIDE IN WATER 10 MEQ/100 ML PIGGYBACK 100 MEQ IV ×4 (12:22→16:52)
[2025-02-10] MEDS: PANTOPRAZOLE 40 MG VIAL IV ×2 (12:42→20:00)
[2025-02-10] MEDS: POTASSIUM CHLORIDE 20 MEQ/15 ML UDC 40 MEQ PO (12:42)
[2025-02-10] MEDS: TOPIRAMATE 25 MG TABLET 50 MG PO ×2 (12:42→19:59)
--- NOTE | 2025-02-10 13:00 | PC.NURSE ---
patient requesting water, provide 1/2 cup with ice, patient insisting its my nausea
[2025-02-10 13:16] LABS: Blood Urea Nitrogen 12 mg/dL (7-17); Calcium 8.6 mg/dL (8.4-10.2); Carbon Dioxide 19 mmol/L (22-32); Chloride 97 mmol/L (98-107); Estimated Glomerular Filt Rate > 60 mL/min (>60); Glucose 94 mg/dL (70-99); HEMOLYSIS < 15 (0-50); Sodium 128 mmol/L (137-145)
[2025-02-10 13:27] LABS: Potassium 2.6 mmol/L (3.4-5.1)
[2025-02-10] MEDS: SODIUM CHLORIDE 0.9% 1,000 ML 100 ML IV ×2 (13:40→15:00)
--- NOTE | 2025-02-10 14:51 | PC.NURSE ---
notified NS infusion 2liter infused, new verbal order for 100mls of NS iv noted.
--- NOTE | 2025-02-10 16:48 | P.HP_ITS ---
History of Present Illness History of Present Illness Date Patient Seen: 02/10/25 Chief complaint: Cyclical abdominal migraines with vomiting Narrative: Chief complaint: Cyclical vomiting followed by severe abdominal pain with diagnosis of abdominal migraines and good response to Topamax History of present illness: 02/10: 39-year-old woman with a history of cyclic vomiting and previous diagnosis of abdominal migraines on Thursday 02/08 had a long day of continuous dry heaving and vomiting this is followed 36 hours later with severe sudden lower abdominal cramping that usually starts in the left lower and is incapacitating causing her to double over in pain. She was brought to the emergency room for evaluation. Findings in the emergency room significant for patient that appeared to be in extremis of discomfort sodium 126 potassium 2.6 BUN 13 creatinine 0.6 chloride 88 total bilirubin 2.0 Imaging of the abdomen and pelvis was unremarkable. Patient was administered Topamax and Dilaudid with significant relief of pain also given intravenous fluid for repletion of potassium fluids and electrolytes as well as IV Protonix Patient was referred for admission Review of systems: No urinary symptoms No neurologic symptoms Physical exam: And at the initial exam patient was in significant discomfort although not in distress and then following administration of the medications as mentioned in much less discomfort HEENT unremarkable No labored respirations Abdomen is not focally tender bowel sounds are present Extremities no cyanosis edema And neurologic is nonfocal Objective: For laboratory and imaging please see bottom of the note Assessment and plan: Cyclic vomiting with high suspicion of abdominal migraine in apparent good response to Topamax and dehydration and electrolyte depletion due to prolonged emesis. * Replete IV fluids electrolytes sodium and potassium and monitor * Topamax 50 mg p.o. b.i.d. * Analgesia with Dilaudid * Antiemetic with Phenergan (works better this patient historically) * IV PPI * Carafate for the suspected bile gastritis DVT prophylaxis: * Not indicated Code status: * Full code blue 55 minutes were involved in the management of this patient [facility] Medical History (Updated 02/10/25 @ 11:37 by Levi Canas MD) Anxiety History of cervical cancer ADHD Cyclic vomiting syndrome Surgical History History of tonsillectomy History of elective History of Status post hysterectomy Social History Smoking Status: Former smoker alcohol intake: current substance use type: does not use Meds Home Medications and Allergies Home Medications ?Medication ?Instructions ?Recorded ?Confirmed ?Type No Known Home Medications 02/10/2501/27 History Allergies Allergy/AdvReac Type Severity Reaction Status Date / Time Iodinated Contrast Media AdvReac Severe Difficulty Verified 02/10/25 09:37 (Iodinated Contrast- Oral Breathing and IV Dye) Exam Vital Signs (past 8 hours): - 02/10/25 12:14 02/10/25 12:31 02/10/25 13:42 Temperature Pulse Rate 81 89 76 Respiratory Rate 22 20 19 Blood Pressure 154/82 H 133/87 136/96 H Pulse Oximetry 95 97 96 Oxygen Delivery Method Room Air Room Air Oxygen Flow Rate 02/10/25 14:00 02/10/25 14:30 02/10/25 15:00 Temperature Pulse Rate 67 69 69 Respiratory Rate 20 25 H 20 Blood Pressure 149/78 H 141/94 H 129/86 Pulse Oximetry 97 98 98 Oxygen Delivery Method Room Air Room Air Room Air Oxygen Flow Rate 02/10/25 15:07 Temperature 97.8 F Pulse Rate 77 Respiratory Rate 20 Blood Pressure 137/97 H Pulse Oximetry 93 Oxygen Delivery Method Oxygen Flow Rate 0 Oxygen Delivery Method Room Air Oxygen Flow Rate 0 Objective Labs 02/10/25 09:03 02/10/25 12:52 Labs: Laboratory Results - last 24 hr 02/10/25 02/10/25 02/10/25 09:03 11:53 12:52 WBC 11.2 H RBC 4.74 Hgb 13.5 Hct 40.1 MCV 84.5 MCH 28.4 MCHC 33.6 RDW 13.7 Plt Count 416 H Neut % (Auto) 53.2 Lymph % (Auto) 34.5 [place] % (Auto) 11.9 Eos % (Auto) 0.1 L Baso % (Auto) 0.3 Neut # (Auto) 5900 Lymph # (Auto) 3900 [place] # (Auto) 1300 H Eos # (Auto) 0 Baso # (Auto) 0 Sodium 126 L 128 L Potassium 2.6 L* 2.6 L* Chloride 88 L 97 L Carbon Dioxide 23 19 L BUN 13 12 Creatinine 0.86 0.83 Estimated GFR > 60 > 60 BUN/Creatinine Ratio 15.1 14.5 Glucose 96 94 Lactate 3.9 H 1.6 Calcium 9.5 8.6 Total Bilirubin 2.0 H AST 39 H ALT 34 Alkaline Phosphatase 66 Total Protein 7.7 Albumin 4.9 Globulin 2.8 Albumin/Globulin Ratio 1.8 Lipase 53 Serum , Qual Negative Assessment & Plan Time-Based Coding :: [TOTAL MINUTES] spent with patient and on the chart (including review of chart, obtaining history, exam, reviewing outside data, placing orders, documenting exam and treatment plan, and counseling patient) on [DATE]. Quality VTE Deep Vein Thrombosis/Pulmonary Embolism Present on Admission: No
[2025-02-10] MEDS: SUCRALFATE 1 GM/10 ML ORAL SUSP PO (17:17)
[2025-02-10] MEDS: MAG HYDROX/ALUMINUM/SIMETH SUS 20 ML, LIDOCAINE VISCOUS 2% 15 ML PO (17:17)
[2025-02-10] MEDS: KCL 20 MEQ IN NS 1,000 ML 100 MEQ IV (18:06)
--- NOTE | 2025-02-10 18:56 | PC.NURSE ---
Pt to room 209 via stretcher. Pt is alert and oriented x 3. Pt able to transfer self to bed after walking to the bathroom. Pt denies nausea or shortness of breath and states she has only mild pain 3/10 to LLQ. IVF infusing as ordered. SCD's on and running. Pt oriented to room, call light, bed controls, and tv controls. Friend at the bedside. Pt agrees to call for assistance as needed.
[2025-02-10] MEDS: ONDANSETRON 4 MG/2 ML INJ IV (20:00)
[2025-02-10 22:24] LABS: Blood Urea Nitrogen 7 mg/dL (7-17); Calcium 8.6 mg/dL (8.4-10.2); Carbon Dioxide 22 mmol/L (22-32); Chloride 103 mmol/L (98-107); Estimated Glomerular Filt Rate > 60 mL/min (>60); Glucose 105 mg/dL (70-99); HEMOLYSIS < 15 (0-50); Potassium 3.8 mmol/L (3.4-5.1); Sodium 133 mmol/L (137-145)
[2025-02-11] MEDS: KCL 20 MEQ IN NS 1,000 ML 100 MEQ IV (04:51)
[2025-02-11 06:30] LABS: Blood Urea Nitrogen 4 mg/dL (7-17); Calcium 8.9 mg/dL (8.4-10.2); Carbon Dioxide 18 mmol/L (22-32); Chloride 103 mmol/L (98-107); Estimated Glomerular Filt Rate > 60 mL/min (>60); Glucose 96 mg/dL (70-99); HEMOLYSIS < 15 (0-50); Potassium 3.3 mmol/L (3.4-5.1); Sodium 131 mmol/L (137-145)
--- NOTE | 2025-02-11 07:49 | P.DS_ITS ---
History of Present Illness History of Present Illness Chief complaint: Cyclical abdominal migraines with vomiting Narrative: From H&P: Chief complaint: Cyclical vomiting followed by severe abdominal pain with diagnosis of abdominal migraines and good response to Topamax History of present illness: 02/10: 39-year-old woman with a history of cyclic vomiting and previous diagnosis of abdominal migraines on Thursday 02/08 had a long day of continuous dry heaving and vomiting this is followed 36 hours later with severe sudden lower abdominal cramping that usually starts in the left lower and is incapacitating causing her to double over in pain. She was brought to the emergency room for evaluation. Findings in the emergency room significant for patient that appeared to be in extremis of discomfort sodium 126 potassium 2.6 BUN 13 creatinine 0.6 chloride 88 total bilirubin 2.0 Imaging of the abdomen and pelvis was unremarkable. Patient was administered Topamax and Dilaudid with significant relief of pain also given intravenous fluid for repletion of potassium fluids and electrolytes as well as IV Protonix Discharge Providers Provider Date of admission: 02/10/25 11:34 Discharge Date: 02/11/25 Discharge provider: Marquis Banda MD Summary Hospital Course Discharge Diagnosis: 1. Cyclic vomiting with high suspicion of abdominal migraine in apparent good response to Topamax and dehydration and electrolyte depletion due to prolonged emesis. Hospital Course: She was admitted with cyclic vomiting abdominal pain with a history of abdominal migraine. The patient was treated symptomatically and started on Topamax. She improved dramatically over the next 24 hours and was stable for discharge on February 11. She will be continued on Topamax in his advised to follow up with primary care within the next week. Status at Discharge Cognitive/behavioral status at discharge: oriented Functional status at discharge: independent ambulation Overall status at discharge: patient is back to baseline Time Spent with Patient Time spent: Greater than 30 minutes Exam Vital Signs (past 8 hours): Oxygen Delivery Method Room Air Oxygen Flow Rate 0 Narrative Exam Narrative: NAD, alert and oriented. Fluent speech. Lungs are clear, normal rate and effort. Heart is regular, no murmur gallop or rub. Abdomen is soft, non distended. Extremities are free of edema. Objective Labs 02/10/25 09:03 02/11/25 05:33 Labs: Laboratory Results - last 24 hr 02/10/25 02/10/25 02/10/25 09:03 11:53 12:52 WBC 11.2 H RBC 4.74 Hgb 13.5 Hct 40.1 MCV 84.5 MCH 28.4 MCHC 33.6 RDW 13.7 Plt Count 416 H Neut % (Auto) 53.2 Lymph % (Auto) 34.5 [place] % (Auto) 11.9 Eos % (Auto) 0.1 L Baso % (Auto) 0.3 Neut # (Auto) 5900 Lymph # (Auto) 3900 [place] # (Auto) 1300 H Eos # (Auto) 0 Baso # (Auto) 0 Sodium 126 L 128 L Potassium 2.6 L* 2.6 L* Chloride 88 L 97 L Carbon Dioxide 23 19 L BUN 13 12 Creatinine 0.86 0.83 Estimated GFR > 60 > 60 BUN/Creatinine Ratio 15.1 14.5 Glucose 96 94 Lactate 3.9 H 1.6 Calcium 9.5 8.6 Total Bilirubin 2.0 H AST 39 H ALT 34 Alkaline Phosphatase 66 Total Protein 7.7 Albumin 4.9 Globulin 2.8 Albumin/Globulin Ratio 1.8 Lipase 53 Serum , Qual Negative 02/10/25 02/11/25 21:58 05:33 WBC RBC Hgb Hct MCV MCH MCHC RDW Plt Count Neut % (Auto) Lymph % (Auto) [place] % (Auto) Eos % (Auto) Baso % (Auto) Neut # (Auto) Lymph # (Auto) [place] # (Auto) Eos # (Auto) Baso # (Auto) Sodium 133 L 131 L Potassium 3.8 D 3.3 L Chloride 103 103 Carbon Dioxide 22 18 L BUN 7 4 L Creatinine 0.85 0.73 Estimated GFR > 60 > 60 BUN/Creatinine Ratio 8.2 5.5 L Glucose 105 H 96 Lactate Calcium 8.6 8.9 Total Bilirubin AST ALT Alkaline Phosphatase Total Protein Albumin Globulin Albumin/Globulin Ratio Lipase Serum , Qual [facility] Medical History Anxiety History of cervical cancer ADHD Cyclic vomiting syndrome Surgical History History of tonsillectomy History of elective History of Status post hysterectomy Social History household members: friend(s) Smoking Status: Former smoker alcohol intake: current substance use type: does not use Discharge Assessment & Plan Assessment and Plan Assessment: 1. Cyclic vomiting, resolved. 2. Abdominal migraine, resolved. Plan of Treatment: Discharge home on Topamax 50 mg b.i.d., follow up with primary care within 1 week. Discharge Plan Discharge Plan Patient Disposition: Home Provider Discharge Comment: Stable for discharge. Discharge orders & Medications Prescriptions: New topiramate [Topamax] 25 mg Tablet 50 mg PO BID Qty: 60 2RF Diet/Activity/Treatments Diet: Diet as Tolerated Visit Report/Discharge Packet Stand Alone Forms: Patient Portal/API Discharge Data Attending Provider: Oliver Jhaveri Admit Date/Time: 02/10/25 11:34 Quality VTE Deep Vein Thrombosis/Pulmonary Embolism Present on Admission: No
[2025-02-11] MEDS: TOPIRAMATE 25 MG TABLET 50 MG PO (07:57)
[2025-02-11] MEDS: PANTOPRAZOLE 40 MG VIAL IV (07:57)
--- NOTE | 2025-02-11 08:05 | PC.NURSE ---
Pt requesting discharge. Meets criteria per Dr. Banda. Discharge assessment and prescriptions reviewed with patient. Questions encouraged and answered. Pt dressed independently, personal belongings returned.
--- NOTE | 2025-02-11 09:30 | CM.DANOTE ---
Initial DCP Assessment Visit Note Reviewed EMR and team rounds for pt's medical status and updates. Met with pt at bedside to introduce self and role, pt was found to be dressed and walking out the door upon PHOTOVOLTAIC PANEL INSTALLER's arrival. Pt lives independently at baseline with her friend. She has been medically cleared for home d/c, and her friend arrived to transport her home. Payor: [facility] No PCP Pt is a 39 year-old F with a hx of cyclic vomiting and nausea that was previously related to cannibus use. She presents to the ED with the same concerns, however states that she has not used cannibus in 8-months, but is still having symptoms periodically. She was found to have acute hypokalemia and low sodium on ED labs. She was started on normal saline IV with potassium replacement and pain meds for her abdominal cramping. She was admitted to [facility] for continued tx and monitoring. Today she is feeling much improved and back to her baseline. Discharge Planning/Care Management CM Discharge Assessment Start: 02/10/25 11:37 Freq: Status: Discharge Protocol: Document 02/11/25 09:29 DPL (Rec: 02/11/25 09:30 DPL [id number]) Discharge Planning Assessment Assigned Discharge CARMEN Morfin Flower Arranger Advance Directives? No History Provided By Patient,Medical Record Has Patient been No admitted in last 30 days? Prior Living Apartment/Condo Arrangements Household Members friend(s) Type of Drives own vehicle transporation used prior to admit Independent with ADL Yes 's Is patient alert and Yes oriented? Caregiver for No Another Comment No identified home d/c needs at this time. Barriers to No Discharge Discharge Plan Home Transportation Friend Arrangement Referrals Initiated None needed Whiteboard Updated Yes in Patient Room with name and ext. # of Utility Service Worker Review Status In Process Please Provide Date 02/11/25 Initial DC Assessment Was Performed
== END 2025-02-11 08:33 | disposition home or self-care (01) ==
LOC: ED 09:35 → AC 11:34
PROVIDERS: Internal Medicine; Admitting Provider Internal Medicine; Emergency Provider Emergency Medicine; Referring Provider Emergency Medicine; Visit Provider Internal Medicine
DX: G43.A0 Cyclical vomiting, in migraine, not intractable (principal); R10.32 Left lower quadrant pain; E87.6 Hypokalemia; E86.0 Dehydration; Z87.891 Personal history of nicotine dependence
CPT/HCPCS: 36415; 74177; 80048; 80053; 83605; 83690; 84703; 85025; 93005; 96365; 96366; 96375; 96376; 99283; 99284; G0378; J1171; J2405; J2470

== ENCOUNTER 2025-02-28 12:46 | Observation (INO) | payer OTHER, SELFPAY ==
[2025-02-10 15:23] VITALS: BMI 25.0
[2025-02-28] VITALS (13 sets, daily range): BP systolic 111–196; BP diastolic 67–100; PULSE 68–85; RESP 13–30; TEMP 36.6–36.9; O2SAT 82–100; BMI 22.2
--- NOTE | 2025-02-28 13:37 | EKG_ITS ---
[address] [place] [address] Test Date: 2025-02-28 Pat Name: Karely Dalal Department: [facility] Room: Gender: Female [employer]: TATE : 1985 Requested By: Order Number: [id number] Reading MD: Marquis Banda Measurements Intervals [place] Rate: 89 P: 79 [place]: 130 QRS: 91 QRSD: 92 T: 9 QT: 388 QTc: 472 Interpretive Statements Sinus rhythm with sinus arrhythmia with occasional premature ventricular complexes Rightward axis Minimal voltage criteria for LVH, may be normal variant ( Yonathan product ) Nonspecific ST abnormality Electronically Signed On 03-06-2025 18:22:16 PDT by Marquis Banda
--- NOTE | 2025-02-28 13:37 | ED_ITS ---
HPI - Abdominal Pain <Eli Rodriguez PA-C - Last Filed: 02/28/25 19:44> General Chief Complaint: Abdominal Pain Stated Complaint: [facility] Time Seen by Provider: 02/28/25 13:25 Source: patient Mode of arrival: Ambulatory History of Present Illness HPI narrative: Ms. Dalal is a pleasant 39-year-old female with a past medical history of cyclic vomiting syndrome, prior hysterectomy with repair who presents to the emergency department with a flare of her siblings vomiting syndrome since 11:00 p.m. last night. Patient states she has been doing well on her new medication of topiramate since her last cyclic vomiting episode on 02/10/2025 however last night around 11:00 p.m., due to family stressors, she developed a new flare and has had persistent vomiting since then. She was able to take her topiramate, 50 mg this morning, threw up about 1 hour later. She is also having severe abdominal pain, typically her abdominal pain is on the left side but now was on the right side which is new and different for her. Besides the right-sided abdominal pain, the remainder for symptoms are identical to previous flares. Patient chest pain, shortness of breath, coughing, flu-like symptoms, fevers, chills, diarrhea, constipation. She does report emesis is primarily clear, states that she may have occasionally seen a blood streak. Reports a bowel movement yesterday was black in nature. No history of significant NSAID use or GI bleed. She does use THC, nonsmoker, no other drug use. Alcohol occasionally. She is here with her girlfriend who contributes to the history. Patient states she is NOT allergic to IV contrast. Related Data Previous Rx's ?Medication ?Instructions ?Recorded topiramate 25 mg tablet (Topamax) 50 mg (2 x 25 mg) PO BID #60 tabs 02/11/25 ondansetron 4 mg disintegrating 4 mg PO Q8H PRN nausea and 02/28/25 tablet vomiting #20 tabs pantoprazole 20 mg tablet,delayed 20 mg PO DAILY #30 t abs 02/28/25 release (Protonix) potassium chloride 20 mEq 20 meq PO DAILY 5 days #5 ta bs 02/28/25 tablet,extended release Allergies Allergy/AdvReac Type Severity Reaction Status Date / Time No Known Drug Allergies Allergy Verified 02/28/25 13:05 Review of Systems <Eli Rodriguez PA-C - Last Filed: 02/28/25 19:44> Review of Systems ROS Unobtainable: All systems reviewed & are unremarkable except as noted in HPI and below Patient History <Eli Rodriguez PA-C - Last Filed: 02/28/25 19:44> Medical History (Updated 02/28/25 @ 16:54 by Eli Rodriguez PA-C) Anxiety History of cervical cancer ADHD Cyclic vomiting syndrome Surgical History History of tonsillectomy History of elective History of Status post hysterectomy Social History household members: friend(s) Smoking Status: Never smoker alcohol intake: current substance use type: does not use Smoking Status: Never smoker alcohol intake frequency: holidays/special occasions only Exam <Eli Rodriguez PA-C - Last Filed: 02/28/25 19:44> Narrative Exam Narrative: GENERAL: 39 year old patient appears stated age. Well-developed patient, in acute distress, throwing up in restroom, dry heaving, hunching forward to alleviate abdominal pain. HEAD: Atraumatic. Normocephalic. EYES: No scleral icterus. No injection or drainage. NECK: Trachea midline. Cervical ROM intact. CARDIOVASCULAR: Regular rate and rhythm. RESPIRATORY: ?Nonlabored respirations. ?Speaking in clear, full sentences. ?Clear to auscultation. Breath sounds equal bilaterally. No wheezes, rales, or rhonchi. ? GASTROINTESTINAL: Abdomen soft, diffuse nonfocal tenderness, active guarding, no rebound. Bowel sounds present. EXTREMITIES: No lower extremity edema BACK: No CVA tenderness. NEURO: AOx3. ?Clear speech. ?Moves all 4 extremities appropriately. SKIN: No rash or erythema of visible areas Initial Vital Signs Initial Vital Signs: Vital Signs Temperature 98 F 02/28/25 13:03 Pulse Rate 81 02/28/25 13:03 Respiratory Rate 18 02/28/25 13:03 Blood Pressure 166/96 H 02/28/25 13:03 Pulse Oximetry 100 02/28/25 13:03 Oxygen Delivery Method Room Air 02/28/25 13:03 <Finn Payne MD - Last Filed: 03/01/25 02:52> Initial Vital Signs Initial Vital Signs: Vital Signs Temperature 98 F 02/28/25 13:03 Pulse Rate 81 02/28/25 13:03 Respiratory Rate 18 02/28/25 13:03 Blood Pressure 166/96 H 02/28/25 13:03 Pulse Oximetry 100 02/28/25 13:03 Oxygen Delivery Method Room Air 02/28/25 13:03 Course <Eli Rodriguez PA-C - Last Filed: 02/28/25 19:44> Orders Ordered: ED Orders 02/28/25 18:04 Urine Culture Stat Urine Microscopic Stat Acetaminophen (Acetaminophen 325 Mg Tablet) 1,000 mg PO Q6H PRN PRN Reason: Fever/Mild Pain (1-3) Hydromorphone HCl (Hydromorphone Hcl 0.5 Mg/0.5 Ml Syringe) 0.5 mg IV Q2H PRN PRN Reason: Pain, Severe (7-10) Last Admin: 03/01/25 00:26 Dose: 0.5 mg Documented By: Admin: 02/28/25 22:28 Dose: 0.5 mg Documented By: MONSTER Potassium Chloride/Dextrose/Sod Cl (Dextrose 5%-0.45%Ns W/Kcl 20meq) 1,000 mls @ 100 mls/hr IV CONT PRADEEP Last Admin: 02/28/25 22:28 Dose: 100 mls/hr Documented By: MONSTER Metoclopramide HCl (Metoclopramide 10 Mg/2 Ml Inj) 10 mg IV Q6HR PRN PRN Reason: Nausea And Vomiting Last Admin: 03/01/25 02:04 Dose: 10 mg Documented By: MONSTER Naloxone HCl (Naloxone 0.4 Mg/Ml Vial) 0.2 mg IV Q2MIN PRN PRN Reason: Opiate Reversal Topiramate (Topiramate 25 Mg Tablet) 50 mg PO BID [facility] Discontinued Medications Diphenhydramine HCl (Diphenhydramine 50 Mg/Ml Vial) 50 mg IV NOW ONE Stop: 02/28/25 13:40 Last Admin: 02/28/25 14:05 Dose: 50 mg Documented By: MIGUEL Haloperidol (Haloperidol 5 Mg/Ml Vial) 2 mg IV NOW ONE Stop: 02/28/25 13:40 Last Admin: 02/28/25 14:05 Dose: 2 mg Documented By: MIGUEL Haloperidol (Haloperidol 5 Mg/Ml Vial) 2 mg IV NOW ONE Stop: 02/28/25 16:45 Last Admin: 02/28/25 16:45 Dose: 2 mg Documented By: MIGUEL Hydromorphone HCl (Hydromorphone Hcl 0.5 Mg/0.5 Ml Syringe) 0.5 mg IV NOW ONE Stop: 02/28/25 13:40 Last Admin: 02/28/25 14:06 Dose: 0.5 mg Documented By: MIGUEL Sodium Chloride (Normal Saline 0.9%) 1,000 mls @ 1,000 mls/hr IV BOLUS ONE Stop: 02/28/25 14:28 Last Infusion: 02/28/25 16:00 Dose: Infused Documented By: Infusion: 02/28/25 15:10 Dose: 800 mls/hr Documented By: Infusion: 02/28/25 14:30 Dose: 0 mls/hr Documented By: Admin: 02/28/25 14:06 Dose: 1,000 mls/hr Documented By: MIGUEL POTASSIUM CHLORIDE IN WATER (Potassium Cl 10 Meq/100 Ml Alesia) 10 meq in 100 mls @ 100 mls/hr IV NOW ONE Stop: 02/28/25 15:40 Last Infusion: 02/28/25 16:15 Dose: Infused Documented By: Admin: 02/28/25 15:10 Dose: 100 mls/hr Documented By: MIGUEL Sodium Chloride (Normal Saline 0.9%) 1,000 mls @ 1,000 mls/hr IV BOLUS ONE Stop: 02/28/25 19:24 Last Infusion: 02/28/25 20:00 Dose: Infused Documented By: Admin: 02/28/25 18:36 Dose: 1,000 mls/hr Documented By: MIGUEL Lorazepam (Lorazepam 2 Mg/Ml Inj) 0.5 mg IV NOW ONE Stop: 02/28/25 18:26 Last Admin: 02/28/25 18:52 Dose: Not Given Documented By: MIGUEL Metoclopramide HCl (Metoclopramide 10 Mg/2 Ml Inj) 10 mg IV NOW ONE Stop: 02/28/25 18:54 Last Admin: 02/28/25 19:00 Dose: 10 mg Documented By: MIGUEL Pantoprazole Sodium (Pantoprazole 40 Mg Vial) 40 mg IV NOW ONE Stop: 02/28/25 13:30 Last Admin: 02/28/25 14:05 Dose: 40 mg Documented By: MIGUEL Pantoprazole Sodium (Pantoprazole 40 Mg Vial) 40 mg IV NOW ONE Stop: 02/28/25 22:18 Last Admin: 02/28/25 22:28 Dose: 40 mg Documented By: MONSTER Topiramate (Topiramate 25 Mg Tablet) 50 mg PO NOW ONE Stop: 02/28/25 17:10 Last Admin: 02/28/25 17:57 Dose: 50 mg Documented By: MIGUEL Vital Signs Vital signs: Vital Signs - 8 hr 02/28/25 20:00 Pulse Rate 81 Respiratory Rate 20 Blood Pressure 131/76 Pulse Oximetry 97 Oxygen Delivery Method Room Air <Finn Payne MD - Last Filed: 03/01/25 02:52> Orders Ordered: ED Orders 02/28/25 18:04 Urine Culture Stat Urine Microscopic Stat Acetaminophen (Acetaminophen 325 Mg Tablet) 1,000 mg PO Q6H PRN PRN Reason: Fever/Mild Pain (1-3) Hydromorphone HCl (Hydromorphone Hcl 0.5 Mg/0.5 Ml Syringe) 0.5 mg IV Q2H PRN PRN Reason: Pain, Severe (7-10) Last Admin: 03/01/25 00:26 Dose: 0.5 mg Documented By: Admin: 02/28/25 22:28 Dose: 0.5 mg Documented By: MONSTER Potassium Chloride/Dextrose/Sod Cl (Dextrose 5%-0.45%Ns W/Kcl 20meq) 1,000 mls @ 100 mls/hr IV CONT PRADEEP Last Admin: 02/28/25 22:28 Dose: 100 mls/hr Documented By: MONSTER Metoclopramide HCl (Metoclopramide 10 Mg/2 Ml Inj) 10 mg IV Q6HR PRN PRN Reason: Nausea And Vomiting Last Admin: 03/01/25 02:04 Dose: 10 mg Documented By: MONSTER Naloxone HCl (Naloxone 0.4 Mg/Ml Vial) 0.2 mg IV Q2MIN PRN PRN Reason: Opiate Reversal Topiramate (Topiramate 25 Mg Tablet) 50 mg PO BID PRADEEP Discontinued Medications Diphenhydramine HCl (Diphenhydramine 50 Mg/Ml Vial) 50 mg IV NOW ONE Stop: 02/28/25 13:40 Last Admin: 02/28/25 14:05 Dose: 50 mg Documented By: MIGUEL Haloperidol (Haloperidol 5 Mg/Ml Vial) 2 mg IV NOW ONE Stop: 02/28/25 13:40 Last Admin: 02/28/25 14:05 Dose: 2 mg Documented By: MIGUEL Haloperidol (Haloperidol 5 Mg/Ml Vial) 2 mg IV NOW ONE Stop: 02/28/25 16:45 Last Admin: 02/28/25 16:45 Dose: 2 mg Documented By: MIGUEL Hydromorphone HCl (Hydromorphone Hcl 0.5 Mg/0.5 Ml Syringe) 0.5 mg IV NOW ONE Stop: 02/28/25 13:40 Last Admin: 02/28/25 14:06 Dose: 0.5 mg Documented By: MIGUEL Sodium Chloride (Normal Saline 0.9%) 1,000 mls @ 1,000 mls/hr IV BOLUS ONE Stop: 02/28/25 14:28 Last Infusion: 02/28/25 16:00 Dose: Infused Documented By: Infusion: 02/28/25 15:10 Dose: 800 mls/hr Documented By: Infusion: 02/28/25 14:30 Dose: 0 mls/hr Documented By: Admin: 02/28/25 14:06 Dose: 1,000 mls/hr Documented By: MIGUEL POTASSIUM CHLORIDE IN WATER (Potassium Cl 10 Meq/100 Ml Alesia) 10 meq in 100 mls @ 100 mls/hr IV NOW ONE Stop: 02/28/25 15:40 Last Infusion: 02/28/25 16:15 Dose: Infused Documented By: Admin: 02/28/25 15:10 Dose: 100 mls/hr Documented By: MIGUEL Sodium Chloride (Normal Saline 0.9%) 1,000 mls @ 1,000 mls/hr IV BOLUS ONE Stop: 02/28/25 19:24 Last Infusion: 02/28/25 20:00 Dose: Infused Documented By: Admin: 02/28/25 18:36 Dose: 1,000 mls/hr Documented By: MIGUEL Lorazepam (Lorazepam 2 Mg/Ml Inj) 0.5 mg IV NOW ONE Stop: 02/28/25 18:26 Last Admin: 02/28/25 18:52 Dose: Not Given Documented By: MIGUEL Metoclopramide HCl (Metoclopramide 10 Mg/2 Ml Inj) 10 mg IV NOW ONE Stop: 02/28/25 18:54 Last Admin: 02/28/25 19:00 Dose: 10 mg Documented By: MIGUEL Pantoprazole Sodium (Pantoprazole 40 Mg Vial) 40 mg IV NOW ONE Stop: 02/28/25 13:30 Last Admin: 02/28/25 14:05 Dose: 40 mg Documented By: MIGUEL Pantoprazole Sodium (Pantoprazole 40 Mg Vial) 40 mg IV NOW ONE Stop: 02/28/25 22:18 Last Admin: 02/28/25 22:28 Dose: 40 mg Documented By: MONSTER Topiramate (Topiramate 25 Mg Tablet) 50 mg PO NOW ONE Stop: 02/28/25 17:10 Last Admin: 02/28/25 17:57 Dose: 50 mg Documented By: MIGUEL Vital Signs Vital signs: Vital Signs - 8 hr 02/28/25 20:00 Pulse Rate 81 Respiratory Rate 20 Blood Pressure 131/76 Pulse Oximetry 97 Oxygen Delivery Method Room Air MDM - Abdominal Pain <Eli Rodriguez PA-C - Last Filed: 02/28/25 19:44> Medical Records Attestation: I reviewed the patient's medical records. Lab Data 02/28/25 13:50 02/28/25 13:50 Labs: Lab Results 02/28/25 02/28/25 Range/Units 13:50 18:04 WBC 6.9 (4.5-11.0) X10^3/uL RBC 4.76 (4.0-5.2) X10^6/uL Hgb 13.9 (12.0-16.0) g/dL Hct 41.4 (36-46) % MCV 87.0 (80-100) fL MCH 29.2 (26-34) PG MCHC 33.5 (30-36) % RDW 13.7 (11.6-14.8) % Plt Count 308 (150-400) X10^3/uL Neut % (Auto) 90.1 H (50-75) % Lymph % (Auto) 8.1 L (25-40) % Wilkinson % (Auto) 1.5 L (3-14) % Eos % (Auto) 0.0 L (2-4) % Baso % (Auto) 0.3 (0-2) % Neut # (Auto) 6300 (9532-7850) /uL Lymph # (Auto) 600 L (7476-5986) /uL Wilkinson # (Auto) 100 (0-900) /uL Eos # (Auto) 0 (0-450) /uL Baso # (Auto) 0 (0-100) /uL Sodium 138 (137-145) mmol/L Potassium 3.2 L (3.4-5.1) mmol/L Chloride 105 (98-107) mmol/L Carbon Dioxide 18 L (22-32) mmol/L BUN 11 (7-17) mg/dL Creatinine 0.71 (0.52-1.04) mg/dL Estimated GFR > 60 (>60) mL/min BUN/Creatinine Ratio 15.5 (6-22) Glucose 151 H (70-99) mg/dL Calcium 9.8 (8.4-10.2) mg/dL Magnesium 1.8 (1.6-2.3) mg/dL Total Bilirubin 1.1 (0.2-1.3) mg/dL AST 32 (14-36) IU/L ALT 27 (<35) IU/L Alkaline Phosphatase 70 (38-126) U/L Total Protein 8.3 H (6.3-8.2) g/dL Albumin 5.2 H (3.5-5.0) g/dL Globulin 3.1 (1.7-4.1) g/dL Albumin/Globulin Ratio 1.7 (1.0-2.8) Lipase 51 (23-300) U/L Urine RBC 1-5/hpf (0-5/HPF) Urine WBC 0-1/hpf (0-5/HPF) Ur Squamous Epith Cells 0-1 /hpf (0-5/HPF) Amorphous Sediment 4+ Urine Bacteria Few (2-10) H (None) Urine Yeast 0-1/hpf (None) Ur Culture Indicated? Specimen cultured Vol Urine Centrifuged 10ml (spun) Point of care testing: Point of Care Testing Test Results Negative Urine Dip Bedside Urine Glucose Negative Bedside Urine Bilirubin - Negative Bedside Urine Ketone + 15 Urine Specific [place] 1.005 Bedside Urine Occult Blood ++ Bedside Urine pH 7.0 Bedside Urine Protein +/- 15 Bedside Urine Urobilinogen - Negative Bedside Urine Nitrite - Negative Bedside Urine Leukocytes +/- [address] scan - abdomen/pelvis: Radiologist's Impression: PROCEDURE: CT ABDOMEN PELVIS W CON INDICATIONS: cyclic vomiting; new Right sided abd pain in addition to L TECHNIQUE: After the administration of intravenous contrast, axial sections acquired from the lung bases to the pubic symphysis. Coronal and sagittal reformats were performed. For radiation dose reduction, the following was used: automated exposure control, adjustment of mA and/or kV according to patient size. COMPARISON: [facility], CT, CT ABDOMEN PELVIS W CON, 02/10/2025, 10:33. FINDINGS: Image quality: Diagnostic. Lower Chest: Mild bibasilar dependent atelectasis is seen. Heart size is normal, no pericardial effusion. ABDOMEN: Liver: No solid mass. Gallbladder: No radiopaque gallstones or wall thickening. Biliary ducts: No biliary dilation. Pancreas: No ductal dilation. Spleen: Size is within normal limits. Adrenal Glands: No adrenal nodules. Kidneys and Ureters: No hydronephrosis. No solid mass. No complex renal cystic lesion which requires follow up. Stomach and Bowel: There is no evidence of bowel obstruction. Moderate fecal stasis in the colon is seen. There is suggestion of significant gastric wall thickening. No significant small bowel wall thickening. Mild ascending colon wall thickening and edema is seen. Appendix is visualized and is within normal limits. No abscess collection. Peritoneum: No abnormal intraperitoneal fluid. No free air. Ventral Wall: No significant ventral hernia. Abdominal Nodes: No retroperitoneal or mesenteric adenopathy by size criteria. Vessels: Aorta and inferior vena cava are normal in size. PELVIS: Pelvic Organs: Unremarkable. Bladder: No bladder wall thickening, accounting for underdistention. Pelvic Nodes: No enlarged lymph nodes. Miscellaneous: No inguinal hernias are seen. Bones: No aggressive osseous abnormality. IMPRESSION: 1. Finding is concerning for gastritis and right-sided colitis. Normal appendix. No bowel obstruction or additional area of abnormal bowel wall thickening. No abscess collection. No free fluid or free air. Dictated by: Daniel Diamond M.D. on 02/28/2025 at 15:13 Approved by: Daniel Diamond M.D. on 02/28/2025 at 15:15 ECG Data Interpretation: ECG with some artifact. Normal QTC 472. Normal sinus rhythm with a rate of 89 beats per minute. MDM Narrative Medical decision making narrative: 39-year-old female with a past medical history of cyclic vomiting syndrome, prior hysterectomy with repair who presents to the emergency department with a flare of her siblings vomiting syndrome since 11:00 p.m. last night. Differential diagnosis includes but is not limited to cyclic vomiting syndrome flare, cannabinoid hyperemesis syndrome, appendicitis, electrolyte abnormality, dehydration, colitis, GI bleed, UTI, pyelonephritis, cholecystitis, pancreatitis, etc. On exam patient is nontoxic appearing however she is in acute distress secondary to nausea vomiting and abdominal pain. She has nonfocal abdominal tenderness that is diffuse. She is not experiencing any chest pain, shortness of breath, syncope episodes. Her symptoms do feel similar to prior flares however she reports a new symptom of right-sided abdominal pain that is concerning. I would like to avoid additional CTs however given this new pain and tenderness in the right lower side, we will need to proceed with CT to rule out appendicitis or other intra-abdominal pathology. EKG obtained, QTC is appropriate at 472, therefore we will treat patient with medications that have helped her in the past which she states are Haldol, Dilaudid, fluids, Benadryl. We will also proceed with full be as patient does report episode of black stool yesterday however no significant bright red blood or hematemesis. CT reveals findings concerning for gastritis and right-sided colitis. Normal appendix. Labs reveal normal WBC count 6.9 however there is elevation of neutrophils. Normal hemoglobin 13.9 hematocrit 41.4. Normal sodium 138. Potassium is slightly decreased at 3.2. BUN 11, creatinine 0.71. Glucose 151. Normal AST, ALT, alk phos. Normal lipase 51. Normal magnesium 1.8. Calculated anion gap of 12. Patient's symptoms improved significantly after initial course of 2 mg Haldol, Benadryl, Dilaudid, IV fluids. She began tolerating p.o. however her nausea and vomiting did return so additional 2 mg Haldol was ordered. 1700: Pt feels up to tolerating her home dose Topamax which she typically takes. Ordered. 1850: UA not consistent with UTI, urine culture was sent. Patient is still having nausea after p.o. challenge, I consulted with the main ED attending, we will treat with additional fluids and Reglan. 0: Re-evaluated patient, she is feeling better still not 100%, I did offer admission given the significance of her nausea however patient would like to go home. She was prescribed Protonix, Zofran, few doses of oral potassium chloride. Discussed follow up with PCP, GI, strict ED return precautions, supportive care. Patient her spouse verbalized understanding of all information agreeable with the plan. She is stable for discharge home. <Finn Payne MD - Last Filed: 03/01/25 02:52> Lab Data Labs: Lab Results 02/28/25 02/28/25 Range/Units 13:50 18:04 WBC 6.9 (4.5-11.0) X10^3/uL RBC 4.76 (4.0-5.2) X10^6/uL Hgb 13.9 (12.0-16.0) g/dL Hct 41.4 (36-46) % MCV 87.0 (80-100) fL MCH 29.2 (26-34) PG MCHC 33.5 (30-36) % RDW 13.7 (11.6-14.8) % Plt Count 308 (150-400) X10^3/uL Neut % (Auto) 90.1 H (50-75) % Lymph % (Auto) 8.1 L (25-40) % Wilkinson % (Auto) 1.5 L (3-14) % Eos % (Auto) 0.0 L (2-4) % Baso % (Auto) 0.3 (0-2) % Neut # (Auto) 6300 (1466-4762) /uL Lymph # (Auto) 600 L (4136-3711) /uL Wilkinson # (Auto) 100 (0-900) /uL Eos # (Auto) 0 (0-450) /uL Baso # (Auto) 0 (0-100) /uL Sodium 138 (137-145) mmol/L Potassium 3.2 L (3.4-5.1) mmol/L Chloride 105 (98-107) mmol/L Carbon Dioxide 18 L (22-32) mmol/L BUN 11 (7-17) mg/dL Creatinine 0.71 (0.52-1.04) mg/dL Estimated GFR > 60 (>60) mL/min BUN/Creatinine Ratio 15.5 (6-22) Glucose 151 H (70-99) mg/dL Calcium 9.8 (8.4-10.2) mg/dL Magnesium 1.8 (1.6-2.3) mg/dL Total Bilirubin 1.1 (0.2-1.3) mg/dL AST 32 (14-36) IU/L ALT 27 (<35) IU/L Alkaline Phosphatase 70 (38-126) U/L Total Protein 8.3 H (6.3-8.2) g/dL Albumin 5.2 H (3.5-5.0) g/dL Globulin 3.1 (1.7-4.1) g/dL Albumin/Globulin Ratio 1.7 (1.0-2.8) Lipase 51 (23-300) U/L Urine RBC 1-5/hpf (0-5/HPF) Urine WBC 0-1/hpf (0-5/HPF) Ur Squamous Epith Cells 0-1 /hpf (0-5/HPF) Amorphous Sediment 4+ Urine Bacteria Few (2-10) H (None) Urine Yeast 0-1/hpf (None) Ur Culture Indicated? Specimen cultured Vol Urine Centrifuged 10ml (spun) Point of care testing: Point of Care Testing Test Results Negative Urine Dip Bedside Urine Glucose Negative Bedside Urine Bilirubin - Negative Bedside Urine Ketone + 15 Urine Specific [place] 1.005 Bedside Urine Occult Blood ++ Bedside Urine pH 7.0 Bedside Urine Protein +/- 15 Bedside Urine Urobilinogen - Negative Bedside Urine Nitrite - Negative Bedside Urine Leukocytes +/- 15 Esterase MDM Narrative Medical decision making narrative: 39-year-old female with a past medical history of cyclic vomiting syndrome, prior hysterectomy with repair who presents to the emergency department with a flare of her siblings vomiting syndrome since 11:00 p.m. last night. Differential diagnosis includes but is not limited to cyclic vomiting syndrome flare, cannabinoid hyperemesis syndrome, appendicitis, electrolyte abnormality, dehydration, colitis, GI bleed, UTI, pyelonephritis, cholecystitis, pancreatitis, etc. On exam patient is nontoxic appearing however she is in acute distress secondary to nausea vomiting and abdominal pain. She has nonfocal abdominal tenderness that is diffuse. She is not experiencing any chest pain, shortness of breath, syncope episodes. Her symptoms do feel similar to prior flares however she reports a new symptom of right-sided abdominal pain that is concerning. I would like to avoid additional CTs however given this new pain and tenderness in the right lower side, we will need to proceed with CT to rule out appendicitis or other intra-abdominal pathology. EKG obtained, QTC is appropriate at 472, therefore we will treat patient with medications that have helped her in the past which she states are Haldol, Dilaudid, fluids, Benadryl. We will also proceed with full be as patient does report episode of black stool yesterday however no significant bright red blood or hematemesis. CT reveals findings concerning for gastritis and right-sided colitis. Normal appendix. Labs reveal normal WBC count 6.9 however there is elevation of neutrophils. Normal hemoglobin 13.9 hematocrit 41.4. Normal sodium 138. Potassium is slightly decreased at 3.2. BUN 11, creatinine 0.71. Glucose 151. Normal AST, ALT, alk phos. Normal lipase 51. Normal magnesium 1.8. Calculated anion gap of 12. Patient's symptoms improved significantly after initial course of 2 mg Haldol, Benadryl, Dilaudid, IV fluids. She began tolerating p.o. however her nausea and vomiting did return so additional 2 mg Haldol was ordered. 170: Pt feels up to tolerating her home dose Topamax which she typically takes. Ordered. 1849: UA not consistent with UTI, urine culture was sent. Patient is still having nausea after p.o. challenge, I consulted with the main ED attending, we will treat with additional fluids and Reglan. 1939: Re-evaluated patient, she is feeling better still not 100%, I did offer admission given the significance of her nausea however patient would like to go home. She was prescribed Protonix, Zofran, few doses of oral potassium chloride. Discussed follow up with PCP, GI, strict ED return precautions, supportive care. Patient her spouse verbalized understanding of all information agreeable with the plan. She is stable for discharge home. 02/28/25, Maribel, Elmer. Sign-out from BYRON Rodriguez. 39-year-old female with history of cyclic vomiting syndrome, admitted here for the same exacerbation two weeks ago, could not tell me which specific medication that seemed to help the most, still having persisting nausea and vomiting after EKG showed normal QTC today, Haldol, Ativan, Protonix, Benadryl. IV Reglan to be tried. Assumed care. Still having nausea and retching after Reglan, requests admission. We will contact hospitalist. 2034, Case discussed with hospitalist Dr. Mckoy, who accepts patient for admission to observation. Critical Care Time <Finn Payne MD - Last Filed: 03/01/25 02:52> Critical Care Time Critical Care Time: Yes Total Critical Care Time: 35 Attestation: The high probability of a clinically significant, sudden or life threatening deterioration of the [gastrointestinal, metabolic] system(s) required my full and direct attention, intervention and personal management. The aggregate critical care time was [35] minutes. This time is in addition to time spent performing reported procedures but includes the following: [x] Data Review and interpretation [x] Patient assessment and monitoring of vital signs [x] Documentation [x] Medication orders and management Discharge Plan Departure Patient Disposition: Admitted as Observation Clinical Impression: Cyclical vomiting, Colitis, Acute hypokalemia Gastritis Qualifiers: Gastritis type: unspecified gastritis Chronicity: acute Gastritis bleeding: p resence of bleeding unspecified Qualified Code(s): K29.00 - Acute gastritis without bleeding Admit Date/Time: 02/28/25 20:39 Admit Provider: Ortega Serrano
--- NOTE | 2025-02-28 13:46 | DI.CT.S_ITS ---
PROCEDURE: CT ABDOMEN PELVIS W CON INDICATIONS: cyclic vomiting; new Right sided abd pain in addition to L TECHNIQUE: After the administration of intravenous contrast, axial sections acquired from the lung bases to the pubic symphysis. Coronal and sagittal reformats were performed. For radiation dose reduction, the following was used: automated exposure control, adjustment of mA and/or kV according to patient size. COMPARISON: [facility], CT, CT ABDOMEN PELVIS W CON, 02/10/2025, 10:33. FINDINGS: Image quality: Diagnostic. Lower Chest: Mild bibasilar dependent atelectasis is seen. Heart size is normal, no pericardial effusion. ABDOMEN: Liver: No solid mass. Gallbladder: No radiopaque gallstones or wall thickening. Biliary ducts: No biliary dilation. Pancreas: No ductal dilation. Spleen: Size is within normal limits. Adrenal Glands: No adrenal nodules. Kidneys and Ureters: No hydronephrosis. No solid mass. No complex renal cystic lesion which requires follow up. Stomach and Bowel: There is no evidence of bowel obstruction. Moderate fecal stasis in the colon is seen. There is suggestion of significant gastric wall thickening. No significant small bowel wall thickening. Mild ascending colon wall thickening and edema is seen. Appendix is visualized and is within normal limits. No abscess collection. Peritoneum: No abnormal intraperitoneal fluid. No free air. Ventral Wall: No significant ventral hernia. Abdominal Nodes: No retroperitoneal or mesenteric adenopathy by size criteria. Vessels: Aorta and inferior vena cava are normal in size. PELVIS: Pelvic Organs: Unremarkable. Bladder: No bladder wall thickening, accounting for underdistention. Pelvic Nodes: No enlarged lymph nodes. Miscellaneous: No inguinal hernias are seen. Bones: No aggressive osseous abnormality. IMPRESSION: 1. Finding is concerning for gastritis and right-sided colitis. Normal appendix. No bowel obstruction or additional area of abnormal bowel wall thickening. No abscess collection. No free fluid or free air. Dictated by: Daniel Diamond M.D. on 02/28/2025 at 15:13 Approved by: Daniel Diamond M.D. on 02/28/2025 at 15:15
[2025-02-28] MEDS: HALOPERIDOL 5 MG/ML VIAL 2 MG IV ×2 (14:05→16:45)
[2025-02-28] MEDS: PANTOPRAZOLE 40 MG VIAL IV ×2 (14:05→22:28)
[2025-02-28] MEDS: diphenhydrAMINE 50 MG/ML VIAL IV (14:05)
[2025-02-28] MEDS: SODIUM CHLORIDE 0.9% 1,000 ML 1000 ML IV ×2 (14:06→18:36)
[2025-02-28 14:10] LABS: Add Manual Diff / Slide Review NO; Hematocrit 41.4 % (36-46); Hemoglobin 13.9 g/dL (12.0-16.0); Lymphocytes Absolute Auto 600 /uL (1100-4500); Mean Corpuscular HGB Conc 33.5 % (30-36); Mean Corpuscular Hemoglobin 29.2 PG (26-34); Mean Corpuscular Volume 87.0 fL (80-100); Platelet Count 308 X10^3/uL (150-400)
[2025-02-28 14:28] LABS: Alanine Aminotransferase 27 IU/L (<35); Albumin 5.2 g/dL (3.5-5.0); Albumin Globulin Ratio 1.7 (1.0-2.8); Alkaline Phosphatase 70 U/L (38-126); Blood Urea Nitrogen 11 mg/dL (7-17); Calcium 9.8 mg/dL (8.4-10.2); Carbon Dioxide 18 mmol/L (22-32); Chloride 105 mmol/L (98-107); Estimated Glomerular Filt Rate > 60 mL/min (>60); Globulin 3.1 g/dL (1.7-4.1); Glucose 151 mg/dL (70-99); HEMOLYSIS < 15 (0-50); Lipase 51 U/L (23-300); Magnesium 1.8 mg/dL (1.6-2.3); Potassium 3.2 mmol/L (3.4-5.1); Sodium 138 mmol/L (137-145); Total Protein 8.3 g/dL (6.3-8.2)
[2025-02-28] MEDS: POTASSIUM CHLORIDE IN WATER 10 MEQ/100 ML PIGGYBACK 100 MEQ IV (15:10)
[2025-02-28] MEDS: TOPIRAMATE 25 MG TABLET 50 MG PO (17:57)
[2025-02-28 18:41] LABS: Culture Indicated Urine Specimen Cultured
[2025-02-28] MEDS: METOCLOPRAMIDE 10 MG/2 ML INJ IV (19:00)
--- NOTE | 2025-02-28 20:00 | PC.NURSE ---
Pt continues to actively vomit. At this moment is pt is willing to be admitted at this time. Dr. Payne made aware.
--- NOTE | 2025-02-28 22:19 | P.HP_ITS ---
History of Present Illness History of Present Illness Date Patient Seen: 02/28/25 Time Patient Seen: 22:00 Chief complaint: intractable nausea and vomiting Narrative: 39 y/o with PMH of cyclic vomiting and prior hospitalizations for intractable nausea and vomiting, presented with another flare. Vital signs WNR labs unremarkable apart from mild hypokalemia. Complains on diffuse abdominal pain, possibly more in the epigastrium and on the right side. CT abdomen w/o opbvious abnormalitis with questionable ascending colitis. Given multiple doses of antienmetics and placed in observation. [facility] Medical History Anxiety History of cervical cancer ADHD Cyclic vomiting syndrome Surgical History History of tonsillectomy History of elective History of Status post hysterectomy Social History household members: friend(s) Smoking Status: Never smoker alcohol intake: current substance use type: does not use Meds Home Medications and Allergies Home Medications ?Medication ?Instructions ?Recorded ?Confirmed ?Type topiramate 25 mg tablet (Topamax) 50 mg (2 x 25 mg) PO BID #60 tabs 02/11/25 02/28/25 Rx ondansetron 4 mg disintegrating 4 mg PO Q8H PRN nausea and 02/28/25 Rx tablet vomiting #20 tabs pantoprazole 20 mg tablet,delayed 20 mg PO DAILY #30 t abs 02/28/25 Rx release (Protonix) potassium chloride 20 mEq 20 meq PO DAILY 5 days #5 ta bs 02/28/25 Rx tablet,extended release Allergies Allergy/AdvReac Type Severity Reaction Status Date / Time No Known Drug Allergies Allergy Verified 02/28/25 13:05 Review of Systems Review of Systems Narrative: GI - nausea, vomiting, abdominal pain RS - w/o dyspnea CVS - w/o palpitations or chest pain UG - w/o dysuria Exam Vital Signs (past 8 hours): - 02/28/25 14:25 02/28/25 15:05 02/28/25 15:30 Temperature Pulse Rate 76 68 70 Respiratory Rate 14 15 16 Blood Pressure 153/79 H 111/67 125/76 Pulse Oximetry 99 99 100 Oxygen Delivery Method Room Air Nasal Cannula Room Air Oxygen Flow Rate 2 02/28/25 16:00 02/28/25 16:45 02/28/25 17:05 Temperature 98 F Pulse Rate 72 71 78 Respiratory Rate 16 30 H 18 Blood Pressure 112/76 196/100 H 135/76 Pulse Oximetry 100 100 100 Oxygen Delivery Method Room Air Room Air Room Air Oxygen Flow Rate 02/28/25 20:00 02/28/25 20:59 02/28/25 21:06 Temperature Pulse Rate 81 71 Respiratory Rate 20 16 Blood Pressure 131/76 119/78 Pulse Oximetry 97 96 Oxygen Delivery Method Room Air Room Air Room Air Oxygen Flow Rate 02/28/25 21:10 Temperature 98.4 F Pulse Rate 72 Respiratory Rate 21 Blood Pressure 182/93 H Pulse Oximetry 98 Oxygen Delivery Method Oxygen Flow Rate Oxygen Delivery Method Room Air Oxygen Flow Rate 2 Narrative Exam Narrative: General - in no distress, girlfriend at bedside HEENT - normocephalic RS - normal respiratory effort GI - soft, not distended Skin - w/o rashes Neuro - intact, lucid Objective ECG Impression: NSR 89 Labs 02/28/25 13:50 02/28/25 13:50 Labs: Laboratory Results - last 24 hr 02/28/25 02/28/25 13:50 18:04 WBC 6.9 RBC 4.76 Hgb 13.9 Hct 41.4 MCV 87.0 MCH 29.2 MCHC 33.5 RDW 13.7 Plt Count 308 Neut % (Auto) 90.1 H Lymph % (Auto) 8.1 L [place] % (Auto) 1.5 L Eos % (Auto) 0.0 L Baso % (Auto) 0.3 Neut # (Auto) 6300 Lymph # (Auto) 600 L [place] # (Auto) 100 Eos # (Auto) 0 Baso # (Auto) 0 Sodium 138 Potassium 3.2 L Chloride 105 Carbon Dioxide 18 L BUN 11 Creatinine 0.71 Estimated GFR > 60 BUN/Creatinine Ratio 15.5 Glucose 151 H Calcium 9.8 Magnesium 1.8 Total Bilirubin 1.1 AST 32 ALT 27 Alkaline Phosphatase 70 Total Protein 8.3 H Albumin 5.2 H Globulin 3.1 Albumin/Globulin Ratio 1.7 Lipase 51 Urine RBC 1-5/hpf Urine WBC 0-1/hpf Ur Squamous Epith Cells 0-1 /hpf Amorphous Sediment 4+ Urine Bacteria Few (2-10) H Urine Yeast 0-1/hpf Ur Culture Indicated? Specimen cultured Vol Urine Centrifuged 10ml (spun) Assessment & Plan Assessment and plan (1) Cyclical vomiting: Status: Acute (2) Hypokalemia: Status: Acute Assessment & Plan narrative: Cycylic vomiting syndrome - antiemetics - Topamax - full liquid diet in AM - pain management - Protonix x 1 for GI prophylaxis Hypokalemia - GI loses - mild, supplemented in ED - BMP in AM DVT prophylaxis - SCDs Time-Based Coding :: [TOTAL MINUTES] spent with patient and on the chart (including review of chart, obtaining history, exam, reviewing outside data, placing orders, documenting exam and treatment plan, and counseling patient) on [DATE].
[2025-02-28] MEDS: DEXTROSE 5%-0.45NS W/KCL 20MEQ 1,000 ML 100 MEQ IV (22:28)
[2025-03-01] VITALS: BP 132/56; PULSE 81; RESP 20; TEMP 37.3; O2SAT 96
[2025-03-01] MEDS: METOCLOPRAMIDE 10 MG/2 ML INJ IV ×3 (02:04→15:20)
[2025-03-01 05:21] LABS: Blood Urea Nitrogen 5 mg/dL (7-17); Calcium 9.2 mg/dL (8.4-10.2); Carbon Dioxide 21 mmol/L (22-32); Chloride 100 mmol/L (98-107); Estimated Glomerular Filt Rate > 60 mL/min (>60); Glucose 128 mg/dL (70-99); HEMOLYSIS < 15 (0-50); Potassium 3.1 mmol/L (3.4-5.1); Sodium 129 mmol/L (137-145)
[2025-03-01 06:00] VITALS: BP 105/65; PULSE 72; RESP 22; TEMP 36.7; O2SAT 94
[2025-03-01] MEDS: POTASSIUM CHLORIDE IN WATER 10 MEQ/100 ML PIGGYBACK 100 MEQ IV ×4 (06:14→13:16)
--- NOTE | 2025-03-01 07:13 | PM.PN.IH.1 ---
Subjective Subjective Date Patient Seen: 03/01/25 Interval history: History of Present Illness Date Patient Seen: 02/28/25 Time Patient Seen: 22:00 Chief complaint: intractable nausea and vomiting Narrative: 39 y/o with PMH of cyclic vomiting and prior hospitalizations for intractable nausea and vomiting, presented with another flare. Vital signs WNR labs unremarkable apart from mild hypokalemia. Complains on diffuse abdominal pain, possibly more in the epigastrium and on the right side. CT abdomen w/o opbvious abnormalitis with questionable ascending colitis. Given multiple doses of antienmetics and placed in observation. 03/01: The patient reports ongoing abdominal pain, mostly in the left lower quadrant but also in the right lower quadrant. She states the right lower quadrant component of pain is different than previous presentations with cyclical vomiting. She is status post hysterectomy. She denies suspicious food ingestions, sick contacts, recent travel, diarrhea, melena or hematochezia. Exam Vital Signs (past 8 hours): - 03/01/25 00:00 03/01/25 06:00 Temperature 99.1 F 98.1 F Pulse Rate 81 72 Respiratory Rate 20 22 Blood Pressure 132/56 L 105/65 Pulse Oximetry 96 94 Oxygen Delivery Method Room Air Oxygen Flow Rate 0 Narrative Exam Narrative: GENERAL: This is a well-nourished, well-developed patient, appears uncomfortable, retching. HEAD: Atraumatic. Normocephalic. No temporal or scalp tenderness. EYES: Pupils equal round and reactive. Extraocular motions intact. No scleral icterus. No injection or drainage. ENT: Mucous membranes pink and moist. NECK: Trachea midline. No JVD, bruits or lymphadenopathy. Supple, nontender, no meningeal signs. CARDIOVASCULAR: Regular rate and rhythm without murmurs, gallops, or rubs. RESPIRATORY: Clear to auscultation. GASTROINTESTINAL: Abdomen soft, moderate lower abdominal tenderness, no guarding, rebound or rigidity, nondistended. EXTREMITIES: No clubbing, cyanosis, or edema. BACK: Nontender without deformity or crepitance. No flank tenderness. NEUROLOGIC: Alert, oriented, speech fluent, full upper and lower motor strength, no focal deficits evident. DERMATOLOGIC: No rashes or skin lesions. Multiple tattoos. Objective Imaging Abdomen-pelvis CT 02/28/2025:: Radiologist's impression: 1. Finding is concerning for gastritis and right-sided colitis. Normal appendix. No bowel obstruction or additional area of abnormal bowel wall thickening. No abscess collection. No free fluid or free air. Labs 02/28/25 13:50 03/01/25 04:50 Labs: Laboratory Results - last 24 hr 02/28/25 02/28/25 03/01/25 13:50 18:04 04:50 WBC 6.9 RBC 4.76 Hgb 13.9 Hct 41.4 MCV 87.0 MCH 29.2 MCHC 33.5 RDW 13.7 Plt Count 308 Neut % (Auto) 90.1 H Lymph % (Auto) 8.1 L [place] % (Auto) 1.5 L Eos % (Auto) 0.0 L Baso % (Auto) 0.3 Neut # (Auto) 6300 Lymph # (Auto) 600 L [place] # (Auto) 100 Eos # (Auto) 0 Baso # (Auto) 0 Sodium 138 129 L Potassium 3.2 L 3.1 L Chloride 105 100 Carbon Dioxide 18 L 21 L BUN 11 5 L Creatinine 0.71 0.64 Estimated GFR > 60 > 60 BUN/Creatinine Ratio 15.5 7.8 Glucose 151 H 128 H Calcium 9.8 9.2 Magnesium 1.8 Total Bilirubin 1.1 AST 32 ALT 27 Alkaline Phosphatase 70 Total Protein 8.3 H Albumin 5.2 H Globulin 3.1 Albumin/Globulin Ratio 1.7 Lipase 51 Urine RBC 1-5/hpf Urine WBC 0-1/hpf Ur Squamous Epith Cells 0-1 /hpf Amorphous Sediment 4+ Urine Bacteria Few (2-10) H Urine Yeast 0-1/hpf Ur Culture Indicated? Specimen cultured Vol Urine Centrifuged 10ml (spun) [facility] Medical History ADHD Anxiety Cyclic vomiting syndrome History of cervical cancer Surgical History History of History of elective History of tonsillectomy Status post hysterectomy Social History household members: friend(s) Smoking Status: Never smoker alcohol intake: current substance use type: does not use Assessment & Plan Assessment & Plan narrative: Cyclic vomiting syndrome -cannot rule gastroenteritis noting gastritis and colitis on CT scan -antiemetics, pain management -continue Topamax -full liquid diet as tolerated -continue PPI IV for gastritis Gastritis/colitis -continue pain control measures Hypokalemia/hyponatremia - replete IV K-rider 40mEq x 1 today - etiology GI losses - BMP in AM DVT prophylaxis - SCDs IH PROFEE Commissions Coordinator Document charge(s): No Charge Codes Subsequent inpatient/observation care: [id number]
[2025-03-01 08:12] VITALS: BP 123/84; PULSE 66; RESP 15; TEMP 36.2; O2SAT 100
--- NOTE | 2025-03-01 08:37 | CM.DANOTE ---
DCP Assessment note pt is a 39yo F readmit with N/V. was here 02/10-02/11 for similar cyclical vomiting syndrome PCP none listed Payer Coordinated care HO FOAMING MACHINE OPERATOR reviewed EMR per chart, pt lives in [place] in apartment with friends. last admission, pt dc'd home with friend to transport no CM needs. FOAMING MACHINE OPERATOR attempted to meet with pt in room, pt sleeping. allowed to rest. P: anticipate return home when medically stable with friend support again. will f/u about PCP resources if interested/if any additional DCP needs should arise CARMEN Patterson Discharge Planning/Care Management CM Discharge Assessment Start: 02/28/25 20:59 Freq: Status: Active Protocol: Document 03/01/25 08:35 SL (Rec: 03/01/25 08:36 SL Desktop) Discharge Planning Assessment Assigned Discharge CARMEN Tolbert Automated Cutting Machine Operator DPOA/Assigned mother Webber Designee Name Contact Information [phone] Advance Directives? No History Provided By Patient,Medical Record Prior Living Apartment/Condo Arrangements Household Members friend(s) Type of Drives own vehicle transporation used prior to admit Independent with ADL Yes 's Is patient alert and Yes oriented? Discharge Plan Home Transportation Friend Arrangement Referrals Initiated None needed Review Status In Process Please Provide Date 03/01/25 Initial DC Assessment Was Performed Next Review Type Continued Stay Review
[2025-03-01] MEDS: TOPIRAMATE 25 MG TABLET 50 MG PO ×2 (09:09→22:15)
[2025-03-01] MEDS: ONDANSETRON 8 MG in SODIUM CHLORIDE 0.9% 50 ML 216 MG IV (09:35)
[2025-03-01] MEDS: PHENAZOPYRIDINE 100 MG TABLET 200 MG PO ×3 (09:36→22:15)
[2025-03-01] MEDS: SODIUM CHLORIDE 0.9% FLUSH 10 ML IV ×2 (10:59→12:45)
[2025-03-01] MEDS: PANTOPRAZOLE 40 MG VIAL IV (11:42)
[2025-03-01] MEDS: HYDROMORPHONE 1 MG INJ IV ×7 (11:42→18:15)
[2025-03-01] MEDS: DEXTROSE 5%-0.45NS W/KCL 20MEQ 1,000 ML 100 MEQ IV (13:16)
[2025-03-01] MEDS: ACETAMINOPHEN 325 MG TABLET 1000 MG PO (15:45)
[2025-03-01 18:00] VITALS: BP 107/52; PULSE 69; RESP 15; TEMP 36.6; O2SAT 99
--- NOTE | 2025-03-01 19:09 | PC.NURSE ---
Asked the pt if she wanted staff to give change of shift report at her bedside and pt declined the option ricardo.
[2025-03-02] VITALS: BP 118/79; PULSE 80; RESP 17; TEMP 37.1; O2SAT 97
[2025-03-02] MEDS: DEXTROSE 5%-0.45NS W/KCL 20MEQ 1,000 ML 100 MEQ IV (01:31)
[2025-03-02 06:00] VITALS: BP 131/97; PULSE 79; RESP 17; TEMP 36.8; O2SAT 99
[2025-03-02 08:41] VITALS: BP 134/84; PULSE 73; RESP 16; TEMP 36.8; O2SAT 99
--- NOTE | 2025-03-02 09:24 | PM.DS.1 ---
History of Present Illness History of Present Illness Date Patient Seen: 03/02/25 Chief complaint: intractable nausea and vomiting Narrative: Chief complaint: Cyclic vomiting after very stressful life events History of present illness: 39 y/o with PMH of cyclic vomiting and prior hospitalizations for intractable nausea and vomiting, presented with another flare. Vital signs WNR labs unremarkable apart from mild hypokalemia. Complains on diffuse abdominal pain, possibly more in the epigastrium and on the right side. CT abdomen w/o opbvious abnormalitis with questionable ascending colitis. Given multiple doses of antienmetics and placed in observation. 03/01: The patient reports ongoing abdominal pain, mostly in the left lower quadrant but also in the right lower quadrant. She states the right lower quadrant component of pain is different than previous presentations with cyclical vomiting. She is status post hysterectomy. She denies suspicious food ingestions, sick contacts, recent travel, diarrhea, melena or hematochezia. 03/02: Patient is having no more symptoms tolerating diet discharged home 35 minutes were involved in the management of the patient including [id number] conversation physical examination review of laboratory data imaging and previous notation Discharge Providers Provider Date of admission: 02/28/25 20:39 Discharge Date: 03/02/25 Primary care physician: Ken Patterson DO Discharge provider: Oliver Jhaveri MD Exam Vital Signs (past 8 hours): - 03/02/25 06:00 03/02/25 08:41 Temperature 98.2 F 98.3 F Pulse Rate 79 73 Respiratory Rate 17 16 Blood Pressure 131/97 H 134/84 Pulse Oximetry 99 99 Oxygen Flow Rate 0 Oxygen Delivery Method Room Air Oxygen Flow Rate 0 Objective Labs 02/28/25 13:50 03/01/25 04:50 PFSH Medical History Anxiety History of cervical cancer ADHD Cyclic vomiting syndrome Surgical History History of tonsillectomy History of elective History of Status post hysterectomy Social History household members: friend(s) Smoking Status: Never smoker alcohol intake: current substance use type: does not use Discharge Plan Discharge Plan Patient Disposition: Home Discharge orders & Medications Prescriptions: New ondansetron 4 mg tablet,disintegrating 4 mg PO Q8H PRN (Reason: nausea and vomiting) Qty: 20 0RF pantoprazole [Protonix] 20 mg tablet,delayed release (DR/EC) 20 mg PO DAILY Qty: 30 0RF potassium chloride 20 mEq tablet extended release 20 meq PO DAILY 5 Days Qty: 5 0RF Continued topiramate [Topamax] 25 mg Tablet 50 mg PO BID Qty: 60 2RF Follow up/Referrals: Ken Patterson DO [Primary Care Provider, Family Practice] Visit Report/Discharge Packet Instructions: DI for Gastritis, DI for Vomiting -- Adult Stand Alone Forms: Patient Portal/API, Stroke Signs & Symptoms Discharge Data Primary Care Provider: Ken Patterson Attending Provider: Ortega Serrano Admit Date/Time: 02/28/25 20:39
[2025-03-02] MEDS: PHENAZOPYRIDINE 100 MG TABLET 200 MG PO (09:55)
[2025-03-02] MEDS: TOPIRAMATE 25 MG TABLET 50 MG PO (09:56)
--- NOTE | 2025-03-02 11:35 | PC.NURSE ---
Discharge Note Patient A&O, VSS, RA, no complaints of pain/discomfort. Discharge packet reviewed with patient, all questions/concerns addressed. PIV discontinued. Patient able to dress self and pack all belongings. Patient able to walk to POV accompanied by friend.
--- NOTE | 2025-03-02 11:39 | CM.DPC ---
DCP Discharge Home Per MD, pt's symptoms have resolved and stable for discharge home today and no identified barriers. Per RN, dc instructions provided and no concerns noted and taken off floor to POV. CARMEN Faye
== END 2025-03-02 10:15 | disposition home or self-care (01) ==
LOC: ED 20:38 → AC 20:39
PROVIDERS: Admitting Provider Internal Medicine; Emergency Provider Physician Assistant; PCP Family Medicine; Visit Provider Internal Medicine
DX: R11.15 Cyclical vomiting syndrome unrelated to migraine (principal); E87.6 Hypokalemia; R10.31 Right lower quadrant pain; R10.32 Left lower quadrant pain
CPT/HCPCS: 36415; 74177; 80048; 80053; 81003; 81015; 81025; 83690; 83735; 85025; 87086; 93005; 96361; 96365; 96366; 96367; 96375; 96376; 99285; 99291; G0378; J1171; J1200; J1630; J2405; J2470; J2765; J3360; Q9967

== ENCOUNTER 2025-04-17 09:56 | Observation (INO) | payer OTHER, SELFPAY ==
[2025-02-28 20:59] VITALS: BMI 22.2
[2025-04-17] VITALS (8 sets, daily range): BP systolic 103–199; BP diastolic 59–114; PULSE 62–85; RESP 14–19; TEMP 36.4–37; O2SAT 94–100; BMI 24.2
[2025-04-17] MEDS: METOCLOPRAMIDE 10 MG/2 ML INJ IV (11:18)
[2025-04-17] MEDS: PANTOPRAZOLE 40 MG VIAL IV (11:18)
[2025-04-17] MEDS: SODIUM CHLORIDE 0.9% 1,000 ML 1000 ML IV (11:19)
[2025-04-17 11:38] LABS: Add Manual Diff / Slide Review NO; Hematocrit 37.9 % (36-46); Hemoglobin 12.6 g/dL (12.0-16.0); Lymphocytes Absolute Auto 800 /uL (1100-4500); Mean Corpuscular HGB Conc 33.3 % (30-36); Mean Corpuscular Hemoglobin 28.9 PG (26-34); Mean Corpuscular Volume 86.9 fL (80-100); Platelet Count 374 X10^3/uL (150-400)
[2025-04-17 11:50] LABS: Alanine Aminotransferase 26 IU/L (<35); Albumin 4.8 g/dL (3.5-5.0); Albumin Globulin Ratio 1.7 (1.0-2.8); Alkaline Phosphatase 73 U/L (38-126); Blood Urea Nitrogen 4 mg/dL (7-17); Calcium 8.7 mg/dL (8.4-10.2); Carbon Dioxide 22 mmol/L (22-32); Chloride 100 mmol/L (98-107); Estimated Glomerular Filt Rate > 60 mL/min (>60); Globulin 2.8 g/dL (1.7-4.1); Glucose 128 mg/dL (70-99); HEMOLYSIS < 15 (0-50); Lipase 36 U/L (23-300); Potassium 3.1 mmol/L (3.4-5.1); Sodium 134 mmol/L (137-145); Total Protein 7.6 g/dL (6.3-8.2)
[2025-04-17 11:51] LABS: Lactate (Lactic Acid) 2.0 mmol/L (0.7-2.1)
--- NOTE | 2025-04-17 12:27 | ED_ITS ---
HPI - Nausea/Vomiting/Diarrhea <DO Rupa Means Last Filed: 04/18/25 07:34> General Chief complaint: Nausea/Vomiting/Diarrhea Stated complaint: N/V, Abd Pain Time Seen by Provider: 04/17/25 11:11 Source: EMS Mode of arrival: EMS History of Present Illness HPI Narrative: Patient is a 40-year-old history of cyclic vomiting has previously been admitted last month for hypokalemia along with a month prior. Her last visit to the emergency department was 03/28/2025. Today she reports significant left lower quadrant pain. She says that she has had wheezing cycles and pain over last 1 week. She is able to tell. It was then it slowly build and builds and builds. She is in pretty severe pain now. Related Data Home Medications ?Medication ?Instructions ?Recorded ?Confirmed No Known Home Medications 04/17/2503/30 Allergies Allergy/AdvReac Type Severity Reaction Status Date / Time No Known Drug Allergies Allergy Verified 04/17/25 10:01 Patient History <DO Rupa Means Last Filed: 04/18/25 07:34> Medical History Anxiety History of cervical cancer ADHD Cyclic vomiting syndrome Surgical History History of tonsillectomy History of elective History of Status post hysterectomy Social History household members: friend(s) alcohol intake: current substance use type: does not use alcohol intake frequency: holidays/special occasions only Exam <DO Rupa Means Last Filed: 04/18/25 07:34> Initial Vital Signs Initial Vital Signs: Vital Signs Temperature 97.5 F L 04/17/25 10:01 Pulse Rate 78 04/17/25 10:01 Respiratory Rate 19 04/17/25 10:01 Blood Pressure 140/88 04/17/25 10:01 Pulse Oximetry 100 04/17/25 10:01 Oxygen Delivery Method Room Air 04/17/25 10:01 GENERAL: Alert 32-year-old female appears in severe pain. HEENT: Head atraumatic,EOMI, pupils reactive, face symmetric, moist mucous membranes CARDIOVASCULAR: Regular rate and rhythm without murmurs, rubs or gallops. RESPIRATORY: Breath sounds equal bilaterally, no wheezes rales or rhonchi. ABDOMEN: Soft, significant left lower quadrant tenderness with mild guarding : No CVA tenderness EXTREMITIES: Normal range of motion, no clubbing or edema. Neurovascularly intact NEUROLOGICAL: Alert and oriented x4.Normal gait and speech. SKIN: Warm, dry, no laceration, no petechiae, no rashes or lesions. <Joaquina Pittman MD - Last Filed: 04/17/25 17:46> Initial Vital Signs Initial Vital Signs: Vital Signs Temperature 97.5 F L 04/17/25 10:01 Pulse Rate 78 04/17/25 10:01 Respiratory Rate 19 04/17/25 10:01 Blood Pressure 140/88 04/17/25 10:01 Pulse Oximetry 100 04/17/25 10:01 Oxygen Delivery Method Room Air 04/17/25 10:01 Course <Sussy Honeycutt DO - Last Filed: 04/18/25 07:34> Orders Ordered: Hydromorphone HCl (Hydromorphone 1 Mg/Ml Syringe) 1 mg IV Q2HR PRN PRN Reason: Pain, Moderate (4-6) Last Admin: 04/17/25 21:24 Dose: 1 mg Documented By: Admin: 04/17/25 19:04 Dose: 1 mg Documented By: Admin: 04/17/25 12:40 Dose: 1 mg Documented By: ES Sodium Chloride (Normal Saline 0.9%) 1,000 mls @ 100 mls/hr IV CONT PRADEEP Last Admin: 04/18/25 00:06 Dose: 100 mls/hr Documented By: Infusion: 04/18/25 00:06 Dose: Infused Documented By: Admin: 04/17/25 17:52 Dose: 100 mls/hr Documented By: ES Lorazepam (Lorazepam 2 Mg/Ml Inj) 1 mg IV Q4HR PRN PRN Reason: Anxietyausea and vomitn Last Admin: 04/17/25 21:25 Dose: 1 mg Documented By: LANCE Naloxone HCl (Naloxone 0.4 Mg/Ml Vial) 0.2 mg IV Q2MIN PRN PRN Reason: Opiate Reversal Ondansetron HCl (Ondansetron 4 Mg/2 Ml Inj) 4 mg IV Q4H PRN PRN Reason: Nausea And Vomiting Last Admin: 04/18/25 00:00 Dose: 4 mg Documented By: LANCE Discontinued Medications Droperidol (Droperidol 2.5 Mg/Ml Vial) 2.5 mg IV NOW ONE Stop: 04/17/25 14:30 Last Admin: 04/17/25 14:34 Dose: 2.5 mg Documented By: MARBELLA Hydromorphone HCl (Hydromorphone Hcl 0.5 Mg/0.5 Ml Syringe) 0.5 mg IV NOW ONE Stop: 04/17/25 11:12 Last Admin: 04/17/25 11:18 Dose: 0.5 mg Documented By: MARBELLA Hydromorphone HCl (Hydromorphone 1 Mg/Ml Syringe) 1 mg IV NOW ONE Stop: 04/17/25 14:30 Last Admin: 04/17/25 14:34 Dose: 1 mg Documented By: MARBELLA Hydromorphone HCl (Hydromorphone 2 Mg/Ml Syringe) 2 mg IV NOW ONE Stop: 04/17/25 22:49 Last Admin: 04/18/25 00:09 Dose: 2 mg Documented By: LANCE Sodium Chloride (Normal Saline 0.9%) 1,000 mls @ 1,000 mls/hr IV BOLUS ONE Stop: 04/17/25 12:07 Last Infusion: 04/17/25 13:05 Dose: Infused Documented By: Admin: 04/17/25 11:19 Dose: 1,000 mls/hr Documented By: MARBELLA Sodium Chloride (Normal Saline 0.9%) 1,000 mls @ 100 mls/hr IV CONT [facility] Last Infusion: 04/17/25 23:42 Dose: Infused Documented By: Infusion: 04/17/25 22:38 Dose: 0 mls/hr Documented By: Infusion: 04/17/25 16:04 Dose: 0 mls/hr Documented By: Admin: 04/17/25 13:49 Dose: 100 mls/hr Documented By: MARBELLA POTASSIUM CHLORIDE IN WATER (Potassium Cl 10 Meq/100 Ml Alesia) 10 meq in 100 mls @ 100 mls/hr IV Q1H PRADEEP Stop: 04/17/25 14:44 Last Infusion: 04/17/25 16:04 Dose: Infused Documented By: Admin: 04/17/25 14:54 Dose: 100 mls/hr Documented By: Infusion: 04/17/25 14:50 Dose: Infused Documented By: Admin: 04/17/25 13:50 Dose: 100 mls/hr Documented By: MARBELLA Metoclopramide HCl (Metoclopramide 10 Mg/2 Ml Inj) 10 mg IV NOW ONE Stop: 04/17/25 11:09 Last Admin: 04/17/25 11:18 Dose: 10 mg Documented By: MARBELLA Ondansetron HCl (Ondansetron 4 Mg/2 Ml Inj) 4 mg IV Q8HR PRN PRN Reason: Nausea And Vomiting Last Admin: 04/17/25 18:29 Dose: 4 mg Documented By: MARBELLA Pantoprazole Sodium (Pantoprazole 40 Mg Vial) 40 mg IV NOW ONE Stop: 04/17/25 11:09 Last Admin: 04/17/25 11:18 Dose: 40 mg Documented By: MARBELLA Sumatriptan Succinate (Sumatriptan 25 Mg Tablet) 50 mg PO NOW ONE Stop: 04/17/25 23:54 Last Admin: 04/18/25 00:00 Dose: 50 mg Documented By: LANCE Vital Signs Vital signs: Vital Signs - 8 hr 04/17/25 10:01 04/17/25 16:00 04/17/25 16:00 Temperature 97.5 F L Pulse Rate 78 68 Respiratory Rate 19 16 Blood Pressure 140/88 120/72 Pulse Oximetry 100 100 Oxygen Delivery Method Room Air 04/17/25 16:30 04/17/25 16:30 Temperature Pulse Rate 72 Respiratory Rate 14 Blood Pressure 103/59 L Pulse Oximetry 94 Oxygen Delivery Method <Joaquina Pittman MD - Last Filed: 04/17/25 17:46> Orders Ordered: Hydromorphone HCl (Hydromorphone 1 Mg/Ml Syringe) 1 mg IV Q2HR PRN PRN Reason: Pain, Moderate (4-6) Last Admin: 04/17/25 21:24 Dose: 1 mg Documented By: Admin: 04/17/25 19:04 Dose: 1 mg Documented By: Admin: 04/17/25 12:40 Dose: 1 mg Documented By: MARBELLA Sodium Chloride (Normal Saline 0.9%) 1,000 mls @ 100 mls/hr IV CONT PRADEEP Last Admin: 04/18/25 00:06 Dose: 100 mls/hr Documented By: Infusion: 04/18/25 00:06 Dose: Infused Documented By: Admin: 04/17/25 17:52 Dose: 100 mls/hr Documented By: MARBELLA Lorazepam (Lorazepam 2 Mg/Ml Inj) 1 mg IV Q4HR PRN PRN Reason: Anxietyausea and vomitn Last Admin: 04/17/25 21:25 Dose: 1 mg Documented By: LANCE Naloxone HCl (Naloxone 0.4 Mg/Ml Vial) 0.2 mg IV Q2MIN PRN PRN Reason: Opiate Reversal Ondansetron HCl (Ondansetron 4 Mg/2 Ml Inj) 4 mg IV Q4H PRN PRN Reason: Nausea And Vomiting Last Admin: 04/18/25 00:00 Dose: 4 mg Documented By: LANCE Discontinued Medications Droperidol (Droperidol 2.5 Mg/Ml Vial) 2.5 mg IV NOW ONE Stop: 04/17/25 14:30 Last Admin: 04/17/25 14:34 Dose: 2.5 mg Documented By: MARBELLA Hydromorphone HCl (Hydromorphone Hcl 0.5 Mg/0.5 Ml Syringe) 0.5 mg IV NOW ONE Stop: 04/17/25 11:12 Last Admin: 04/17/25 11:18 Dose: 0.5 mg Documented By: MARBELLA Hydromorphone HCl (Hydromorphone 1 Mg/Ml Syringe) 1 mg IV NOW ONE Stop: 04/17/25 14:30 Last Admin: 04/17/25 14:34 Dose: 1 mg Documented By: MARBELLA Hydromorphone HCl (Hydromorphone 2 Mg/Ml Syringe) 2 mg IV NOW ONE Stop: 04/17/25 22:49 Last Admin: 04/18/25 00:09 Dose: 2 mg Documented By: LANCE Sodium Chloride (Normal Saline 0.9%) 1,000 mls @ 1,000 mls/hr IV BOLUS ONE Stop: 04/17/25 12:07 Last Infusion: 04/17/25 13:05 Dose: Infused Documented By: Admin: 04/17/25 11:19 Dose: 1,000 mls/hr Documented By: MARBELLA Sodium Chloride (Normal Saline 0.9%) 1,000 mls @ 100 mls/hr IV CONT PRADEEP Last Infusion: 04/17/25 23:42 Dose: Infused Documented By: Infusion: 04/17/25 22:38 Dose: 0 mls/hr Documented By: Infusion: 04/17/25 16:04 Dose: 0 mls/hr Documented By: Admin: 04/17/25 13:49 Dose: 100 mls/hr Documented By: MARBELLA POTASSIUM CHLORIDE IN WATER (Potassium Cl 10 Meq/100 Ml Alesia) 10 meq in 100 mls @ 100 mls/hr IV Q1H PRADEEP Stop: 04/17/25 14:44 Last Infusion: 04/17/25 16:04 Dose: Infused Documented By: Admin: 04/17/25 14:54 Dose: 100 mls/hr Documented By: Infusion: 04/17/25 14:50 Dose: Infused Documented By: Admin: 04/17/25 13:50 Dose: 100 mls/hr Documented By: MARBELLA Metoclopramide HCl (Metoclopramide 10 Mg/2 Ml Inj) 10 mg IV NOW ONE Stop: 04/17/25 11:09 Last Admin: 04/17/25 11:18 Dose: 10 mg Documented By: MARBELLA Ondansetron HCl (Ondansetron 4 Mg/2 Ml Inj) 4 mg IV Q8HR PRN PRN Reason: Nausea And Vomiting Last Admin: 04/17/25 18:29 Dose: 4 mg Documented By: MARBELLA Pantoprazole Sodium (Pantoprazole 40 Mg Vial) 40 mg IV NOW ONE Stop: 04/17/25 11:09 Last Admin: 04/17/25 11:18 Dose: 40 mg Documented By: MARBELLA Sumatriptan Succinate (Sumatriptan 25 Mg Tablet) 50 mg PO NOW ONE Stop: 04/17/25 23:54 Last Admin: 04/18/25 00:00 Dose: 50 mg Documented By: LANCE Vital Signs Vital signs: Vital Signs - 8 hr 04/17/25 10:01 04/17/25 16:00 04/17/25 16:00 Temperature 97.5 F L Pulse Rate 78 68 Respiratory Rate 19 16 Blood Pressure 140/88 120/72 Pulse Oximetry 100 100 Oxygen Delivery Method Room Air 04/17/25 16:30 04/17/25 16:30 Temperature Pulse Rate 72 Respiratory Rate 14 Blood Pressure 103/59 L Pulse Oximetry 94 Oxygen Delivery Method MDM - Nausea/Vomiting/Diarrhea <Sussy Honeycutt, DO - Last Filed: 04/18/25 07:34> Lab Data 04/18/25 05:43 04/18/25 05:43 Labs: Lab Results 04/17/25 04/17/25 Range/Units 11:27 12:27 WBC 12.3 H (4.5-11.0) X10^3/uL RBC 4.36 (4.0-5.2) X10^6/uL Hgb 12.6 (12.0-16.0) g/dL Hct 37.9 (36-46) % MCV 86.9 (80-100) fL MCH 28.9 (26-34) PG MCHC 33.3 (30-36) % RDW 13.1 (11.6-14.8) % Plt Count 374 (150-400) X10^3/uL Neut % (Auto) 90.5 H (50-75) % Lymph % (Auto) 6.6 L (25-40) % [place] % (Auto) 2.2 L (3-14) % Eos % (Auto) 0.0 L (2-4) % Baso % (Auto) 0.7 (0-2) % Neut # (Auto) 78286 H (4459-2391) /uL Lymph # (Auto) 800 L (5833-7179) /uL [place] # (Auto) 300 (0-900) /uL Eos # (Auto) 0 (0-450) /uL Baso # (Auto) 100 (0-100) /uL Sodium 134 L (137-145) mmol/L Potassium 3.1 L (3.4-5.1) mmol/L Chloride 100 (98-107) mmol/L Carbon Dioxide 22 (22-32) mmol/L BUN 4 L (7-17) mg/dL Creatinine 0.54 (0.52-1.04) mg/dL Estimated GFR > 60 (>60) mL/min BUN/Creatinine Ratio 7.4 (6-22) Glucose 128 H (70-99) mg/dL Lactate 2.0 (0.7-2.1) mmol/L Calcium 8.7 (8.4-10.2) mg/dL Total Bilirubin 0.8 (0.2-1.3) mg/dL AST 34 (14-36) IU/L ALT 26 (<35) IU/L Alkaline Phosphatase 73 (38-126) U/L Total Protein 7.6 (6.3-8.2) g/dL Albumin 4.8 (3.5-5.0) g/dL Globulin 2.8 (1.7-4.1) g/dL Albumin/Globulin Ratio 1.7 (1.0-2.8) Lipase 36 (23-300) U/L HCG, Quant < 2.39 mIU/mL Urine RBC 1-5/hpf (0-5/HPF) Urine WBC 1-5/hpf (0-5/HPF) Ur Squamous Epith Cells 1-5 /hpf (0-5/HPF) Urine Bacteria Occasional (0-1) (None) Ur Culture Indicated? TNP Vol Urine Centrifuged 10ml (spun) Point of Care Testing Test Results Negative Urine Dip Bedside Urine Glucose Negative Bedside Urine Bilirubin - Negative Bedside Urine Ketone - Negative Urine Specific [place] 1.010 Bedside Urine Occult Blood +/- Bedside Urine pH 8.0 Bedside Urine Protein +/- 15 Bedside Urine Urobilinogen - Negative Bedside Urine Nitrite - Negative Bedside Urine Leukocytes - Negative Esterase Imaging Data CT scan - abdomen/pelvis: Radiologist's Impression: PROCEDURE: CT ABDOMEN PELVIS W CON INDICATIONS: LLQ pain TECHNIQUE: After the administration of intravenous contrast, axial sections acquired from the lung bases to the pubic symphysis. Coronal and sagittal reformats were performed. For radiation dose reduction, the following was used: automated exposure control, adjustment of mA and/or kV according to patient size. COMPARISON: [facility], CT, CT ABDOMEN PELVIS W CON, 02/28/2025, 14:18. FINDINGS: Image quality: Diagnostic. Lower Chest: No significant findings. ABDOMEN: Liver: No solid mass. Gallbladder: No radiopaque gallstones or wall thickening. Biliary ducts: No biliary dilation. Pancreas: No ductal dilation. Spleen: Size is within normal limits. Adrenal Glands: No adrenal nodules. Kidneys and Ureters: No hydronephrosis. No solid mass. No complex renal cystic lesion which requires follow up. Stomach and Bowel: Normal colonic caliber, without significant wall thickening. Peritoneum: No abnormal intraperitoneal fluid. No free air. Ventral Wall: No significant ventral hernia. Abdominal Nodes: No retroperitoneal or mesenteric adenopathy by size criteria. Vessels: Aorta and inferior vena cava are normal in size. PELVIS: Pelvic Organs: Uterus is surgically absent. No adnexal masses.. Bladder: No bladder wall thickening, accounting for underdistention. Pelvic Nodes: No enlarged lymph nodes. Miscellaneous: No inguinal hernias are seen. Bones: No aggressive osseous abnormality. IMPRESSION: 1. Remote hysterectomy. 2. No acute abdominal process. Dictated by: Hasmukh Todd M.D. on 04/17/2025 at 13:33 [facility] Narrative Medical decision making narrative: MDM CC: Abdominal pain vomiting Complicating co-morbidities: Cyclic vomiting Data collected from: Patient Medical records reviewed: sHe has actually had 2 [address] CTs 1 in January and 1 in February, prior hysterectomy Differential considered: Cyclic vomiting, diverticulitis, nephrolithiasis, ovarian cyst, pancreatitis Exam documented above, pertinent findings include: Tender in left lower quadrant no flank pain no guarding nondistended no peritoneal signs Lab Test results independently reviewed as above. Pertinent findings: WBC is 12.3 Electrolytes show mild hypokalemia creatinine 0.5 Lactate 2.0 normal bilirubin liver enzymes and lipase Independently reviewed EKG as above none Imaging studies independently reviewed: CT abdomen and pelvis no abnormality or cause for abdominal pain Consultations: [ ] Treatments: IV fluids, Zofran Protonix Dilaudid Reglan droperidol potassium 20 mEq Re-evaluations: Patient is seen sleeping and then when I come in to talk to her she wakes up and holds her stuffy close to her stomach Discussion: Patient is a 40-year-old female who has cyclic vomiting increasing flares occasional admissions. She has some mild leukocytosis of 12 some mild hypokalemia. No active vomiting seen in the ED but claims to still be nauseous. She is given many medications. <Joaquina Pittman MD - Last Filed: 04/17/25 17:46> Lab Data Labs: Lab Results 04/17/25 04/17/25 Range/Units 11:27 12:27 WBC 12.3 H (4.5-11.0) X10^3/uL RBC 4.36 (4.0-5.2) X10^6/uL Hgb 12.6 (12.0-16.0) g/dL Hct 37.9 (36-46) % MCV 86.9 (80-100) fL MCH 28.9 (26-34) PG MCHC 33.3 (30-36) % RDW 13.1 (11.6-14.8) % Plt Count 374 (150-400) X10^3/uL Neut % (Auto) 90.5 H (50-75) % Lymph % (Auto) 6.6 L (25-40) % [place] % (Auto) 2.2 L (3-14) % Eos % (Auto) 0.0 L (2-4) % Baso % (Auto) 0.7 (0-2) % Neut # (Auto) 56474 H (5586-1558) /uL Lymph # (Auto) 800 L (0447-8978) /uL [place] # (Auto) 300 (0-900) /uL Eos # (Auto) 0 (0-450) /uL Baso # (Auto) 100 (0-100) /uL Sodium 134 L (137-145) mmol/L Potassium 3.1 L (3.4-5.1) mmol/L Chloride 100 (98-107) mmol/L Carbon Dioxide 22 (22-32) mmol/L BUN 4 L (7-17) mg/dL Creatinine 0.54 (0.52-1.04) mg/dL Estimated GFR > 60 (>60) mL/min BUN/Creatinine Ratio 7.4 (6-22) Glucose 128 H (70-99) mg/dL Lactate 2.0 (0.7-2.1) mmol/L Calcium 8.7 (8.4-10.2) mg/dL Total Bilirubin 0.8 (0.2-1.3) mg/dL AST 34 (14-36) IU/L ALT 26 (<35) IU/L Alkaline Phosphatase 73 (38-126) U/L Total Protein 7.6 (6.3-8.2) g/dL Albumin 4.8 (3.5-5.0) g/dL Globulin 2.8 (1.7-4.1) g/dL Albumin/Globulin Ratio 1.7 (1.0-2.8) Lipase 36 (23-300) U/L HCG, Quant < 2.39 mIU/mL Urine RBC 1-5/hpf (0-5/HPF) Urine WBC 1-5/hpf (0-5/HPF) Ur Squamous Epith Cells 1-5 /hpf (0-5/HPF) Urine Bacteria Occasional (0-1) (None) Ur Culture Indicated? TNP Vol Urine Centrifuged 10ml (spun) Point of Care Testing Test Results Negative Urine Dip Bedside Urine Glucose Negative Bedside Urine Bilirubin - Negative Bedside Urine Ketone - Negative Urine Specific [place] 1.010 Bedside Urine Occult Blood +/- Bedside Urine pH 8.0 Bedside Urine Protein +/- 15 Bedside Urine Urobilinogen - Negative Bedside Urine Nitrite - Negative Bedside Urine Leukocytes - Negative Esterase MDM Narrative Medical decision making narrative: MDM CC: Abdominal pain vomiting Complicating co-morbidities: Cyclic vomiting Data collected from: Patient Medical records reviewed: sHe has actually had 2 abdominal CTs 1 in January and 1 in February, prior hysterectomy Differential considered: Cyclic vomiting, diverticulitis, nephrolithiasis, ovarian cyst, pancreatitis Exam documented above, pertinent findings include: Tender in left lower quadrant no flank pain no guarding nondistended no peritoneal signs Lab Test results independently reviewed as above. Pertinent findings: WBC is 12.3 Electrolytes show mild hypokalemia creatinine 0.5 Lactate 2.0 normal bilirubin liver enzymes and lipase Independently reviewed EKG as above none Imaging studies independently reviewed: CT abdomen and pelvis no abnormality or cause for abdominal pain Treatments: IV fluids, Zofran Protonix Dilaudid Reglan droperidol potassium 20 mEq Re-evaluations: Patient is seen sleeping and then when I come in to talk to her she wakes up and holds her stuffy close to her stomach Discussion: Patient is a 40-year-old female who has cyclic vomiting increasing flares occasional admissions. She has some mild leukocytosis of 12 some mild hypokalemia. No active vomiting seen in the ED but claims to still be nauseous. She is given many medications. 520pm Dr Pittman Care is assumed, patient is re-evaluated, chart is reviewed Multiple episodes of cyclic vomiting some requiring hospital admission many with associated hyponatremia. Seemed to be getting better in the ER with total of 3 L of fluid, 10 mg of Reglan, a total of 1.5 mg of Dilaudid, 2.5 mg of a nap seeing total of 20 mEq of IV potassium. Patient had some water seemed to be doing well was getting ready to go home and then again had prolific bout of severe dry heaving abdominal pain and vomiting. CT scan of the abdomen was done today, February 28 of Ary 15th all of them have been unremarkable. In shared decision-making with the patient offered home, additional treatment in the emergency department or consideration of hospitalization for slower fluids and continued antiemetics and she would prefer hospitalization at this time. will contact our hospitalist service Discharge Plan Departure Patient Disposition: Admitted as Observation Clinical Impression: Cyclic vomiting syndrome, Acute hypokalemia Vomiting Qualifiers: Migraine intractability: intractable Abdominal pain Qualifiers: Abdominal location: generalized Qualified Code(s): R10.84 - Generalized abdominal pain Admit Date/Time: 04/17/25 17:32 Admit Provider: Marquis Banda
--- NOTE | 2025-04-17 12:32 | DI.CT.S_ITS ---
PROCEDURE: CT ABDOMEN PELVIS W CON INDICATIONS: LLQ pain TECHNIQUE: After the administration of intravenous contrast, axial sections acquired from the lung bases to the pubic symphysis. Coronal and sagittal reformats were performed. For radiation dose reduction, the following was used: automated exposure control, adjustment of mA and/or kV according to patient size. COMPARISON: [facility], CT, CT ABDOMEN PELVIS W CON, 02/28/2025, 14:18. FINDINGS: Image quality: Diagnostic. Lower Chest: No significant findings. ABDOMEN: Liver: No solid mass. Gallbladder: No radiopaque gallstones or wall thickening. Biliary ducts: No biliary dilation. Pancreas: No ductal dilation. Spleen: Size is within normal limits. Adrenal Glands: No adrenal nodules. Kidneys and Ureters: No hydronephrosis. No solid mass. No complex renal cystic lesion which requires follow up. Stomach and Bowel: Normal colonic caliber, without significant wall thickening. Peritoneum: No abnormal intraperitoneal fluid. No free air. Ventral Wall: No significant ventral hernia. Abdominal Nodes: No retroperitoneal or mesenteric adenopathy by size criteria. Vessels: Aorta and inferior vena cava are normal in size. PELVIS: Pelvic Organs: Uterus is surgically absent. No adnexal masses.. Bladder: No bladder wall thickening, accounting for underdistention. Pelvic Nodes: No enlarged lymph nodes. Miscellaneous: No inguinal hernias are seen. Bones: No aggressive osseous abnormality. IMPRESSION: 1. Remote hysterectomy. 2. No acute abdominal process. Dictated by: Hasmukh Todd M.D. on 04/17/2025 at 13:33 Approved by: Hasmukh Todd M.D. on 04/17/2025 at 13:36
[2025-04-17 13:11] LABS: HCG Quantitative /Beta subunit < 2.39 mIU/mL
[2025-04-17] MEDS: SODIUM CHLORIDE 0.9% 1,000 ML 100 ML IV ×2 (13:49→17:52)
[2025-04-17] MEDS: POTASSIUM CHLORIDE IN WATER 10 MEQ/100 ML PIGGYBACK 100 MEQ IV ×2 (13:50→14:54)
[2025-04-17] MEDS: droPERidol 2.5 MG/ML VIAL IV (14:34)
--- NOTE | 2025-04-17 17:40 | PM.HP.1 ---
History of Present Illness History of Present Illness Date Patient Seen: 04/17/25 Chief complaint: N/V, Abd Pain Narrative: She was a 39-year-old female with a history of cyclic vomiting. She presents now with acute nausea and vomiting. She was treated in the ED for about 8 hours it was failed to improve. She describes this is being relatively typical for her abdominal migraine or CVS. Her symptoms have been ongoing for about 6 days. Primarily left lower quadrant pain, soft stools, and intermittent vomiting. No fevers, or chills. There are no major differences in her current symptoms from her typical symptoms. She is hoping to improve enough overnight to get to work in the morning. CTAP: 1. Remote hysterectomy. 2. No acute abdominal process. [facility] [place] Medical History Anxiety History of cervical cancer ADHD Cyclic vomiting syndrome Surgical History History of tonsillectomy History of elective History of Status post hysterectomy Social History household members: friend(s) alcohol intake: current substance use type: does not use Meds Home Medications and Allergies Home Medications ?Medication ?Instructions ?Recorded ?Confirmed ?Type topiramate 25 mg tablet (Topamax) 50 mg (2 x 25 mg) PO BID #60 tabs 02/11/25 02/28/25 Rx ondansetron 4 mg disintegrating 4 mg PO Q8H PRN nausea and 02/28/25 Rx tablet vomiting #20 tabs pantoprazole 20 mg tablet,delayed 20 mg PO DAILY #30 tabs 02/28/25 Rx release (Protonix) Allergies Allergy/AdvReac Type Severity Reaction Status Date / Time No Known Drug Allergies Allergy Verified 04/17/25 10:01 Review of Systems Review of Systems Narrative: All else reviewed and otherwise unremarkable except as noted in the history and physical. Exam Vital Signs (past 8 hours): - 04/17/25 10:01 04/17/25 16:00 04/17/25 16:00 Temperature 97.5 F L Pulse Rate 78 68 Respiratory Rate 19 16 Blood Pressure 140/88 120/72 Pulse Oximetry 100 100 Oxygen Delivery Method Room Air 04/17/25 16:30 04/17/25 16:30 Temperature Pulse Rate 72 Respiratory Rate 14 Blood Pressure 103/59 L Pulse Oximetry 94 Oxygen Delivery Method Oxygen Delivery Method Room Air Narrative Exam Narrative: NAD, alert and oriented, fluent speech, calm. Flat affect. Normocephalic skull, EOMI, anicteric sclera, symmetric pupils. Oropharynx unremarkable, no droop. Neck supple, midline trachea, no adenopathy. Lungs clear, normal rate and effort. Heart regular, no murmur gallop or rub. Abdomen is soft, non distended and mild LLQ tenderness. No rebound. Extremities are free of edema. Skin is free of rash or lesions. Joints are not swollen or deformed. Judgment appears to be normal. Objective Labs 04/17/25 11:27 04/17/25 11:27 Labs: Laboratory Results - last 24 hr 04/17/25 04/17/25 11:27 12:27 WBC 12.3 H RBC 4.36 Hgb 12.6 Hct 37.9 MCV 86.9 MCH 28.9 MCHC 33.3 RDW 13.1 Plt Count 374 Neut % (Auto) 90.5 H Lymph % (Auto) 6.6 L [place] % (Auto) 2.2 L Eos % (Auto) 0.0 L Baso % (Auto) 0.7 Neut # (Auto) 26854 H Lymph # (Auto) 800 L [place] # (Auto) 300 Eos # (Auto) 0 Baso # (Auto) 100 Sodium 134 L Potassium 3.1 L Chloride 100 Carbon Dioxide 22 BUN 4 L Creatinine 0.54 Estimated GFR > 60 BUN/Creatinine Ratio 7.4 Glucose 128 H Lactate 2.0 Calcium 8.7 Total Bilirubin 0.8 AST 34 ALT 26 Alkaline Phosphatase 73 Total Protein 7.6 Albumin 4.8 Globulin 2.8 Albumin/Globulin Ratio 1.7 Lipase 36 HCG, Quant < 2.39 Urine RBC 1-5/hpf Urine WBC 1-5/hpf Ur Squamous Epith Cells 1-5 /hpf Urine Bacteria Occasional (0-1) Ur Culture Indicated? TNP Vol Urine Centrifuged 10ml (spun) Assessment & Plan Assessment & Plan narrative: 1. Acute nausea and vomiting with a history of cyclic nausea and vomiting, active. 2. Acute hypokalemia, active. PLAN: -IV fluids and symptomatic treatment with antiemetics and analgesics. Anticipate 1 midnight for treatment of intractable nausea, supports observation status. Full resuscitation. Time-Based Coding :: 35 min spent with patient and on the chart (including review of chart, obtaining history, exam, reviewing outside data, placing orders, documenting exam and treatment plan, and counseling patient) on 04/17. Quality MIPS - Admit The patient?s Advance Care plan is not present because I confirmed today that the patient does not wish or was not able to name a surrogate decision maker or provide an Advance Care Plan.: Yes MIPS - Meds 'Current medications' to include all prescriptions, [id number] products, herbals, cannabis/cannabidiol products, and vitamin/mineral/dietary (nutritional) supplements. I have utilized all available resources to obtain, update, or review the patient?s current medications. [If Yes, STOP here]: Yes
[2025-04-17] MEDS: ONDANSETRON 4 MG/2 ML INJ IV (18:29)
--- NOTE | 2025-04-17 18:47 | PC.NURSE ---
Patient arrived from ED to room 204 at 1840 this evening. She is oriented to the room, call light, belongings in reach. VSS, afebrile. MD at bedside evaluating patient. She has IVF NS at 100 ml/hr. She feels groggy and falls back to sleep. Admssion assessment/ skin assessment endorsed to oncoming shift.
--- NOTE | 2025-04-17 19:36 | P.PN_ITS ---
Subjective Subjective Interval history: 40 yo female w/cyclic vomiting syndrome, anxiety, ADHD and prior cervical cancer admitted w/LLQ px, exacerbation of cyclic vomiting and hypokalemia. CT was negative for acute abnormalities. Potassium was 3.1. Patient reports she has not had any nausea since about midnight. She was able to tolerate breakfast this morning. She states she has had chronic left lower quadrant pain for the last 7 years. She states she had a hysterectomy and returned to for days later and lifted a 110 lb dog. She subsequently ruptured internal sutures and had intra-abdominal bleeding. She required 2 surgeries and subsequent reconstruction per her report. Since then she has had chronic pain. She states her pain is a 6/10 constantly. She states when this flares up her cyclic vomiting also flares. 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 She does not have insurance, has lost jobs over this, and is at risk for not being able to pay her rent. She states she has been trying to get help through the state and has been unsuccessful as the wait list for quite long. She is previously applied for disability but has been unsuccessful. She feels that she is now A number in a broken system rather than a person in need of help. She was quite tearful and expressed frustration over her medical condition and what she described appropriately as ?crippling Medical debt?. Exam Vital Signs (past 8 hours): - 04/17/25 16:00 04/17/25 16:00 04/17/25 16:30 Temperature Pulse Rate 68 72 Respiratory Rate 16 14 Blood Pressure 120/72 Pulse Oximetry 100 94 Oxygen Flow Rate 04/17/25 16:30 04/17/25 17:30 04/17/25 18:00 Temperature Pulse Rate 71 68 Respiratory Rate 16 Blood Pressure 103/59 L Pulse Oximetry 95 95 Oxygen Flow Rate 04/17/25 18:21 04/17/25 18:24 04/17/25 18:44 Temperature 98.6 F Pulse Rate 85 62 Respiratory Rate 16 16 Blood Pressure 199/114 H 142/84 H Pulse Oximetry 99 94 Oxygen Flow Rate 0 Oxygen Delivery Method Room Air Oxygen Flow Rate 0 Narrative Exam Narrative: GEN: Adult female, tearful, Alert and oriented x 3 HEENT:NC, Face symmetric CHEST: Respiratory excursions symmetric, CTAB CV: RRR, no M/R/G ABD: Soft, mild left lower quadrant tenderness/ND, BT present in all 4 quadrants, no organomegaly or masses EXTR: warm, well perfused, no C/C/E SKIN: warm and dry, no rash NEURO: Alert and oriented x 3, nonfocal Objective Labs 04/18/25 05:43 04/18/25 05:43 Labs: Laboratory Results - last 24 hr 04/17/25 04/17/25 11:27 12:27 WBC 12.3 H RBC 4.36 Hgb 12.6 Hct 37.9 MCV 86.9 MCH 28.9 MCHC 33.3 RDW 13.1 Plt Count 374 Neut % (Auto) 90.5 H Lymph % (Auto) 6.6 L [place] % (Auto) 2.2 L Eos % (Auto) 0.0 L Baso % (Auto) 0.7 Neut # (Auto) 37199 H Lymph # (Auto) 800 L [place] # (Auto) 300 Eos # (Auto) 0 Baso # (Auto) 100 Sodium 134 L Potassium 3.1 L Chloride 100 Carbon Dioxide 22 BUN 4 L Creatinine 0.54 Estimated GFR > 60 BUN/Creatinine Ratio 7.4 Glucose 128 H Lactate 2.0 Calcium 8.7 Total Bilirubin 0.8 AST 34 ALT 26 Alkaline Phosphatase 73 Total Protein 7.6 Albumin 4.8 Globulin 2.8 Albumin/Globulin Ratio 1.7 Lipase 36 HCG, Quant < 2.39 Urine RBC 1-5/hpf Urine WBC 1-5/hpf Ur Squamous Epith Cells 1-5 /hpf Urine Bacteria Occasional (0-1) Ur Culture Indicated? TNP Vol Urine Centrifuged 10ml (spun) [facility] Medical History Anxiety History of cervical cancer ADHD Cyclic vomiting syndrome Surgical History History of tonsillectomy History of elective History of Status post hysterectomy Social History household members: friend(s) alcohol intake: current substance use type: does not use Assessment & Plan Assessment & Plan narrative: 1. Cyclic vomiting syndrome Improved overall. She was able to tolerate a solid breakfast this morning. No nausea. She does have chronic abdominal pain which she rates at a 6/10 which is her baseline. She requests discharge home and this will be accomplished. 2. Hypokalemia Replacing orally. 3. Anxiety d/o She reports she has 3 therapist that she sees regularly. 4. ADHD Appears to be untreated. Code status Full Prophy Low arash score Dispo Plan to discharge home this afternoon Time-Based Coding :: [TOTAL MINUTES] spent with patient and on the chart (including review of chart, obtaining history, exam, reviewing outside data, placing orders, documenting exam and treatment plan, and counseling patient) on [DATE].
[2025-04-18] MEDS: SODIUM CHLORIDE 0.9% 1,000 ML 100 ML IV (00:06)
[2025-04-18] MEDS: HYDROmorphone 2 MG/ML SYRINGE IV (00:09)
[2025-04-18 06:19] LABS: Add Manual Diff / Slide Review NO; Hematocrit 37.9 % (36-46); Hemoglobin 13.0 g/dL (12.0-16.0); Lymphocytes Absolute Auto 2300 /uL (1100-4500); Mean Corpuscular HGB Conc 34.2 % (30-36); Mean Corpuscular Hemoglobin 29.6 PG (26-34); Mean Corpuscular Volume 86.5 fL (80-100); Platelet Count 377 X10^3/uL (150-400)
[2025-04-18 06:28] LABS: Blood Urea Nitrogen 3 mg/dL (7-17); Calcium 9.3 mg/dL (8.4-10.2); Carbon Dioxide 25 mmol/L (22-32); Chloride 94 mmol/L (98-107); Estimated Glomerular Filt Rate > 60 mL/min (>60); Glucose 107 mg/dL (70-99); HEMOLYSIS < 15 (0-50); Magnesium 1.6 mg/dL (1.6-2.3); Potassium 3.1 mmol/L (3.4-5.1); Sodium 129 mmol/L (137-145)
[2025-04-18 07:00] VITALS: BP 146/97; PULSE 61; RESP 16; TEMP 36.6; O2SAT 100
[2025-04-18] MEDS: ONDANSETRON 4 MG/2 ML INJ IV ×2 (07:42)
[2025-04-18] MEDS: POTASSIUM CHLORIDE IN WATER 10 MEQ/100 ML PIGGYBACK 100 MEQ IV ×4 (08:06→12:37)
[2025-04-18] MEDS: MAGNESIUM SULFATE 2 GM/50 ML PIGGYBACK IV (08:24)
--- NOTE | 2025-04-18 08:58 | CM.DANOTE ---
Initial DCP Assessment Note. Review EMR and PT Interview. Met with patient at bedside to discuss discharge needs.PT is alert x 4. Steady gait from bathroom to bed. No acute distress. Patient lives independently with roommate, Noah. Noah will transport home upon discharge. Payor:? Medicaid PCP: [facility]. [facility] business card provided to assist patient in obtaining an [place] PCP. Summary & Plan:?40 y/o female arrived to ED c/o N&V. Admitted OBS. Plan: IVF, diet as tolerated, replace electrolytes. Home 1-2 days. Linh Bullock RN, CM Discharge Planning/Care Management CM Discharge Assessment Start: 04/17/25 17:47 Freq: Status: Active Protocol: Document 04/18/25 08:55 SM (Rec: 04/18/25 08:58 SM [id number]) Discharge Planning Assessment Assigned Discharge Linh Bullock RN CM [employer] Provider [facility] Insurance Medicaid Advance Directives? No History Provided By Patient,Medical Record Has Patient been No admitted in last 30 days? Prior Living House Arrangements Household Members friend(s) Type of Drives own vehicle transporation used prior to admit Independent with ADL Yes 's Is patient alert and Yes oriented? Caregiver for No Another Barriers to No Discharge Comment No insurance, no provider. Discharge Plan Home Transportation Friend, Noah. Arrangement Referrals Initiated None needed
--- NOTE | 2025-04-18 12:20 | PM.DS.1 ---
History of Present Illness History of Present Illness Chief complaint: N/V, Abd Pain Narrative: Per H&P: She was a 39-year-old female with a history of cyclic vomiting. She presents now with acute nausea and vomiting. She was treated in the ED for about 8 hours it was failed to improve. She describes this is being relatively typical for her abdominal migraine or CVS. Her symptoms have been ongoing for about 6 days. Primarily left lower quadrant pain, soft stools, and intermittent vomiting. No fevers, or chills. There are no major differences in her current symptoms from her typical symptoms. She is hoping to improve enough overnight to get to work in the morning. CTAP: 1. Remote hysterectomy. 2. No acute abdominal process. Discharge Providers Provider Date of admission: 04/17/25 17:32 Discharge Date: 04/18/25 Consults: 04/17/25 19:53 Consult to Dietitian, Adult Routine Comment: Reason For Exam: weight loss Consult to MACHINE BINDING FOLDER - Collections Director Routine Comment: Collections Director Consult needed for:: Other reason (Comment) Discharge provider: Carissa Neville MD Summary Hospital Course Discharge Diagnosis: 1. Cyclic vomiting syndrome, improved 2. Hypokalemia, repleting 3. Chronic left lower quadrant pain 4. Chronic constipation 5. Anxiety d/o 6. ADHD Hospital Course: Patient was admitted with cyclic vomiting syndrome. She was initiated on IV fluids, antiemetics, and IV analgesics. She was placed on bowel rest. She did well overnight on the date of admission. She was able to advance her diet to a regular diet on the morning following admission. She tolerated that well and did not have any nausea or vomiting. Her pain was back to her baseline 6/10 chronic left lower quadrant pain. She requested discharge home. She was discharged in stable condition. Status at Discharge Cognitive/behavioral status at discharge: at baseline, oriented Functional status at discharge: independent ambulation Overall status at discharge: patient is back to baseline Time Spent with Patient Time spent: Greater than 30 minutes Exam Vital Signs (past 8 hours): - 04/18/25 07:00 Temperature 97.8 F Pulse Rate 61 Respiratory Rate 16 Blood Pressure 146/97 H Pulse Oximetry 100 Oxygen Delivery Method Room Air Oxygen Flow Rate 0 Objective Labs 04/18/25 05:43 04/18/25 05:43 Labs: Laboratory Results - last 24 hr 04/17/25 04/17/25 04/18/25 11:27 12:27 05:43 WBC 9.1 RBC 4.38 Hgb 13.0 Hct 37.9 MCV 86.5 MCH 29.6 MCHC 34.2 RDW 13.0 Plt Count 377 Neut % (Auto) 66.1 D Lymph % (Auto) 25.6 [place] % (Auto) 7.4 Eos % (Auto) 0.5 L Baso % (Auto) 0.4 Neut # (Auto) 6000 Lymph # (Auto) 2300 [place] # (Auto) 700 Eos # (Auto) 0 Baso # (Auto) 0 Sodium 129 L Potassium 3.1 L Chloride 94 L Carbon Dioxide 25 BUN 3 L Creatinine 0.61 Estimated GFR > 60 BUN/Creatinine Ratio 4.9 L Glucose 107 H Calcium 9.3 Magnesium 1.6 HCG, Quant < 2.39 Urine RBC 1-5/hpf Urine WBC 1-5/hpf Ur Squamous Epith Cells 1-5 /hpf Urine Bacteria Occasional (0-1) Ur Culture Indicated? TNP Vol Urine Centrifuged 10ml (spun) [facility] Medical History Anxiety History of cervical cancer ADHD Cyclic vomiting syndrome Surgical History History of tonsillectomy History of elective History of Status post hysterectomy Social History household members: friend(s) alcohol intake: current substance use type: does not use Discharge Plan Discharge Plan Patient Disposition: Home Provider Discharge Comment: Please contact [facility] [phone] or [facility] [phone] on Sunday to see if you can get established there for a new PCP. Trial lactulose to get your bowels to move at least daily and with a goal for a soft consistency to see if your left lower abdominal pain improves. You may take the lactulose 1 to 4 times a day as needed. Continue prune juice. You can stop the miralax if you are taking the lactulose. Discharge orders & Medications Prescriptions: New lactulose [Generlac] 10 gram/15 mL solution 20 g PO QID PRN (Reason: constipation) Qty: 1200 0RF ondansetron 4 mg tablet,disintegrating 4 mg PO Q8H PRN (Reason: nausea and vomiting) Qty: 30 0RF Discharge Health Status Multidrug resistant organism: No MDRO Diet/Activity/Treatments Diet: Diet as Tolerated and Regular Activity: As tolerated Oxygen: N/A Visit Report/Discharge Packet Instructions: DI for Cyclic Vomiting Syndrome-Adult Stand Alone Forms: Patient Portal/API, Stroke Signs & Symptoms Discharge Data Attending Provider: Marquis Banda Admit Date/Time: 04/17/25 17:32
[2025-04-18 12:29] VITALS: BP 137/86; PULSE 68; RESP 16; TEMP 36.9; O2SAT 97
--- NOTE | 2025-04-18 13:47 | PC.NURSE ---
D/C note: A&Ox4, independent, denies pain or nausea, refused transfer assist off unit. Steady ind gate. Pt confirms all belongings in her possession. Discharge education reviewed all questions answered. All lines removed. Hard scripts and discharge paperwork given to patient.
== END 2025-04-18 13:40 | disposition home or self-care (01) ==
LOC: ED 17:29 → AC 17:32
PROVIDERS: Emergency Medicine; Family Medicine; Admitting Provider Hospitalist; Emergency Provider Emergency Medicine; Visit Provider Hospitalist
DX: R11.15 Cyclical vomiting syndrome unrelated to migraine (principal); E87.6 Hypokalemia; R10.32 Left lower quadrant pain; K59.00 Constipation, unspecified; F41.9 Anxiety disorder, unspecified; F90.9 Attention-deficit hyperactivity disorder, unspecified type; Z85.41 Personal history of malignant neoplasm of cervix uteri
CPT/HCPCS: 36415; 74177; 80048; 80053; 81003; 81015; 81025; 83605; 83690; 83735; 84702; 85025; 87086; 96361; 96365; 96366; 96368; 96375; 96376; 99284; G0378; J1171; J1790; J2060; J2405; J2470; J2765; J3475; Q9967

== ENCOUNTER 2025-05-31 13:41 | Emergency (ER) | payer OTHER, SELFPAY ==
[2025-04-17 19:44] VITALS: BMI 24.2
[2025-05-31] VITALS (12 sets, daily range): BP systolic 120–168; BP diastolic 70–93; PULSE 73–95; RESP 16–20; TEMP 37; O2SAT 94–100; BMI 24.6
[2025-05-31 14:07] LABS: Add Manual Diff / Slide Review NO; Hematocrit 42.0 % (36-46); Hemoglobin 14.0 g/dL (12.0-16.0); Lymphocytes Absolute Auto 1200 /uL (1100-4500); Mean Corpuscular HGB Conc 33.3 % (30-36); Mean Corpuscular Hemoglobin 28.9 PG (26-34); Mean Corpuscular Volume 86.8 fL (80-100); Platelet Count 452 X10^3/uL (150-400)
[2025-05-31 14:12] LABS: Alanine Aminotransferase 31 IU/L (<35); Albumin 5.4 g/dL (3.5-5.0); Albumin Globulin Ratio 1.6 (1.0-2.8); Alkaline Phosphatase 72 U/L (38-126); Blood Urea Nitrogen 7 mg/dL (7-17); Calcium 9.8 mg/dL (8.4-10.2); Carbon Dioxide 20 mmol/L (22-32); Chloride 98 mmol/L (98-107); Estimated Glomerular Filt Rate > 60 mL/min (>60); Globulin 3.3 g/dL (1.7-4.1); Glucose 141 mg/dL (70-99); HEMOLYSIS < 15 (0-50); Lipase 45 U/L (23-300); Potassium 3.5 mmol/L (3.4-5.1); Sodium 134 mmol/L (137-145); Total Protein 8.7 g/dL (6.3-8.2)
[2025-05-31 14:25] LABS: Culture Indicated Urine Cult Not Indicated
[2025-05-31] MEDS: ONDANSETRON 4 MG/2 ML INJ IV (15:42)
[2025-05-31] MEDS: KETOROLAC 30 MG/ML VIAL 15 MG IV (15:42)
[2025-05-31] MEDS: SODIUM CHLORIDE 0.9% 1,000 ML 1000 ML IV (16:48)
--- NOTE | 2025-05-31 18:11 | ED_ITS ---
HPI - Abdominal Pain General Chief Complaint: Abdominal Pain Stated Complaint: Vomiting/Extreme abd pain/dizziness Time Seen by Provider: 05/31/25 15:33 Source: patient Mode of arrival: EMS History of Present Illness HPI narrative: 40-year-old female with remote hysterectomy perforation revision surgery 2017, prior , prior termination of , no other abdominopelvic surgeries recalled, history of CVS having weaned off of THC in the past, last exacerbation of CVS she feels was 2 weeks ago evaluated in ED [facility] and discharged home, last admission about 1 month ago for CVS exacerbation. This feels different, with lower abdominal pain not typical of her CVS exacerbation nausea and vomiting symptoms. Denies frequent or painful urination. Denies loose stools diarrhea, black or red stools. No injury trauma new activities. Related Data Previous Rx's ?Medication ?Instructions ?Recorded lactulose 10 gram/15 mL oral 20 g (30 mL) PO QID PRN 0 04/18/25 solution (Generlac) constipation #1,200 mL ondansetron 4 mg disintegrating 4 mg PO Q8H PRN nausea and 04/18/25 tablet vomiting #30 tabs Allergies Allergy/AdvReac Type Severity Reaction Status Date / Time No Known Drug Allergies Allergy Verified 05/31/25 13:53 Patient History Medical History (Updated 05/31/25 @ 19:27 by Finn Payne MD) Anxiety History of cervical cancer ADHD Cyclic vomiting syndrome Surgical History History of tonsillectomy History of elective History of Status post hysterectomy Social History household members: friend(s) Smoking Status: Current every day smoker alcohol intake: current substance use type: does not use Smoking Status: Current every day smoker alcohol intake frequency: holidays/special occasions only Exam Narrative Exam Narrative: GENERAL: Well-developed patient, in mild distress. HEAD: Atraumatic. Normocephalic. EYES: Pupils equal round and reactive. Extraocular motions intact. No scleral icterus. No injection or drainage. ENT: Nose without bleeding, purulent drainage. Throat without erythema, tonsillar hypertrophy or exudate. Airway patent. NECK: Trachea midline. Non tender CARDIOVASCULAR: Regular rate and rhythm without murmurs, gallops, or rubs. RESPIRATORY: Clear to auscultation. Breath sounds equal bilaterally. No wheezes, rales, or rhonchi. GASTROINTESTINAL: Abdomen soft, non-tender, nondistended. EXTREMITIES: No edema or joint tenderness. BACK: Nontender without deformity or crepitance. No flank tenderness. NEURO: AOx3. Motor functions grossly nonfocal. SKIN: No rash or erythema of visible areas Initial Vital Signs Initial Vital Signs: Vital Signs Temperature 98.6 F 05/31/25 13:53 Pulse Rate 76 05/31/25 13:53 Respiratory Rate 18 05/31/25 13:53 Blood Pressure 168/93 H 05/31/25 13:53 Pulse Oximetry 98 05/31/25 13:53 Oxygen Delivery Method Room Air 05/31/25 13:53 Course Orders Ordered: ED Orders 05/31/25 18:20 CT abdomen pelvis w con Stat Discontinued Medications Hydromorphone HCl (Hydromorphone Hcl 0.5 Mg/0.5 Ml Syringe) 0.5 mg IV NOW ONE Stop: 05/31/25 18:21 Last Admin: 05/31/25 18:34 Dose: 0.5 mg Documented By: NINA Sodium Chloride (Normal Saline 0.9%) 1,000 mls @ 1,000 mls/hr IV BOLUS ONE Stop: 05/31/25 17:44 Last Infusion: 05/31/25 18:25 Dose: Infused Documented By: Admin: 05/31/25 16:48 Dose: 1,000 mls/hr Documented By: NINA Ketorolac Tromethamine (Ketorolac 30 Mg/Ml Vial) 15 mg IV NOW ONE Stop: 05/31/25 15:34 Last Admin: 05/31/25 15:42 Dose: 15 mg Documented By: NINA Ondansetron HCl (Ondansetron 4 Mg/2 Ml Inj) 4 mg IV NOW PRN PRN Reason: Nausea And Vomiting Last Admin: 05/31/25 15:42 Dose: 4 mg Documented By: NINA Ondansetron HCl (Ondansetron 4 Mg Odt) 4 mg PO NOW PRN PRN Reason: Nausea And Vomiting Vital Signs Vital signs: Vital Signs - 8 hr 05/31/25 18:00 05/31/25 18:00 05/31/25 18:30 Pulse Rate 84 75 Respiratory Rate 16 Blood Pressure 126/79 Pulse Oximetry 95 98 05/31/25 19:00 05/31/25 19:12 05/31/25 19:12 Pulse Rate 73 80 Respiratory Rate 16 Blood Pressure 127/78 Pulse Oximetry 94 98 MDM - Abdominal Pain Lab Data Attestation: I reviewed the patient's lab results. Lab results narrative: White blood cell count 86512, hemoglobin 14, platelets adequate. Glucose 141. Normal renal function, serum CO2. Serum CO2 20 mild low, serum sodium 134 mild low. Liver functions and lipase normal. Urinalysis negative. 05/31/25 13:55 05/31/25 13:55 Labs: Lab Results 05/31/25 05/31/25 Range/Units 13:55 14:00 WBC 12.5 H (4.5-11.0) X10^3/uL RBC 4.84 (4.0-5.2) X10^6/uL Hgb 14.0 (12.0-16.0) g/dL Hct 42.0 (36-46) % MCV 86.8 (80-100) fL MCH 28.9 (26-34) PG MCHC 33.3 (30-36) % RDW 13.5 (11.6-14.8) % Plt Count 452 H (150-400) X10^3/uL Neut % (Auto) 86.7 H (50-75) % Lymph % (Auto) 9.7 L (25-40) % [place] % (Auto) 2.6 L (3-14) % Eos % (Auto) 0.0 L (2-4) % Baso % (Auto) 1.0 (0-2) % Neut # (Auto) 98921 H (7369-4017) /uL Lymph # (Auto) 1200 (0553-2181) /uL [place] # (Auto) 300 (0-900) /uL Eos # (Auto) 0 (0-450) /uL Baso # (Auto) 100 (0-100) /uL Sodium 134 L (137-145) mmol/L Potassium 3.5 (3.4-5.1) mmol/L Chloride 98 (98-107) mmol/L Carbon Dioxide 20 L (22-32) mmol/L BUN 7 (7-17) mg/dL Creatinine 0.58 (0.52-1.04) mg/dL Estimated GFR > 60 (>60) mL/min BUN/Creatinine Ratio 12.1 (6-22) Glucose 141 H (70-99) mg/dL Calcium 9.8 (8.4-10.2) mg/dL Total Bilirubin 0.8 (0.2-1.3) mg/dL AST 32 (14-36) IU/L ALT 31 (<35) IU/L Alkaline Phosphatase 72 (38-126) U/L Total Protein 8.7 H (6.3-8.2) g/dL Albumin 5.4 H (3.5-5.0) g/dL Globulin 3.3 (1.7-4.1) g/dL Albumin/Globulin Ratio 1.6 (1.0-2.8) Lipase 45 (23-300) U/L Urine RBC 1-5/hpf (0-5/HPF) Urine WBC None seen (0-5/HPF) Ur Squamous Epith Cells 1-5 /hpf (0-5/HPF) Amorphous Sediment 3+ Urine Bacteria None seen (None) Ur Culture Indicated? Cult not indicated Vol Urine Centrifuged 10ml (spun) Point of care testing: Urine Dip Bedside Urine Glucose Negative Bedside Urine Bilirubin - Negative Bedside Urine Ketone + 15 Urine Specific [place] 1.005 Bedside Urine Occult Blood +++ Bedside Urine pH 8.5 Bedside Urine Protein + 30 Bedside Urine Urobilinogen - Negative Bedside Urine Nitrite - Negative Bedside Urine Leukocytes - Negative Esterase Imaging Data CT scan - abdomen/pelvis: Radiologist's Impression: [address] [address] [address] Scan Report Signed Patient: Karely Dalal MR#: [id number] : 1985 Acct:[id number] Age/Sex: 40 / F Date of Service: 05/31/25 Loc: ED Accession Number: [id number] Procedure: CT abdomen pelvis w con Ordering Provider: Finn Payne MD PROCEDURE: CT ABDOMEN PELVIS W CON INDICATIONS: lower abd pain, prior hyst/ooph/ TECHNIQUE: After the administration of intravenous contrast, axial sections acquired from the lung bases to the pubic symphysis. Coronal and sagittal reformats were performed. For radiation dose reduction, the following was used: automated exposure control, adjustment of mA and/or kV according to patient size. COMPARISON: [facility], CT, CT ABDOMEN PELVIS W CON, 04/17/2025, 13:20. FINDINGS: Image quality: Diagnostic. Lower Chest: No significant findings. ABDOMEN: Liver: No solid mass. Gallbladder: No radiopaque gallstones or wall thickening. Biliary ducts: No biliary dilation. Pancreas: No ductal dilation. Spleen: Size is within normal limits. Adrenal Glands: No adrenal nodules. Kidneys and Ureters: No hydronephrosis. No solid mass. No complex renal cystic lesion which requires follow up. Stomach and Bowel: Normal colonic caliber, without significant wall thickening. Peritoneum: No abnormal intraperitoneal fluid. No free air. Ventral Wall: No significant ventral hernia. Abdominal Nodes: No retroperitoneal or mesenteric adenopathy by size criteria. Vessels: Aorta and inferior vena cava are normal in size. PELVIS: Pelvic Organs: Hysterectomy. Bladder: No bladder wall thickening, accounting for underdistention. Pelvic Nodes: No enlarged lymph nodes. Miscellaneous: No inguinal hernias are seen. Bones: No aggressive osseous abnormality. IMPRESSION: No acute CT findings in the abdomen and pelvis Approved by: Mehran Pradhan M.D. on 05/31/2025 at 18:12 MDM Narrative Medical decision making narrative: 40-year-old female with remote hysterectomy perforation revision surgery 2017, prior , prior termination of , no other abdominopelvic surgeries recalled, history of CVS (cyclic vomiting syndrome) having weaned off of THC in the past, last exacerbation of CVS she feels was 2 weeks ago evaluated in ED [facility] and discharged home, last admission about 1 month ago for CVS exacerbation. This feels different, with lower abdominal pain not typical of her CVS exacerbation nausea and vomiting symptoms. Afebrile, sirs screen negative. Lower abdominal discomfort on exam. IV Toradol had been ordered, pain decreased somewhat. Lab data: White blood cell count 81244, hemoglobin 14, platelets adequate. Glucose 141. Normal renal function, serum CO2. Serum CO2 20 mild low, serum sodium 134 mild low. Liver functions and lipase normal. Urinalysis negative. No hCG done, history of hysterectomy noted. Renal function adequate. CT abdomen and pelvis with IV contrast ordered. Patient had some relief with initial Toradol, still having pain, IV Dilaudid ordered. Keep NPO. CT abdomen and pelvis, showed no acute changes. See radiology report. Patient feels improved, able to take ice chips, has been ambulatory. Discharged home. Further evaluation as an outpatient. Return precautions discussed. Discharge Plan Departure Patient Disposition: Home Clinical Impression: Abdominal pain Activity Restrictions/Additional Instructions: History of prior hysterectomy and oophorectomy. History of cyclic vomiting syndrome. Lower abdominal pain that feels somewhat different. Mild tenderness on examination. Screening labs unremarkable. CT abdomen and pelvis performed, no acute changes noted. Unclear etiology of your discomfort at this time, but no dangerous conditions identified so far. You were able to take oral fluids, and we are able to ambulate without difficulties. Take [id number] Tylenol and or Motrin as needed for pain control. Recheck symptoms with your regular doctor in the next couple of days if persisting. Return to this/nearest emergency department for any change worsening symptoms or any concerns prior. Prescriptions: No Action lactulose [Generlac] 10 gram/15 mL solution 20 g PO QID PRN (Reason: constipation) Qty: 1200 0RF ondansetron 4 mg tablet,disintegrating 4 mg PO Q8H PRN (Reason: nausea and vomiting) Qty: 30 0RF Stand Alone Forms: Patient Portal/API
--- NOTE | 2025-05-31 18:20 | DI.CT.S_ITS ---
PROCEDURE: CT ABDOMEN PELVIS W CON INDICATIONS: lower abd pain, prior hyst/ooph/ TECHNIQUE: After the administration of intravenous contrast, axial sections acquired from the lung bases to the pubic symphysis. Coronal and sagittal reformats were performed. For radiation dose reduction, the following was used: automated exposure control, adjustment of mA and/or kV according to patient size. COMPARISON: [facility], CT, CT ABDOMEN PELVIS W CON, 04/17/2025, 13:20. FINDINGS: Image quality: Diagnostic. Lower Chest: No significant findings. ABDOMEN: Liver: No solid mass. Gallbladder: No radiopaque gallstones or wall thickening. Biliary ducts: No biliary dilation. Pancreas: No ductal dilation. Spleen: Size is within normal limits. Adrenal Glands: No adrenal nodules. Kidneys and Ureters: No hydronephrosis. No solid mass. No complex renal cystic lesion which requires follow up. Stomach and Bowel: Normal colonic caliber, without significant wall thickening. Peritoneum: No abnormal intraperitoneal fluid. No free air. Ventral Wall: No significant ventral hernia. Abdominal Nodes: No retroperitoneal or mesenteric adenopathy by size criteria. Vessels: Aorta and inferior vena cava are normal in size. PELVIS: Pelvic Organs: Hysterectomy. Bladder: No bladder wall thickening, accounting for underdistention. Pelvic Nodes: No enlarged lymph nodes. Miscellaneous: No inguinal hernias are seen. Bones: No aggressive osseous abnormality. IMPRESSION: No acute CT findings in the abdomen and pelvis Approved by: Mehran Pradhan M.D. on 05/31/2025 at 18:12
== END 2025-05-31 19:40 | disposition home or self-care (01) ==
PROVIDERS: Emergency Medicine; Emergency Provider Emergency Medicine
DX: R10.30 Lower abdominal pain, unspecified (principal); R11.2 Nausea with vomiting, unspecified
CPT/HCPCS: 36415; 74177; 80053; 81003; 81015; 83690; 85025; 96361; 96374; 96375; 99284; J1171; J1885; J2405; J7030; Q9967

== ENCOUNTER 2025-06-13 08:36 | Emergency (ER) | payer OTHER, SELFPAY ==
[2025-04-17 19:44] VITALS: BMI 24.2
[2025-06-13] VITALS (17 sets, daily range): BP systolic 113–186; BP diastolic 60–111; PULSE 65–90; RESP 11–22; O2SAT 94–100; BMI 24.6
--- NOTE | 2025-06-13 09:38 | EKG_ITS ---
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
[2025-06-13 09:41] LABS: Add Manual Diff / Slide Review NO; Hematocrit 40.1 % (36-46); Hemoglobin 13.6 g/dL (12.0-16.0); Lymphocytes Absolute Auto 700 /uL (1100-4500); Mean Corpuscular HGB Conc 33.9 % (30-36); Mean Corpuscular Hemoglobin 29.4 PG (26-34); Mean Corpuscular Volume 86.8 fL (80-100); Platelet Count 389 X10^3/uL (150-400)
[2025-06-13 09:51] LABS: Alanine Aminotransferase 24 IU/L (<35); Albumin 5.2 g/dL (3.5-5.0); Albumin Globulin Ratio 1.7 (1.0-2.8); Alkaline Phosphatase 67 U/L (38-126); Blood Urea Nitrogen 7 mg/dL (7-17); Calcium 9.3 mg/dL (8.4-10.2); Carbon Dioxide 20 mmol/L (22-32); Chloride 102 mmol/L (98-107); Estimated Glomerular Filt Rate > 60 mL/min (>60); Globulin 3.1 g/dL (1.7-4.1); Glucose 133 mg/dL (70-99); HEMOLYSIS < 15 (0-50); Lipase 48 U/L (23-300); Potassium 3.3 mmol/L (3.4-5.1); Sodium 135 mmol/L (137-145); Total Protein 8.3 g/dL (6.3-8.2)
--- NOTE | 2025-06-13 09:56 | PC.NURSE ---
pt complaining of abodminal pain and nausea/vomiting. Provider aware
--- NOTE | 2025-06-13 10:11 | ED_ITS ---
HPI - Abdominal Pain General Chief Complaint: Abdominal Pain Stated Complaint: Vomiting Time Seen by Provider: 06/13/25 09:56 Source: patient Mode of arrival: EMS History of Present Illness HPI narrative: 32-year-old female brought in by ambulance complaining of abdominal pain chest pain nausea and vomiting. Onset about 1:00 a.m., approximately 8 hours prior to being seen. Received ondansetron and fentanyl in the ambulance still complaining about abdominal pain and nausea. Has a history of cyclic vomiting. Has a history of cannabis use, says that she has stopped cannabis in the past and episodes of abdominal pain and vomiting have persisted. Reports a history of a previous hysterectomy with ?reconstruction? in 2017 after her stitches tore. Bowel habits have been normal, no urinary symptoms no fevers also complaining of chest pain. Encouraged terms of cardiac risk factor no family history of coronary disease although she does not know her mother no history of smoking diabetes hypertension or elevated cholesterol. Chest pain is midsternal and midepigastric began with all the other symptoms. She is also reporting paresthesias in the hands and feet. Last seen May 31, I reviewed that note she had a negative CT abdomen and pelvis at that time. Otherwise appears to be a typical visit for cyclic vomiting Related Data Previous Rx's ?Medication ?Instructions ?Recorded lactulose 10 gram/15 mL oral 20 g (30 mL) PO QID PRN 0 04/18/25 solution (Generlac) constipation #1,200 mL ondansetron 4 mg disintegrating 4 mg PO Q8H PRN nausea and 04/18/25 tablet vomiting #30 tabs promethazine 25 mg rectal 25 mg MA Q6H PRN nausea and 06/13/25 suppository vomiting #12 ea Allergies Allergy/AdvReac Type Severity Reaction Status Date / Time No Known Drug Allergies Allergy Verified 06/13/25 08:45 Patient History Medical History (Updated 06/13/25 @ 16:29 by Alber Dillard MD) Anxiety History of cervical cancer ADHD Cyclic vomiting syndrome Surgical History History of tonsillectomy History of elective History of Status post hysterectomy Social History household members: friend(s) Smoking Status: Never smoker alcohol intake: current substance use type: does not use Smoking Status: Never smoker alcohol intake frequency: holidays/special occasions only Exam Narrative Exam Narrative: Alert and oriented, vomiting and appears uncomfortable. Hypertensive vital signs are otherwise reassuring. Normocephalic and atraumatic oral mucosa is moist pupils are equal and reactive extraocular movements are intact speech is fluent Neck is supple Lungs are clear Cardiac regular rhythm rate no murmur rub or gallop Abdomen normal bowel sounds soft tenderness throughout the abdomen with voluntary guarding Moving all 4 extremities spontaneously and equally. Initial Vital Signs Initial Vital Signs: Vital Signs Pulse Rate 71 06/13/25 08:44 Respiratory Rate 18 06/13/25 08:44 Blood Pressure 186/111 H 06/13/25 08:44 Pulse Oximetry 100 06/13/25 08:44 Oxygen Delivery Method Room Air 06/13/25 08:44 Course Orders Ordered: Discontinued Medications Droperidol (Droperidol 2.5 Mg/Ml Vial) 0.625 mg IV NOW ONE Stop: 06/13/25 10:10 Last Admin: 06/13/25 10:14 Dose: 0.625 mg Documented By: ORTIZ Famotidine (Famotidine 20 Mg/2 Ml Vial) 20 mg IV NOW PRADEEP Last Admin: 06/13/25 10:14 Dose: 20 mg Documented By: ORTIZ Hydromorphone HCl (Hydromorphone 1 Mg/Ml Syringe) 0.5 mg IV NOW ONE Stop: 06/13/25 12:30 Last Admin: 06/13/25 12:38 Dose: 0.5 mg Documented By: LORRAINE Sodium Chloride (Normal Saline 0.9%) 1,000 mls @ 1,000 mls/hr IV BOLUS ONE Stop: 06/13/25 11:08 Last Infusion: 06/13/25 11:23 Dose: Infused Documented By: Admin: 06/13/25 10:15 Dose: 1,000 mls/hr Documented By: ORTIZ Lorazepam (Lorazepam 2 Mg/Ml Inj) 1 mg IV NOW ONE Stop: 06/13/25 10:10 Last Admin: 06/13/25 10:14 Dose: 1 mg Documented By: ORTIZ Methocarbamol (Methocarbamol 500 Mg Tablet) 500 mg PO NOW ONE Stop: 06/13/25 13:59 Last Admin: 06/13/25 14:21 Dose: 500 mg Documented By: ORTIZ Ondansetron HCl (Ondansetron 4 Mg/2 Ml Inj) 4 mg IV NOW PRN PRN Reason: Nausea And Vomiting Ondansetron HCl (Ondansetron 4 Mg Odt) 4 mg PO NOW PRN PRN Reason: Nausea And Vomiting Promethazine HCl (Promethazine 25 Mg Tablet) 25 mg PO NOW ONE Stop: 06/13/25 15:35 Last Admin: 06/13/25 15:47 Dose: 25 mg Documented By: LORRAINE Vital Signs Vital signs: Vital Signs - 8 hr 06/13/25 11:00 06/13/25 11:00 06/13/25 11:30 Pulse Rate 78 90 Respiratory Rate 20 20 Blood Pressure 127/82 Pulse Oximetry 97 96 06/13/25 11:30 06/13/25 12:00 06/13/25 12:00 Pulse Rate 87 Respiratory Rate 22 Blood Pressure 113/66 115/60 Pulse Oximetry 95 06/13/25 12:30 06/13/25 12:30 06/13/25 13:00 Pulse Rate 86 80 Respiratory Rate 21 17 Blood Pressure 130/73 Pulse Oximetry 97 95 06/13/25 13:00 06/13/25 13:30 06/13/25 13:30 Pulse Rate 72 Respiratory Rate 19 Blood Pressure 115/64 121/66 Pulse Oximetry 94 06/13/25 14:00 06/13/25 14:00 06/13/25 14:30 Pulse Rate 71 85 Respiratory Rate 19 21 Blood Pressure 119/76 Pulse Oximetry 95 06/13/25 14:30 06/13/25 15:00 06/13/25 15:00 Pulse Rate 69 Respiratory Rate 16 Blood Pressure 166/88 H 138/94 H Pulse Oximetry 06/13/25 15:30 06/13/25 15:30 06/13/25 16:00 Pulse Rate 71 67 Respiratory Rate 18 18 Blood Pressure 121/69 Pulse Oximetry 06/13/25 16:00 06/13/25 16:30 Pulse Rate 65 Respiratory Rate 11 L Blood Pressure 119/68 Pulse Oximetry MDM - Abdominal Pain Lab Data Lab results narrative: Potassium slightly low at 3.3 probably not clinically significant. Normal lipase normal white count urinalysis does not suggest infection. 06/13/25 09:24 06/13/25 09:24 Labs: Lab Results 06/13/25 Range/Units 09:24 WBC 9.9 (4.5-11.0) X10^3/uL RBC 4.62 (4.0-5.2) X10^6/uL Hgb 13.6 (12.0-16.0) g/dL Hct 40.1 (36-46) % MCV 86.8 (80-100) fL MCH 29.4 (26-34) PG MCHC 33.9 (30-36) % RDW 13.5 (11.6-14.8) % Plt Count 389 (150-400) X10^3/uL Neut % (Auto) 90.3 H (50-75) % Lymph % (Auto) 7.0 L (25-40) % [place] % (Auto) 2.1 L (3-14) % Eos % (Auto) 0.0 L (2-4) % Baso % (Auto) 0.6 (0-2) % Neut # (Auto) 9000 H (3521-8146) /uL Lymph # (Auto) 700 L (8890-1688) /uL [place] # (Auto) 200 (0-900) /uL Eos # (Auto) 0 (0-450) /uL Baso # (Auto) 100 (0-100) /uL Sodium 135 L (137-145) mmol/L Potassium 3.3 L (3.4-5.1) mmol/L Chloride 102 (98-107) mmol/L Carbon Dioxide 20 L (22-32) mmol/L BUN 7 (7-17) mg/dL Creatinine 0.63 (0.52-1.04) mg/dL Estimated GFR > 60 (>60) mL/min BUN/Creatinine Ratio 11.1 (6-22) Glucose 133 H (70-99) mg/dL Calcium 9.3 (8.4-10.2) mg/dL Magnesium 1.6 (1.6-2.3) mg/dL Total Bilirubin 0.9 (0.2-1.3) mg/dL AST 28 (14-36) IU/L ALT 24 (<35) IU/L Alkaline Phosphatase 67 (38-126) U/L Troponin I < 0.012 (0.01-0.034) ng/mL Total Protein 8.3 H (6.3-8.2) g/dL Albumin 5.2 H (3.5-5.0) g/dL Globulin 3.1 (1.7-4.1) g/dL Albumin/Globulin Ratio 1.7 (1.0-2.8) Lipase 48 (23-300) U/L Urine RBC 1-5/hpf (0-5/HPF) Urine WBC 1-5/hpf (0-5/HPF) Ur Squamous Epith Cells 10-30 /hpf H D (0-5/HPF) Amorphous Sediment 2+ Urine Bacteria Few (2-10) H (None) Vol Urine Centrifuged 10ml (spun) Urine Test Negative (Negative) Point of care testing: Urine Dip Bedside Urine Glucose Negative Bedside Urine Bilirubin - Negative Bedside Urine Ketone + 15 Urine Specific [place] 1.015 Bedside Urine Occult Blood ++ Bedside Urine pH 8.5 Bedside Urine Protein +/- 15 Bedside Urine Urobilinogen - Negative Bedside Urine Nitrite - Negative Bedside Urine Leukocytes - Negative Esterase ECG Data Attestation: I personally reviewed and interpreted this ECG as follows: (Normal sinus rhythm at [address] segment changes no previous infarction no hypertrophy. QT interval is 438 with a QTC of 482. Described as prolonged QT by machine report, this is borderline at best ) MDM Narrative Medical decision making narrative: 5-year-old female with a history of cyclic vomiting presenting with vomiting and abdominal pain. Workup was reassuring with respect to her labs, given her recurring presentations I elected not to image her. At this point. She was given IV fluids lorazepam antiemetics and a dose of hydromorphone as well as H2 lan. Eventually nausea and vomiting relented she was discharged home on promethazine. Patient will return if symptoms recur. I recommend she see her primary care provider soon. Discharge Plan Departure Patient Disposition: Home Clinical Impression: Cyclical vomiting Activity Restrictions/Additional Instructions: I recommend that you start with frequent small amounts of liquids hopefully something like Gatorade to keep yourself hydrated. Use promethazine suppositories as needed for nausea and vomiting continue your other previous home medications. Follow up soon with her primary care provider. Return to the emergency department if having uncontrolled vomiting or other acute symptoms Prescriptions: New promethazine 25 mg suppository 25 mg MA Q6H PRN (Reason: nausea and vomiting) Qty: 12 0RF No Action lactulose [Generlac] 10 gram/15 mL solution 20 g PO QID PRN (Reason: constipation) Qty: 1200 0RF ondansetron 4 mg tablet,disintegrating 4 mg PO Q8H PRN (Reason: nausea and vomiting) Qty: 30 0RF Stand Alone Forms: Patient Portal/API
[2025-06-13] MEDS: FAMOTIDINE 20 MG/2 ML VIAL IV (10:14)
[2025-06-13] MEDS: droPERidol 2.5 MG/ML VIAL 0.625 MG IV (10:14)
[2025-06-13] MEDS: SODIUM CHLORIDE 0.9% 1,000 ML 1000 ML IV (10:15)
[2025-06-13 10:31] LABS: Magnesium 1.6 mg/dL (1.6-2.3)
[2025-06-13 10:43] LABS: Troponin I < 0.012 ng/mL (0.01-0.034)
[2025-06-13] MEDS: PROMETHAZINE 25 MG TABLET PO (15:47)
== END 2025-06-13 17:04 | disposition home or self-care (01) ==
PROVIDERS: Emergency Provider Emergency Medicine
DX: R11.15 Cyclical vomiting syndrome unrelated to migraine (principal); R07.9 Chest pain, unspecified; Z90.710 Acquired absence of both cervix and uterus
CPT/HCPCS: 36415; 80053; 81003; 81015; 81025; 83690; 83735; 84484; 85025; 87086; 93005; 96361; 96374; 96375; 99284; J1171; J1790; J2060; J7030

== ENCOUNTER 2025-07-07 15:17 | Emergency (ER) | payer OTHER, SELFPAY ==
[2025-04-17 19:44] VITALS: BMI 24.2
[2025-07-07 15:21] VITALS: BP 131/81; PULSE 94; RESP 20; TEMP 37; O2SAT 99; BMI 24.6
[2025-07-07 16:27] LABS: Add Manual Diff / Slide Review NO; Hematocrit 39.9 % (36-46); Hemoglobin 13.7 g/dL (12.0-16.0); Lymphocytes Absolute Auto 1100 /uL (1100-4500); Mean Corpuscular HGB Conc 34.2 % (30-36); Mean Corpuscular Hemoglobin 29.3 PG (26-34); Mean Corpuscular Volume 85.5 fL (80-100); Platelet Count 404 X10^3/uL (150-400)
[2025-07-07 16:37] LABS: Alanine Aminotransferase 29 IU/L (<35); Albumin 5.3 g/dL (3.5-5.0); Albumin Globulin Ratio 1.7 (1.0-2.8); Alkaline Phosphatase 70 U/L (38-126); Blood Urea Nitrogen 11 mg/dL (7-17); Calcium 9.7 mg/dL (8.4-10.2); Carbon Dioxide 22 mmol/L (22-32); Chloride 96 mmol/L (98-107); Estimated Glomerular Filt Rate > 60 mL/min (>60); Globulin 3.2 g/dL (1.7-4.1); Glucose 131 mg/dL (70-99); HEMOLYSIS 27 (0-50); Lipase 44 U/L (23-300); Potassium 3.0 mmol/L (3.4-5.1); Sodium 135 mmol/L (137-145); Total Protein 8.5 g/dL (6.3-8.2)
[2025-07-07 16:42] LABS: Appearance Urine UA CLEAR; Bilirubin Urine UA NEGATIVE (NEGATIVE); Color Urine UA YELLOW; Glucose Urine UA NEGATIVE (Negative); Ketones Urine UA TRACE (NEGATIVE); Leukocyte Esterase Urine UA NEGATIVE (NEGATIVE); Nitrite Urine UA NEGATIVE (Negative); Occult Blood Urine UA 1+ (Negative); Protein Urine UA 1+ (Negative); Specific Gravity Urine UA 1.010 (1.000-1.035); Urobilinogen Urine UA 0.2 E.U./dL (0.2)
[2025-07-07 16:45] LABS: UR Morphine/Opiate cutoff 300 Negative (Negative); Ur Specific Gravity Normal (Normal); Urine MDMA Negative (Negative); Urine Methamphetamines Negative (Negative); Urine Tetrahydrocannabinol Positive (Negative); Urine Tricyclic Antidepressant Negative (Negative); pH Urine UA 8.5 (4.5-8.0)
[2025-07-07 16:48] LABS: Culture Indicated Urine Cult Not Indicated
[2025-07-07] MEDS: SODIUM CHLORIDE 0.9% 1,000 ML 1000 ML IV (17:06)
--- NOTE | 2025-07-07 17:45 | ED.ABDPAIN ---
HPI - Abdominal Pain General Chief Complaint: Abdominal Pain Stated Complaint: Abd pain, N/V t-6 days Time Seen by Provider: 07/07/25 15:44 Source: patient and EMS Mode of arrival: EMS History of Present Illness HPI narrative: This is a 40-year-old white female with history of cyclic vomiting syndrome who presents with 6 days of epigastric pain that is nonradiating the pain is accompanied by nausea and vomiting. Patient also said that her stool has been ?black and tarry? lately. No fevers or chills. Patient does admit to marijuana use for ?medicinal purposes?. No chest pain or shortness of breath. Related Data Previous Rx's ?Medication ?Instructions ?Recorded lactulose 10 gram/15 mL oral 20 g (30 mL) PO QID PRN 04/18/25 solution (Generlac) constipation #1,200 mL ondansetron 4 mg disintegrating 4 mg PO Q8H PRN nausea and 04/18/25 tablet vomiting #30 tabs promethazine 25 mg rectal 25 mg TX Q6H PRN nausea and 06/13/25 suppository vomiting #12 ea prochlorperazine 25 mg rectal 25 mg TX BID PRN nausea and 07/07/25 suppository vomiting #12 ea Allergies Allergy/AdvReac Type Severity Reaction Status Date / Time No Known Drug Allergies Allergy Verified 06/13/25 08:45 Review of Systems Review of Systems Narrative: GENERAL: Denies chills, fatigue, malaise, fever, sweats. HEENT: Denies sinus pain, ear pain, sore throat, difficulty swallowing, dizziness. RESPIRATORY: Denies dyspnea, cough, wheezing, hemoptysis, sputum. CARDIOVASCULAR: Denies chest pain, palpitations, orthopnea, edema, GASTROINTESTINAL: See HPI : Denies dysuria, frequency, incontinence, hematuria, urinary retention. MUSCULOSKELETAL: denies weakness, joint pain, or bony pain SKIN: Denies rash, skin lesions, or other NEUROLOGIC: Denies weakness, headache, numbness, change in speech, confusion, seizures, incoordination. PSYCHIATRIC: No concerning psychosocial issues. 12 point review of systems is negative except for those stated above Patient History Medical History (Updated 07/07/25 @ 21:33 by Finn Freeman MD) Anxiety History of cervical cancer ADHD Cyclic vomiting syndrome Surgical History History of tonsillectomy History of elective History of Status post hysterectomy Social History household members: friend(s) alcohol intake: current substance use type: does not use alcohol intake frequency: holidays/special occasions only Exam Narrative Exam Narrative: GENERAL: [] year old patient appears stated age. Well-developed patient, in mild distress. HEAD: Atraumatic. Normocephalic. EYES: Pupils equal round and reactive. Extraocular motions intact. No scleral icterus. No injection or drainage. ENT: Nose without bleeding, purulent drainage. Throat without erythema, tonsillar hypertrophy or exudate. Airway patent. NECK: Trachea midline. Non tender CARDIOVASCULAR: Regular rate and rhythm without murmurs, gallops, or rubs. RESPIRATORY: Clear to auscultation. Breath sounds equal bilaterally. No wheezes, rales, or rhonchi. GASTROINTESTINAL: Abdomen soft, non-tender, nondistended. EXTREMITIES: No edema or joint tenderness. BACK: Nontender without deformity or crepitance. No flank tenderness. NEURO: AOx3. SKIN: No rash or erythema of visible areas Initial Vital Signs Initial Vital Signs: Vital Signs Temperature 98.6 F 07/07/25 15:21 Pulse Rate 94 H 07/07/25 15:21 Respiratory Rate 20 07/07/25 15:21 Blood Pressure 131/81 07/07/25 15:21 Pulse Oximetry 99 07/07/25 15:21 Oxygen Delivery Method Room Air 07/07/25 15:21 Course Orders Ordered: ED Orders 07/07/25 15:30 Complete Blood Count AUTO DIFF Stat Comprehensive Metabolic Panel Stat Lipase Stat MAG [Magnesium] Stat 07/07/25 15:51 Urinalysis and Microscopic Stat Urine Drug Screen, Rapid Stat Discontinued Medications Droperidol (Droperidol 2.5 Mg/Ml Vial) 2.5 mg IV NOW ONE Stop: 07/07/25 17:44 Last Admin: 07/07/25 17:54 Dose: 2.5 mg Documented By: BRENDA Sodium Chloride (Normal Saline 0.9%) 1,000 mls @ 1,000 mls/hr IV BOLUS ONE Stop: 07/07/25 17:04 Last Infusion: 07/07/25 18:43 Dose: Infused Documented By: Admin: 07/07/25 17:06 Dose: 1,000 mls/hr Documented By: KATHY Pantoprazole Sodium (Pantoprazole 40 Mg Vial) 40 mg IV NOW ONE Stop: 07/07/25 17:44 Last Admin: 07/07/25 17:54 Dose: 40 mg Documented By: BRENDA Potassium Chloride (Potassium Chloride 20 Meq/15 Ml Udc) 40 meq PO NOW ONE Stop: 07/07/25 17:45 Last Admin: 07/07/25 17:54 Dose: 40 meq Documented By: BRENDA Vital Signs Vital signs: Vital Signs - 8 hr 07/07/25 15:21 07/07/25 18:06 07/07/25 19:30 Temperature 98.6 F Pulse Rate 94 H 78 71 Respiratory Rate 20 16 Blood Pressure 131/81 Pulse Oximetry 99 97 94 Oxygen Delivery Method Room Air Room Air MDM - Abdominal Pain Lab Data 07/07/25 15:30 07/07/25 15:30 Labs: Lab Results 07/07/25 07/07/25 07/07/25 Range/Units 15:30 15:51 15:51 WBC 10.4 (4.5-11.0) X10^3/uL RBC 4.67 (4.0-5.2) X10^6/uL Hgb 13.7 (12.0-16.0) g/dL Hct 39.9 (36-46) % MCV 85.5 (80-100) fL MCH 29.3 (26-34) PG MCHC 34.2 (30-36) % RDW 13.7 (11.6-14.8) % Plt Count 404 H (150-400) X10^3/uL Neut % (Auto) 86.6 H (50-75) % Lymph % (Auto) 10.2 L (25-40) % [place] % (Auto) 2.9 L (3-14) % Eos % (Auto) 0.0 L (2-4) % Baso % (Auto) 0.3 (0-2) % Neut # (Auto) 9000 H (2472-7799) /uL Lymph # (Auto) 1100 (2748-5894) /uL [place] # (Auto) 300 (0-900) /uL Eos # (Auto) 0 (0-450) /uL Baso # (Auto) 0 (0-100) /uL Sodium 135 L (137-145) mmol/L Potassium 3.0 L (3.4-5.1) mmol/L Chloride 96 L (98-107) mmol/L Carbon Dioxide 22 (22-32) mmol/L BUN 11 (7-17) mg/dL Creatinine 0.70 (0.52-1.04) mg/dL Estimated GFR > 60 (>60) mL/min BUN/Creatinine Ratio 15.7 (6-22) Glucose 131 H (70-99) mg/dL Calcium 9.7 (8.4-10.2) mg/dL Magnesium 1.7 (1.6-2.3) mg/dL Total Bilirubin 1.0 (0.2-1.3) mg/dL AST 58 H (14-36) IU/L ALT 29 (<35) IU/L Alkaline Phosphatase 70 (38-126) U/L Total Protein 8.5 H (6.3-8.2) g/dL Albumin 5.3 H (3.5-5.0) g/dL Globulin 3.2 (1.7-4.1) g/dL Albumin/Globulin Ratio 1.7 (1.0-2.8) Lipase 44 (23-300) U/L Urine Color Yellow Urine Appearance Clear Urine pH 8.5 H Normal (4.5-8.0) Ur Specific [place] 1.010 (1.000-1.035) Urine Protein 1+ H (Negative) Urine Glucose (UA) Negative (Negative) g/dL Urine Ketones Trace H (NEGATIVE) Urine Occult Blood 1+ H (Negative) Urine Nitrate Negative (Negative) Urine Bilirubin Negative (NEGATIVE) Urine Urobilinogen 0.2 (0.2) E.U./dL Ur Leukocyte Esterase Negative (NEGATIVE) Urine RBC 10-30/hpf H (0-5/HPF) Urine WBC 1-5/hpf (0-5/HPF) Ur Squamous Epith Cells 1-5 /hpf D (0-5/HPF) Urine Bacteria Occasional (0-1) (None) Urine Mucus 2+ H (Negative) Ur Culture Indicated? Cult not indicated Vol Urine Centrifuged 10ml (spun) U Opiates 300ng/mL cut Negative (Negative) Ur Oxycodone Screen Negative (Negative) Urine Methadone Screen Negative (Negative) Ur Barbiturates Screen Negative (Negative) U Tricyclic Antidepress Negative (Negative) Ur Phencyclidine Scrn Negative (Negative) Ur Amphetamines Screen Negative (Negative) U Methamphetamines Scrn Negative (Negative) Ur MDMA Scrn (Ecstasy) Negative (Negative) U Benzodiazepines Scrn Negative (Negative) Urine Cocaine Screen Negative (Negative) U Marijuana (THC) Screen Positive H (Negative) Urine Specific [place] Normal (Normal) Ur Creatinine Normal (Normal) Point of care testing: Point of Care Testing Stool Occult Blood Negative MDM Narrative Medical decision making narrative: Patient has CBC within normal limits chemistry remarkable for potassium of 3.0 lipase was normal urinalysis was negative urine drug screen positive for marijuana fecal occult blood was brown heme-negative. In the emergency room patient was given Inapsine and Protonix at the which the patient fell asleep patient was also given p.o. potassium. At this point the patient can be safely discharged home patient will be advised to stop using marijuana and follow up with her doctor. I will give her a prescription for Compazine in case she gets nauseated again differential diagnosis cyclic vomiting syndrome gastritis gastroparesis Discharge Plan Departure Patient Disposition: Home Clinical Impression: Cyclical vomiting, Hypokalemia, Marijuana use Instructions: Nausea and Vomiting-Adult, DI for Cyclic Vomiting Syndrome-Adult Activity Restrictions/Additional Instructions: Follow up with the primary care doctor 1-2 days return to ER if worse Prescriptions: New prochlorperazine 25 mg suppository 25 mg TX BID PRN (Reason: nausea and vomiting) Qty: 12 0RF No Action lactulose [Generlac] 10 gram/15 mL solution 20 g PO QID PRN (Reason: constipation) Qty: 1200 0RF ondansetron 4 mg tablet,disintegrating 4 mg PO Q8H PRN (Reason: nausea and vomiting) Qty: 30 0RF promethazine 25 mg suppository 25 mg TX Q6H PRN (Reason: nausea and vomiting) Qty: 12 0RF Stand Alone Forms: Patient Portal/API
[2025-07-07] MEDS: PANTOPRAZOLE 40 MG VIAL IV (17:54)
[2025-07-07] MEDS: droPERidol 2.5 MG/ML VIAL IV (17:54)
[2025-07-07] MEDS: POTASSIUM CHLORIDE 20 MEQ/15 ML UDC 40 MEQ PO (17:54)
[2025-07-07 18:03] LABS: Magnesium 1.7 mg/dL (1.6-2.3)
[2025-07-07 18:06] VITALS: PULSE 78; RESP 16; O2SAT 97
--- NOTE | 2025-07-07 19:29 | PC.NURSE ---
Report received from Sony Wesley RN
[2025-07-07 19:30] VITALS: PULSE 71; O2SAT 94
[2025-07-07 21:46] VITALS: BP 162/101; PULSE 86; RESP 20; TEMP 37.2; O2SAT 97
== END 2025-07-07 21:48 | disposition home or self-care (01) ==
PROVIDERS: Emergency Provider Emergency Medicine
DX: R11.15 Cyclical vomiting syndrome unrelated to migraine (principal); E87.6 Hypokalemia; F12.90 Cannabis use, unspecified, uncomplicated
CPT/HCPCS: 80053; 80305; 81001; 82272; 83690; 83735; 85025; 96361; 96368; 96374; 96375; 99284; J1790; J2470; J7030